=== PATIENT | male | born 1960 | race Caucasian/White ===

== ENCOUNTER 2020-07-18 15:38 | Emergency (ER) | payer OTHER, SELFPAY ==
--- NOTE | ~2020-07-18 | CT_ITS ---
EXAMINATION: CT ANGIOGRAM OF THE CHEST WITH AND WITHOUT CONTRAST (CT PULMONARY ANGIOGRAM FOR PE) CLINICAL INFORMATION: Reason for Exam Elevated D-dimer. Right-sided rib pain COMPARISON: Dorsal and thoracic spine films 12/08/2019, CT abdomen pelvis 10/28/2010 TECHNIQUE: Prior to contrast administration, noncontrast localization images were obtained. Subsequently, multidetector volumetric imaging was performed from the thoracic inlet to below the diaphragms following the administration of 71 mL Omnipaque 350 intravenous contrast. No contrast reaction reported Sagittal, coronal, and MIP oblique sagittal reformatted images were obtained on the CT workstation, uploaded to PACS, and reviewed. This CT examination was performed using dose optimization techniques as appropriate, variously including the following: *Automated exposure control *Adjustment of mA and/or kV according to patient size (this includes techniques or standardized protocols for targeted exams where dose is matched to indication/reason for exam; i.e. extremities or head) *Use of iterative reconstruction technique Total exam dose-length product 274 mGy-cm FINDINGS: QUALITY OF STUDY/CONTRAST BOLUS: Satisfactory. PULMONARY ARTERIES: No central or segmental pulmonary emboli. THORACIC AORTA: No aneurysm or dissection. LUNG: No focal consolidation, worrisome nodules or worrisome masses. A small triangular. Fissural nodular density seen in the right middle lobe most likely a perifissural lymph node (series 6 image 225). A small area of thickened pleura on the minor fissure mimics a mass (series 603 image 513). PLEURA: No pleural effusion or pneumothorax. MEDIASTINUM: Normal heart size. No pericardial effusion. No hilar or mediastinal lymphadenopathy. No evidence of septal bowing or right heart strain. CHEST WALL/AXILLA: No axillary or internal mammary lymphadenopathy. OSSEOUS STRUCTURES: There has been progression of an L1 vertebral body compression fracture with vacuum phenomena present in the disc above as well as a disc below. No rib fractures are seen. UPPER ABDOMEN: Small hiatal hernia is present. No reflux of contrast into the hepatic veins to suggest elevated right heart pressures. CT/CT angio chest PE protocol IMPRESSION: No evidence of pulmonary emboli. Progression of L1 vertebral compression fracture Small nodular densities in the lungs most likely perifissural lymph nodes. Follow-up could be via Fleischner Society criteria. In the highest risk patients, follow-up of such abnormalities with only be at most optional. According to the UPDATED 2017 Fleischner Society recommendations, the advised follow-up imaging for solid nodules < 6 mm is: LOW RISK PATIENT: No routine follow-up. HIGH RISK PATIENT: Optional CT at 12 months. VTE: negative
--- NOTE | ~2020-07-18 | XR_ITS ---
EXAMINATIONS: CHEST 1 VIEW AND RIGHT RIBS CLINICAL INFORMATION: Right-sided pain. COMPARISON: August 24, 2013. TECHNIQUE: A PA radiograph of the chest was obtained in addition to several views of the right ribs. FINDINGS: The cardiac silhouette is not enlarged. The mediastinal and hilar contours are unremarkable. There are neither pleural effusions nor pneumothoraces. There is stable mild blunting of the left lateral costophrenic angle. There are no consolidations. The osseous structures are unremarkable. Specifically, no rib fractures are identified. XR/XR ribs RT min 3V w CXR1V IMPRESSION: No evidence for acute disease. Specifically, no rib fractures identified.
[2020-07-18 15:46] VITALS: BP 130/96; PULSE 97; RESP 18; TEMP 36.2; O2SAT 96; BMI 26.4
[2020-07-18 16:42] LABS: MANUAL DIFF FLAG NO
[2020-07-18 16:44] LABS: Basophils Percent Auto 0.3 % (0-2); Eosinophils Percent Auto 0.6 % (0-4); Hematocrit 49.7 % (42-52); Hemoglobin 17.4 g/dl (14.0-18.0); Imm Gran Abs Auto 0.01 X10*3/uL (0.00-0.03); Imm Gran Pct Auto 0.2 % (0.0-0.4); Lymphocytes Absolute Auto 2.2 X10*3/uL (1.2-4.9); Lymphocytes Percent Auto 35.4 % (20-40); Mean Corpuscular Hemoglobin 33.5 pg (27.0-33.0); Mean Corpuscular Volume 95.6 fL (80-98); Mean Platelet Volume 9.7 fL (9.4-12.4); Monocytes Absolute Auto 0.6 X10*3/uL (0.1-1.2); Monocytes Percent Auto 9.6 % (2-11); Neutrophils Absolute Auto 3.4 X10*3/uL (2.0-8.3); Neutrophils Percent Auto 53.9 % (45-73); Platelet Count 251 X10*3/uL (160-400); White Blood Count 6.3 X10*3/uL (4.8-10.8)
[2020-07-18 16:46] LABS: Glucose Urine UA NEG (NEG); Leukocyte Esterase Urine NEG (NEG); Nitrite Urine NEG (NEG); PH 6.5 (5.0-8.0); Urine Blood NEG (NEG); Urine Ketones 5 MG/DL (NEG); Urine Protein TRACE MG/DL (NEG-TRACE)
[2020-07-18 16:52] LABS: Appearance Urine CLEAR; Color Urine YELLOW
[2020-07-18 17:11] LABS: Anion Gap 20 (12-20); Blood Urea Nitrogen 8 mg/dL (9-16); Calcium 8.9 mg/dL (8.4-10.2); Carbon Dioxide 26 mmol/L (22-29); Chloride 98 mmol/L (96-108); Creatinine Clr Calc Pharmacy 92.4; Estimated Glomerular Filt Rate > 60; Glucose Random 115 mg/dL (60-115); Potassium 4.8 mmol/L (3.3-5.1); Sodium 139 mmol/L (135-145)
--- NOTE | 2020-07-18 19:10 | ED.GENADULT ---
HPI - General Adult General Chief complaint: General Medical Stated complaint: right side pain Time Seen by Provider: 07/18/20 19:01 Source: patient Mode of arrival: ambulatory History of Present Illness HPI narrative: 60-year-old male with a past medical history of COPD, smoker, presenting to the ED complaining of right-sided rib pain times 4-5 days. Admits hurts to move, breathe, or cough. States feels like a broken rib. He denies known trauma/fall or injury or, shortness of breath, fever, chills, recent travel, LE edema, history of blood clots Does report drinking about a 6 pack of beer daily Onset (ago): day(s) Related Data Allergies Allergy/AdvReac Type Severity Reaction Status Date / Time No Known Allergies Allergy Unverified 02/12/20 15:05 Review of Systems Review of Systems: Constitutional: No Fever, No Chills Cardiovascular: +R sided chest wall pain, No SOB, No Dyspnea on Exertion, No Orthopnea, No Edema Respiratory: Cough, No Sputum, No Wheezing, +smoker Gastrointestinal: No Nausea, No Vomiting, No Diarrhea, No Constipation, No Abdominal pain Musculoskeletal: No joint pain, No Myalgias, No Joint Swelling Skin: No Skin Lesions, No rash Yes all other systems are reviewed and are negative [facility] Past Medical History Attestation statement: The following information was validated with the patient. Social History Social History Advance Directives: No Advance Directives Information Provided: No Physical Exam Vital Signs: Vital Signs: Last Vital Signs Temp 97.1 F 07/18/20 15:46 Pulse 97 07/18/20 20:18 Resp 18 07/18/20 20:18 BP 109/78 07/18/20 20:18 Pulse Ox 97 07/18/20 20:18 Body Mass Index 26.4 Const: Other: Appears in pain General: cooperative Orientation/consciousness: patient oriented x3 Limitations: no limitations HENMT: Head: Yes normal to inspection Ears: hearing grossly normal bilaterally General nose exam: Normal external nose present Face and sinus: Yes normal facial exam Eyes: General: appearance normal, both eyes and all related structures EOM: EOMs intact bilaterally Neck: Neck: Yes normal visual inspection Chest: Chest palpation & inspection: normal inspection of the chest, no crepitus and tenderness rib right mid-axillary line involving the 6th rib and involving the 7th rib Resp: Effort & Inspection: normal respiratory effort Auscultation: clear to auscultation bilaterally and wheezes expiratory wheezes (slight) and throughout Cardio: Rate: regular rate Heart sounds: S1 normal heart sound present and S2 normal heart sound present GI: Inspection: Yes normal to inspection Palpation (GI): Soft to palpation, nontender, no guarding and not rigid Skin: Rashes: no rashes Wounds: no wounds Neuro: General: patient oriented x3 Gait exam (Neuro): Normal gait present Extrem: General: Yes normal to inspection Course Course Course Narrative: -labs unremarkable XR ribs RT min 3V w CXR1V IMPRESSION: No evidence for acute disease. Specifically, no rib fractures identified. >> D-dimer and troponin added -2024--D-dimer elevated at 656, will obtain CTA to rule out PE 2099--ED care transferred to [facility] mike pending CTA and dispo per results Medical Decision Making MDM Narrative Medical decision making narrative: 60-year-old male with a past medical history of COPD, smoker, presenting to the ED complaining of right-sided rib pain x 4-5 days. On exam VSS, NAD/well-appearing, physical exam as above, rib tenderness reproducible. Concern for rib fracture vs PE. Lower concern for pneumonia or ACS Plan: Labs, rib series Lab Data Result diagrams: 07/18/20 16:26 07/18/20 16:26 Labs: Lab Results 07/18/20 07/18/20 07/18/20 Range/Units 16:21 16:25 16:26 WBC 6.3 (4.8-10.8) X10*3/uL RBC 5.20 (4.60-5.80) X10*6/uL Hgb 17.4 (14.0-18.0) g/dl Hct 49.7 (42-52) % MCV 95.6 (80-98) fL MCH 33.5 H (27.0-33.0) pg MCHC 35.0 (31.0-36.0) g/dl RDW 14.0 (11.0-16.0) % Plt Count 251 (160-400) X10*3/uL MPV 9.7 (9.4-12.4) fL Immature Gran % (Auto) 0.2 (0.0-0.4) % Neut % (Auto) 53.9 (45-73) % Lymph % (Auto) 35.4 (20-40) % [place] % (Auto) 9.6 (2-11) % Eos % (Auto) 0.6 (0-4) % Baso % (Auto) 0.3 (0-2) % Lymph # (Auto) 2.2 (1.2-4.9) X10*3/uL [place] # (Auto) 0.6 (0.1-1.2) X10*3/uL Eos # (Auto) 0.0 (0.0-0.4) X10*3/uL Baso # (Auto) 0.0 (0.0-0.2) X10*3/uL Abs Immat Gran (auto) 0.01 (0.00-0.03) X10*3/uL Absolute Neuts (auto) 3.4 (2.0-8.3) X10*3/uL Absolute Nucleated RBC 0.000 (0.0-0.012) X10*3/uL Nucleated RBC % (auto) 0.0 (0.0-0.2) /100WBC D-Dimer 656 NG/ML Hold Blue Top SEE NOTE Sodium (135-145) mmol/L Potassium (3.3-5.1) mmol/L Chloride (96-108) mmol/L Carbon Dioxide (22-29) mmol/L Anion Gap (12-20) BUN (9-16) mg/dL Creatinine (0.5-1.4) mg/dL Estim Creat Clear Calc Estimated GFR Random Glucose (60-115) mg/dL Calcium (8.4-10.2) mg/dL Urine Color YELLOW Urine Appearance CLEAR Urine pH 6.5 (5.0-8.0) Ur Specific [place] 1.020 (1.005-1.025) Urine Protein TRACE (NEG-TRACE) MG/DL Urine Glucose (UA) NEG (NEG) MG/DL Urine Ketones 5 (NEG) MG/DL Urine Blood NEG (NEG) Urine Nitrite NEG (NEG) Ur Leukocyte Esterase NEG (NEG) Urine RBC 0 (0) /HPF Urine WBC 0 (0-4) /HPF Ur Squamous Epith Cells TRACE /LPF Urine Bacteria NONE /LPF Urine Mucus 1+ /LPF 07/18/20 Range/Units 16:26 WBC (4.8-10.8) X10*3/uL RBC (4.60-5.80) X10*6/uL Hgb (14.0-18.0) g/dl Hct (42-52) % MCV (80-98) fL MCH (27.0-33.0) pg MCHC (31.0-36.0) g/dl RDW (11.0-16.0) % Plt Count (160-400) X10*3/uL MPV (9.4-12.4) fL Immature Gran % (Auto) (0.0-0.4) % Neut % (Auto) (45-73) % Lymph % (Auto) (20-40) % [place] % (Auto) (2-11) % Eos % (Auto) (0-4) % Baso % (Auto) (0-2) % Lymph # (Auto) (1.2-4.9) X10*3/uL [place] # (Auto) (0.1-1.2) X10*3/uL Eos # (Auto) (0.0-0.4) X10*3/uL Baso # (Auto) (0.0-0.2) X10*3/uL Abs Immat Gran (auto) (0.00-0.03) X10*3/uL Absolute Neuts (auto) (2.0-8.3) X10*3/uL Absolute Nucleated RBC (0.0-0.012) X10*3/uL Nucleated RBC % (auto) (0.0-0.2) /100WBC D-Dimer NG/ML Hold Blue Top Sodium 139 (135-145) mmol/L Potassium 4.8 (3.3-5.1) mmol/L Chloride 98 (96-108) mmol/L Carbon Dioxide 26 (22-29) mmol/L Anion Gap 20 (12-20) BUN 8 L (9-16) mg/dL Creatinine 0.85 (0.5-1.4) mg/dL Estim Creat Clear Calc 92.4 Estimated GFR > 60 Random Glucose 115 (60-115) mg/dL Calcium 8.9 (8.4-10.2) mg/dL Urine Color Urine Appearance Urine pH (5.0-8.0) Ur Specific [place] (1.005-1.025) Urine Protein (NEG-TRACE) MG/DL Urine Glucose (UA) (NEG) MG/DL Urine Ketones (NEG) MG/DL Urine Blood (NEG) Urine Nitrite (NEG) Ur Leukocyte Esterase (NEG) Urine RBC (0) /HPF Urine WBC (0-4) /HPF Ur Squamous Epith Cells /LPF Urine Bacteria /LPF Urine Mucus /LPF Discharge Plan Discharge Clinical Impression: Acute chest wall pain
[2020-07-18 19:29] LABS: Mucus Urine 1+ /LPF; RBC Urine 0 /HPF (0); Squamous Epithelial Cell Urine TRACE /LPF; WBC Urine 0 /HPF (0-4)
[2020-07-18 20:13] LABS: D Dimer 656 NG/ML
[2020-07-18 20:16] VITALS: PULSE 98; O2SAT 97
[2020-07-18] MEDS: Albuterol Sulfate 90 MCG 8 GM INHALER 4 PUFF INHALE (20:16)
[2020-07-18 20:18] VITALS: BP 109/78; PULSE 97; RESP 18; O2SAT 97
[2020-07-18] MEDS: Lidocaine 4 % Patch ADH..PATCH 1 PATCH TRANSDERMA (20:19)
[2020-07-18] MEDS: Acetaminophen 325 MG TABLET 650 MG PO (20:20)
--- NOTE | 2020-07-18 20:20 | PC.NURSE ---
Pt aaox4, resting on stretcher in NAD, breathing with ease on RA. Pt with hx of COPD, RA at baseline. Pt maintaining O2 sats on RA. Pt reports increase R lateral pain with coughing, increased coughing past couple of days. Pt awaiting lab results, medicated per JUL. Stretcher low locked, rails raised, call dove within reach.
[2020-07-18 20:37] LABS: INTERNATIONAL NORM RATIO 0.9 (0.9-1.1); Prothrombin Time 10.3 SEC (10.8-13.0)
[2020-07-18 20:40] LABS: Partial Thromboplastin Time 31.6 SEC (24.1-38.0)
[2020-07-18 20:42] LABS: Troponin-I High Sensitivity < 3.5 ng/L (<3.5-35.0)
[2020-07-18] MEDS: iohexoL 350 MG/ML 100 ML INFUS..BTL IV (21:48)
[2020-07-18 22:06] LABS: B Type Natriuretic Peptide 20 pg/mL (<100)
[2020-07-18 22:09] VITALS: BP 101/69; PULSE 88; RESP 18; TEMP 36.9; O2SAT 96
--- NOTE | 2020-07-18 22:35 | PC.NURSE ---
PATIENT WALKED OUT OF BUILDING. THIS NURSE UNAWARE THAT PATIENT WAS NOT DISCHARGED.
--- NOTE | 2020-07-18 23:00 | PC.NURSE ---
SUMIT Gibbons attempted to contact pt as he was seen leaving the building, had an IV placed while in ED. Pt did not answer phone call at number in chart [phone]. This RN contacted Rashawn PATEL to request wellbeing check to remove IV from pt. SUMIT Gibbons made contact with pt's brother Pedro Luis and informed him to contact pt with instructions [place] [facility] [place] Awaiting call from pt.
--- NOTE | 2020-07-18 23:53 | PC.NURSE ---
pt returned to hospital, brother brought him in. pt understands to follow up with provider at [address], listed on discharge paperwork. IV removed, pt aware of RX for oxycodone at pharmacy.
--- NOTE | 2020-07-19 00:01 | ED.GENADULT ---
HPI - General Adult General Chief complaint: General Medical Stated complaint: right side pain Time Seen by Provider: 07/18/20 19:01 Source: patient Mode of arrival: ambulatory Related Data Previous Rx's Medication Instructions Recorded oxycodone 5 mg PO Q8H PRN #14 tab 07/18/20 Allergies Allergy/AdvReac Type Severity Reaction Status Date / Time No Known Allergies Allergy Unverified 02/12/20 15:05 [facility] Social History Social History Advance Directives: No Advance Directives Information Provided: No Physical Exam Vital Signs: Vital Signs: Last Vital Signs Temp 98.4 F 07/18/20 22:09 Pulse 88 07/18/20 22:09 Resp 18 07/18/20 22:09 BP 101/69 07/18/20 22:09 Pulse Ox 96 07/18/20 22:09 Body Mass Index 26.4 Course Course Course Narrative: It was noted the patient left the facility on his own regard, he was called back about his CT scan results. Patient did return, IV to left AC was removed by RN. I did speak to this patient in person regarding his L1 compression fracture, he did have a prior history of an L1-L2 compression fracture from a fall several years ago. Patient referred to Dr. Hogan Patient verbalized understanding of and agrees to plan of care discharge home. Medical Decision Making Lab Data Result diagrams: 07/18/20 16:26 07/18/20 16:26 Labs: Lab Results 07/18/20 07/18/20 07/18/20 Range/Units 16:21 16:25 16:26 WBC 6.3 (4.8-10.8) X10*3/uL RBC 5.20 (4.60-5.80) X10*6/uL Hgb 17.4 (14.0-18.0) g/dl Hct 49.7 (42-52) % MCV 95.6 (80-98) fL MCH 33.5 H (27.0-33.0) pg MCHC 35.0 (31.0-36.0) g/dl RDW 14.0 (11.0-16.0) % Plt Count 251 (160-400) X10*3/uL MPV 9.7 (9.4-12.4) fL Immature Gran % (Auto) 0.2 (0.0-0.4) % Neut % (Auto) 53.9 (45-73) % Lymph % (Auto) 35.4 (20-40) % [place] % (Auto) 9.6 (2-11) % Eos % (Auto) 0.6 (0-4) % Baso % (Auto) 0.3 (0-2) % Lymph # (Auto) 2.2 (1.2-4.9) X10*3/uL [place] # (Auto) 0.6 (0.1-1.2) X10*3/uL Eos # (Auto) 0.0 (0.0-0.4) X10*3/uL Baso # (Auto) 0.0 (0.0-0.2) X10*3/uL Abs Immat Gran (auto) 0.01 (0.00-0.03) X10*3/uL Absolute Neuts (auto) 3.4 (2.0-8.3) X10*3/uL Absolute Nucleated RBC 0.000 (0.0-0.012) X10*3/uL Nucleated RBC % (auto) 0.0 (0.0-0.2) /100WBC PT 10.3 L (10.8-13.0) SEC INR 0.9 (0.9-1.1) APTT 31.6 (24.1-38.0) SEC D-Dimer 656 NG/ML Hold Blue Top SEE NOTE Sodium (135-145) mmol/L Potassium (3.3-5.1) mmol/L Chloride (96-108) mmol/L Carbon Dioxide (22-29) mmol/L Anion Gap (12-20) BUN (9-16) mg/dL Creatinine (0.5-1.4) mg/dL Estim Creat Clear Calc Estimated GFR Random Glucose (60-115) mg/dL Calcium (8.4-10.2) mg/dL Troponin I High Sens (<3.5-35.0) ng/L B-Natriuretic Peptide Urine Color YELLOW Urine Appearance CLEAR Urine pH 6.5 (5.0-8.0) Ur Specific [place] 1.020 (1.005-1.025) Urine Protein TRACE (NEG-TRACE) MG/DL Urine Glucose (UA) NEG (NEG) MG/DL Urine Ketones 5 (NEG) MG/DL Urine Blood NEG (NEG) Urine Nitrite NEG (NEG) Ur Leukocyte Esterase NEG (NEG) Urine RBC 0 (0) /HPF Urine WBC 0 (0-4) /HPF Ur Squamous Epith Cells TRACE /LPF Urine Bacteria NONE /LPF Urine Mucus 1+ /LPF 07/18/20 07/18/20 07/18/20 Range/Units 16:26 16:26 21:16 WBC (4.8-10.8) X10*3/uL RBC (4.60-5.80) X10*6/uL Hgb (14.0-18.0) g/dl Hct (42-52) % MCV (80-98) fL MCH (27.0-33.0) pg MCHC (31.0-36.0) g/dl RDW (11.0-16.0) % Plt Count (160-400) X10*3/uL MPV (9.4-12.4) fL Immature Gran % (Auto) (0.0-0.4) % Neut % (Auto) (45-73) % Lymph % (Auto) (20-40) % [place] % (Auto) (2-11) % Eos % (Auto) (0-4) % Baso % (Auto) (0-2) % Lymph # (Auto) (1.2-4.9) X10*3/uL [place] # (Auto) (0.1-1.2) X10*3/uL Eos # (Auto) (0.0-0.4) X10*3/uL Baso # (Auto) (0.0-0.2) X10*3/uL Abs Immat Gran (auto) (0.00-0.03) X10*3/uL Absolute Neuts (auto) (2.0-8.3) X10*3/uL Absolute Nucleated RBC (0.0-0.012) X10*3/uL Nucleated RBC % (auto) (0.0-0.2) /100WBC PT (10.8-13.0) SEC INR (0.9-1.1) APTT (24.1-38.0) SEC D-Dimer NG/ML Hold Blue Top Sodium 139 (135-145) mmol/L Potassium 4.8 (3.3-5.1) mmol/L Chloride 98 (96-108) mmol/L Carbon Dioxide 26 (22-29) mmol/L Anion Gap 20 (12-20) BUN 8 L (9-16) mg/dL Creatinine 0.85 (0.5-1.4) mg/dL Estim Creat Clear Calc 92.4 Estimated GFR > 60 Random Glucose 115 (60-115) mg/dL Calcium 8.9 (8.4-10.2) mg/dL Troponin I High Sens < 3.5 (<3.5-35.0) ng/L B-Natriuretic Peptide TNP 20 Urine Color Urine Appearance Urine pH (5.0-8.0) Ur Specific [place] (1.005-1.025) Urine Protein (NEG-TRACE) MG/DL Urine Glucose (UA) (NEG) MG/DL Urine Ketones (NEG) MG/DL Urine Blood (NEG) Urine Nitrite (NEG) Ur Leukocyte Esterase (NEG) Urine RBC (0) /HPF Urine WBC (0-4) /HPF Ur Squamous Epith Cells /LPF Urine Bacteria /LPF Urine Mucus /LPF Imaging Data CT PE study: Attestation: I personally reviewed and interpreted this imaging study as follows: Radiologist's impression: EXAMINATION: CT ANGIOGRAM OF THE CHEST WITH AND WITHOUT CONTRAST (CT PULMONARY ANGIOGRAM FOR PE) CLINICAL INFORMATION: Reason for Exam Elevated D-dimer. Right-sided rib pain COMPARISON: Dorsal and thoracic spine films 12/08/2019, CT abdomen pelvis 10/28/2010 TECHNIQUE: Prior to contrast administration, noncontrast localization images were obtained. Subsequently, multidetector volumetric imaging was performed from the thoracic inlet to below the diaphragms following the administration of 71 mL Omnipaque 350 intravenous contrast. No contrast reaction reported Sagittal, coronal, and MIP oblique sagittal reformatted images were obtained on the CT workstation, uploaded to PACS, and reviewed. This CT examination was performed using dose optimization techniques as appropriate, variously including the following: *Automated exposure control *Adjustment of mA and/or kV according to patient size (this includes techniques or standardized protocols for targeted exams where dose is matched to indication/reason for exam; i.e. extremities or head) *Use of iterative reconstruction technique Total exam dose-length product 274 mGy-cm FINDINGS: QUALITY OF STUDY/CONTRAST BOLUS: Satisfactory. PULMONARY ARTERIES: No central or segmental pulmonary emboli. THORACIC AORTA: No aneurysm or dissection. LUNG: No focal consolidation, worrisome nodules or worrisome masses. A small triangular. Fissural nodular density seen in the right middle lobe most likely a perifissural lymph node (series 6 image 225). A small area of thickened pleura on the minor fissure mimics a mass (series 603 image 513). PLEURA: No pleural effusion or pneumothorax. MEDIASTINUM: Normal heart size. No pericardial effusion. No hilar or mediastinal lymphadenopathy. No evidence of septal bowing or right heart strain. CHEST WALL/AXILLA: No axillary or internal mammary lymphadenopathy. OSSEOUS STRUCTURES: There has been progression of an L1 vertebral body compression fracture with vacuum phenomena present in the disc above as well as a disc below. No rib fractures are seen. UPPER ABDOMEN: Small hiatal hernia is present. No reflux of contrast into the hepatic veins to suggest elevated right heart pressures. CT/CT angio chest PE protocol IMPRESSION: No evidence of pulmonary emboli. Progression of L1 vertebral compression fracture Small nodular densities in the lungs most likely perifissural lymph nodes. Follow-up could be via Fleischner Society criteria. In the highest risk patients, follow-up of such abnormalities with only be at most optional. According to the UPDATED 2017 Fleischner Society recommendations, the advised follow-up imaging for solid nodules < 6 mm is: LOW RISK PATIENT: No routine follow-up. HIGH RISK PATIENT: Optional CT at 12 months. VTE: negative Discharge Plan Discharge Clinical Impression: Acute chest wall pain, Closed compression fracture of body of L1 vertebra, D-dimer, elevated Patient Disposition: Home, Self-Care Instructions: Vertebral Compression Fracture (ED) Additional Instructions: You were evaluated for rib pain. CT scan of the chest to rule out pulmonary embolism was negative for blood clot, however incidental finding is a compression fracture to L1 vertebrae. Please follow-up with your primary care physician for your elevated D-dimer. Please follow-up with pain management for L1 compression fracture. We prescribed oxycodone for pain management. This medication is a narcotic and has high risk for addiction and abuse. This medication can cause an increased risk for falls, delayed reaction time, and constipation. Please drink plenty of fluids. Consider MiraLax or Colace to help prevent constipation. Thank you for choosing this emergency department for evaluation. Please follow-up with primary care physician as needed. Return to the emergency department for any new, concerning, or worsening symptoms. Prescriptions: New oxycodone 5 mg tablet 5 mg PO Q8H PRN (Reason: pain) Qty: 14 RF: 0 Referrals: Hank Hogan MD [Physician] - 2 days (L1 compression fracture) Discharge Date/Time: 07/18/20 23:57
== END 2020-07-18 23:57 | disposition home or self-care (01) ==
PROVIDERS: Physician Assistant; Emergency Provider Internal Medicine; PCP Internal Medicine
DX: R07.81 Pleurodynia (principal); R07.89 Other chest pain
CPT/HCPCS: 36415; 71101; 71275; 80048; 81001; 83880; 84484; 85025; 85379; 85610; 85730; 94640; 99284; Q9967

== ENCOUNTER 2020-07-22 08:04 | Outpatient (REF) | payer OTHER, SELFPAY | END 2020-07-22 08:05 | disposition home or self-care (01) | LOC: HO.XRAY 08:04 | PROVIDERS: PCP Internal Medicine; Visit Provider Anesthesiology | DX: Z13.89 Encounter for screening for other disorder (principal) ==

== ENCOUNTER 2020-07-27 14:27 | Outpatient (REF) | payer OTHER, SELFPAY | END 2020-07-27 14:28 | disposition home or self-care (01) | LOC: HO.MRI 14:27 | PROVIDERS: Visit Provider Anesthesiology | DX: Z13.89 Encounter for screening for other disorder (principal) ==

== ENCOUNTER 2020-10-15 16:37 | Emergency (ER) | payer MEDICAID, SELFPAY ==
[2020-10-15 16:50] VITALS: BP 114/72; PULSE 105; RESP 14; TEMP 36.6; O2SAT 95; BMI 29.0
[2020-10-15 17:05] VITALS: BP 114/72; PULSE 105; RESP 14; TEMP 36.6; O2SAT 95
[2020-10-15] MEDS: chlordiazePOXIDE HCl 25 MG CAPSULE 50 MG PO ×2 (17:34→22:43)
[2020-10-15 19:10] LABS: COVID-19 Test Negative (Negative)
[2020-10-15 19:20] LABS: Amphetamine Screen Urine Not Detected (Not Detect); Barbiturates, Urine Not Detected (Not Detect); Benzodiazepines Screen Urine Not Detected (Not Detect); Cannabinoid Screen Urine POSITIVE (Not Detect); Cocaine Screen Urine POSITIVE (Not Detect); Opiate Screen Urine Not Detected (Not Detect); Phencyclidine Screen Urine Not Detected (Not Detect)
[2020-10-15 19:24] LABS: MANUAL DIFF FLAG NO
[2020-10-15 19:29] LABS: Basophils Absolute Auto 0.1 X10*3/uL (0.0-0.2); Basophils Percent Auto 1.1 % (0-2); Eosinophils Percent Auto 0.7 % (0-4); Hemoglobin 12.9 g/dl (14.0-18.0); Imm Gran Abs Auto 0.02 X10*3/uL (0.00-0.03); Imm Gran Pct Auto 0.4 % (0.0-0.4); Lymphocytes Absolute Auto 1.4 X10*3/uL (1.2-4.9); Lymphocytes Percent Auto 24.9 % (20-40); Mean Corpuscular HGB Conc 34.9 g/dl (31.0-36.0); Mean Corpuscular Volume 97.6 fL (80-98); Mean Platelet Volume 9.6 fL (9.4-12.4); Monocytes Absolute Auto 0.4 X10*3/uL (0.1-1.2); Monocytes Percent Auto 6.1 % (2-11); Neutrophils Absolute Auto 3.8 X10*3/uL (2.0-8.3); Neutrophils Percent Auto 66.8 % (45-73); Platelet Count 296 X10*3/uL (160-400); Red Blood Count 3.79 X10*6/uL (4.60-5.80); Red Cell Distribution Width 14.5 % (11.0-16.0); White Blood Count 5.7 X10*3/uL (4.8-10.8)
[2020-10-15 19:37] LABS: INTERNATIONAL NORM RATIO 0.8 (0.9-1.1); Prothrombin Time 9.9 SEC (10.8-13.0)
--- NOTE | 2020-10-15 19:39 | ED_ITS ---
HPI - Psych General Chief Complaint: Psychiatric Symptoms Stated Complaint: crisis Time Seen by Provider: 10/15/20 17:24 Source: patient Mode of arrival: ambulatory Limitations: no limitations History of Present Illness HPI Narrative: Patient comes emergency room complaining of worsening depression. Patient states he has not taking his meds for 2 days. However, patient's nurse did a medication reconciliation, seems that he has not picked up his medications for nearly 6 months. Patient admits to daily alcohol drinking to cope with depression. Patient has suicidal thoughts, no specific plan. Denies homicidal ideation MD complaint: feels depressed Related Data Home Medications Medication Instructions Recorded Confirmed paroxetine HCl 20 mg tablet 20 mg PO DAILY 07/22/20 Previous Rx's Medication Instructions Recorded oxycodone 5 mg PO Q8H PRN #14 tab 07/18/20 Allergies Allergy/AdvReac Type Severity Reaction Status Date / Time diclofenac [From Flector] Allergy Unknown Verified 07/22/20 08:15 Review of Systems Review of Systems: Constitutional : No Weight loss, No Fever, No Chills, No Night Sweats, No Fatigue, No Malaise ENT/Mouth : No Hearing loss, No Ear Pain, No Nasal Congestion, No Sinus Pain, No Hoarseness, No sore throat, No Rhinorrhea, No Swallowing Difficulty Eyes: No Eye Pain, No Swelling, No Redness, No Foreign Body, No Discharge, No V ision Changes Cardiovascular : No Chest Pain, No SOB, No Dyspnea on Exertion, No Orthopnea, No Edema, No Palpitations Respiratory : No Cough, No Sputum, No Wheezing, No Smoke Exposure, No Dyspnea Gastrointestinal : No Nausea, No Vomiting, No Diarrhea, No Constipation, No abdominal Pain, No Hematochezia, No Melena Genitourinary : no irregular bleeding, No Dysuria, No Urinary Frequency, No Hematuria, No Urinary Incontinence, No Urgency, No Flank Pain, No Urinary Flow Changes, No Hesitancy Musculoskeletal : No joint pain, No Myalgias, No Joint Swelling Skin : No Skin Lesions, No rash Neuro : No Weakness, No Numbness, No Paresthesias, No Loss of Consciousness, No Dizziness, No Headache Psych : No Anxiety/Panic, complaining of worsening depression, vague suicidal ideation, no homicidal ideation, feeling guilty of alcohol abuse Heme/Lymph: No Bruising, No Bleeding,No Lymphadenopathy Endocrine : No Polyuria, No Polydipsia, No Temperature Intolerance [facility] Past Medical History Medical History (Updated 10/15/20 @ 19:41 by She Sanchez MD) Compression fracture of L1 lumbar vertebra Depression Social History Social History Alcohol intake: current Alcohol intake frequency: 3 or more drinks per day Alcohol type: hard liquor Advance Directives: No Advance Directives Information Provided: Yes Physical Exam Vital Signs: Vital Signs: Last Vital Signs Temp 97.9 F 10/15/20 17:05 Pulse 105 H 10/15/20 17:05 Resp 14 10/15/20 17:05 BP 114/72 10/15/20 17:05 Pulse Ox 95 10/15/20 17:05 Body Mass Index 29.0 Appearance: Alert. Oriented X3. No acute distress. Eyes: Pupils equal, round and reactive to light. ENT: Pharynx normal. Neck: Normal inspection. Neck supple. No lymph nodes noted. No crepitus CVS: Normal heart rate and rhythm. Pulses normal. Normal S1 and S2 Respiratory: No respiratory distress. Breath sounds normal. No Wheezing. No rales Abdomen: Soft and nontender. No rigidity. No distention. good BS x4 Skin: Skin warm and dry. Normal skin color. Normal skin turgor. Extremities: No lower extremity edema. No lower extremity edema. No Lacerations. No Rash Neuro: Oriented X 3. No motor deficit. No sensory deficit. Moving all extermities. No slurred speech. Course Course Course Narrative: Alcohol level pending. [facility] consult pending MDM - Psych Lab Data Result diagrams: 10/15/20 19:16 10/15/20 19:16 Labs: Lab Results 10/15/20 10/15/20 10/15/20 Range/Units 17:45 17:45 19:16 WBC 5.7 (4.8-10.8) X10*3/uL RBC 3.79 L D (4.60-5.80) X10*6/uL Hgb 12.9 L D (14.0-18.0) g/dl Hct 37.0 L D (42-52) % MCV 97.6 (80-98) fL MCH 34.0 H (27.0-33.0) pg MCHC 34.9 (31.0-36.0) g/dl RDW 14.5 (11.0-16.0) % Plt Count 296 (160-400) X10*3/uL MPV 9.6 (9.4-12.4) fL Immature Gran % (Auto) 0.4 (0.0-0.4) % Neut % (Auto) 66.8 (45-73) % Lymph % (Auto) 24.9 (20-40) % [place] % (Auto) 6.1 (2-11) % Eos % (Auto) 0.7 (0-4) % Baso % (Auto) 1.1 (0-2) % Lymph # (Auto) 1.4 (1.2-4.9) X10*3/uL [place] # (Auto) 0.4 (0.1-1.2) X10*3/uL Eos # (Auto) 0.0 (0.0-0.4) X10*3/uL Baso # (Auto) 0.1 (0.0-0.2) X10*3/uL Abs Immat Gran (auto) 0.02 (0.00-0.03) X10*3/uL Absolute Neuts (auto) 3.8 (2.0-8.3) X10*3/uL Absolute Nucleated RBC 0.000 (0.0-0.012) X10*3/uL Nucleated RBC % (auto) 0.0 (0.0-0.2) /100WBC Urine Opiates Screen Not Detected (Not Detect) Ur Barbiturates Screen Not Detected (Not Detect) Ur Phencyclidine Scrn Not Detected (Not Detect) Ur Amphetamines Screen Not Detected (Not Detect) U Benzodiazepines Scrn Not Detected (Not Detect) Urine Cocaine Screen POSITIVE H (Not Detect) U Marijuana (THC) Screen POSITIVE H (Not Detect) COVID-19 (HAN) Negative (Negative) COVID-19 Clin Com See Note Discharge Plan Discharge Clinical Impression: Depression, Alcohol abuse Prescriptions: No Action oxycodone 5 mg tablet 5 mg PO Q8H PRN (Reason: pain) Qty: 14 RF: 0
[2020-10-15 19:40] LABS: Partial Thromboplastin Time 32.1 SEC (24.1-38.0)
[2020-10-15 19:52] LABS: Ethanol 181 mg/dL
[2020-10-15 20:00] LABS: Alanine Aminotransferase 197 U/L (0-40); Alkaline Phosphatase 159 U/L (39-117); Anion Gap 20 (12-20); Aspartate Amino Transferase 432 U/L (5-37); Bilirubin Direct 0.8 mg/dL (0.0-0.5); Bilirubin Total 1.7 mg/dL (0.0-1.0); Blood Urea Nitrogen 7 mg/dL (9-16); Calcium 8.9 mg/dL (8.4-10.2); Carbon Dioxide 27 mmol/L (22-29); Chloride 97 mmol/L (96-108); Creatinine Clr Calc Pharmacy 113.6; Estimated Glomerular Filt Rate > 60; Glucose Random 140 mg/dL (60-115); Magnesium 1.8 mg/dL (1.6-2.6); Potassium 3.4 mmol/L (3.3-5.1); Sodium 141 mmol/L (135-145); Total Protein 6.6 g/dL (6.5-8.0)
--- NOTE | 2020-10-15 20:47 | MHC.CARE ---
T/W attempted to check in with pt to assess presentation and determine if an crisis evaluation can be conducted due to pt's BAL. Upon approach, pt is observed to be laying on his stomach with his head down. Staff report that he has been intermittently vomiting. T/W asks pt if he is ok and if it is a good time to speak, however he states now is not a good time, he is not feeling to well and requests for someone to return back later. Pt will be evaluated by the CARE team tomorrow morning and at that time, pt will be clinically sober.
--- NOTE | 2020-10-15 21:32 | PC.NURSE ---
Care team at bedside, patient engaged
--- NOTE | 2020-10-15 21:44 | MHC.CARE ---
T/W attempted to speak with pt, at this time more engaged. Pt expresses that he called an ambulance on himself due to an increase in depression. He expresses several challenges and stressors in his life right now that are contributing to his depression. Pt reports that he has had mild depression his entire life but has never seen a therapist. He states he is currently on Paxil, and states his primary care dr prescribes this, however has not been medication compliant for a few days. Pt shares that he has been residing in a motel for the past three months, and in the process of selling his house. He reports he is currently going through a divorce and has no current family support due to burning my bridges . Pt states he is currently not working due to his divorce . Pt denies having any providers at this time and denies any hx of IP admissions. He endorses SI with no plan or intent. Pt expresses I think I need a psych [facility] . Pt reports he has been increasingly drinking in his hotel room with no daily structure. Pt reports that he has gone to [facility] in the past and has a hx of detox admissions. Pt explains that he really doesn't know what he needs. Once exploring this further and to explore if he would benefit from an EATS placement he declines to further talk reporting I don't know I can't think right now and proceeds to share that he is not physically feeling well. It is clear that pt is struggling with recent psychosocial factors, increasing alcohol consumption and recent homelessness. Pt is hopeless and helpless. Pt will benefit from being re-seen tomorrow by the CARE team to determine what level of care may be most helpful and beneficial for pt. Pt is unable to be further evaluated at this time, and will likely be more forthcoming and less vague/guarded tomorrow after pt is able to rest and feeling better.
[2020-10-15 21:52] VITALS: BP 113/51; PULSE 85; RESP 16; TEMP 36.6; O2SAT 96
--- NOTE | 2020-10-15 22:47 | PC.NURSE ---
Patient symptomatic of withdrawal, scored 12 on CIWA, provider notified/ordered Librium 50 mg/administered as ordered/pending effect, will continue to monitor.
[2020-10-16 05:14] VITALS: BP 151/97; PULSE 102; RESP 18; TEMP 36.4; O2SAT 95
[2020-10-16] MEDS: chlordiazePOXIDE HCl 25 MG CAPSULE PO ×3 (05:28→13:53)
--- NOTE | 2020-10-16 05:38 | PC.NURSE ---
Patient just woke for bathroom use, reported anxiety 6/10 and tingling on fingers, CIWA assessed scored 9, provider notified/verbally ordered Librium 25 mg/order entered/read back/confirmed by provider/administered as ordered/pending effect, will continue to monitor.
[2020-10-16 08:14] VITALS: BP 121/72; PULSE 70; TEMP 36.2; O2SAT 92
--- NOTE | 2020-10-16 08:59 | MHC.CARE ---
CARE Team met with Pt who reported daily alcohol use since June 2020; typically vodka. Pt does report lifelong alcohol use which has been intermittently problematic. Pt reports multiple recent life stressors which have increased his alcohol use. Pt reports history of multiple detox admissions. Pt denies SI/HI/AH/VH or history. Pt reports no history of IPLOC admission. Pt is requesting a detox admission to help with obtaining sobriety. CARE Team discussed with attending provider who is in agreement.
[2020-10-16 09:37] LABS: Alanine Aminotransferase 235 U/L (0-40); Albumin Level 3.6 g/dL (3.5-5.0); Alkaline Phosphatase 196 U/L (39-117); Aspartate Amino Transferase 597 U/L (5-37); Bilirubin Direct 1.3 mg/dL (0.0-0.5); Bilirubin Total 2.4 mg/dL (0.0-1.0); Total Protein 5.8 g/dL (6.5-8.0)
--- NOTE | 2020-10-16 10:28 | MHC.CARE ---
CARE Team received a call from [facility] who reported Pt does not have health insurance and they are no longer to accept him. CARE Team to refer Pt to treatment for uninsured individuals.
[2020-10-16 11:41] VITALS: BP 136/79; PULSE 64; TEMP 36.5; O2SAT 92
[2020-10-16 13:43] VITALS: BP 115/73; PULSE 72; RESP 18; TEMP 36.4; O2SAT 95
--- NOTE | 2020-10-16 14:55 | MHC.CARE ---
Pt is uninsured and limited detoxs accept uninsured individuals. CARE Team working on placement.
--- NOTE | 2020-10-17 01:36 | MHC.CARE ---
late entry-- [facility] did not have any male beds Sunday evening, encouraged to call back in the morning.
[2020-10-17 02:52] VITALS: BP 147/93; PULSE 85; RESP 18; TEMP 36; O2SAT 96
--- NOTE | 2020-10-17 08:55 | MHC.RECOVSUP ---
Recovery Support note: This flex o writer operator met with patient to confirm that he is still interested in going to detox. Patient reports he is still agreeable to the plan. This flex o writer operator conducted a detox bedsearch. [facility] - no beds [facility] - call back at noon [phone] [facility] message [facility] - no beds [facility] - no discharge information available, call back later. Patient information faxed. [facility] - bed held for patient, staff determining whether they can accept uninsured patient's. Patient information faxed. [facility] - call back in one hour. Patient information faxed.
[2020-10-17] MEDS: PARoxetine HCL 20 MG TABLET 40 MG PO (09:36)
[2020-10-17 10:29] VITALS: BP 134/86; PULSE 71; RESP 16; TEMP 36.7; O2SAT 97
== END 2020-10-17 14:53 | disposition home or self-care (01) ==
PROVIDERS: Nurse Practitioner Family; Physician Assistant; Emergency Provider Emergency Medicine; PCP Internal Medicine
DX: F33.1 Major depressive disorder, recurrent, moderate (principal); F10.10 Alcohol abuse, uncomplicated; R79.89 Other specified abnormal findings of blood chemistry; Z91.14 Patient's other noncompliance with medication regimen; Y90.9 Presence of alcohol in blood, level not specified; Z20.822 Contact with and (suspected) exposure to COVID-19; Z79.899 Other long term (current) drug therapy; Z71.41 Alcohol abuse counseling and surveillance of alcoholic
CPT/HCPCS: 36415; 80053; 80076; 80307; 80320; 82248; 83735; 85025; 85610; 85730; 87635; 99285

== ENCOUNTER 2021-08-11 21:48 | Emergency (ER) | payer MEDICAID, SELFPAY ==
--- NOTE | ~2021-08-11 | CT_ITS ---
EXAMINATION: CT ABDOMEN AND PELVIS WITH CONTRAST CLINICAL INFORMATION: Left lower quadrant pain COMPARISON: 10/28/2010 TECHNIQUE: Multidetector volumetric images were obtained from the superior aspect of the liver through the pubic symphysis following administration 85 mL of Omnipaque 350 intravenous contrast. Sagittal and coronal reformatted images were obtained on the technologist's workstation. Oral contrast: Yes This CT examination was performed using dose optimization techniques as appropriate, variously including the following: *Automated exposure control *Adjustment of mA and/or kV according to patient size (this includes techniques or standardized protocols for targeted exams where dose is matched to indication/reason for exam; i.e. extremities or head) *Use of iterative reconstruction technique DLP: 477 mGy-cm FINDINGS: LUNG BASES: The visualized lung bases are unremarkable. LIVER, GALLBLADDER, AND BILIARY TREE: The liver is normal in size, shape, and attenuation. No solid hepatic lesion or biliary ductal dilatation is present. Tiny cyst in the right lobe of the liver noted. The gallbladder is unremarkable with no evidence of radiopaque gallstones, gallbladder wall thickening, or obvious pericholecystic inflammatory changes. PANCREAS: Unremarkable. SPLEEN: Unremarkable. ADRENAL GLANDS: Subtle nodularity of the left adrenal gland is noted, similar to the 2011 study. Unremarkable right adrenal gland. KIDNEYS AND URETERS: The kidneys are normal in size, shape, and attenuation. No hydronephrosis, hydroureter, or calculi seen. No perinephric stranding. BLADDER: Unremarkable. GASTROINTESTINAL TRACT: The stomach is unremarkable. Normal caliber small bowel. No obstruction. Prior sigmoid resection with anastomosis. No colonic wall thickening or acute inflammation. Normal appendix. ABDOMINAL WALL: No significant hernia is appreciated. LYMPH NODES: Normal. VASCULAR: Normal caliber aorta with moderate atherosclerotic calcification. Retroaortic left renal vein. PELVIC VISCERA: The prostate and seminal vesicles are unremarkable. OSSEOUS STRUCTURES: No acute or suspicious osseous abnormality. Degenerative changes of the spine. Chronic L1 vertebral body compression deformity. CT/CT abdomen pelvis w con IMPRESSION: No acute findings in the abdomen or pelvis. No acute inflammatory changes. Status post sigmoid resection. No inflammatory changes of the bowel. Fleischner guidelines were followed.
[2021-08-11 22:39] VITALS: BP 114/86; PULSE 93; RESP 18; TEMP 36.8; O2SAT 95; BMI 25.8
[2021-08-11 22:46] LABS: MANUAL DIFF FLAG NO
[2021-08-11 22:47] LABS: Basophils Percent Auto 0.5 % (0-2); Eosinophils Absolute Auto 0.1 X10*3/uL (0.0-0.4); Eosinophils Percent Auto 1.1 % (0-4); Hemoglobin 19.9 g/dl (14.0-18.0); Imm Gran Abs Auto 0.02 X10*3/uL (0.00-0.03); Imm Gran Pct Auto 0.2 % (0.0-0.4); Lymphocytes Percent Auto 37.1 % (20-40); Mean Corpuscular HGB Conc 34.2 g/dl (31.0-36.0); Mean Corpuscular Hemoglobin 32.1 pg (27.0-33.0); Mean Platelet Volume 8.6 fL (9.4-12.4); Monocytes Absolute Auto 0.6 X10*3/uL (0.1-1.2); Monocytes Percent Auto 7.9 % (2-11); Neutrophils Absolute Auto 4.3 x10*3/uL (2.0-8.3); Neutrophils Percent Auto 53.2 % (45-73); Platelet Count 332 X10*3/uL (160-400); Red Blood Count 6.19 X10*6/uL (4.60-5.80); Red Cell Distribution Width 16.2 % (11.0-16.0); White Blood Count 8.1 X10*3/uL (4.8-10.8)
[2021-08-11 23:02] LABS: Alanine Aminotransferase 15 U/L (0-40); Albumin Level 4.5 g/dL (3.5-5.0); Alkaline Phosphatase 120 U/L (39-117); Anion Gap 18 (12-20); Aspartate Amino Transferase 18 U/L (5-37); Bilirubin Total 0.3 mg/dL (0.0-1.0); Blood Urea Nitrogen 7 mg/dL (9-16); Calcium 10.3 mg/dL (8.4-10.2); Carbon Dioxide 34 mmol/L (22-29); Chloride 96 mmol/L (96-108); Creatinine Clr Calc Pharmacy 87.1; Estimated Glomerular Filt Rate > 60; Glucose Random 126 mg/dL (60-115); Lipase 33 U/L (8-78); Potassium 4.8 mmol/L (3.3-5.1); Sodium 143 mmol/L (135-145)
[2021-08-11 23:09] LABS: Hematocrit 58.2 % (42.0-52.0)
[2021-08-12 02:46] LABS: Appearance Urine HAZY; Color Urine DK YELLOW; Glucose Urine UA NEG (NEG); Leukocyte Esterase Urine NEG (NEG); Nitrite Urine NEG (NEG); Specific Gravity - Urine >= 1.030 (1.005-1.025); UACC Culture Trigger NO; Urine Blood NEG (NEG); Urine Ketones 5 MG/DL (NEG); Urine Protein 1+ MG/DL (NEG-TRACE)
[2021-08-12 02:56] LABS: Bacteria Urine TRACE /LPF; Granular Casts Urine 0-2 /LPF; Hyaline Casts Urine 0-2 /LPF; Mucus Urine 4+ /LPF; RBC Urine 0 /HPF (0); Squamous Epithelial Cell Urine 1+ /LPF; WBC Urine 0 /HPF (0-4)
[2021-08-12 03:00] VITALS: BP 151/67; PULSE 86; RESP 18; TEMP 36.2; O2SAT 95
--- NOTE | 2021-08-12 03:18 | ED.ABDPAIN ---
HPI - Abdominal Pain General Chief Complaint: Abdominal Pain Stated Complaint: severe abd pain, nausea Time Seen by Provider: 08/12/21 03:11 Source: patient Mode of arrival: ambulatory History of Present Illness HPI narrative: 61-year-old male with history of alcohol use, depression, diverticulitis who presents today with increasing left lower quadrant pain for the past few weeks but denies any associated fever, nausea, vomiting and denies any unexplained weight loss. Patient has been constipated but states he has been able to continue passing gas. Related Data Home Medications Medication Instructions Recorded Confirmed paroxetine HCl 40 mg tablet 1 tab PO QAM 10/15/20 10/15/20 albuterol sulfate 90 mcg/actuation 2 puff PO Q4H PRN 10/16/20 10/16/20 aerosol inhaler Allergies Allergy/AdvReac Type Severity Reaction Status Date / Time diclofenac [From Flector] Allergy Unknown Verified 07/22/20 08:15 Review of Systems Review of Systems Pertinent positives and negatives as stated HPI and 10 point review of systems is otherwise negative. PMFSH Past Medical History Source: nursing notes reviewed Medical History Compression fracture of L1 lumbar vertebra Depression Social History Social History Alcohol intake: current Alcohol intake frequency: 3 or more drinks per day Alcohol type: hard liquor Advance Directives: No Physical Exam ED Vital Signs: Vital Signs - 24 hr 08/11/21 22:39 08/12/21 03:00 Temperature 98.3 F 97.1 F Pulse Rate 93 86 Respiratory Rate 18 18 Blood Pressure 114/86 151/67 H Pulse Oximetry 95 95 BMI result Body Mass Index 25.8 VITAL SIGNS: Reviewed. GENERAL: Well developed, well nourished, in no acute distress. HEAD: Normocephalic/atraumatic, EYES: PERRLA, EOMI EARS: Ext canals without abnormality OROPHARYNX: no oral lesions noted, posterior pharynx clear LUNGS: Normal breath sounds. No adventitious sounds or accessory muscle use. SpO2<95> CARDIOVASCULAR: Regular rate and rhythm without noted murmurs, no JVD or lower extremity edema. ABDOMEN: Soft, left lower quadrant without rebound, no palpable mass, non-distended with bowel sounds. MUSCULOSKELETAL: No tenderness, deformities, or effusions noted on gross inspection. EXTREMITIES: No cyanosis, clubbing or edema. SKIN: Inspection of the skin reveals no rashes NEUROLOGIC: Alert and oriented x 4. Strength and sensation to light touch were grossly intact x 4. Course Course Course Narrative: 61-year-old male with history and clinical presentation suggestive of possible diverticulitis, constipation but less likely felt to be SBO. Review of all investigations without acute findings and most consistent constipation given patient's reports of this condition. He will be started on a course of MiraLax and instructed to follow-up with his primary care provider. MDM - Abdominal Pain Lab Data Result diagrams: 08/11/21 22:41 08/11/21 22:41 Labs: Lab Results 08/11/21 08/11/21 08/12/21 Range/Units 22:41 22:41 02:36 WBC 8.1 (4.8-10.8) X10*3/uL RBC 6.19 H (4.60-5.80) X10*6/uL Hgb 19.9 H (14.0-18.0) g/dl Hct 58.2 H (42.0-52.0) % MCV 94.0 (80.0-98.0) fL MCH 32.1 (27.0-33.0) pg MCHC 34.2 (31.0-36.0) g/dl RDW 16.2 H (11.0-16.0) % Plt Count 332 (160-400) X10*3/uL MPV 8.6 L (9.4-12.4) fL Immature Gran % (Auto) 0.2 (0.0-0.4) % Neut % (Auto) 53.2 (45-73) % Lymph % (Auto) 37.1 (20-40) % [place] % (Auto) 7.9 (2-11) % Eos % (Auto) 1.1 (0-4) % Baso % (Auto) 0.5 (0-2) % Lymph # (Auto) 3.0 (1.2-4.9) X10*3/uL [place] # (Auto) 0.6 (0.1-1.2) X10*3/uL Eos # (Auto) 0.1 (0.0-0.4) X10*3/uL Baso # (Auto) 0.0 (0.0-0.2) X10*3/uL Abs Immat Gran (auto) 0.02 (0.00-0.03) X10*3/uL Absolute Neuts (auto) 4.3 (2.0-8.3) x10*3/uL Absolute Nucleated RBC 0.000 (0.0-0.012) X10*3/uL Nucleated RBC % (auto) 0.0 (0.0-0.2) /100WBC Sodium 143 (135-145) mmol/L Potassium 4.8 D (3.3-5.1) mmol/L Chloride 96 (96-108) mmol/L Carbon Dioxide 34 H (22-29) mmol/L Anion Gap 18 (12-20) BUN 7 L (9-16) mg/dL Creatinine 0.89 (0.5-1.4) mg/dL Estim Creat Clear Calc 87.1 Estimated GFR > 60 Random Glucose 126 H (60-115) mg/dL Calcium 10.3 H D (8.4-10.2) mg/dL Total Bilirubin 0.3 (0.0-1.0) mg/dL AST 18 D (5-37) U/L ALT 15 (0-40) U/L Alkaline Phosphatase 120 H D (39-117) U/L Total Protein 8.0 D (6.5-8.0) g/dL Albumin 4.5 D (3.5-5.0) g/dL Lipase 33 (8-78) U/L Urine Color DK YELLOW Urine Appearance HAZY Urine pH 6.0 (5.0-8.0) Ur Specific [place] >= 1.030 H (1.005-1.025) Urine Protein 1+ H (NEG-TRACE) MG/DL Urine Glucose (UA) NEG (NEG) MG/DL Urine Ketones 5 (NEG) MG/DL Urine Blood NEG (NEG) Urine Nitrite NEG (NEG) Ur Leukocyte Esterase NEG (NEG) Urine RBC 0 (0) /HPF Urine WBC 0 (0-4) /HPF Ur Squamous Epith Cells 1+ /LPF Urine Bacteria TRACE /LPF Hyaline Casts 0-2 /LPF Granular Casts 0-2 /LPF Urine Mucus 4+ /LPF Discharge Plan Discharge Clinical Impression: Constipation Patient Disposition: Home, Self-Care Instructions: Constipation (ED), Fleet Enema (ED), High Fiber Diet (ED) Additional Instructions: 1. Resume all home medications as prescribed. 2. Increase fluid hydration, especially with water. 3. You likely have constipation and recommend that you began using [id number] MiraLax daily. 4. Follow-up with your primary care provider in the next 2-3 days for re-evaluation. Please return to the ER for any recurring symptoms. Prescriptions: No Action paroxetine HCl 40 mg tablet 1 tab PO QAM 0RF albuterol sulfate 90 mcg/actuation HFA aerosol inhaler 2 puff PO Q4H PRN (Reason: Wheezing) 0RF Referrals: [facility] [Primary Care Provider] - 2 days
[2021-08-12] MEDS: iohexoL 350 MG/ML 100 ML INFUS..BTL 85 ML IV (03:29)
[2021-08-12] MEDS: 0.9 % Sodium Chloride 1,000 ML 999 ML IV (03:40)
== END 2021-08-12 04:47 | disposition home or self-care (01) ==
PROVIDERS: Emergency Provider Student in an Organized Health Care Education/Training Program
DX: K59.00 Constipation, unspecified (principal); R10.9 Unspecified abdominal pain
CPT/HCPCS: 36415; 74177; 80053; 81001; 83690; 85025; 96360; 99284; Q9967

== ENCOUNTER 2022-02-06 14:30 | Emergency (ER) | payer OTHER, MEDICAID, SELFPAY ==
--- NOTE | ~2022-02-06 | XR_ITS ---
EXAMINATION: XR CHEST CLINICAL INFORMATION: Cough COMPARISON: Chest and RIBS 07/18/[address] angiogram 07/18/2020 TECHNIQUE: Frontal view of the chest was obtained. FINDINGS: The heart and pulmonary vessels appear normal. Again noted is elevation of the left hemidiaphragm with some tenting laterally. No infiltrates or lung masses are seen. Entirely excluded. XR/XR chest 1V IMPRESSION: No acute intrathoracic disease
--- NOTE | ~2022-02-06 | CT_ITS ---
EXAMINATION: CTA CHEST PE STUDY CLINICAL INFORMATION: sob with elevated d dimer COMPARISON: No pertinent prior studies are available for comparison. TECHNIQUE: Prior to contrast administration, noncontrast localization images were obtained. After the administration of 65 mL of Omnipaque nonionic IV contrast, contiguous thin slice helical images were obtained through the thorax. Reformatted MIP images in the coronal and sagittal planes were obtained at the acquisition workstation. This CT examination was performed using dose optimization techniques as appropriate, variously including the following: *Automated exposure control *Adjustment of mA and/or kV according to patient size (this includes techniques or standardized protocols for targeted exams where dose is matched to indication/reason for exam; i.e. extremities or head) *Use of iterative reconstruction technique DLP: 258 mGy-cm. FINDINGS: The bolus timing on this study was acceptable for visualization of the pulmonary arterial tree. There are no intraluminal pulmonary arterial filling defects present to suggest pulmonary embolism. The lungs are clear. No abnormal pulmonary nodules or masses are appreciated. No significant hilar or mediastinal adenopathy. There is no evidence of pleural effusion or pneumothorax. The heart is normal in size. No evidence of ventricular septal bowing or right heart strain. Great vessels are normal in size with mild vascular atherosclerotic change to the aorta. Small hiatal hernia. There is no pericardial effusion or pericardial thickening. Limited evaluation of the upper abdominal viscera is unremarkable. CT/CT angio chest PE protocol IMPRESSION: No evidence for pulmonary emboli. No focal airspace disease. VTE: Negative
[2022-02-06 14:56] VITALS: BP 114/78; PULSE 84; RESP 14; TEMP 36.9; O2SAT 95
[2022-02-06 15:02] VITALS: BP 122/76; PULSE 88; O2SAT 98
[2022-02-06 15:04] VITALS: BMI 31.4
[2022-02-06 15:25] VITALS: BP 126/80; PULSE 80; RESP 18; TEMP 37; O2SAT 93
--- NOTE | 2022-02-06 16:15 | ECG_ITS ---
Test Reason : SOB Blood Pressure : / mmHG Vent. Rate : 080 BPM Atrial Rate : 080 BPM P-R Int : 150 ms QRS Dur : 088 ms QT Int : 428 ms P-R-T Axes : 068 056 059 degrees QTc Int : 493 ms Normal sinus rhythm Nonspecific T wave abnormality Prolonged QT Abnormal ECG When compared with ECG of 25-AUG-2013 07:01, T wave inversion now evident in Anterior leads QT has lengthened Referred By: Generic ED Physician Electronically Signed By:SHAHLA DOZIER
[2022-02-06 16:43] LABS: MANUAL DIFF FLAG NO
[2022-02-06 16:44] LABS: Basophils Absolute Auto 0.1 X10*3/uL (0.0-0.2); Basophils Percent Auto 0.7 % (0-2); Eosinophils Absolute Auto 0.1 X10*3/uL (0.0-0.4); Eosinophils Percent Auto 1.6 % (0-4); Hematocrit 48.1 % (42.0-52.0); Hemoglobin 16.9 g/dl (14.0-18.0); Imm Gran Abs Auto 0.02 X10*3/uL (0.00-0.03); Imm Gran Pct Auto 0.3 % (0.0-0.4); Lymphocytes Absolute Auto 2.4 X10*3/uL (1.2-4.9); Lymphocytes Percent Auto 33.4 % (20-40); Mean Corpuscular HGB Conc 35.1 g/dl (31.0-36.0); Mean Corpuscular Hemoglobin 34.6 pg (27.0-33.0); Mean Corpuscular Volume 98.4 fL (80.0-98.0); Mean Platelet Volume 8.6 fL (9.4-12.4); Monocytes Absolute Auto 0.7 X10*3/uL (0.1-1.2); Monocytes Percent Auto 10.4 % (2-11); Neutrophils Absolute Auto 3.8 x10*3/uL (2.0-8.3); Neutrophils Percent Auto 53.6 % (45-73); Platelet Count 254 X10*3/uL (160-400); Red Blood Count 4.89 X10*6/uL (4.60-5.80); Red Cell Distribution Width 13.8 % (11.0-16.0); White Blood Count 7.1 X10*3/uL (4.8-10.8)
[2022-02-06 16:52] LABS: D Dimer High Sensitivity 244 NG/ML
--- NOTE | 2022-02-06 16:53 | ED.SOB ---
HPI - SOB/Dyspnea General Chief Complaint: Dyspnea Stated Complaint: DIFF BREATHING,98% RA PER EMS Time Seen by Provider: 02/06/22 16:10 Source: patient and old records reviewed History of Present Illness HPI Narrative: Patient with a history of chronic tobacco use disorder, smoking, complaining of shortness of breath over the past 10 days. Positive cough with minimal phlegm, white. He describes fevers and chills and sweating at night. No prior history of pneumonia although he does have a history of COPD for which he has been using albuterol inhaler without improvement. No chest pain other than while coughing. No nausea vomiting The exacerbating factors that he knows of Secondary complaint of being out of his chronic anxiety medications. He states he used to be on Paxil 40 mg daily but has been out for over a month since his provider retired and he is waiting for a new provider next week. Related Data Home Medications Medication Instructions Recorded Confirmed paroxetine HCl 40 mg tablet 1 tab PO QAM 10/15/20 10/15/20 albuterol sulfate 90 mcg/actuation 2 puff PO Q4H PRN Wheezing 10/16/20 10/16/20 aerosol inhaler Previous Rx's Medication Instructions Recorded azithromycin 250 mg tablet See Rx Instructions PO .COMPLEX #6 02/06/22 tabs paroxetine HCl 40 mg tablet (Paxil) 40 mg PO DAILY #14 tabs 02/06/22 prednisone 20 mg tablet 40 mg PO DAILY #10 tabs 02/06/22 Allergies Allergy/AdvReac Type Severity Reaction Status Date / Time diclofenac [From Flector] Allergy Unknown Verified 07/22/20 08:15 Review of Systems Constitutional: Comments: Had fevers chills night sweats Cardiovascular: Comments: Chest pain with cough only Respiratory: Comments: Is shortness of breath with wheezing Gastrointestinal: Comments: No nausea vomiting or abdominal pain Integumentary/Breasts: Comments: No rash Neurologic: Comments: No focal weakness Psychiatric: Comments: Depression and anxiety [facility] Past Medical History Medical History Compression fracture of L1 lumbar vertebra Depression Social History Social History Alcohol intake: current Alcohol intake frequency: 3 or more drinks per day Alcohol type: hard liquor Patient Tobacco Use Status: Current everyday Tobacco user Smoked in Last 30 Days: Yes Use of substances other than those prescribed or required for medical reasons: No Advance Directives: No Advance Directives Information Provided: No Physical Exam Vital Signs: Vital Signs: Last Vital Signs Temp 98.6 F 02/06/22 15:25 Pulse 103 H 02/06/22 20:26 Resp 17 02/06/22 20:26 BP 125/75 02/06/22 20:26 Pulse Ox 100 02/06/22 20:26 O2 Del Method 02/06/22 20:26 BMI result Body Mass Index 31.4 Const: Other: Awake and alert in no acute distress. Oxygen saturation 93 and 95% on room air Resp: Other: All fair intake bilaterally. Bilateral inspiratory and expiratory wheezes without rales or rhonchi Cardio: Other: Regular rate and rhythm without murmurs rubs or gallops GI: Other: Soft nontender nondistended Skin: Other: Warm pink and dry without rash Neuro: Other: Awake alert no acute distress. No obvious focal neuro deficits Course Course Course Narrative: COPD exacerbation Pneumonia Bronchitis COVID-19 infection Treated with high-dose albuterol Solu-Medrol IV 19:15. Patient is moving air a little better on exam. He states he still feels dyspneic however. His D-dimer is 244. This chest x-ray is unremarkable. Will order CT angio to rule out thromboembolic disease given mildly elevated D-dimer in the setting of a clear chest x-ray with significant dyspnea. 20:41. CT scan shows no evidence of pulmonary embolism or airspace disease. Is stable for discharge home with a final diagnosis of exacerbation of asthma. Given timeline, will add antibiotics for possible bacterial bronchitis MDM - SOB/Dyspnea Lab Data Result diagrams: 02/06/22 16:39 02/06/22 16:38 Labs: Lab Results 02/06/22 02/06/22 02/06/22 Range/Units 16:38 16:38 16:39 WBC 7.1 (4.8-10.8) X10*3/uL RBC 4.89 D (4.60-5.80) X10*6/uL Hgb 16.9 (14.0-18.0) g/dl Hct 48.1 (42.0-52.0) % MCV 98.4 H (80.0-98.0) fL MCH 34.6 H (27.0-33.0) pg MCHC 35.1 (31.0-36.0) g/dl RDW 13.8 (11.0-16.0) % Plt Count 254 (160-400) X10*3/uL MPV 8.6 L (9.4-12.4) fL Immature Gran % (Auto) 0.3 (0.0-0.4) % Neut % (Auto) 53.6 (45-73) % Lymph % (Auto) 33.4 (20-40) % [place] % (Auto) 10.4 (2-11) % Eos % (Auto) 1.6 (0-4) % Baso % (Auto) 0.7 (0-2) % Lymph # (Auto) 2.4 (1.2-4.9) X10*3/uL [place] # (Auto) 0.7 (0.1-1.2) X10*3/uL Eos # (Auto) 0.1 (0.0-0.4) X10*3/uL Baso # (Auto) 0.1 (0.0-0.2) X10*3/uL Abs Immat Gran (auto) 0.02 (0.00-0.03) X10*3/uL Absolute Neuts (auto) 3.8 (2.0-8.3) x10*3/uL Absolute Nucleated RBC 0.000 (0.0-0.012) X10*3/uL Nucleated RBC % (auto) 0.0 (0.0-0.2) /100WBC D-Dimer High Sensitivty NG/ML Sodium 148 H (135-145) mmol/L Potassium 4.3 (3.3-5.1) mmol/L Chloride 99 (96-108) mmol/L Carbon Dioxide 33 H (22-29) mmol/L Anion Gap 20 (12-20) BUN 3 L D (9-16) mg/dL Creatinine 0.76 (0.5-1.4) mg/dL Estim Creat Clear Calc 109.8 Estimated GFR > 60 Random Glucose 114 (60-115) mg/dL Calcium 8.5 D (8.4-10.2) mg/dL Total Bilirubin 0.3 (0.0-1.0) mg/dL AST 45 H D (5-37) U/L ALT 27 (0-40) U/L Alkaline Phosphatase 169 H D (39-117) U/L Troponin I High Sens (<3.5-35.0) ng/L Total Protein 6.7 (6.5-8.0) g/dL Albumin 3.5 D (3.5-5.0) g/dL Influenza Type A (PCR) NEGATIVE (Negative) Influenza Type B (PCR) NEGATIVE (Negative) RSV RNA Qual (PCR) NEGATIVE (Negative) SARS-CoV-2 RNA (RT-PCR) NEGATIVE (Negative) 02/06/22 02/06/22 Range/Units 16:39 16:39 WBC (4.8-10.8) X10*3/uL RBC (4.60-5.80) X10*6/uL Hgb (14.0-18.0) g/dl Hct (42.0-52.0) % MCV (80.0-98.0) fL MCH (27.0-33.0) pg MCHC (31.0-36.0) g/dl RDW (11.0-16.0) % Plt Count (160-400) X10*3/uL MPV (9.4-12.4) fL Immature Gran % (Auto) (0.0-0.4) % Neut % (Auto) (45-73) % Lymph % (Auto) (20-40) % [place] % (Auto) (2-11) % Eos % (Auto) (0-4) % Baso % (Auto) (0-2) % Lymph # (Auto) (1.2-4.9) X10*3/uL [place] # (Auto) (0.1-1.2) X10*3/uL Eos # (Auto) (0.0-0.4) X10*3/uL Baso # (Auto) (0.0-0.2) X10*3/uL Abs Immat Gran (auto) (0.00-0.03) X10*3/uL Absolute Neuts (auto) (2.0-8.3) x10*3/uL Absolute Nucleated RBC (0.0-0.012) X10*3/uL Nucleated RBC % (auto) (0.0-0.2) /100WBC D-Dimer High Sensitivty 244 NG/ML Sodium (135-145) mmol/L Potassium (3.3-5.1) mmol/L Chloride (96-108) mmol/L Carbon Dioxide (22-29) mmol/L Anion Gap (12-20) BUN (9-16) mg/dL Creatinine (0.5-1.4) mg/dL Estim Creat Clear Calc Estimated GFR Random Glucose (60-115) mg/dL Calcium (8.4-10.2) mg/dL Total Bilirubin (0.0-1.0) mg/dL AST (5-37) U/L ALT (0-40) U/L Alkaline Phosphatase (39-117) U/L Troponin I High Sens < 3.5 (<3.5-35.0) ng/L Total Protein (6.5-8.0) g/dL Albumin (3.5-5.0) g/dL Influenza Type A (PCR) (Negative) Influenza Type B (PCR) (Negative) RSV RNA Qual (PCR) (Negative) SARS-CoV-2 RNA (RT-PCR) (Negative) Discharge Plan Discharge Clinical Impression: Asthma with exacerbation, Bronchitis, Anxiety Patient Disposition: Home, Self-Care Instructions: Asthma (ED), Acute Bronchitis (ED), Anxiety (ED) Prescriptions: New paroxetine HCl [Paxil] 40 mg tablet 40 mg PO DAILY Qty: 14 0RF prednisone 20 mg tablet 40 mg PO DAILY Qty: 10 0RF azithromycin 250 mg tablet See Rx Instructions .ROUTE .COMPLEX Qty: 6 0RF Rx Instructions: For 250 mg dose pack: take 500 mg today (day 1), then 250 mg for 4 days (days 2-5) No Action paroxetine HCl 40 mg tablet 1 tab PO QAM albuterol sulfate 90 mcg/actuation HFA aerosol inhaler 2 puff PO Q4H PRN (Reason: Wheezing)
[2022-02-06 17:13] LABS: Alanine Aminotransferase 27 U/L (0-40); Albumin Level 3.5 g/dL (3.5-5.0); Alkaline Phosphatase 169 U/L (39-117); Anion Gap 20 (12-20); Aspartate Amino Transferase 45 U/L (5-37); Bilirubin Total 0.3 mg/dL (0.0-1.0); Blood Urea Nitrogen 3 mg/dL (9-16); Calcium 8.5 mg/dL (8.4-10.2); Carbon Dioxide 33 mmol/L (22-29); Chloride 99 mmol/L (96-108); Creatinine Clr Calc Pharmacy 109.8; Estimated Glomerular Filt Rate > 60; Glucose Random 114 mg/dL (60-115); Potassium 4.3 mmol/L (3.3-5.1); Sodium 148 mmol/L (135-145); Total Protein 6.7 g/dL (6.5-8.0)
[2022-02-06] MEDS: methylPREDNISolone Sod Succ 125 MG/2 ML VIAL IVPUSH (17:17)
[2022-02-06 17:18] LABS: Troponin-I High Sensitivity < 3.5 ng/L (<3.5-35.0)
[2022-02-06 17:31] LABS: Influenza A PCR NEGATIVE (Negative); Influenza B PCR NEGATIVE (Negative); Resp Syncy Virus RNA Qual PCR NEGATIVE (Negative); SARS COV2 PCR INHOUSE NEGATIVE (Negative)
[2022-02-06] MEDS: Albuterol Sulfate 7.5 MG, Albuterol Sulfate (0.083%) 2.5 MG 10 MG INHALE (18:46)
[2022-02-06 18:48] VITALS: PULSE 91; RESP 18; O2SAT 98
[2022-02-06] MEDS: iohexoL 350 MG/ML 100 ML INFUS..BTL 65 ML IV (20:00)
[2022-02-06 20:26] VITALS: BP 125/75; PULSE 103; RESP 17; O2SAT 100
== END 2022-02-06 21:06 | disposition home or self-care (01) ==
PROVIDERS: Emergency Provider Emergency Medicine
DX: J45.901 Unspecified asthma with (acute) exacerbation (principal); F41.9 Anxiety disorder, unspecified; Z20.822 Contact with and (suspected) exposure to COVID-19; R06.02 Shortness of breath; Z79.899 Other long term (current) drug therapy; F17.200 Nicotine dependence, unspecified, uncomplicated
CPT/HCPCS: 0241U; 36415; 71045; 71275; 80053; 84484; 85025; 85379; 93005; 94640; 96374; 99284; 99285; J2930; Q9967

== ENCOUNTER 2023-09-05 13:21 | Emergency (ER) | payer OTHER, SELFPAY ==
[2023-09-05 13:26] VITALS: BP 117/71; PULSE 108; O2SAT 99
[2023-09-05 14:14] VITALS: BP 102/76; PULSE 108; RESP 18; TEMP 36.6; O2SAT 98; BMI 25.1
--- NOTE | 2023-09-05 14:15 | ED.GENADULT ---
HPI - General Adult General Chief complaint: Dizziness Stated complaint: DIZZY,WEAK UPON STANDING,ABD PAIN X1 WK PER EMS Related Data Home Medications ?Medication ?Instructions ?Recorded ?Confirmed paroxetine HCl 40 mg tablet 1 tab PO QAM 10/15/20 10/15/20 albuterol sulfate 90 mcg/actuation 2 puff PO Q4H PRN Wheezing 10/16/20 10/16/20 aerosol inhaler Previous Rx's ?Medication ?Instructions ?Recorded azithromycin 250 mg tablet See Rx Instructions PO .COMPLEX #6 02/06/22 tabs paroxetine HCl 40 mg tablet (Paxil) 40 mg PO DAILY #14 tabs 02/06/22 prednisone 20 mg tablet 40 mg (2 x 20 mg) PO DAILY #10 tabs 02/06/22 Allergies Allergy/AdvReac Type Severity Reaction Status Date / Time diclofenac [From Flector] Allergy Unknown Verified 09/05/23 14:15 [facility] Past Medical History Medical History Compression fracture of L1 lumbar vertebra Depression Social History Social History Alcohol intake: current Alcohol intake frequency: 3 or more drinks per day Alcohol type: hard liquor Patient Tobacco Use Status: Current everyday Tobacco user Advance Directives: No Advance Directives Information Provided: No Physical Exam ED Vital Signs: Vital Signs - 24 hr 09/05/23 14:14 Temperature 97.9 F Pulse Rate 108 H Respiratory Rate 18 Blood Pressure 102/76 Pulse Oximetry 98 Oxygen Delivery Method Room Air BMI result Body Mass Index 25.1 Course Course Course Narrative: RME:?63 yo male hx depression, etoh abuse here for dizziness and syncope on standing x1 week with associated bilateral flank pain. denies dyuria, hematuria. admits to hx of etoh abuse. last drink one week ago. states i take a shot every once in a while . cannot quantify the amount he would drink. Denies history of withdrawal or withdrawal seizure. Seeking detox. labs, UA, ekg ordered. Full HPI, ROS and PE to be performed by the primary ED provider. Reevaluation(s) Reevaluation #1: Patient left the emergency department without completing treatment. On review of labs, patient has various electrolyte abnormalities, leukocytosis to 14 without left shift, elevated liver enzymes, and an abnormal EKG. I attempted to call patient with the number on file to advise him to return to the ED for further workup/treatment however the patient did not answer the phone and the mailbox was full. I was unable to reach him regarding these results. Medical Decision Making Lab Data 09/05/23 14:49 09/05/23 14:49 Labs: Lab Results 09/05/23 Range/Units 14:49 WBC 14.1 H (4.8-10.8) X10*3/uL RBC 3.57 L D (4.60-5.80) X10*6/uL Hgb 10.9 L D (14.0-18.0) g/dl Hct 30.4 L D (42.0-52.0) % MCV 85.2 (80.0-98.0) fL MCH 30.5 (27.0-33.0) pg MCHC 35.9 (31.0-36.0) g/dl RDW 17.0 H (11.0-16.0) % Plt Count 679 H D (160-400) X10*3/uL MPV 8.9 L (9.4-12.4) fL Immature Gran % (Auto) 2.6 H (0.0-0.4) % Neut % (Auto) 65.2 (45-73) % Lymph % (Auto) 22.5 (20-40) % [place] % (Auto) 7.2 (2-11) % Eos % (Auto) 1.9 (0-4) % Baso % (Auto) 0.6 (0-2) % Lymph # (Auto) 3.2 (1.2-4.9) X10*3/uL [place] # (Auto) 1.0 (0.1-1.2) X10*3/uL Eos # (Auto) 0.3 (0.0-0.4) X10*3/uL Baso # (Auto) 0.1 (0.0-0.2) X10*3/uL Abs Immat Gran (auto) 0.37 H (0.00-0.03) X10*3/uL Absolute Neuts (auto) 9.2 H (2.0-8.3) x10*3/uL Absolute Nucleated RBC 0.000 (0.0-0.012) X10*3/uL Nucleated RBC % (auto) 0.0 (0.0-0.2) /100WBC Sodium 130 L (135-145) mmol/L Potassium 3.0 L (3.3-5.1) mmol/L Chloride 89 L (96-108) mmol/L Carbon Dioxide 26 (22-29) mmol/L Anion Gap 18 (12-20) BUN 9 (9-16) mg/dL Creatinine 0.91 (0.5-1.4) mg/dL Estim Creat Clear Calc 83.0 Estimated GFR > 60 Random Glucose 160 H (60-115) mg/dL Calcium 8.8 (8.4-10.2) mg/dL Magnesium 1.7 (1.6-2.6) mg/dL Total Bilirubin 0.4 (0.0-1.0) mg/dL AST 106 H (5-37) U/L ALT 55 H (0-40) U/L Alkaline Phosphatase 309 H (39-117) U/L Troponin I High Sens 3.2 (<3.5-35.0) ng/L Total Protein 6.9 (6.5-8.0) g/dL Albumin 3.6 (3.5-5.0) g/dL Lipase 29 (8-78) U/L Ethyl Alcohol < 10 mg/dL Discharge Plan Discharge Clinical Impression: Syncopal episodes Patient Disposition: Left W/O Completing Treatment Prescriptions: No Action paroxetine HCl 40 mg tablet 1 tab PO QAM albuterol sulfate 90 mcg/actuation HFA aerosol inhaler 2 puff PO Q4H PRN (Reason: Wheezing) paroxetine HCl [Paxil] 40 mg tablet 40 mg PO DAILY Qty: 14 0RF prednisone 20 mg tablet 40 mg PO DAILY Qty: 10 0RF azithromycin 250 mg tablet See Rx Instructions .ROUTE .COMPLEX Qty: 6 0RF Rx Instructions: For 250 mg dose pack: take 500 mg today (day 1), then 250 mg for 4 days (days 2-5) Discharge Date/Time: 09/05/23 17:58
--- NOTE | 2023-09-05 14:16 | ECG_ITS ---
Test Reason : syncope Blood Pressure : / mmHG Vent. Rate : 113 BPM Atrial Rate : 113 BPM P-R Int : 136 ms QRS Dur : 090 ms QT Int : 374 ms P-R-T Axes : 046 073 017 degrees QTc Int : 513 ms Sinus tachycardia Possible Inferior infarct , age undetermined Abnormal ECG When compared with ECG of 06-FEB-2022 17:17, T wave inversion now evident in Inferior leads Nonspecific T wave abnormality now evident in Lateral leads Referred By: Magaly Reynolds Electronically Signed By:Craig Garcia
[2023-09-05 14:55] LABS: MANUAL DIFF FLAG NO
[2023-09-05 15:02] LABS: Basophils Absolute Auto 0.1 X10*3/uL (0.0-0.2); Basophils Percent Auto 0.6 % (0-2); Eosinophils Absolute Auto 0.3 X10*3/uL (0.0-0.4); Eosinophils Percent Auto 1.9 % (0-4); Hematocrit 30.4 % (42.0-52.0); Hemoglobin 10.9 g/dl (14.0-18.0); Imm Gran Abs Auto 0.37 X10*3/uL (0.00-0.03); Imm Gran Pct Auto 2.6 % (0.0-0.4); Lymphocytes Absolute Auto 3.2 X10*3/uL (1.2-4.9); Lymphocytes Percent Auto 22.5 % (20-40); Mean Corpuscular HGB Conc 35.9 g/dl (31.0-36.0); Mean Corpuscular Hemoglobin 30.5 pg (27.0-33.0); Mean Corpuscular Volume 85.2 fL (80.0-98.0); Mean Platelet Volume 8.9 fL (9.4-12.4); Monocytes Percent Auto 7.2 % (2-11); Neutrophils Absolute Auto 9.2 x10*3/uL (2.0-8.3); Neutrophils Percent Auto 65.2 % (45-73); Platelet Count 679 X10*3/uL (160-400); Red Blood Count 3.57 X10*6/uL (4.60-5.80); White Blood Count 14.1 X10*3/uL (4.8-10.8)
[2023-09-05 15:49] LABS: Alanine Aminotransferase 55 U/L (0-40); Albumin Level 3.6 g/dL (3.5-5.0); Alkaline Phosphatase 309 U/L (39-117); Anion Gap 18 (12-20); Aspartate Amino Transferase 106 U/L (5-37); Bilirubin Total 0.4 mg/dL (0.0-1.0); Blood Urea Nitrogen 9 mg/dL (9-16); Calcium 8.8 mg/dL (8.4-10.2); Carbon Dioxide 26 mmol/L (22-29); Chloride 89 mmol/L (96-108); Estimated Glomerular Filt Rate > 60; Glucose Random 160 mg/dL (60-115); Lipase 29 U/L (8-78); Magnesium 1.7 mg/dL (1.6-2.6); Sodium 130 mmol/L (135-145); Total Protein 6.9 g/dL (6.5-8.0)
[2023-09-05 15:54] LABS: Troponin-I High Sensitivity 3.2 ng/L (<3.5-35.0)
[2023-09-05 16:45] LABS: Ethanol < 10 mg/dL
== END 2023-09-05 17:58 | disposition left against medical advice (07) ==
PROVIDERS: Physician Assistant Medical; Emergency Provider Emergency Medicine; PCP Internal Medicine
DX: R55 Syncope and collapse (principal); R42 Dizziness and giddiness; R53.1 Weakness; R00.0 Tachycardia, unspecified; R10.30 Lower abdominal pain, unspecified; F17.200 Nicotine dependence, unspecified, uncomplicated; Z79.899 Other long term (current) drug therapy
CPT/HCPCS: 36415; 80053; 80307; 83690; 83735; 84484; 85025; 93005; 99283

== ENCOUNTER → 2023-09-05 14:16 | Outpatient (BNV) | payer OTHER, SELFPAY | PROVIDERS: Emergency Provider Emergency Medicine; PCP Internal Medicine; Visit Provider Internal Medicine Cardiovascular Disease | DX: R94.31 Abnormal electrocardiogram [ECG] [EKG] (principal); R00.0 Tachycardia, unspecified | CPT/HCPCS: 93010 ==

== ENCOUNTER 2024-07-15 18:12 | Inpatient (IN) | payer MEDICAID, SELFPAY ==
--- NOTE | ~2024-07-15 | CT_ITS ---
CLINICAL HISTORY: abd pain, elevated lactic CT abdomen and pelvis with contrast Comparison: CT/REG/SR - CT ABDOMEN PELVIS W CON - 08/12/21 03:23 EDT Findings: No consolidation or effusion. The gallbladder and solid organs are within normal limits. No renal stones. No bowel obstruction, pneumoperitoneum, or pneumatosis. Postsurgical changes related to sigmoid colon anastomosis. Extensive atherosclerotic disease of the abdominal aorta and its major branches. No hemodynamically significant stenosis of the celiac or superior mesenteric artery. Possible severe stenosis at the origin of the inferior mesenteric artery. Moderate stenosis of the proximal right renal artery. Moderate narrowing of the distal abdominal aorta measuring 8 mm in diameter. 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 Pelvic contents unremarkable. Normal appendix. No acute fracture. IMPRESSION: No acute disease within the abdomen or pelvis. Extensive atherosclerotic disease of the abdominal aorta and its major branches. No hemodynamically significant stenosis of the celiac or superior mesenteric artery. Possible severe stenosis at the origin of the inferior mesenteric artery. Moderate stenosis of the proximal right renal artery. Moderate narrowing of the distal abdominal aorta measuring 8 mm in diameter. 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 No CT evidence of ischemic colitis. This document has been electronically signed by: Fahad Da Silva MD on 07/15/2024 23:12:40
--- NOTE | ~2024-07-15 | CT_ITS ---
CLINICAL HISTORY: multiple falls CT head without contrast Comparison: None Findings: No intra-axial mass, midline shift, hydrocephalus, or acute hemorrhage. There is atrophy. Nonspecific bilateral supratentorial white matter hypodensities most suggestive of chronic small-vessel ischemic changes. Atherosclerotic vascular disease. There is no sinus or mastoid fluid. The orbits are within normal limits. No acute skull fracture. IMPRESSION: 1. No acute intracranial findings. This document has been electronically signed by: Sylvie Arryoo MD on 07/15/2024 22:49:01
--- NOTE | ~2024-07-15 | XR_ITS ---
CLINICAL HISTORY: sob 1 view chest x-ray Comparison: CR/SR - XR CHEST 1V - 02/06/22 16:34 EDT Findings: Linear focus of scarring within the left lower lung without change. No consolidative process. Normal size heart. No acute fracture. IMPRESSION: 1. No acute findings. This document has been electronically signed by: Hayley Perez MD on 07/15/2024 20:25:10
--- NOTE | ~2024-07-15 | CT_ITS ---
CLINICAL HISTORY: CP, syncope, sob, hypotensive, + dimer CT angiography chest with contrast. 3D Postprocessing. Comparison: CT - CT ANGIO CHEST PE PROTOCOL - 07/15/24 21:03 EST Findings: The heart is normal size. RV/LV ratio is normal. Unremarkable thoracic aorta and great vessels. No aneurysm. No acute pulmonary embolus. The visualized thyroid and mediastinum are unremarkable. No consolidation or effusion. The upper abdomen is unremarkable. The bones are intact. IMPRESSION: 1. No pulmonary emboli. No acute aortic syndrome. This document has been electronically signed by: Fahad Da Silva MD on 07/15/2024 23:01:39
--- NOTE | ~2024-07-15 | CT_ITS ---
CLINICAL HISTORY: multiple falls, neck pain CT cervical spine without contrast Comparison: None Findings: Normal vertebral body alignment. Vertebral body height is maintained. No acute fracture in the cervical spine. Craniocervical junction is intact. Degenerative disc disease and spondylotic changes at C5-6 and C6-7. Mild bilateral foraminal stenosis at C5-6. No acute fractures or dislocations. Prevertebral soft tissues within normal limits. Atherosclerotic vascular disease bilaterally. No consolidation or effusion at the lung apices. IMPRESSION: No acute findings. This document has been electronically signed by: Sylvie Arroyo MD on 07/15/2024 22:52:50
[2024-07-15 18:21] VITALS: BP 126/79; PULSE 96; O2SAT 93
--- NOTE | 2024-07-15 18:21 | ECG_ITS ---
Test Reason : SYNCOPE Blood Pressure : */* mmHG Vent. Rate : 104 BPM Atrial Rate : 104 BPM P-R Int : 136 ms QRS Dur : 82 ms QT Int : 394 ms P-R-T Axes : 47 77 51 degrees QTcB Int : 518 ms Sinus tachycardia Nonspecific T wave abnormality Abnormal ECG When compared with ECG of 05-Sep-2023 14:40, T wave inversion no longer evident in Inferior leads Nonspecific T wave abnormality no longer evident in Lateral leads Referred By: She Sanchez Electronically Signed By: JENNI MERCHANT
--- NOTE | 2024-07-15 18:39 | ED_ITS ---
HPI - General Adult General Chief complaint: Dyspnea Stated complaint: difficulty breathing, sob, 3days chest pain, weak Time Seen by Provider: 07/15/24 18:15 Source: patient and EMS Mode of arrival: EMS Limitations: no limitations History of Present Illness ED Provider: Dr. She Sanchez HPI narrative: Patient comes to the emergency room via EMS from home. Patient admits that he has been drinking a lot of alcohol, smoking cigarettes. Patient states that for several weeks he has been at home, has been having multiple falls. Patient states that he fell 6 times in 1 week. Patient reports that he has constantly intermittent chest pain, shortness of breath. Patient reports multiple episodes of dizziness and falls, unsure if he has syncopized but believes he has passed out. Patient states that his can no longer take care of him and came to the hospital requesting placement. Patient admits that he is noncompliant with his medications and has stopped taking them for about a year now. According to EMS, when they arrived, patient was wheezing quite a bit, they gave him a nebulization treatment. Related Data Home Medications ?Medication ?Instructions ?Recorded ?Confirmed paroxetine HCl 40 mg tablet 1 tab PO QAM 10/15/20 10/15/20 albuterol sulfate 90 mcg/actuation 2 puff PO Q4H PRN Wheezing 10/16/20 10/16/20 aerosol inhaler Previous Rx's ?Medication ?Instructions ?Recorded azithromycin 250 mg tablet See Rx Instructions PO .COMPLEX #6 02/06/22 tabs paroxetine HCl 40 mg tablet (Paxil) 40 mg PO DAILY #14 tabs 02/06/22 prednisone 20 mg tablet 40 mg (2 x 20 mg) PO DAILY #10 tabs 02/06/22 Allergies Allergy/AdvReac Type Severity Reaction Status Date / Time diclofenac [From Flector] Allergy Unknown Verified 07/15/24 18:50 Review of Systems 2 Review of Systems: Constitutional : No Weight loss, complaining of fatigue and generalized malaise ENT/Mouth : No Hearing loss, No Ear Pain, No Nasal Congestion, No Sinus Pain, No Hoarseness, No sore throat, No Rhinorrhea, No Swallowing Difficulty Eyes: No Eye Pain, No Swelling, No Redness, No Foreign Body, No Discharge, No Vision Changes Cardiovascular : Complaining of chronic chest pain, chronic shortness of breath, no palpitations Respiratory : Complaining of chronic cough, No Wheezing, No Smoke Exposure, complaining of Dyspnea Gastrointestinal : No Nausea, No Vomiting, No Diarrhea, No Constipation, No abdominal Pain, No Hematochezia, No Melena Genitourinary : no irregular bleeding, No Dysuria, No Urinary Frequency, No Hematuria, No Urinary Incontinence, No Urgency, No Flank Pain, No Urinary Flow Changes, No Hesitancy Musculoskeletal : No joint pain, No Myalgias, No Joint Swelling Skin : No Skin Lesions, No rash Neuro : No Weakness, No Numbness, No Paresthesias, No Loss of Consciousness, No Dizziness, No Headache Psych : No Anxiety/Panic, No Depression, No SI/HI/AH/VH, admits to smoking heavily and drinking alcohol Heme/Lymph: No Bruising, No Bleeding,No Lymphadenopathy Endocrine : No Polyuria, No Polydipsia, No Temperature Intolerance PMFSH Past Medical History Medical History Depression Compression fracture of L1 lumbar vertebra Social History Social History Alcohol intake: current Alcohol intake frequency: 3 or more drinks per day Alcohol type: beer and wine Patient Tobacco Use Status: Current everyday Tobacco user Smoked in Last 30 Days: Yes Use of substances other than those prescribed or required for medical reasons: No Advance Directives: No Advance Directives Information Provided: No Physical Exam ED Vital Signs: Vital Signs - 24 hr 07/15/24 18:48 07/15/24 19:03 07/15/24 20:45 Temperature 97 F Pulse Rate 100 100 90 Respiratory Rate 16 14 14 Blood Pressure 109/45 L 109/45 L 79/44 L Pulse Oximetry 96 97 97 Oxygen Delivery Method Nasal Cannula Nasal Cannula Oxygen Flow Rate 2 07/15/24 23:20 Temperature 98.1 F Pulse Rate 96 Respiratory Rate 18 Blood Pressure 127/69 Pulse Oximetry 98 Oxygen Delivery Method Nasal Cannula Oxygen Flow Rate 2 BMI result Body Mass Index 23.0 Const Other: Appearance: Alert. Oriented X3. No acute distress. Disheveled Eyes: Pupils equal, round and reactive to light. ENT: Pharynx normal. Neck: Normal inspection. Neck supple. No lymph nodes noted. No crepitus CVS: Normal heart rate and rhythm. Pulses normal. Normal S1 and S2 Respiratory: No respiratory distress. Breath sounds normal. No Wheezing. No rales Abdomen: Soft and nontender. No rigidity. No distention. Skin: Skin warm and dry. Normal skin color. Normal skin turgor. Extremities: No lower extremity edema. No Lacerations. No Rash Neuro: Oriented X 3. No motor deficit. No sensory deficit. Moving all extremities. No slurred speech. CN 2 through 12 grossly intact Psych: calm, cooperative, normal affect Course Course Course Narrative: Arrival, patient complaining of increased shortness of breath for 3 days, cough. Patient receiving IV fluids, antibiotics ceftriaxone and azithromycin. Also, patient was wheezing, given albuterol, magnesium. Patient complaining of nausea, given Zofran. Patient denies abdominal pain or chest pain at this time Patient's blood pressure 109/45, heart rate 100, respirations 16, 2 L nasal cannula, patient receiving a nebulization treatment. Medications Administered Discontinued Medications Generic Name Dose Route Start Last Admin Trade Name Freq PRN Reason Stop Dose Admin Al Hydroxide/Mg Hydroxide 30 ml 07/16/24 01:35 07/16/24 02:08 Magnesium Hydrox/Alum Hydrox 30 Ml Oral.Susp PO 07/16/24 01:36 30 ml ONCE ONE Administration Albuterol Sulfate 2.5 mg/ 5 mg 07/15/24 18:39 07/15/24 18:45 Albuterol Sulfate 2.5 mg INHALE 07/15/24 18:40 5 mg ONCE ONE Administration Ceftriaxone Sodium 1 gm 07/15/24 18:23 07/15/24 18:50 Ceftriaxone Sodium 1 Gm Vial IVPUSH 07/15/24 18:24 1 gm ONCE ONE Administration Sodium Chloride 2,500 mls @ 999 mls/hr 07/15/24 18:23 07/15/24 22:12 Ns IVCONT 07/15/24 20:53 Infused .Q2H31M ONE Infusion Azithromycin 500 mg/ Sodium 250 mls @ 125 mls/hr 07/15/24 18:23 07/15/24 22:12 Chloride IV 07/15/24 20:22 Infused ONCE ONE Infusion Magnesium Sulfate 2 gm in 50 mls @ 25 mls/hr 07/15/24 18:27 07/15/24 22:12 Magnesium Sulfate/H2o IV 07/15/24 20:26 Infused ONCE ONE Infusion Sodium Chloride 1,000 mls @ 999 mls/hr 07/15/24 21:38 07/15/24 22:05 Ns IVCONT 07/15/24 22:38 999 mls/hr .Q1H1M ONE Administration Sodium Chloride 1,000 mls @ 999 mls/hr 07/15/24 23:25 07/15/24 23:58 Ns IVCONT 07/16/24 00:25 999 mls/hr .Q1H1M ONE Administration Thiamine HCl 500 mg/ Sodium 105 mls @ 210 mls/hr 07/16/24 02:21 07/16/24 02:37 Chloride IV 07/16/24 02:50 210 mls/hr ONCE ONE Administration Iohexol 85 ml 07/15/24 21:59 07/15/24 21:59 Iohexol 350 Mg/Ml 100 Ml Infus..Btl IV 07/15/24 22:00 85 ml ONCE ONE Administration Lidocaine HCl 15 ml 07/16/24 01:35 07/16/24 02:08 Lidocaine Hcl Viscous 2 % 15 Ml Solution MUCOUS MEM 07/16/24 01:36 15 ml ONCE ONE Administration Ondansetron HCl 4 mg 07/15/24 18:45 07/15/24 18:50 Ondansetron Hcl 4 Mg/2 Ml Vial IVPUSH 07/15/24 18:46 4 mg ONCE ONE Administration Ondansetron HCl 4 mg 07/16/24 02:03 07/16/24 02:08 Ondansetron Hcl 4 Mg/2 Ml Vial IVPUSH 07/16/24 02:04 4 mg ONCE ONE Administration Potassium Chloride 40 meq 07/15/24 20:55 07/15/24 22:09 Potassium Chloride Packet 20 Meq Packet PO 07/15/24 20:56 40 meq ONCE ONE Administration Prochlorperazine Edisylate 10 mg 07/15/24 22:15 07/15/24 22:24 Prochlorperazine Edisylate 10 Mg/2 Ml Vial IVPUSH 07/15/24 22:16 10 mg ONCE ONE Administration Medical Decision Making Medical Decision Making MDM Narrative: My interpretation of EKG: Normal sinus rhythm, heart rate 104, no ST segment depression or elevation, no T-wave inversion, QTC 518 My interpretation of labs: Patient's white blood cell count 7.8, hemoglobin hematocrit slightly decreased , hemoglobin 12.7, hematocrit 37.5, platelets 573. D-dimer elevated 362. Patient's pH 7.45, pCO2 36, bicarb 25. Patient's potassium 3.2, repleted p.o.. Patient's glucose 198, lactic acid 9.1, recent unclear. Possible ETOH? Lactic acid then increased to 9.4. Unclear why patient's lactic acid is elevating. More fluids were given to the patient. Patient states that he feels otherwise well. Sepsis not suspected. Patient has no fever Urinalysis negative for UTI Head CT does not show any acute abnormality. Cervical spine shows no acute findings, chest x-ray within normal limits. CTA of the chest negative for PE, CT scan of the abdomen does not show any acute abnormalities either. Sudden already negative for influenza COVID and RSV Patient states that other than feeling a bit nauseous, he has no pain at all. Patient's vitals are stable. Blood pressure 127/69, heart rate 96, respirations 18, temperature 98.1 degrees, oxygen saturation 98% I discussed the patient with Dr. WADDELL and RAFAEL Lyle from the ICU. So far, it is unclear why patient's lactic acid is elevated. However, patient is very stable to go up to the floor. RAFAEL Lyle pitting to assess the patient. It is possible that patient may be experiencing starvation/alcoholic ketoacidosis. We will provide the patient with IV thiamine and then IV dextrose. At this time, patient does not need ICU and does not need to be transferred either. I discussed the above-mentioned with Dr. Cortez volatile labs, ASA and acetaminophen labs pending Patient already started on thiamine and IV dextrose.. Dr. Cortez agrees to admit the patient to the medicine service once the lactic acid starts decreasing sign out given to Dr. Gage Differential Diagnosis Differential Diagnoses: The differential diagnosis associated with the presentation includes Admission/Observation Consideration of admission/observation: Escalation of care including admission/observation considered Consult Healthcare Provider Management of the patient was discussed with: Hospitalist Lab Data [facility] Lab Attestation statement: I reviewed the patient's lab results. 07/15/24 18:39 07/15/24 19:15 Labs: Lab Results 07/15/24 07/15/24 07/15/24 Range/Units 18:34 18:38 18:39 WBC 7.8 (4.8-10.8) X10*3/uL RBC 4.14 L (4.60-5.80) X10*6/uL Hgb 12.7 L (14.0-18.0) g/dl Hct 37.5 L D (42.0-52.0) % MCV 90.6 (80.0-98.0) fL MCH 30.7 (27.0-33.0) pg MCHC 33.9 (31.0-36.0) g/dl RDW 19.2 H (11.0-16.0) % Plt Count 573 H (160-400) X10*3/uL MPV 8.9 L (9.4-12.4) fL Immature Gran % (Auto) 0.1 (0.0-0.4) % Neut % (Auto) 29.7 L (45-73) % Lymph % (Auto) 56.4 H (20-40) % Bureau % (Auto) 11.6 H (2-11) % Eos % (Auto) 0.8 (0-4) % Baso % (Auto) 1.4 (0-2) % Lymph # (Auto) 4.4 (1.2-4.9) X10*3/uL Bureau # (Auto) 0.9 (0.1-1.2) X10*3/uL Eos # (Auto) 0.1 (0.0-0.4) X10*3/uL Baso # (Auto) 0.1 (0.0-0.2) X10*3/uL Abs Immat Gran (auto) 0.01 (0.00-0.03) X10*3/uL Absolute Neuts (auto) 2.3 (2.0-8.3) x10*3/uL Absolute Nucleated RBC 0.000 (0.0-0.012) X10*3/uL Nucleated RBC % (auto) 0.0 (0.0-0.2) /100WBC PT Cancelled INR Cancelled D-Dimer High Sensitivty NG/ML VBG pH (7.32-7.43) VBG pCO2 mmHg VBG pO2 mmHg VBG HCO3 (22-26) mmol/L VBG O2 Saturation % VBG Base Excess mmol/L Sodium (135-145) mmol/L Potassium (3.3-5.1) mmol/L Chloride (96-108) mmol/L Carbon Dioxide (22-29) mmol/L Anion Gap (12-20) BUN (9-16) mg/dL Creatinine (0.5-1.4) mg/dL Estim Creat Clear Calc Estimated GFR Random Glucose (60-115) mg/dL Lactic Acid (0.5-2.0) mmol/L Lactic Acid F/U @ 2Hr (0.5-2.0) mmol/L Lactic Acid F/U @ 4Hr (0.5-2.0) mmol/L Calcium (8.4-10.2) mg/dL Magnesium (1.6-2.6) mg/dL Total Bilirubin (0.0-1.0) mg/dL Direct Bilirubin (0.0-0.5) mg/dL AST (5-37) U/L ALT (0-40) U/L Alkaline Phosphatase (39-117) U/L Total Creatine Kinase (38-174) U/L Troponin I High Sens (<3.5-35.0) ng/L B-Natriuretic Peptide (<100) pg/mL Total Protein (6.5-8.0) g/dL Albumin (3.5-5.0) g/dL Lipase (8-78) U/L TSH Cancelled Urine Color Urine Appearance Urine pH (5.0-9.0) Ur Specific [place] (1.005-1.025) Urine Protein (Neg-Trace) mg/dL Urine Glucose (UA) (Negative) mg/dL Urine Ketones (Negative) mg/dL Urine Blood (Negative) Urine Nitrite (Negative) Ur Leukocyte Esterase (Negative) Urine Opiates Screen (Not Detect) Ur Buprenorphine Scrn (Not Detect) ng/mL Ur Oxycodone Screen (Not Detect) ng/mL Urine Methadone Screen (Not Detect) ng/mL Urine Fentanyl Screen (Not Detect) Ur Barbiturates Screen (Not Detect) Ur Phencyclidine Scrn (Not Detect) Ur Amphetamines Screen (Not Detect) U Benzodiazepines Scrn (Not Detect) Urine Cocaine Screen (Not Detect) U Marijuana (THC) Screen (Not Detect) Ethyl Alcohol mg/dL Influenza Type A (PCR) NEGATIVE (Negative) Influenza Type B (PCR) NEGATIVE (Negative) RSV RNA Qual (PCR) NEGATIVE (Negative) SARS-CoV-2 RNA (RT-PCR) NEGATIVE (Negative) 07/15/24 07/15/24 07/15/24 Range/Units 18:40 18:43 19:15 WBC (4.8-10.8) X10*3/uL RBC (4.60-5.80) X10*6/uL Hgb (14.0-18.0) g/dl Hct (42.0-52.0) % MCV (80.0-98.0) fL MCH (27.0-33.0) pg MCHC (31.0-36.0) g/dl RDW (11.0-16.0) % Plt Count (160-400) X10*3/uL MPV (9.4-12.4) fL Immature Gran % (Auto) (0.0-0.4) % Neut % (Auto) (45-73) % Lymph % (Auto) (20-40) % Bureau % (Auto) (2-11) % Eos % (Auto) (0-4) % Baso % (Auto) (0-2) % Lymph # (Auto) (1.2-4.9) X10*3/uL Bureau # (Auto) (0.1-1.2) X10*3/uL Eos # (Auto) (0.0-0.4) X10*3/uL Baso # (Auto) (0.0-0.2) X10*3/uL Abs Immat Gran (auto) (0.00-0.03) X10*3/uL Absolute Neuts (auto) (2.0-8.3) x10*3/uL Absolute Nucleated RBC (0.0-0.012) X10*3/uL Nucleated RBC % (auto) (0.0-0.2) /100WBC PT 10.6 L INR 0.9 D-Dimer High Sensitivty 362 NG/ML VBG pH 7.45 H (7.32-7.43) VBG pCO2 36 mmHg VBG pO2 50 mmHg VBG HCO3 25 (22-26) mmol/L VBG O2 Saturation 80.0 % VBG Base Excess 1.9 mmol/L Sodium 144 (135-145) mmol/L Potassium 3.2 L (3.3-5.1) mmol/L Chloride 103 (96-108) mmol/L Carbon Dioxide 23 (22-29) mmol/L Anion Gap 21 H (12-20) BUN 3 L (9-16) mg/dL Creatinine 0.69 (0.5-1.4) mg/dL Estim Creat Clear Calc 108.0 Estimated GFR > 60 Random Glucose 198 H (60-115) mg/dL Lactic Acid 9.1 H* (0.5-2.0) mmol/L Lactic Acid F/U @ 2Hr (0.5-2.0) mmol/L Lactic Acid F/U @ 4Hr (0.5-2.0) mmol/L Calcium 8.7 (8.4-10.2) mg/dL Magnesium 1.9 (1.6-2.6) mg/dL Total Bilirubin 0.2 (0.0-1.0) mg/dL Direct Bilirubin < 0.2 (0.0-0.5) mg/dL AST 28 (5-37) U/L ALT 12 (0-40) U/L Alkaline Phosphatase 128 H (39-117) U/L Total Creatine Kinase 34 L (38-174) U/L Troponin I High Sens < 2.7 (<3.5-35.0) ng/L B-Natriuretic Peptide 44 (<100) pg/mL Total Protein 5.8 L (6.5-8.0) g/dL Albumin 2.6 L (3.5-5.0) g/dL Lipase 18 (8-78) U/L TSH 0.97 Urine Color Urine Appearance Urine pH (5.0-9.0) Ur Specific [place] (1.005-1.025) Urine Protein (Neg-Trace) mg/dL Urine Glucose (UA) (Negative) mg/dL Urine Ketones (Negative) mg/dL Urine Blood (Negative) Urine Nitrite (Negative) Ur Leukocyte Esterase (Negative) Urine Opiates Screen (Not Detect) Ur Buprenorphine Scrn (Not Detect) ng/mL Ur Oxycodone Screen (Not Detect) ng/mL Urine Methadone Screen (Not Detect) ng/mL Urine Fentanyl Screen (Not Detect) Ur Barbiturates Screen (Not Detect) Ur Phencyclidine Scrn (Not Detect) Ur Amphetamines Screen (Not Detect) U Benzodiazepines Scrn (Not Detect) Urine Cocaine Screen (Not Detect) U Marijuana (THC) Screen (Not Detect) Ethyl Alcohol 137 mg/dL Influenza Type A (PCR) (Negative) Influenza Type B (PCR) (Negative) RSV RNA Qual (PCR) (Negative) SARS-CoV-2 RNA (RT-PCR) (Negative) 07/15/24 07/15/24 07/15/24 Range/Units 22:14 23:25 Unknown WBC (4.8-10.8) X10*3/uL RBC (4.60-5.80) X10*6/uL Hgb (14.0-18.0) g/dl Hct (42.0-52.0) % MCV (80.0-98.0) fL MCH (27.0-33.0) pg MCHC (31.0-36.0) g/dl RDW (11.0-16.0) % Plt Count (160-400) X10*3/uL MPV (9.4-12.4) fL Immature Gran % (Auto) (0.0-0.4) % Neut % (Auto) (45-73) % Lymph % (Auto) (20-40) % Bureau % (Auto) (2-11) % Eos % (Auto) (0-4) % Baso % (Auto) (0-2) % Lymph # (Auto) (1.2-4.9) X10*3/uL Bureau # (Auto) (0.1-1.2) X10*3/uL Eos # (Auto) (0.0-0.4) X10*3/uL Baso # (Auto) (0.0-0.2) X10*3/uL Abs Immat Gran (auto) (0.00-0.03) X10*3/uL Absolute Neuts (auto) (2.0-8.3) x10*3/uL Absolute Nucleated RBC (0.0-0.012) X10*3/uL Nucleated RBC % (auto) (0.0-0.2) /100WBC PT INR D-Dimer High Sensitivty NG/ML VBG pH (7.32-7.43) VBG pCO2 mmHg VBG pO2 mmHg VBG HCO3 (22-26) mmol/L VBG O2 Saturation % VBG Base Excess mmol/L Sodium (135-145) mmol/L Potassium (3.3-5.1) mmol/L Chloride (96-108) mmol/L Carbon Dioxide (22-29) mmol/L Anion Gap (12-20) BUN (9-16) mg/dL Creatinine (0.5-1.4) mg/dL Estim Creat Clear Calc Estimated GFR Random Glucose (60-115) mg/dL Lactic Acid (0.5-2.0) mmol/L Lactic Acid F/U @ 2Hr 9.4 H* (0.5-2.0) mmol/L Lactic Acid F/U @ 4Hr (0.5-2.0) mmol/L Calcium (8.4-10.2) mg/dL Magnesium (1.6-2.6) mg/dL Total Bilirubin (0.0-1.0) mg/dL Direct Bilirubin (0.0-0.5) mg/dL AST (5-37) U/L ALT (0-40) U/L Alkaline Phosphatase (39-117) U/L Total Creatine Kinase (38-174) U/L Troponin I High Sens (<3.5-35.0) ng/L B-Natriuretic Peptide (<100) pg/mL Total Protein (6.5-8.0) g/dL Albumin (3.5-5.0) g/dL Lipase (8-78) U/L TSH Urine Color Yellow Urine Appearance Clear Urine pH 5.0 (5.0-9.0) Ur Specific [place] >= 1.030 H (1.005-1.025) Urine Protein Negative (Neg-Trace) mg/dL Urine Glucose (UA) Negative (Negative) mg/dL Urine Ketones Trace (Negative) mg/dL Urine Blood Negative (Negative) Urine Nitrite Negative (Negative) Ur Leukocyte Esterase Negative (Negative) Urine Opiates Screen Not Detected (Not Detect) Ur Buprenorphine Scrn Not Detected (Not Detect) ng/mL Ur Oxycodone Screen Not Detected (Not Detect) ng/mL Urine Methadone Screen Not Detected (Not Detect) ng/mL Urine Fentanyl Screen Not Detected (Not Detect) Ur Barbiturates Screen Not Detected (Not Detect) Ur Phencyclidine Scrn Not Detected (Not Detect) Ur Amphetamines Screen Not Detected (Not Detect) U Benzodiazepines Scrn Not Detected (Not Detect) Urine Cocaine Screen Not Detected (Not Detect) U Marijuana (THC) Screen POSITIVE H (Not Detect) Ethyl Alcohol Cancelled mg/dL Influenza Type A (PCR) (Negative) Influenza Type B (PCR) (Negative) RSV RNA Qual (PCR) (Negative) SARS-CoV-2 RNA (RT-PCR) (Negative) 07/16/24 Range/Units 01:14 WBC (4.8-10.8) X10*3/uL RBC (4.60-5.80) X10*6/uL Hgb (14.0-18.0) g/dl Hct (42.0-52.0) % MCV (80.0-98.0) fL MCH (27.0-33.0) pg MCHC (31.0-36.0) g/dl RDW (11.0-16.0) % Plt Count (160-400) X10*3/uL MPV (9.4-12.4) fL Immature Gran % (Auto) (0.0-0.4) % Neut % (Auto) (45-73) % Lymph % (Auto) (20-40) % Bureau % (Auto) (2-11) % Eos % (Auto) (0-4) % Baso % (Auto) (0-2) % Lymph # (Auto) (1.2-4.9) X10*3/uL Bureau # (Auto) (0.1-1.2) X10*3/uL Eos # (Auto) (0.0-0.4) X10*3/uL Baso # (Auto) (0.0-0.2) X10*3/uL Abs Immat Gran (auto) (0.00-0.03) X10*3/uL Absolute Neuts (auto) (2.0-8.3) x10*3/uL Absolute Nucleated RBC (0.0-0.012) X10*3/uL Nucleated RBC % (auto) (0.0-0.2) /100WBC PT INR D-Dimer High Sensitivty NG/ML VBG pH (7.32-7.43) VBG pCO2 mmHg VBG pO2 mmHg VBG HCO3 (22-26) mmol/L VBG O2 Saturation % VBG Base Excess mmol/L Sodium (135-145) mmol/L Potassium (3.3-5.1) mmol/L Chloride (96-108) mmol/L Carbon Dioxide (22-29) mmol/L Anion Gap (12-20) BUN (9-16) mg/dL Creatinine (0.5-1.4) mg/dL Estim Creat Clear Calc Estimated GFR Random Glucose (60-115) mg/dL Lactic Acid (0.5-2.0) mmol/L Lactic Acid F/U @ 2Hr (0.5-2.0) mmol/L Lactic Acid F/U @ 4Hr 12.2 H* (0.5-2.0) mmol/L Calcium (8.4-10.2) mg/dL Magnesium (1.6-2.6) mg/dL Total Bilirubin (0.0-1.0) mg/dL Direct Bilirubin (0.0-0.5) mg/dL AST (5-37) U/L ALT (0-40) U/L Alkaline Phosphatase (39-117) U/L Total Creatine Kinase (38-174) U/L Troponin I High Sens (<3.5-35.0) ng/L B-Natriuretic Peptide (<100) pg/mL Total Protein (6.5-8.0) g/dL Albumin (3.5-5.0) g/dL Lipase (8-78) U/L TSH Urine Color Urine Appearance Urine pH (5.0-9.0) Ur Specific [place] (1.005-1.025) Urine Protein (Neg-Trace) mg/dL Urine Glucose (UA) (Negative) mg/dL Urine Ketones (Negative) mg/dL Urine Blood (Negative) Urine Nitrite (Negative) Ur Leukocyte Esterase (Negative) Urine Opiates Screen (Not Detect) Ur Buprenorphine Scrn (Not Detect) ng/mL Ur Oxycodone Screen (Not Detect) ng/mL Urine Methadone Screen (Not Detect) ng/mL Urine Fentanyl Screen (Not Detect) Ur Barbiturates Screen (Not Detect) Ur Phencyclidine Scrn (Not Detect) Ur Amphetamines Screen (Not Detect) U Benzodiazepines Scrn (Not Detect) Urine Cocaine Screen (Not Detect) U Marijuana (THC) Screen (Not Detect) Ethyl Alcohol mg/dL Influenza Type A (PCR) (Negative) Influenza Type B (PCR) (Negative) RSV RNA Qual (PCR) (Negative) SARS-CoV-2 RNA (RT-PCR) (Negative) Independent Interpretation I performed an independent interpretation of an: Plain X-Ray and CT Scan Radiology Impression Discussion of test interpretation with radiology: I have reviewed the radiologist's reading. Radiologist Impression: No acute disease within the abdomen or pelvis. Extensive atherosclerotic disease of the abdominal aorta and its major branches. No hemodynamically significant stenosis of the celiac or superior mesenteric artery. Possible severe stenosis at the origin of the inferior mesenteric artery. Moderate stenosis of the proximal right renal artery. Moderate narrowing of the distal abdominal aorta measuring 8 mm in diameter. 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 No CT evidence of ischemic colitis. The heart is normal size. RV/LV ratio is normal. Unremarkable thoracic aorta and great vessels. No aneurysm. No acute pulmonary embolus. The visualized thyroid and mediastinum are unremarkable. No consolidation or effusion. The upper abdomen is unremarkable. The bones are intact. Normal vertebral body alignment. Vertebral body height is maintained. No acute fracture in the cervical spine. Craniocervical junction is intact. Degenerative disc disease and spondylotic changes at C5-6 and C6-7. Mild bilateral foraminal stenosis at C5-6. No acute fractures or dislocations. Prevertebral soft tissues within normal limits. Atherosclerotic vascular disease bilaterally. No consolidation or effusion at the lung apices. No intra-axial mass, midline shift, hydrocephalus, or acute hemorrhage. There is atrophy. Nonspecific bilateral supratentorial white matter hypodensities most suggestive of chronic small-vessel ischemic changes. Atherosclerotic vascular disease. There is no sinus or mastoid fluid. The orbits are within normal limits. No acute skull fracture Linear focus of scarring within the left lower lung without change. No consolidative process. Normal size heart. No acute fracture. Critical Care Time Critical Care Time Critical Care Time: Yes Total Critical Care Time: 90 Attestation: I have personally provided critical care time. Time includes review of lab data, radiology results, discussion with consultants, and monitoring for potential decompensation. Intervention performed as documented. Discharge Plan Discharge Clinical Impression: Acidosis, lactic, Chronic lung disease, Acute hypokalemia, Nausea & vomiting Patient Disposition: Admitted As Inpatient Prescriptions: No Action paroxetine HCl 40 mg tablet 1 tab PO QAM albuterol sulfate 90 mcg/actuation HFA aerosol inhaler 2 puff PO Q4H PRN (Reason: Wheezing) paroxetine HCl [Paxil] 40 mg tablet 40 mg PO DAILY Qty: 14 0RF prednisone 20 mg tablet 40 mg PO DAILY Qty: 10 0RF azithromycin 250 mg tablet See Rx Instructions .ROUTE .COMPLEX Qty: 6 0RF Rx Instructions: For 250 mg dose pack: take 500 mg today (day 1), then 250 mg for 4 days (days 2-5) Print Language: Burmese
[2024-07-15 18:45] LABS: MANUAL DIFF FLAG NO
[2024-07-15] MEDS: 0.9 % Sodium Chloride 2,500 ML 999 ML IVCONT (18:45)
[2024-07-15] MEDS: Albuterol Sulfate 2.5 MG, Albuterol Sulfate (0.083%) 2.5 MG 5 MG INHALE (18:45)
[2024-07-15 18:47] LABS: Venous Blood Gas Refer to POC result
[2024-07-15 18:48] VITALS: BP 109/45; PULSE 100; RESP 16; TEMP 36.1; O2SAT 96; BMI 23.0
[2024-07-15 18:48] LABS: VBG Base Excess 1.9 mmol/L; VBG HCO3 25 mmol/L (22-26); VBG pCO2 36 mmHg; VBG pH 7.45 (7.32-7.43); VBG pO2 50 mmHg
[2024-07-15] MEDS: cefTRIAXone sodium 1 GM VIAL IVPUSH (18:50)
[2024-07-15] MEDS: Magnesium Sulfate/H2O 2 GM/50 ML PIGGYBACK IV (18:50)
[2024-07-15] MEDS: ondansetron HCL 4 MG/2 ML VIAL IVPUSH (18:50)
[2024-07-15] MEDS: Azithromycin 500 MG in 0.9 % Sodium Chloride 250 ML 125 MG IV (18:51)
[2024-07-15 18:55] LABS: Basophils Absolute Auto 0.1 X10*3/uL (0.0-0.2); Basophils Percent Auto 1.4 % (0-2); Eosinophils Absolute Auto 0.1 X10*3/uL (0.0-0.4); Eosinophils Percent Auto 0.8 % (0-4); Hematocrit 37.5 % (42.0-52.0); Hemoglobin 12.7 g/dl (14.0-18.0); Imm Gran Abs Auto 0.01 X10*3/uL (0.00-0.03); Imm Gran Pct Auto 0.1 % (0.0-0.4); Lymphocytes Absolute Auto 4.4 X10*3/uL (1.2-4.9); Lymphocytes Percent Auto 56.4 % (20-40); Mean Corpuscular HGB Conc 33.9 g/dl (31.0-36.0); Mean Corpuscular Hemoglobin 30.7 pg (27.0-33.0); Mean Corpuscular Volume 90.6 fL (80.0-98.0); Mean Platelet Volume 8.9 fL (9.4-12.4); Monocytes Absolute Auto 0.9 X10*3/uL (0.1-1.2); Monocytes Percent Auto 11.6 % (2-11); Neutrophils Absolute Auto 2.3 x10*3/uL (2.0-8.3); Neutrophils Percent Auto 29.7 % (45-73); Platelet Count 573 X10*3/uL (160-400); Red Blood Count 4.14 X10*6/uL (4.60-5.80); Red Cell Distribution Width 19.2 % (11.0-16.0); White Blood Count 7.8 X10*3/uL (4.8-10.8)
[2024-07-15 19:01] LABS: INTERNATIONAL NORM RATIO 0.9 (0.9-1.1); Prothrombin Time 10.6 SEC (10.9-12.4)
[2024-07-15 19:03] VITALS: BP 109/45; PULSE 100; RESP 14; O2SAT 97
[2024-07-15 19:03] LABS: D Dimer High Sensitivity 362 NG/ML
[2024-07-15 19:25] LABS: Influenza A PCR NEGATIVE (Negative); Influenza B PCR NEGATIVE (Negative); Resp Syncy Virus RNA Qual PCR NEGATIVE (Negative); SARS COV2 PCR INHOUSE NEGATIVE (Negative)
--- OUTSIDE RECORDS SUMMARY | 2024-07-15 19:38 | XMS_ITS | Clinical Summary ---
Author Organization [facility] Address [address] [place] [address] Care Team Providers Care Zigzag Stitcher Name Role Phone Bryan Baker MD Primary Care Provider [phone] Allergies No known active allergies Medications Medication Sig Dispensed Refills Start Date End Date Status PARoxetine (PAXIL) 10 MG tablet Take 10 mg by mouth every morning. 0 Active oxyCODONE-acetaminoph en (PERCOCET) 5-325 MG per tablet Take 1 tablet by mouth every 4 (four) hours as needed for pain. 12 tablet 0 05/03/2017 Active ondansetron (ZOFRAN) 8 MG tablet Take 1 tablet (8 mg total) by mouth every 8 (eight) hours as needed. 20 tablet 0 05/03/2017 Active polyethylene glycol (MIRALAX) powder Take 17 g by mouth daily. 17 g 0 05/03/2017 Active Social History Tobacco Use Types Packs/Day Years Used Date Smoking Tobacco: Every Day Cigarettes 2 Smokeless Tobacco: Never Tobacco Cessation:Ready to Q uit: No Alcohol Use Standard Drinks/Week Comments Yes 0 (1 standard drink = 0.6 oz pur e alcohol) pt drinks daily Sex and Gender Information Value Date Recorded Sex Assigned at Not on file Gender Identity Not on file Sexual Orientation Not on file Last Filed Vital Signs Vital Sign Reading Time Taken Comments Blood Pressure 113/64 05/03/2017 2:33 AM EST Pulse 70 05/03/2017 2:33 AM EST Temperature 36.3 ??C (97.4 ??F) 05/03/2017 2:33 AM ES T Respiratory Rate 16 05/03/2017 2:33 AM EST Oxygen Saturation 97% 05/03/2017 2:33 AM EST Inhaled Oxygen Concentration - - Weight 79.4 kg (175 lb) 05/02/2017 9:32 PM EST Height 175.3 cm (5' 9 ) 05/02/2017 9:32 PM EST Body Mass Index 25.84 05/02/2017 9:32 PM EST Plan of Treatment Health Maintenance Due Date Last Done Comments Hepatitis C Screening 1960 COVID-19 Vaccine (#1) 1960 Pneumococcal Vaccine (1 of 2 - PCV) 1966 Pneumococcal Vaccine (1 of 2 - PCV) 1966 Depression Screening 1972 Preventative Health Evaluation 1978 DTap / Tdap / Td (1 - Tdap) 1979 Colon Cancer Screening (Colonoscopy) 2005 Shingrix-Zoster Vaccine (1 of 2) 2010 Influenza Vaccine (#1) 2024 RSV Adult > 60+ Yrs or Pregn ant (1 - 1-dose 75+ series) 2035 Hepatitis B Vaccines Aged Out No long er eligible based on patient's age to complete this topic RSV Ped < 20 months Aged Out No longe r eligible based on patient's age to complete this topic Care Teams Zigzag Stitcher Relationship Specialty Start Date End Date Bryan Baker MD PCP - General Internal Medicine 05/02/17
[2024-07-15 19:42] LABS: Lactic Acid 9.1 mmol/L (0.5-2.0)
[2024-07-15 19:45] LABS: Alanine Aminotransferase 12 U/L (0-40); Albumin Level 2.6 g/dL (3.5-5.0); Alkaline Phosphatase 128 U/L (39-117); Anion Gap 21 (12-20); Aspartate Amino Transferase 28 U/L (5-37); Bilirubin Direct < 0.2 mg/dL (0.0-0.5); Bilirubin Total 0.2 mg/dL (0.0-1.0); Blood Urea Nitrogen 3 mg/dL (9-16); Calcium 8.7 mg/dL (8.4-10.2); Carbon Dioxide 23 mmol/L (22-29); Chloride 103 mmol/L (96-108); Estimated Glomerular Filt Rate > 60; Ethanol 137 mg/dL; Glucose Random 198 mg/dL (60-115); Lipase 18 U/L (8-78); Magnesium 1.9 mg/dL (1.6-2.6); Potassium 3.2 mmol/L (3.3-5.1); Sodium 144 mmol/L (135-145); Total Protein 5.8 g/dL (6.5-8.0)
[2024-07-15 19:48] LABS: Troponin-I High Sensitivity < 2.7 ng/L (<3.5-35.0)
[2024-07-15 20:01] LABS: Thyroid Stimulating Hormone 0.97 uIU/mL (0.32-4.0)
[2024-07-15 20:45] VITALS: BP 79/44; PULSE 90; RESP 14; O2SAT 97
--- NOTE | 2024-07-15 20:46 | PC.NURSE ---
This RN was rounding on patient as float RN, noted that IVF not scanned into MAR. Only 1 L NS running, full ordered 2.5L scanned and hung. Noted that patient's Lactic is significantly elevated, no BC drawn but IV abx running. Checked patient's vitals BP noted to be low. Provider Dr. Sanchez made aware, Dr. Sanchez wanted BC, informed her abx already hung. Primary RN Michelle made aware & anesthetic assistant Diane.
--- NOTE | 2024-07-15 21:17 | PC.NURSE ---
Assumed care of pt at 1900, IV fluids running but never scanned. T/w in room with another pt when notified pts bp dropped sbp 70's. Pt given 2nd bag of fluids and put in [place]. Pt reporting feeling better than when he first got here. BP improving soft SBP 100's now. aware, requesting Blood culters be done, pt lactic is 9. notified that the abx had already been given by previous RN and asked if she still wanted t/w to get blood cultures. Per she still wants them drawn. Tech drawing blood cultures now.
[2024-07-15 21:18] LABS: Reflex Lactate? Lactic Acid Added
[2024-07-15] MEDS: iohexoL 350 MG/ML 100 ML INFUS..BTL 85 ML IV (21:59)
[2024-07-15] MEDS: 0.9 % Sodium Chloride 1,000 ML 999 ML IVCONT ×2 (22:05→23:58)
[2024-07-15] MEDS: Potassium Chloride Packet 20 MEQ PACKET 40 MEQ PO (22:09)
[2024-07-15] MEDS: Prochlorperazine Edisylate 10 MG/2 ML VIAL IVPUSH (22:24)
[2024-07-15 22:26] LABS: B Type Natriuretic Peptide 44 pg/mL (<100)
[2024-07-15 22:52] LABS: ~Lactic Acid-LAB USE ONLY 9.4 mmol/L (0.5-2.0)
[2024-07-15 23:20] VITALS: BP 127/69; PULSE 96; RESP 18; TEMP 36.7; O2SAT 98
[2024-07-15 23:33] LABS: Appearance Urine Clear; Color Urine Yellow; Glucose Urine UA Negative (Negative); Leukocyte Esterase Urine Negative (Negative); Nitrite Urine Negative (Negative); Specific Gravity - Urine >= 1.030 (1.005-1.025); Urine Blood Negative (Negative); Urine Ketones Trace mg/dL (Negative); Urine Protein Negative (Neg-Trace)
[2024-07-15 23:48] LABS: Amphetamine Screen Urine Not Detected (Not Detect); Barbiturates, Urine Not Detected (Not Detect); Benzodiazepines Screen Urine Not Detected (Not Detect); Buprenorphine Scr Not Detected (Not Detect); Cannabinoid Screen Urine POSITIVE (Not Detect); Cocaine Screen Urine Not Detected (Not Detect); Fentanyl, urine Not Detected (Not Detect); Methadone Screen, Urine Not Detected (Not Detect); Opiate Screen Urine Not Detected (Not Detect); Oxycodone Screen Urine Not Detected (Not Detect); Phencyclidine Screen Urine Not Detected (Not Detect)
[2024-07-16] VITALS (9 sets, daily range): BP systolic 103–143; BP diastolic 55–81; PULSE 80–97; RESP 15–20; TEMP 36.2–37; O2SAT 97–100
[2024-07-16 00:17] LABS: Reflex Lactate? 2 Y
[2024-07-16 01:37] LABS: ~Lactic Acid-LAB USE ONLY 12.2 mmol/L (0.5-2.0)
[2024-07-16] MEDS: ondansetron HCL 4 MG/2 ML VIAL IVPUSH (02:08)
[2024-07-16] MEDS: Magnesium Hydrox/Alum Hydrox 30 ML ORAL.SUSP PO ×2 (02:08→11:24)
[2024-07-16] MEDS: Lidocaine HCl Viscous 2 % 15 ML SOLUTION MUCOUS MEM ×2 (02:08→06:05)
[2024-07-16] MEDS: Thiamine HCL 500 MG in 0.9 % Sodium Chloride 100 ML 210 MG IV ×2 (02:37→12:33)
[2024-07-16 03:25] LABS: Acetaminophen LAB < 3 mcg/mL (<30); Anion Gap 22 (12-20); Blood Urea Nitrogen 4 mg/dL (9-16); Calcium 7.5 mg/dL (8.4-10.2); Carbon Dioxide 13 mmol/L (22-29); Chloride 112 mmol/L (96-108); Estimated Glomerular Filt Rate > 60; Glucose Random 243 mg/dL (60-115); Potassium 4.1 mmol/L (3.3-5.1); Salicylate < 5.0 mg/dL (15-30); Sodium 143 mmol/L (135-145)
--- NOTE | 2024-07-16 03:56 | PM.EVENT ---
Documented by User: Nichole Lyle NP 07/16/24 03:58 Event Note Date of Service: 07/16/24 Event Note: Pt evaluated for level of care secondary to lactic acidosis. The pt admits to excessive alcohol use and smoking cigarettes. He has had multiple falls, episodes of dizziness, intermittent chest pain, and shortness of breath.? He has been noncompliant with his medications for about a year. Laboratory studies / imaging reveal no specific cause for lactic acidosis. Sepsis not suspected. No fever, UA negative for UTI. Patient is awake, alert, oriented, appears comfortable, asymptomatic. Systolic blood pressure in 120s with HR 90's. No respiratory distress: O2 sat 98% on room air. Asymptomatic lactic acidosis possibly due to starvation / alcoholic ketoacidosis.? Recommend IV thiamine, IV dextrose. At this time, pt does not require intensive care level of monitoring.? Please notify for re-evaluation if patient's condition changes. Case discussed with Dr. Montoya. She is aware of all the above as well as the plan of care for this patient. Time Spent With Patient Time: Total time managing care of this patient today ____ minutes. Documented by User: Chinyere Montoya MD 07/16/24 09:08 Event Note Date of Service: 07/16/24
[2024-07-16] MEDS: Dextrose 5 % and 0.45 % NaCl 1,000 ML 125 ML IVCONT ×3 (04:22→18:35)
[2024-07-16 05:02] LABS: Reflex Lactate? Lactic Acid Added
--- NOTE | 2024-07-16 05:12 | PC.NURSE ---
T/w received message from regarding pt bicarb being low, requested t/w inform . Per hold on lactic and repeat chemistry at 0700, hang D5 1/2NS as ordered. Labs ordered for 0700 as instructed.
[2024-07-16] MEDS: Magnesium Hydrox/Alum Hydrox 30 ML ORAL.SUSP 15 ML PO (06:05)
[2024-07-16 08:07] LABS: MANUAL DIFF FLAG NO
[2024-07-16] MEDS: Prochlorperazine Edisylate 10 MG/2 ML VIAL IVPUSH (08:08)
[2024-07-16] MEDS: diphenhydrAMINE HCL 50 MG/ML VIAL IVPUSH (08:08)
[2024-07-16 08:12] LABS: VBG Base Excess -8.2 mmol/L; VBG HCO3 17 mmol/L (22-26); VBG pCO2 36 mmHg; VBG pH 7.28 (7.32-7.43); VBG pO2 56 mmHg
[2024-07-16 08:12] LABS: Basophils Percent Auto 0.1 % (0-2); Hematocrit 36.2 % (42.0-52.0); Hemoglobin 11.6 g/dl (14.0-18.0); Imm Gran Abs Auto 0.04 X10*3/uL (0.00-0.03); Imm Gran Pct Auto 0.4 % (0.0-0.4); Lymphocytes Absolute Auto 0.6 X10*3/uL (1.2-4.9); Lymphocytes Percent Auto 6.3 % (20-40); Mean Corpuscular Hemoglobin 30.1 pg (27.0-33.0); Mean Platelet Volume 9.5 fL (9.4-12.4); Monocytes Absolute Auto 0.4 X10*3/uL (0.1-1.2); Monocytes Percent Auto 4.1 % (2-11); Neutrophils Absolute Auto 8.7 x10*3/uL (2.0-8.3); Neutrophils Percent Auto 89.1 % (45-73); Platelet Count 515 X10*3/uL (160-400); Red Blood Count 3.85 X10*6/uL (4.60-5.80); Red Cell Distribution Width 19.2 % (11.0-16.0); White Blood Count 9.7 X10*3/uL (4.8-10.8)
[2024-07-16 08:14] LABS: Venous Blood Gas Refer to POC result
--- NOTE | 2024-07-16 08:15 | PC.NURSE ---
Pt alert and oriented, breathing even and unlabored. Pt reports not feeling well overall, skin crawling, shaky, anxious and nauseous. CIWA 7, provider alerted. VSS.
[2024-07-16 08:26] LABS: Alanine Aminotransferase 12 U/L (0-40); Albumin Level 2.8 g/dL (3.5-5.0); Alkaline Phosphatase 131 U/L (39-117); Anion Gap 22 (12-20); Aspartate Amino Transferase 29 U/L (5-37); Bilirubin Total 0.2 mg/dL (0.0-1.0); Blood Urea Nitrogen 6 mg/dL (9-16); Calcium 7.6 mg/dL (8.4-10.2); Carbon Dioxide 17 mmol/L (22-29); Chloride 109 mmol/L (96-108); Estimated Glomerular Filt Rate > 60; Glucose Random 243 mg/dL (60-115); Lactic Acid 11.8 mmol/L (0.5-2.0); Potassium 4.2 mmol/L (3.3-5.1); Sodium 144 mmol/L (135-145); Total Protein 6.1 g/dL (6.5-8.0)
[2024-07-16] MEDS: PHENobarbitaL sodium 130 MG/ML IM ONCE 338 MG IM (08:46)
[2024-07-16] MEDS: Lactated Ringers 1,000 ML 999 ML IV (08:47)
--- NOTE | 2024-07-16 08:59 | PHA.MEDREC ---
Addendum entered by Zachary Lockhart [facility] 07/16/24 09:06: MED REC CHECKED BY [facility] Original Note: Pharmacy Consult ? Medication Reconciliation Pharmacy has completed the medication reconciliation. Spoke with patient to confirm. No rx or OTC use.
[2024-07-16 09:18] LABS: Ethylene Glycol NONE DETECTED (NONE DETECTED)
[2024-07-16 09:48] LABS: Acetone NONE DETECTED (NONE DETECTED); Analysis Performed on: WHOLE BLOOD; Analysis performed on: WHOLE BLOOD; Ethyl Alcohol g/dL (%) NONE DETECTED g/dL(%) (NONE DETECTED); Ethyl Alcohol mg/dL NONE DETECTED (NONE DETECTED); Isopropanol NONE DETECTED (NONE DETECTED); Methyl Alcohol Level NONE DETECTED (NONE DETECTED)
[2024-07-16 10:07] LABS: Reflex Lactate? Lactic Acid Added
[2024-07-16 10:38] LABS: Methyl Alcohol NONE DETECTED
[2024-07-16] MEDS: PHENobarbitaL sodium 130 MG/ML VIAL IM Q3Hx2 254 MG IM ×2 (11:12→14:57)
[2024-07-16 11:41] LABS: ~Lactic Acid-LAB USE ONLY 9.2 mmol/L (0.5-2.0)
--- NOTE | 2024-07-16 12:09 | PM.IMHP ---
History of Present Illness Date of Service: 07/16/24 Chief Complaint: Alcohol withdrawal, fall A 64 yearts old male with PMH of alcohol abuse, withdrawal, not on any medications as of now presenting to ED after falling at home with reported shortness of breath. The patient was unable to provide much of history as he received PHenobarb for withdrawal. He mentioned getting back to binge drinking recently and has been thinking about quitting again thats why he came to ED. In ED negative head CT, negative cervical spine CT, a negative CT pulmonary angiogram, and a negative CT of the abdomen and pelvis. He had sustained elevated Lactic acid levels inspite of IV fluids and thiamine supplement in ED. no evidence of PE or ischemic bowels on images. Admitted for further evaluation and management. Review of Systems Review of Systems: Yes Unobtainable due to mental status [facility] Medical History Depression Compression fracture of L1 lumbar vertebra Social History Alcohol intake: current Alcohol intake frequency: 3 or more drinks per day Alcohol type: beer and wine Patient Tobacco Use Status: Current everyday Tobacco user Smoked in Last 30 Days: Yes Use of substances other than those prescribed or required for medical reasons: No Advance Directives: No Advance Directives Information Provided: No Meds Allergies Allergy/AdvReac Type Severity Reaction Status Date / Time diclofenac [From Flector] Allergy Unknown Verified 07/15/24 18:50 Active Medications: Current Medications Dextrose/Sodium Chloride (D51/2ns) 1,000 mls @ 125 mls/hr IVCONT .Q8H [facility] Last Admin: 07/16/24 11:11 Dose: 125 mls/hr Pharmacy Consult (Consult Rx Etoh Phenob Im/Po) 1 each MISCELLANE ONCE PRN; Protocol PRN Reason: Consult order Phenobarbital (Phenobarbital 15 Mg Tablet) 45 mg PO BID [facility]; Protocol Stop: 07/18/24 09:01 Phenobarbital (Phenobarbital 15 Mg Tablet) 15 mg PO BID [facility]; Protocol Stop: 07/21/24 09:01 Phenobarbital (Phenobarbital 15 Mg Tablet) 15 mg PO DAILY [facility]; Protocol Stop: 07/23/24 09:01 Phenobarbital Sodium (Phenobarbital Sodium 130 Mg/Ml Vial Im Q3hx2) 254 mg IM Q3H [facility]; Protocol Stop: 07/16/24 14:31 Last Admin: 07/16/24 11:12 Dose: 254 mg Home Medications ?Medication ?Instructions ?Recorded ?Confirmed ?Last Taken ?Type No Known Home Meds 07/16/24 07/16/24 Unknown History Physical Exam Vital Signs and Narrative: Vital Signs: Last Vital Signs Temp 97.1 F 07/16/24 08:09 Pulse 90 07/16/24 10:19 Resp 16 07/16/24 10:19 BP 125/68 07/16/24 10:19 Pulse Ox 98 07/16/24 10:19 O2 Del Method Room Air 07/16/24 10:19 O2 Flow Rate 2 07/15/24 23:20 Oxygen Flow Rate 4 07/15/24 18:48 BMI result Body Mass Index 23.0 Const: Other: Constitutional : Awake with stimulation, interactive, not in distress Neck : Normal inspection, Supple Cardiovascular : RRR, no JVP, no lower extremity edema Respiratory : good bilateral air entry, no crackles, wheezes or rhonchi Gastrointestinal: soft, lax, Normal bowel sounds, Non tender Skin : Warm, Dry Neurological : Alert & oriented to time and place with stimulation, No focal deficit Results Labs 07/16/24 08:01 07/16/24 08:01 Labs: Laboratory Results - last 24 hr 07/15/24 07/15/24 07/15/24 18:34 18:38 18:39 MCV 90.6 MCH 30.7 MCHC 33.9 RDW 19.2 H Plt Count 573 H MPV 8.9 L Immature Gran % (Auto) 0.1 Neut % (Auto) 29.7 L Lymph % (Auto) 56.4 H [place] % (Auto) 11.6 H Eos % (Auto) 0.8 Baso % (Auto) 1.4 Lymph # (Auto) 4.4 [place] # (Auto) 0.9 Eos # (Auto) 0.1 Baso # (Auto) 0.1 Abs Immat Gran (auto) 0.01 Absolute Neuts (auto) 2.3 Absolute Nucleated RBC 0.000 Nucleated RBC % (auto) 0.0 PT Cancelled INR Cancelled D-Dimer High Sensitivty VBG pH VBG pCO2 VBG pO2 VBG HCO3 VBG O2 Saturation VBG Base Excess Anion Gap Estim Creat Clear Calc Estimated GFR Random Glucose Lactic Acid Lactic Acid F/U @ 2Hr Lactic Acid F/U @ 4Hr Calcium Magnesium Total Bilirubin Direct Bilirubin AST ALT Alkaline Phosphatase Total Creatine Kinase B-Natriuretic Peptide Total Protein Albumin Lipase TSH Cancelled Urine Color Urine Appearance Urine pH Ur Specific [place] Urine Protein Urine Glucose (UA) Urine Ketones Urine Blood Urine Nitrite Ur Leukocyte Esterase Salicylates Urine Opiates Screen Ur Buprenorphine Scrn Ur Oxycodone Screen Urine Methadone Screen Urine Fentanyl Screen Acetaminophen Ur Barbiturates Screen Ur Phencyclidine Scrn Ur Amphetamines Screen U Benzodiazepines Scrn Urine Cocaine Screen U Marijuana (THC) Screen Ethylene Glycol Volat Analys Perform On Ethyl Alcohol Ethyl Alcohol mg/dL Ethyl Alcohol g/dL Methyl Alcohol Level Isopropyl Alc, Quant Acetone Level Influenza Type A (PCR) NEGATIVE Influenza Type B (PCR) NEGATIVE RSV RNA Qual (PCR) NEGATIVE SARS-CoV-2 RNA (RT-PCR) NEGATIVE 07/15/24 07/15/24 07/15/24 18:40 18:43 19:15 MCV MCH MCHC RDW Plt Count MPV Immature Gran % (Auto) Neut % (Auto) Lymph % (Auto) [place] % (Auto) Eos % (Auto) Baso % (Auto) Lymph # (Auto) [place] # (Auto) Eos # (Auto) Baso # (Auto) Abs Immat Gran (auto) Absolute Neuts (auto) Absolute Nucleated RBC Nucleated RBC % (auto) PT 10.6 L INR 0.9 D-Dimer High Sensitivty 362 VBG pH 7.45 H VBG pCO2 36 VBG pO2 50 VBG HCO3 25 VBG O2 Saturation 80.0 VBG Base Excess 1.9 Anion Gap 21 H Estim Creat Clear Calc 108.0 Estimated GFR > 60 Random Glucose 198 H Lactic Acid 9.1 H* Lactic Acid F/U @ 2Hr Lactic Acid F/U @ 4Hr Calcium 8.7 Magnesium 1.9 Total Bilirubin 0.2 Direct Bilirubin < 0.2 AST 28 ALT 12 Alkaline Phosphatase 128 H Total Creatine Kinase 34 L B-Natriuretic Peptide 44 Total Protein 5.8 L Albumin 2.6 L Lipase 18 TSH 0.97 Urine Color Urine Appearance Urine pH Ur Specific [place] Urine Protein Urine Glucose (UA) Urine Ketones Urine Blood Urine Nitrite Ur Leukocyte Esterase Salicylates Urine Opiates Screen Ur Buprenorphine Scrn Ur Oxycodone Screen Urine Methadone Screen Urine Fentanyl Screen Acetaminophen Ur Barbiturates Screen Ur Phencyclidine Scrn Ur Amphetamines Screen U Benzodiazepines Scrn Urine Cocaine Screen U Marijuana (THC) Screen Ethylene Glycol Volat Analys Perform On Ethyl Alcohol 137 Ethyl Alcohol mg/dL Ethyl Alcohol g/dL Methyl Alcohol Level Isopropyl Alc, Quant Acetone Level Influenza Type A (PCR) Influenza Type B (PCR) RSV RNA Qual (PCR) SARS-CoV-2 RNA (RT-PCR) 07/15/24 07/15/24 07/15/24 22:14 23:25 Unknown MCV MCH MCHC RDW Plt Count MPV Immature Gran % (Auto) Neut % (Auto) Lymph % (Auto) [place] % (Auto) Eos % (Auto) Baso % (Auto) Lymph # (Auto) [place] # (Auto) Eos # (Auto) Baso # (Auto) Abs Immat Gran (auto) Absolute Neuts (auto) Absolute Nucleated RBC Nucleated RBC % (auto) PT INR D-Dimer High Sensitivty VBG pH VBG pCO2 VBG pO2 VBG HCO3 VBG O2 Saturation VBG Base Excess Anion Gap Estim Creat Clear Calc Estimated GFR Random Glucose Lactic Acid Lactic Acid F/U @ 2Hr 9.4 H* Lactic Acid F/U @ 4Hr Calcium Magnesium Total Bilirubin Direct Bilirubin AST ALT Alkaline Phosphatase Total Creatine Kinase B-Natriuretic Peptide Total Protein Albumin Lipase TSH Urine Color Yellow Urine Appearance Clear Urine pH 5.0 Ur Specific [place] >= 1.030 H Urine Protein Negative Urine Glucose (UA) Negative Urine Ketones Trace Urine Blood Negative Urine Nitrite Negative Ur Leukocyte Esterase Negative Salicylates Urine Opiates Screen Not Detected Ur Buprenorphine Scrn Not Detected Ur Oxycodone Screen Not Detected Urine Methadone Screen Not Detected Urine Fentanyl Screen Not Detected Acetaminophen Ur Barbiturates Screen Not Detected Ur Phencyclidine Scrn Not Detected Ur Amphetamines Screen Not Detected U Benzodiazepines Scrn Not Detected Urine Cocaine Screen Not Detected U Marijuana (THC) Screen POSITIVE H Ethylene Glycol Volat Analys Perform On Ethyl Alcohol Cancelled Ethyl Alcohol mg/dL Ethyl Alcohol g/dL Methyl Alcohol Level Isopropyl Alc, Quant Acetone Level Influenza Type A (PCR) Influenza Type B (PCR) RSV RNA Qual (PCR) SARS-CoV-2 RNA (RT-PCR) 07/16/24 07/16/24 07/16/24 01:14 02:58 02:58 MCV MCH MCHC RDW Plt Count MPV Immature Gran % (Auto) Neut % (Auto) Lymph % (Auto) [place] % (Auto) Eos % (Auto) Baso % (Auto) Lymph # (Auto) [place] # (Auto) Eos # (Auto) Baso # (Auto) Abs Immat Gran (auto) Absolute Neuts (auto) Absolute Nucleated RBC Nucleated RBC % (auto) PT INR D-Dimer High Sensitivty VBG pH VBG pCO2 VBG pO2 VBG HCO3 VBG O2 Saturation VBG Base Excess Anion Gap 22 H Estim Creat Clear Calc 102.0 Estimated GFR > 60 Random Glucose 243 H Lactic Acid 12.0 H* Lactic Acid F/U @ 2Hr Lactic Acid F/U @ 4Hr 12.2 H* Calcium 7.5 L D Magnesium Total Bilirubin Direct Bilirubin AST ALT Alkaline Phosphatase Total Creatine Kinase B-Natriuretic Peptide Total Protein Albumin Lipase TSH Urine Color Urine Appearance Urine pH Ur Specific [place] Urine Protein Urine Glucose (UA) Urine Ketones Urine Blood Urine Nitrite Ur Leukocyte Esterase Salicylates < 5.0 L Urine Opiates Screen Ur Buprenorphine Scrn Ur Oxycodone Screen Urine Methadone Screen Urine Fentanyl Screen Acetaminophen < 3 Ur Barbiturates Screen Ur Phencyclidine Scrn Ur Amphetamines Screen U Benzodiazepines Scrn Urine Cocaine Screen U Marijuana (THC) Screen Ethylene Glycol NONE DETECTED Volat Analys Perform On WHOLE BLOOD WHOLE BLOOD Ethyl Alcohol Ethyl Alcohol mg/dL NONE DETECTED Ethyl Alcohol g/dL NONE DETECTED Methyl Alcohol Level NONE DETECTED Isopropyl Alc, Quant Acetone Level Influenza Type A (PCR) Influenza Type B (PCR) RSV RNA Qual (PCR) SARS-CoV-2 RNA (RT-PCR) 07/16/24 07/16/24 07/16/24 02:58 08:01 08:08 MCV 94.0 MCH 30.1 MCHC 32.0 RDW 19.2 H Plt Count 515 H MPV 9.5 Immature Gran % (Auto) 0.4 Neut % (Auto) 89.1 H Lymph % (Auto) 6.3 L [place] % (Auto) 4.1 Eos % (Auto) 0.0 Baso % (Auto) 0.1 Lymph # (Auto) 0.6 L [place] # (Auto) 0.4 Eos # (Auto) 0.0 Baso # (Auto) 0.0 Abs Immat Gran (auto) 0.04 H Absolute Neuts (auto) 8.7 H Absolute Nucleated RBC 0.000 Nucleated RBC % (auto) 0.0 PT INR D-Dimer High Sensitivty VBG pH 7.28 L VBG pCO2 36 VBG pO2 56 VBG HCO3 17 L VBG O2 Saturation 81.0 VBG Base Excess -8.2 Anion Gap 22 H Estim Creat Clear Calc 102.0 Estimated GFR > 60 Random Glucose 243 H Lactic Acid 11.8 H* Lactic Acid F/U @ 2Hr Lactic Acid F/U @ 4Hr Calcium 7.6 L Magnesium Total Bilirubin 0.2 Direct Bilirubin AST 29 ALT 12 Alkaline Phosphatase 131 H Total Creatine Kinase B-Natriuretic Peptide Total Protein 6.1 L Albumin 2.8 L Lipase TSH Urine Color Urine Appearance Urine pH Ur Specific [place] Urine Protein Urine Glucose (UA) Urine Ketones Urine Blood Urine Nitrite Ur Leukocyte Esterase Salicylates Urine Opiates Screen Ur Buprenorphine Scrn Ur Oxycodone Screen Urine Methadone Screen Urine Fentanyl Screen Acetaminophen Ur Barbiturates Screen Ur Phencyclidine Scrn Ur Amphetamines Screen U Benzodiazepines Scrn Urine Cocaine Screen U Marijuana (THC) Screen Ethylene Glycol Volat Analys Perform On Ethyl Alcohol Ethyl Alcohol mg/dL Ethyl Alcohol g/dL Methyl Alcohol Level NONE DETECTED Isopropyl Alc, Quant NONE DETECTED Acetone Level NONE DETECTED Influenza Type A (PCR) Influenza Type B (PCR) RSV RNA Qual (PCR) SARS-CoV-2 RNA (RT-PCR) 07/16/24 11:15 MCV MCH MCHC RDW Plt Count MPV Immature Gran % (Auto) Neut % (Auto) Lymph % (Auto) [place] % (Auto) Eos % (Auto) Baso % (Auto) Lymph # (Auto) [place] # (Auto) Eos # (Auto) Baso # (Auto) Abs Immat Gran (auto) Absolute Neuts (auto) Absolute Nucleated RBC Nucleated RBC % (auto) PT INR D-Dimer High Sensitivty VBG pH VBG pCO2 VBG pO2 VBG HCO3 VBG O2 Saturation VBG Base Excess Anion Gap Estim Creat Clear Calc Estimated GFR Random Glucose Lactic Acid Lactic Acid F/U @ 2Hr 9.2 H* Lactic Acid F/U @ 4Hr Calcium Magnesium Total Bilirubin Direct Bilirubin AST ALT Alkaline Phosphatase Total Creatine Kinase B-Natriuretic Peptide Total Protein Albumin Lipase TSH Urine Color Urine Appearance Urine pH Ur Specific [place] Urine Protein Urine Glucose (UA) Urine Ketones Urine Blood Urine Nitrite Ur Leukocyte Esterase Salicylates Urine Opiates Screen Ur Buprenorphine Scrn Ur Oxycodone Screen Urine Methadone Screen Urine Fentanyl Screen Acetaminophen Ur Barbiturates Screen Ur Phencyclidine Scrn Ur Amphetamines Screen U Benzodiazepines Scrn Urine Cocaine Screen U Marijuana (THC) Screen Ethylene Glycol Volat Analys Perform On Ethyl Alcohol Ethyl Alcohol mg/dL Ethyl Alcohol g/dL Methyl Alcohol Level Isopropyl Alc, Quant Acetone Level Influenza Type A (PCR) Influenza Type B (PCR) RSV RNA Qual (PCR) SARS-CoV-2 RNA (RT-PCR) Assessment and Plan (1) Nausea & vomiting: Status: Acute (2) Acute hypokalemia: Status: Acute (3) Acidosis, lactic: Status: Acute (4) Alcohol withdrawal: Status: Acute Plan A 64 yearts old male with PMH of alcohol abuse, withdrawal, not on any medications as of now presenting to ED after falling at home with reported shortness of breath. Acute lactic acidosis multifactorial; Alcoholism, thiamin def. , liver disease No evidence of PE\bowel ischemia give IVF bolus and maintenance empirical Ceftriaxone trend Lactic acid Acute alcohol withdrawal 2/2 alcohol abuse CIWA Phenobarb protocol Thamine, Folic acid Addiction team eval Falls PT eval Severe Aortic athersclerosis disease Vascular surgery eval DVT PPx Lovenox The patient will need 2 overnight hospital stay pending Lactic acidosis and alcohol withdrawal resolution Quality Stroke Does the patient have a stroke diagnosis?: No VTE Prior VTE?: No VTE Risk Level:: Medical - moderate - high VTE Device Contraindication: Treatment Not Indicated VTE Drug Contraindication: N/A - Med Ordered
[2024-07-16] MEDS: 0.9 % Sodium Chloride 1,000 ML 999 ML IV (12:34)
[2024-07-16] MEDS: Enoxaparin Sodium 40 MG/0.4 ML SYRINGE SUBCUT (12:36)
[2024-07-16 13:19] LABS: Reflex Lactate? 2 Y
--- NOTE | 2024-07-16 13:27 | P.CONGS_ITS ---
<Statement entered by Emigdio Ontiveros MD - 07/17/24 15:54> I have seen and evaluated the patient and agree with history, findings, assessment and plan documented by Hayley Olivares PA-c. Had an extensive discussion with him regarding his peripheral vascular disease. He had originally been seen by [facility] but due to insurance issues he has not followed up. At the current time he continues to have insurance issues. Once this has all resolved he can see us as an outpatient or may returned to [facility] as he wishes. In terms vascular he has aortoiliac occlusive disease. At the current time it appears to be stable. I do think his shortness of breath is more pressing at the current time. We will follow up as an outpatient if required. Thank you for allowing us to assist in his care. History of Present Illness Consult details Consult date: 07/16/24 Narrative: We are consulted on Harvey, a pleasant 64-year-old male patient, for concerns findings of arthrosclerotic disease of the abdominal aorta on CT yesterday. The patient initially presented to the ER yesterday evening with concerns of multiple falls at home and increased cigarette smoking and alcohol use. Patient states he wanted to seek recovery from his alcohol use. He has a pertinent medical history for depression and alcohol use disorder. He is currently smoking 1ppd for the last 50y. He has not been taking his medications in over a year in his states it has been difficult to take care of him. He was found to have an increased lactic acid, with no obvious cause. We are consulted for concerns on CT. The patient endorses some abdominal pain just below his umbilical area that has been going on for over a week now. He has had some intermittent nausea and vomiting since coming in last night without any nausea or vomiting prior to those episodes. He states he was seen at [facility] and approximately 6-7 months ago for similar concerns and was found to when he said it is occlusions in his left lower extremity. He denies any pain in his left lower extremity but states his foot does get cold intermittently. He states he does not know why he was falling at home, but denies any concerns with his legs/his legs giving out on him. He states it was foot is not been cold recently. He did not follow up with the vascular or his PCP after the previous admission at [facility]. Review of Systems 2 Constitutional: Constitutional: Reports as per HPI and Denies weakness ENT: Reports Normal hearing present and Denies dizziness Cardiovascular: Cardiovascular: Reports as per HPI, Denies chest pain, Denies chest pain at rest, Denies chest pain with activity, Denies dyspnea and Denies dyspnea on exertion Respiratory: Respiratory: Reports as per HPI, Denies cough, Denies dyspnea and Denies dyspnea on exertion Gastrointestinal: Gastrointestinal: Reports as per HPI, Denies abdominal pain, Denies nausea and Denies vomiting Musculoskeletal: Musculoskeletal: Denies numbness Integumentary/Breasts: Skin/Breast: Reports as per HPI, Denies erythema and Denies wounds Neurologic: Reports Normal hearing present, Denies dizziness, Denies numbness, Denies Sensory deficit (Neuro) and Denies weakness Psychiatric: Psychiatric: Reports no additional psychiatric complaints Endocrine: Endocrine: Reports no additional endocrine complaints [facility] Past Medical History Medical History Depression Compression fracture of L1 lumbar vertebra Social History Social History Alcohol intake: current Alcohol intake frequency: 3 or more drinks per day Alcohol type: beer and wine Patient Tobacco Use Status: Current everyday Tobacco user Smoked in Last 30 Days: Yes Use of substances other than those prescribed or required for medical reasons: No Advance Directives: No Advance Directives Information Provided: No Meds Allergies Allergy/AdvReac Type Severity Reaction Status Date / Time diclofenac [From Flector] Allergy Unknown Verified 07/15/24 18:50 Active Medications: Current Medications Acetaminophen (Acetaminophen 325 Mg Tablet) 650 mg PO Q6H PRN PRN Reason: Pain, Mild 1-3,fever,headache Calcium Carbonate (Calcium Carbonate 750 Mg Tab.Chew) 750 mg PO Q4H PRN PRN Reason: Heartburn Ceftriaxone Sodium (Ceftriaxone Sodium 1 Gm Vial) 1 gm IVPUSH Q24H [facility] Enoxaparin Sodium (Enoxaparin Sodium 40 Mg/0.4 Ml Syringe) 40 mg SUBCUT Q24H [facility] Last Admin: 07/16/24 12:36 Dose: 40 mg Folic Acid (Folic Acid 1 Mg Tablet) 1 mg PO DAILY [facility] Dextrose/Sodium Chloride (D51/2ns) 1,000 mls @ 125 mls/hr IVCONT .Q8H [facility] Last Admin: 07/16/24 11:11 Dose: 125 mls/hr Magnesium Hydroxide (Milk Of Magnesia 30 Ml Oral.Susp) 30 ml PO DAILY PRN PRN Reason: Constipation Melatonin (Melatonin 3 Mg Tablet) 6 mg PO BEDTIME PRN PRN Reason: Insomnia Ondansetron HCl (Ondansetron Hcl 4 Mg/2 Ml Vial) 4 mg IVPUSH Q8H PRN PRN Reason: Nausea and Vomiting Pharmacy Consult (Consult Rx Etoh Phenob Im/Po) 1 each MISCELLANE ONCE PRN; Protocol PRN Reason: Consult order Phenobarbital (Phenobarbital 15 Mg Tablet) 45 mg PO BID [facility]; Protocol Stop: 07/18/24 09:01 Phenobarbital (Phenobarbital 15 Mg Tablet) 15 mg PO BID [facility]; Protocol Stop: 07/21/24 09:01 Phenobarbital (Phenobarbital 15 Mg Tablet) 15 mg PO DAILY [facility]; Protocol Stop: 07/23/24 09:01 Phenobarbital Sodium (Phenobarbital Sodium 130 Mg/Ml Vial Im Q3hx2) 254 mg IM Q3H [facility]; Protocol Stop: 07/16/24 14:31 Last Admin: 07/16/24 11:12 Dose: 254 mg Sodium Chloride (0.9 % Sodium Chloride Flush 3 Ml Syringe) 3 ml IVFLUSH QSHIFT [facility] Thiamine HCl (Thiamine Hcl 100 Mg Tablet) 100 mg PO DAILY [facility] Home Medications ?Medication ?Instructions ?Recorded ?Confirmed ?Last Taken ?Type No Known Home Meds 07/16/24 07/16/24 Unknown History Physical Exam 2 Vital Signs: Vital Signs: Last Vital Signs Temp 97.1 F 07/16/24 08:09 Pulse 90 07/16/24 13:01 Resp 16 07/16/24 10:19 BP 125/68 07/16/24 13:01 Pulse Ox 98 07/16/24 13:01 O2 Del Method Room Air 07/16/24 10:19 O2 Flow Rate 2 07/15/24 23:20 Oxygen Flow Rate 4 07/15/24 18:48 BMI result Body Mass Index 23.0 Const: General: comfortable and no acute distress O rientation/consciousness: patient oriented x3 HEENT: Ears: hearing grossly normal bilaterally Resp: Effort & Inspection: normal respiratory effort and able to speak in complete sentences Auscultation: clear to auscultation bilaterally Cardio: Rate: regular rate Rhythm: regular rhythm Heart sounds: S1 normal heart sound present and S2 normal heart sound present Bruits: no abdominal aortic bruits, no carotid bruits, no femoral bruits and no renal bruits GI: Other: Slight tender to palpation just distal to the umbilical area. No guarding or tenderness noted. Palpation (GI): No Abdominal aortic bruit present Neuro: General: patient oriented x3 Cranial nerves: Yes Normal hearing present Sensory Exam: No Sensory deficit (Neuro) Extrem: Other: Bilateral lower extremities: Palpable DP pulses. Extremities are warm to the touch. No erythema noted. No wounds noted. Results Labs 07/16/24 08:01 07/16/24 08:01 Labs: Abnormal lab results 07/15/24 07/15/24 07/15/24 Range/Units 18:39 18:40 18:43 RBC 4.14 L (4.60-5.80) X10*6/uL Hgb 12.7 L (14.0-18.0) g/dl Hct 37.5 L D (42.0-52.0) % RDW 19.2 H (11.0-16.0) % Plt Count 573 H (160-400) X10*3/uL MPV 8.9 L (9.4-12.4) fL Neut % (Auto) 29.7 L (45-73) % Lymph % (Auto) 56.4 H (20-40) % [place] % (Auto) 11.6 H (2-11) % Lymph # (Auto) (1.2-4.9) X10*3/uL Abs Immat Gran (auto) (0.00-0.03) X10*3/uL Absolute Neuts (auto) (2.0-8.3) x10*3/uL PT 10.6 L (10.9-12.4) SEC VBG pH 7.45 H (7.32-7.43) VBG HCO3 (22-26) mmol/L Potassium (3.3-5.1) mmol/L Chloride (96-108) mmol/L Carbon Dioxide (22-29) mmol/L Anion Gap (12-20) BUN (9-16) mg/dL Random Glucose (60-115) mg/dL Lactic Acid (0.5-2.0) mmol/L Lactic Acid F/U @ 2Hr (0.5-2.0) mmol/L Lactic Acid F/U @ 4Hr (0.5-2.0) mmol/L Calcium (8.4-10.2) mg/dL Alkaline Phosphatase (39-117) U/L Total Creatine Kinase (38-174) U/L Total Protein (6.5-8.0) g/dL Albumin (3.5-5.0) g/dL Ur Specific [place] (1.005-1.025) Salicylates (15-30) mg/dL U Marijuana (THC) Screen (Not Detect) 07/15/24 07/15/24 07/15/24 Range/Units 19:15 22:14 23:25 RBC (4.60-5.80) X10*6/uL Hgb (14.0-18.0) g/dl Hct (42.0-52.0) % RDW (11.0-16.0) % Plt Count (160-400) X10*3/uL MPV (9.4-12.4) fL Neut % (Auto) (45-73) % Lymph % (Auto) (20-40) % [place] % (Auto) (2-11) % Lymph # (Auto) (1.2-4.9) X10*3/uL Abs Immat Gran (auto) (0.00-0.03) X10*3/uL Absolute Neuts (auto) (2.0-8.3) x10*3/uL PT (10.9-12.4) SEC VBG pH (7.32-7.43) VBG HCO3 (22-26) mmol/L Potassium 3.2 L (3.3-5.1) mmol/L Chloride (96-108) mmol/L Carbon Dioxide (22-29) mmol/L Anion Gap 21 H (12-20) BUN 3 L (9-16) mg/dL Random Glucose 198 H (60-115) mg/dL Lactic Acid 9.1 H* (0.5-2.0) mmol/L Lactic Acid F/U @ 2Hr 9.4 H* (0.5-2.0) mmol/L Lactic Acid F/U @ 4Hr (0.5-2.0) mmol/L Calcium (8.4-10.2) mg/dL Alkaline Phosphatase 128 H (39-117) U/L Total Creatine Kinase 34 L (38-174) U/L Total Protein 5.8 L (6.5-8.0) g/dL Albumin 2.6 L (3.5-5.0) g/dL Ur Specific [place] >= 1.030 H (1.005-1.025) Salicylates (15-30) mg/dL U Marijuana (THC) Screen POSITIVE H (Not Detect) 07/16/24 07/16/24 07/16/24 Range/Units 01:14 02:58 08:01 RBC 3.85 L (4.60-5.80) X10*6/uL Hgb 11.6 L (14.0-18.0) g/dl Hct 36.2 L (42.0-52.0) % RDW 19.2 H (11.0-16.0) % Plt Count 515 H (160-400) X10*3/uL MPV (9.4-12.4) fL Neut % (Auto) 89.1 H (45-73) % Lymph % (Auto) 6.3 L (20-40) % [place] % (Auto) (2-11) % Lymph # (Auto) 0.6 L (1.2-4.9) X10*3/uL Abs Immat Gran (auto) 0.04 H (0.00-0.03) X10*3/uL Absolute Neuts (auto) 8.7 H (2.0-8.3) x10*3/uL PT (10.9-12.4) SEC VBG pH (7.32-7.43) VBG HCO3 (22-26) mmol/L Potassium (3.3-5.1) mmol/L Chloride 112 H 109 H (96-108) mmol/L Carbon Dioxide 13 L 17 L (22-29) mmol/L Anion Gap 22 H 22 H (12-20) BUN 4 L 6 L (9-16) mg/dL Random Glucose 243 H 243 H (60-115) mg/dL Lactic Acid 12.0 H* 11.8 H* (0.5-2.0) mmol/L Lactic Acid F/U @ 2Hr (0.5-2.0) mmol/L Lactic Acid F/U @ 4Hr 12.2 H* (0.5-2.0) mmol/L Calcium 7.5 L D 7.6 L (8.4-10.2) mg/dL Alkaline Phosphatase 131 H (39-117) U/L Total Creatine Kinase (38-174) U/L Total Protein 6.1 L (6.5-8.0) g/dL Albumin 2.8 L (3.5-5.0) g/dL Ur Specific [place] (1.005-1.025) Salicylates < 5.0 L (15-30) mg/dL U Marijuana (THC) Screen (Not Detect) 07/16/24 07/16/24 Range/Units 08:08 11:15 RBC (4.60-5.80) X10*6/uL Hgb (14.0-18.0) g/dl Hct (42.0-52.0) % RDW (11.0-16.0) % Plt Count (160-400) X10*3/uL MPV (9.4-12.4) fL Neut % (Auto) (45-73) % Lymph % (Auto) (20-40) % [place] % (Auto) (2-11) % Lymph # (Auto) (1.2-4.9) X10*3/uL Abs Immat Gran (auto) (0.00-0.03) X10*3/uL Absolute Neuts (auto) (2.0-8.3) x10*3/uL PT (10.9-12.4) SEC VBG pH 7.28 L (7.32-7.43) VBG HCO3 17 L (22-26) mmol/L Potassium (3.3-5.1) mmol/L Chloride (96-108) mmol/L Carbon Dioxide (22-29) mmol/L Anion Gap (12-20) BUN (9-16) mg/dL Random Glucose (60-115) mg/dL Lactic Acid (0.5-2.0) mmol/L Lactic Acid F/U @ 2Hr 9.2 H* (0.5-2.0) mmol/L Lactic Acid F/U @ 4Hr (0.5-2.0) mmol/L Calcium (8.4-10.2) mg/dL Alkaline Phosphatase (39-117) U/L Total Creatine Kinase (38-174) U/L Total Protein (6.5-8.0) g/dL Albumin (3.5-5.0) g/dL Ur Specific [place] (1.005-1.025) Salicylates (15-30) mg/dL U Marijuana (THC) Screen (Not Detect) Short CBC 07/15/24 07/16/24 Range/Units 18:39 08:01 WBC 7.8 9.7 (4.8-10.8) X10*3/uL Hgb 12.7 L 11.6 L (14.0-18.0) g/dl Hct 37.5 L D 36.2 L (42.0-52.0) % Plt Count 573 H 515 H (160-400) X10*3/uL BMP 07/15/24 07/16/24 07/16/24 19:15 02:58 08:01 Sodium 144 143 144 Potassium 3.2 L 4.1 D 4.2 Chloride 103 112 H 109 H Carbon Dioxide 23 13 L 17 L BUN 3 L 4 L 6 L Creatinine 0.69 0.73 0.73 Calcium 8.7 7.5 L D 7.6 L Cardiac Enzymes 07/15/24 Range/Units 19:15 Total Creatine Kinase 34 L (38-174) U/L Liver Function 07/15/24 07/16/24 Range/Units 19:15 08:01 Total Bilirubin 0.2 0.2 (0.0-1.0) mg/dL Direct Bilirubin < 0.2 (0.0-0.5) mg/dL AST 28 29 (5-37) U/L ALT 12 12 (0-40) U/L Alkaline Phosphatase 128 H 131 H (39-117) U/L Albumin 2.6 L 2.8 L (3.5-5.0) g/dL Urine 07/15/24 Range/Units 23:25 Urine Color Yellow Urine Appearance Clear Urine pH 5.0 (5.0-9.0) Ur Specific [place] >= 1.030 H (1.005-1.025) Urine Protein Negative (Neg-Trace) mg/dL Urine Glucose (UA) Negative (Negative) mg/dL All other labs normal. Assessment and Plan (1) Atherosclerosis of abdominal aorta: Status: Acute Plan We are consulted on Harvey, a pleasant 64-year-old male patient for findings on abdominal CT of extensive arthrosclerotic disease of the abdominal aorta and its major branches. He initially presented for falls, excessive alcohol and cigarette use, and was found to have lactic acidosis in the ER. He has been admitted and we are consulted. We are able to obtain notes from [facility], from 03/15/24 when he was admitted for COPD exacerbation. 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 He was advised to start on statin and a baby aspirin and to follow outpatient. The patient states he has never followed up with vascular surgery or his primary care since the last visit at [facility]; he also has been non compliant with medications and not taking the ASA or statin. There is no acute vascular surgery intervention at this time. We we will continue to monitor. If there are any questions or concerns, please do not hesitate to reach out to us. Procedures Date of Service Date of Service: 07/16/24
[2024-07-16 15:26] LABS: ~Lactic Acid-LAB USE ONLY 5.3 mmol/L (0.5-2.0)
--- NOTE | 2024-07-16 15:26 | PC.NURSE ---
Pt reporting feeling overall better with pheno. Able to have bowel movement and reporting stomach feels better. Critical lactic reported to provider
--- NOTE | 2024-07-16 17:22 | PC.NURSE ---
Pt placed in hospital bed for comfort
[2024-07-16] MEDS: cefTRIAXone sodium 1 GM VIAL IVPUSH (17:55)
--- NOTE | 2024-07-16 18:24 | PC.NURSE ---
Pt reporting 3 episodes of watery diarrhea today, provider alerted and orders placed for GI panel and Cdiff. Stool sample to be collected next time pt uses bathroom, pt aware
[2024-07-16] MEDS: PHENobarbitaL sodium 130 MG/ML VIAL IM (20:16)
[2024-07-16] MEDS: PHENobarbitaL 15 MG TABLET 45 MG PO (22:27)
--- NOTE | 2024-07-16 22:31 | PC.NURSE ---
medicated per Mar, changed pt bedding, urinal emptied.
[2024-07-17] MEDS: Dextrose 5 % and 0.45 % NaCl 1,000 ML 125 ML IVCONT ×2 (02:12→12:04)
--- NOTE | 2024-07-17 02:56 | PC.NURSE ---
Iv fluid replaced, bedside commode emptied, stool sample collected and sent.
[2024-07-17 03:28] LABS: CDiff Gene PCR POSITIVE (Negative)
[2024-07-17 04:02] LABS: CDiff Toxin Negative (Negative)
[2024-07-17 04:03] LABS: CDIFF Internal ctrl Dots and bkg OK (V)
[2024-07-17 05:11] LABS: Basophils Absolute Auto 0.1 X10*3/uL (0.0-0.2); Basophils Percent Auto 0.4 % (0-2); Eosinophils Percent Auto 0.2 % (0-4); Hematocrit 30.3 % (42.0-52.0); Hemoglobin 10.4 g/dl (14.0-18.0); Imm Gran Abs Auto 0.08 X10*3/uL (0.00-0.03); Imm Gran Pct Auto 0.6 % (0.0-0.4); Lymphocytes Absolute Auto 2.3 X10*3/uL (1.2-4.9); Lymphocytes Percent Auto 18.6 % (20-40); Mean Corpuscular HGB Conc 34.3 g/dl (31.0-36.0); Mean Corpuscular Hemoglobin 30.8 pg (27.0-33.0); Mean Corpuscular Volume 89.6 fL (80.0-98.0); Mean Platelet Volume 9.9 fL (9.4-12.4); Monocytes Absolute Auto 0.7 X10*3/uL (0.1-1.2); Monocytes Percent Auto 5.9 % (2-11); Neutrophils Absolute Auto 9.2 x10*3/uL (2.0-8.3); Neutrophils Percent Auto 74.3 % (45-73); PLT CLUMP 1; Red Blood Count 3.38 X10*6/uL (4.60-5.80); Red Cell Distribution Width 18.6 % (11.0-16.0); SCAN SMEAR FLAG 1
[2024-07-17 05:12] LABS: MANUAL DIFF FLAG NO; White Blood Count 12.4 X10*3/uL (4.8-10.8)
[2024-07-17 05:29] LABS: Alanine Aminotransferase 8 U/L (0-40); Albumin Level 2.1 g/dL (3.5-5.0); Alkaline Phosphatase 104 U/L (39-117); Anion Gap 15 (12-20); Aspartate Amino Transferase 34 U/L (5-37); Bilirubin Total 0.3 mg/dL (0.0-1.0); Blood Urea Nitrogen 5 mg/dL (9-16); Calcium 6.5 mg/dL (8.4-10.2); Carbon Dioxide 19 mmol/L (22-29); Chloride 111 mmol/L (96-108); Creatinine Clr Calc Pharmacy 122.1; Estimated Glomerular Filt Rate > 60; Glucose Random 130 mg/dL (60-115); Potassium 4.1 mmol/L (3.3-5.1); Sodium 141 mmol/L (135-145); Total Protein 4.7 g/dL (6.5-8.0)
--- NOTE | 2024-07-17 06:20 | PM.EVENT ---
Event Note Date of Service: 07/17/24 Event Note: Patient with C diff gene positive but toxin negative. ?infection vs colonization. Appreciate ID Time Spent With Patient Time: Total time managing care of this patient today ____ minutes.
[2024-07-17] MEDS: vancomycin HCL 125 MG CAPSULE PO ×4 (06:36→23:38)
[2024-07-17 06:57] VITALS: BP 123/68; PULSE 81; RESP 19; TEMP 36.7; O2SAT 98
[2024-07-17] MEDS: Folic Acid 1 MG TABLET PO (08:51)
[2024-07-17] MEDS: PHENobarbitaL 15 MG TABLET 45 MG PO ×2 (08:51→20:58)
[2024-07-17] MEDS: Thiamine HCL 100 MG TABLET PO (08:51)
--- NOTE | 2024-07-17 08:51 | MHC.CM.PN ---
Patient lives in a house with his , who will transport at time of dc. PT is recommending home with family support (lives with ) and Patient's goal is also home/self care. CM has initiated and will follow for dc planning. PCP is Dr. Alonso Alvarado and Patient currently has no insurance (a referral has been made to [facility] this morning). Patient has a walker but rarely uses it. Patient may benefit from a Recovery Team Consult r/t ETOH.
--- NOTE | 2024-07-17 10:04 | P.PNVS_ITS ---
Subjective Subjective Date of Service: 07/17/24 Interval history: Harvey is doing well this morning. He is sleeping but easily arousable. He states he is eating and drinking well. He denies any abdominal pain, nausea, or vomiting today. He denies any shortness of breath or difficulty breathing. Physical Exam Vital Signs: Vital Signs: Last Vital Signs Temp 98.1 F 07/17/24 06:57 Pulse 81 07/17/24 06:57 Resp 19 07/17/24 06:57 BP 123/68 07/17/24 06:57 Pulse Ox 98 07/17/24 06:57 O2 Del Method Room Air 07/17/24 06:57 O2 Flow Rate 2 07/15/24 23:20 Oxygen Flow Rate 4 07/15/24 18:48 BMI result Body Mass Index 23.0 Const: General: comfortable and no acute distress Orientation/consciousness: patient oriented x3 HEENT: Ears: hearing grossly normal bilaterally Resp: Effort & Inspection: normal respiratory effort and able to speak in complete sentences Auscultation: clear to auscultation bilaterally Cardio: Rate: regular rate Rhythm: regular rhythm Heart sounds: S1 normal heart sound present and S2 normal heart sound present Bruits: no abdominal aortic bruits, no carotid bruits, no femoral bruits and no renal bruits GI: Palpation (GI): No Abdominal aortic bruit present Neuro: General: patient oriented x3 Cranial nerves: Yes CN's II-XII intact bilaterally Progress Note: A&P Assessment and plan (1) Atherosclerosis of abdominal aorta: Status: Acute Assessment and Plan: Harvey remains stable this morning. He has no complaints this morning, and is sleeping well. He remains stable from a vascular standpoint. We have reviewed the recent paperwork from [facility], from February. He should follow up outpatient with [facility] vascular; if he does not want to follow up with them, then he is welcome to follow up with us outpatient. We will continue to monitor. If there are any questions or concerns, please do not hesitate to reach out to us. Time Spent With Patient Time: Total time managing care of this patient today ____ minutes. Procedures Date of Service Date of Service: 07/17/24 Quality Stroke Does the patient have a stroke diagnosis?: No VTE Prior VTE?: No VTE Risk Level:: Medical - moderate - high VTE Device Contraindication: Treatment Not Indicated VTE Drug Contraindication: N/A - Med Ordered
--- NOTE | 2024-07-17 12:35 | P.PNIM_ITS ---
Subjective Subjective Date of Service: 07/17/24 Interval History: Seen and evaluated this morning feels better LA trended down scoring on CIWA trending down positive C.Diff Review of Systems Review of Systems: Yes all other systems are reviewed and are negative Physical Exam 2 Vital Signs: Vital Signs: Last Vital Signs Temp 98.1 F 07/17/24 06:57 Pulse 81 07/17/24 06:57 Resp 19 07/17/24 06:57 BP 123/68 07/17/24 06:57 Pulse Ox 98 07/17/24 06:57 O2 Del Method Room Air 07/17/24 06:57 O2 Flow Rate 2 07/15/24 23:20 Oxygen Flow Rate 4 07/15/24 18:48 BMI result Body Mass Index 23.0 Const: Other: Constitutional : Awake with stimulation, interactive, not in distress Neck : Normal inspection, Supple Cardiovascular : RRR, no JVP, no lower extremity edema Respiratory : good bilateral air entry, no crackles, wheezes or rhonchi Gastrointestinal: soft, lax, Normal bowel sounds, Non tender Skin : Warm, Dry Neurological : Alert & oriented to time and place with stimulation, No focal deficit Objective Data Active Medications Acetaminophen (Acetaminophen 325 Mg Tablet) 650 mg PO Q6H PRN PRN Reason: Pain, Mild 1-3,fever,headache Calcium Carbonate (Calcium Carbonate 750 Mg Tab.Chew) 750 mg PO Q4H PRN PRN Reason: Heartburn Enoxaparin Sodium (Enoxaparin Sodium 40 Mg/0.4 Ml Syringe) 40 mg SUBCUT Q24H [facility] Last Admin: 07/16/24 12:36 Dose: 40 mg Documented By: GURU Folic Acid (Folic Acid 1 Mg Tablet) 1 mg PO DAILY [facility] Last Admin: 07/17/24 08:51 Dose: 1 mg Documented By: SERGEI Dextrose/Sodium Chloride (D51/2ns) 1,000 mls @ 125 mls/hr IVCONT .Q8H [facility] Last Admin: 07/17/24 12:04 Dose: 125 mls/hr Documented By: SERGEI Magnesium Hydroxide (Milk Of Magnesia 30 Ml Oral.Susp) 30 ml PO DAILY PRN PRN Reason: Constipation Melatonin (Melatonin 3 Mg Tablet) 6 mg PO BEDTIME PRN PRN Reason: Insomnia Ondansetron HCl (Ondansetron Hcl 4 Mg/2 Ml Vial) 4 mg IVPUSH Q8H PRN PRN Reason: Nausea and Vomiting Pharmacy Consult (Consult Rx Etoh Phenob Im/Po) 1 each MISCELLANE ONCE PRN; Protocol PRN Reason: Consult order Phenobarbital (Phenobarbital 15 Mg Tablet) 45 mg PO BID [facility]; Protocol Stop: 07/18/24 09:01 Last Admin: 07/17/24 08:51 Dose: 45 mg Documented By: SERGEI Phenobarbital (Phenobarbital 15 Mg Tablet) 15 mg PO BID [facility]; Protocol Stop: 07/21/24 09:01 Phenobarbital (Phenobarbital 15 Mg Tablet) 15 mg PO DAILY [facility]; Protocol Stop: 07/23/24 09:01 Sodium Chloride (0.9 % Sodium Chloride Flush 3 Ml Syringe) 3 ml IVFLUSH QSHIFT [facility] Last Admin: 07/17/24 08:30 Dose: Not Given Documented By: SERGEI Non-Admin Reason: IV Running Thiamine HCl (Thiamine Hcl 100 Mg Tablet) 100 mg PO DAILY [facility] Last Admin: 07/17/24 08:51 Dose: 100 mg Documented By: SERGEI Vancomycin HCl (Vancomycin Hcl 125 Mg Capsule) 125 mg PO Q6H [facility] Last Admin: 07/17/24 06:36 Dose: 125 mg Documented By: RACHANAITR Labs 07/17/24 04:22 07/17/24 04:22 Labs: Laboratory Results - last 24 hr 07/16/24 07/17/24 07/17/24 14:53 02:27 04:22 MCV 89.6 MCH 30.8 MCHC 34.3 RDW 18.6 H Plt Count TNP MPV 9.9 Immature Gran % (Auto) 0.6 H Neut % (Auto) 74.3 H Lymph % (Auto) 18.6 L [place] % (Auto) 5.9 Eos % (Auto) 0.2 Baso % (Auto) 0.4 Lymph # (Auto) 2.3 [place] # (Auto) 0.7 Eos # (Auto) 0.0 Baso # (Auto) 0.1 Abs Immat Gran (auto) 0.08 H Absolute Neuts (auto) 9.2 H Absolute Nucleated RBC 0.000 Nucleated RBC % (auto) 0.0 Anion Gap 15 Estim Creat Clear Calc 122.1 Estimated GFR > 60 Random Glucose 130 H Lactic Acid F/U @ 4Hr 5.3 H* Calcium 6.5 L D Total Bilirubin 0.3 AST 34 ALT 8 Alkaline Phosphatase 104 Total Protein 4.7 L Albumin 2.1 L C. difficile Tox B Gene POSITIVE A* C. difficile Toxin A&B Negative C. difficile Interpret SEE NOTE Microbiology Microbiology Results: Microbiology 07/15/24 22:14 Blood Culture - Preliminary Blood - Venous No growth after 24 hours. 07/15/24 21:13 Blood Culture - Preliminary Blood - Venous No growth after 24 hours. Assessment and Plan (1) Atherosclerosis of abdominal aorta: Status: Acute (2) Alcohol withdrawal: Status: Acute (3) Nausea & vomiting: Status: Acute (4) C. difficile diarrhea: Status: Acute Plan A 64 yearts old male with PMH of alcohol abuse, withdrawal, not on any medications as of now presenting to ED after falling at home with reported shortness of breath. Acute lactic acidosis multifactorial; Alcoholism, thiamin def. , liver disease No evidence of PE\bowel ischemia trended down give IVF bolus and maintenance DC Ceftriaxone trend Lactic acid C.Diff Tox B Positive antigen with diarrhea Treated as infection with PO Vancomycin Acute alcohol withdrawal 2/2 alcohol abuse CIWA score trending down Phenobarb protocol Thamine, Folic acid Addiction team eval Falls PT eval Severe Aortic athersclerosis disease Vascular surgery eval appreciated, no acute need for intervention , He should follow up outpatient with [facility] vascular; if he does not want to follow up with them, then he is welcome to follow up with [facility] outpatient. DVT PPx Lovenox The patient will need overnight hospital stay pending Lactic acidosis and alcohol withdrawal resolution Quality Stroke Does the patient have a stroke diagnosis?: No VTE Prior VTE?: No VTE Risk Level:: Medical - moderate - high VTE Device Contraindication: Treatment Not Indicated VTE Drug Contraindication: N/A - Med Ordered
[2024-07-17 13:09] LABS: Adenovirus F 40/41 Not Detected (Not Detect.); Astrovirus Not Detected (Not Detect.); Campylobacter Not Detected (Not Detect.); Cryptosporidium Not Detected (Not Detect.); Cyclospora cayetanensis Not Detected (Not Detect.); E. coli EAEC Not Detected (Not Detect.); E. coli EPEC Not Detected (Not Detect.); E. coli ETEC Not Detected (Not Detect.); E. coli STEC Not Detected (Not Detect.); Entamoeba histolytica Not Detected (Not Detect.); Giardia lamblia Not Detected (Not Detect.); Plesiomonas shigelloides Not Detected (Not Detect.); Rotavirus A Not Detected (Not Detect.); Salmonella Not Detected (Not Detect.); Sapovirus Not Detected (Not Detect.); Shigella sp./EIEC Not Detected (Not Detect.); Vibrio Not Detected (Not Detect.); Vibrio Cholerae Not Detected (Not Detect.); Yersinia enterocolitica Not Detected (Not Detect.)
[2024-07-17 13:17] LABS: Norovirus GI/GII Detected (Not Detect.)
--- NOTE | 2024-07-17 14:15 | W.PM.IDCN ---
History of Present Illness Data of Consult Service Date: 07/17/24 Requesting physician: Hermila Mares Primary Care Provider: Alonso Lopez MD HPI Reason for consult: diarrhea,Cdiff pcr positive He presents 07/15 with falls and shortness of breath. He dame via EMS. He has watery stools and stool PCR Cdiff positive and toxin negative. 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 Review of Systems Review of Systems: Yes all other systems are reviewed and are negative [facility] Past Medical History Medical History Depression Compression fracture of L1 lumbar vertebra Family History Family history: reviewed and not pertinent Social History Social History Alcohol intake: current Alcohol intake frequency: 3 or more drinks per day Alcohol type: beer and wine Patient Tobacco Use Status: Never used Tobacco Smoked in Last 30 Days: Yes Use of substances other than those prescribed or required for medical reasons: No Advance Directives: No Advance Directives Information Provided: No Nutrition Risks: No Nutritional Risk service: No Meds Allergies Allergy/AdvReac Type Severity Reaction Status Date / Time diclofenac [From Flector] Allergy Unknown Verified 07/15/24 18:50 Active Medications: Current Medications Acetaminophen (Acetaminophen 325 Mg Tablet) 650 mg PO Q6H PRN PRN Reason: Pain, Mild 1-3,fever,headache Calcium Carbonate (Calcium Carbonate 750 Mg Tab.Chew) 750 mg PO Q4H PRN PRN Reason: Heartburn Enoxaparin Sodium (Enoxaparin Sodium 40 Mg/0.4 Ml Syringe) 40 mg SUBCUT Q24H [facility] Last Admin: 07/16/24 12:36 Dose: 40 mg Folic Acid (Folic Acid 1 Mg Tablet) 1 mg PO DAILY [facility] Last Admin: 07/17/24 08:51 Dose: 1 mg Dextrose/Sodium Chloride (D51/2ns) 1,000 mls @ 125 mls/hr IVCONT .Q8H [facility] Last Admin: 07/17/24 12:04 Dose: 125 mls/hr Magnesium Hydroxide (Milk Of Magnesia 30 Ml Oral.Susp) 30 ml PO DAILY PRN PRN Reason: Constipation Melatonin (Melatonin 3 Mg Tablet) 6 mg PO BEDTIME PRN PRN Reason: Insomnia Ondansetron HCl (Ondansetron Hcl 4 Mg/2 Ml Vial) 4 mg IVPUSH Q8H PRN PRN Reason: Nausea and Vomiting Pharmacy Consult (Consult Rx Etoh Phenob Im/Po) 1 each MISCELLANE ONCE PRN; Protocol PRN Reason: Consult order Phenobarbital (Phenobarbital 15 Mg Tablet) 45 mg PO BID [facility]; Protocol Stop: 07/18/24 09:01 Last Admin: 07/17/24 08:51 Dose: 45 mg Phenobarbital (Phenobarbital 15 Mg Tablet) 15 mg PO BID [facility]; Protocol Stop: 07/21/24 09:01 Phenobarbital (Phenobarbital 15 Mg Tablet) 15 mg PO DAILY [facility]; Protocol Stop: 07/23/24 09:01 Sodium Chloride (0.9 % Sodium Chloride Flush 3 Ml Syringe) 3 ml IVFLUSH QSHIFT [facility] Last Admin: 07/17/24 08:30 Dose: Not Given Thiamine HCl (Thiamine Hcl 100 Mg Tablet) 100 mg PO DAILY [facility] Last Admin: 07/17/24 08:51 Dose: 100 mg Vancomycin HCl (Vancomycin Hcl 125 Mg Capsule) 125 mg PO Q6H [facility] Last Admin: 07/17/24 06:36 Dose: 125 mg Home Medications ?Medication ?Instructions ?Recorded ?Confirmed ?Last Taken ?Type No Known Home Meds 07/16/24 07/16/24 Unknown History Physical Exam Vital Signs: Vital Signs: Last Vital Signs Temp 98.1 F 07/17/24 06:57 Pulse 81 07/17/24 06:57 Resp 19 07/17/24 06:57 BP 123/68 07/17/24 06:57 Pulse Ox 98 07/17/24 06:57 O2 Del Method Room Air 07/17/24 06:57 O2 Flow Rate 2 07/15/24 23:20 Oxygen Flow Rate 4 07/15/24 18:48 BMI result Body Mass Index 23.0 Const: General: cooperative HEENT: Head: Yes normal to inspection Face and sinus: Yes normal facial exam Mouth: Normal oral and palatal mucosa present Teeth and gingiva: dentition normal Eyes: General: appearance normal, both eyes and all related structures Pupils: Equal, round and reactive pupils present Resp: Effort & Inspection: normal respiratory effort Cardio: Rate: regular rate Rhythm: regular rhythm GI: Palpation (GI): Soft to palpation and nontender : General: Yes no CVA tenderness Back/Spine/Pelvis: Back: no CVA tenderness Skin: General skin exam: no rashes or lesions noted Neuro: General: moves all extremities Cranial nerves: Yes Equal, round and reactive pupils present Extrem: General: Yes normal to inspection Psych: Appearance: grossly normal Results Labs 07/17/24 04:22 07/17/24 04:22 Labs: Short CBC 07/17/24 Range/Units 04:22 WBC 12.4 H (4.8-10.8) X10*3/uL Hgb 10.4 L (14.0-18.0) g/dl Hct 30.3 L (42.0-52.0) % Plt Count TNP BMP 07/17/24 04:22 Sodium 141 Potassium 4.1 Chloride 111 H Carbon Dioxide 19 L BUN 5 L Creatinine 0.61 Calcium 6.5 L D Liver Function 07/17/24 Range/Units 04:22 Total Bilirubin 0.3 (0.0-1.0) mg/dL AST 34 (5-37) U/L ALT 8 (0-40) U/L Alkaline Phosphatase 104 (39-117) U/L Albumin 2.1 L (3.5-5.0) g/dL Microbiology Microbiology Results: Microbiology 07/15/24 22:14 Blood - Venous Blood Culture - Preliminary No growth after 24 hours. 07/15/24 21:13 Blood - Venous Blood Culture - Preliminary No growth after 24 hours. Assessment and Plan (1) C. difficile diarrhea: Status: Acute Plan He has Cdiff PCR positive. He feels better on po Vancomycin. He may have toxin level below limit of detection. Would continue po Vancomycin 125 mg qid for 10 days. Bleach to bathroom at home. Watch for recurrence.
[2024-07-17] MEDS: Enoxaparin Sodium 40 MG/0.4 ML SYRINGE SUBCUT (14:21)
[2024-07-17 14:46] VITALS: BP 139/84; PULSE 80; RESP 18; TEMP 36.6; O2SAT 99
[2024-07-17 17:01] VITALS: BP 149/80; PULSE 76; RESP 16; TEMP 36.6; O2SAT 98; BMI 23.8
[2024-07-17] MEDS: 0.9 % Sodium Chloride Flush 3 ML SYRINGE IVFLUSH (18:27)
[2024-07-17 19:26] VITALS: BP 156/74; PULSE 88; RESP 18; TEMP 36.7; O2SAT 98
[2024-07-17 23:35] VITALS: BP 117/63; PULSE 85; RESP 18; TEMP 36.7; O2SAT 98
[2024-07-18] MEDS: 0.9 % Sodium Chloride Flush 3 ML SYRINGE IVFLUSH ×2 (02:10→08:19)
[2024-07-18] MEDS: Dextrose 5 % and 0.45 % NaCl 1,000 ML 125 ML IVCONT (02:14)
[2024-07-18 03:12] VITALS: BP 117/60; PULSE 87; RESP 18; TEMP 36.6; O2SAT 95
[2024-07-18] MEDS: vancomycin HCL 125 MG CAPSULE PO ×2 (05:40→11:57)
[2024-07-18 07:08] LABS: MANUAL DIFF FLAG NO
[2024-07-18 07:24] LABS: Basophils Absolute Auto 0.1 X10*3/uL (0.0-0.2); Basophils Percent Auto 0.8 % (0-2); Eosinophils Absolute Auto 0.1 X10*3/uL (0.0-0.4); Eosinophils Percent Auto 0.8 % (0-4); Hematocrit 35.2 % (42.0-52.0); Hemoglobin 11.6 g/dl (14.0-18.0); Imm Gran Abs Auto 0.03 X10*3/uL (0.00-0.03); Imm Gran Pct Auto 0.3 % (0.0-0.4); Lymphocytes Absolute Auto 2.2 X10*3/uL (1.2-4.9); Lymphocytes Percent Auto 21.9 % (20-40); Mean Corpuscular Hemoglobin 30.6 pg (27.0-33.0); Mean Corpuscular Volume 92.9 fL (80.0-98.0); Monocytes Absolute Auto 0.5 X10*3/uL (0.1-1.2); Monocytes Percent Auto 5.1 % (2-11); Neutrophils Absolute Auto 7.3 x10*3/uL (2.0-8.3); Neutrophils Percent Auto 71.1 % (45-73); Platelet Count 520 X10*3/uL (160-400); Red Blood Count 3.79 X10*6/uL (4.60-5.80); Red Cell Distribution Width 18.4 % (11.0-16.0); White Blood Count 10.2 X10*3/uL (4.8-10.8)
[2024-07-18 07:42] LABS: Anion Gap 12 (12-20); Blood Urea Nitrogen 3 mg/dL (9-16); Calcium 6.9 mg/dL (8.4-10.2); Carbon Dioxide 25 mmol/L (22-29); Chloride 108 mmol/L (96-108); Creatinine Clr Calc Pharmacy 140.8; Estimated Glomerular Filt Rate > 60; Glucose Random 85 mg/dL (60-115); Potassium 3.7 mmol/L (3.3-5.1); Sodium 141 mmol/L (135-145)
[2024-07-18 08:00] VITALS: BP 116/66; PULSE 84; RESP 19; TEMP 36.4; O2SAT 91
[2024-07-18] MEDS: Folic Acid 1 MG TABLET PO (08:15)
[2024-07-18] MEDS: PHENobarbitaL 15 MG TABLET 45 MG PO (08:15)
[2024-07-18] MEDS: Thiamine HCL 100 MG TABLET PO (08:15)
[2024-07-18 08:19] VITALS: BP 117/60; PULSE 87; O2SAT 95
[2024-07-18 11:41] VITALS: BP 116/72; PULSE 100; RESP 20; TEMP 36.9; O2SAT 97
[2024-07-18] MEDS: Ibuprofen 400 MG TABLET PO (11:57)
[2024-07-18] MEDS: Enoxaparin Sodium 40 MG/0.4 ML SYRINGE SUBCUT (11:58)
--- NOTE | 2024-07-18 12:33 | PM.DS ---
DS: Providers Provider Date of Service: 07/18/24 Date of admission: 07/16/24 12:16 Date of discharge: 07/18/24 Primary care physician: Alonso Lopez MD Consults: 07/16/24 12:06 Consult to Vascular Surgery Routine Consulting Provider: [facility] V[facility] Services Reason for consultation: extensive aortic athersclerosis, lactic acidosis 07/17/24 06:21 Consult to Infectious Diseases Routine Consulting Provider: [facility] Reason for consultation: ?cdiff 07/17/24 17:22 Addiction Medicine Routine Consulting Provider: Addiction Covering Reason for consultation: drinks 1 pint per day DS: Diagnosis Discharge Diagnosis (1) C. difficile diarrhea: Status: Acute (2) Atherosclerosis of abdominal aorta: Status: Acute (3) Alcohol withdrawal: Status: Acute (4) Nausea & vomiting: Status: Acute (5) Acute hypokalemia: Status: Acute (6) Acidosis, lactic: Status: Acute DS: Summary Hospital Course Hospital Course: Admission note HPI A 64 yearts old male with PMH of alcohol abuse, withdrawal, not on any medications as of now presenting to ED after falling at home with reported shortness of breath. The patient was unable to provide much of history as he received PHenobarb for withdrawal. He mentioned getting back to binge drinking recently and has been thinking about quitting again thats why he came to ED. In ED negative head CT, negative cervical spine CT, a negative CT pulmonary angiogram, and a negative CT of the abdomen and pelvis. He had sustained elevated Lactic acid levels inspite of IV fluids and thiamine supplement in ED. no evidence of PE or ischemic bowels on images. Admitted for further evaluation and management. Hospital course The patient was evaluated for: # Abdominal pain and diarrhea with Acute lactic acidosis multifactorial; Alcoholism, thiamin def. , liver disease , acute Cdiff and Norovirus infections. No evidence of PE\bowel ischemia in CTA chest or CT Abdomen. trended down during hospital stay with IVF boluses and maintenance along with high dose thaimine supplement and oral Vancomycin for Cdiff infection. discussed with ID who recommended 10 days of Vancomycin PO therapy. supportive measures for Norovirus infection as he was increased fluid intake and stay well hydrated. PRN Imodium for diarrhea. # Acute alcohol withdrawal 2/2 alcohol abuse As he was monitored on CIWA score which was trending down to 0 over the hospital stay as he was treated with Phenobarb protocol along with Thamine, Folic acid as he saw Addiction team and will have an outpatient follow up plan. advised total abstinence from alcohol. # Falls, he was evaluated by PT who did not feel he needs any therapy as he was steady on his feet. # Severe Aortic athersclerosis disease noticed on CTA and CT abdomen. Vascular surgery evaluated the patient and recommended no acute need for intervention , He should follow up outpatient with [facility] vascular; if he does not want to follow up with them, then he is welcome to follow up with [facility] outpatient. Discharge plan Stay well hydrated Use Tylenol\Advil for pain Imodium as needed for diarrhea Continue Vancomycin orally as prescribed Thamine and folic acid replacement We advise you total abstinence from alcohol Follow with vascular surgery as outpatient Time Attestation Discharge Coordination Time (in mins): 46 Quality: Safe Use of Opioids Does Pt have an Active Cancer Diagnosis on the Problem List?: No Quality: Stroke Does the patient have a stroke diagnosis?: No Physical Exam Vital Signs: Vital Signs: Last Vital Signs Temp 98.4 F 07/18/24 11:41 Pulse 100 07/18/24 11:41 Resp 20 07/18/24 11:41 BP 116/72 07/18/24 11:41 Pulse Ox 97 07/18/24 11:41 O2 Del Method Room Air 07/18/24 11:41 O2 Flow Rate 2 07/15/24 23:20 Oxygen Flow Rate 4 07/15/24 18:48 BMI result Body Mass Index 23.8 Const: Other: Constitutional : Awake, interactive, not in distress Neck : Normal inspection, Supple Cardiovascular : RRR, no JVP, no lower extremity edema Respiratory : good bilateral air entry, no crackles, wheezes or rhonchi Gastrointestinal: soft, lax, Normal bowel sounds, Non tender Skin : Warm, Dry Neurological : Alert & oriented, No focal deficit DS: Data Data Completed and Pending Labs on day of discharge: Laboratory Results - last 24 hr 07/17/24 07/18/24 02:27 06:29 WBC 10.2 RBC 3.79 L Hgb 11.6 L Hct 35.2 L MCV 92.9 MCH 30.6 MCHC 33.0 RDW 18.4 H Plt Count 520 H MPV 10.0 Immature Gran % (Auto) 0.3 Neut % (Auto) 71.1 Lymph % (Auto) 21.9 [place] % (Auto) 5.1 Eos % (Auto) 0.8 Baso % (Auto) 0.8 Lymph # (Auto) 2.2 [place] # (Auto) 0.5 Eos # (Auto) 0.1 Baso # (Auto) 0.1 Abs Immat Gran (auto) 0.03 Absolute Neuts (auto) 7.3 Absolute Nucleated RBC 0.000 Nucleated RBC % (auto) 0.0 Sodium 141 Potassium 3.7 Chloride 108 Carbon Dioxide 25 Anion Gap 12 BUN 3 L Creatinine 0.53 Estim Creat Clear Calc 140.8 Estimated GFR > 60 Random Glucose 85 Calcium 6.9 L D Stl C. cayetanensis PCR Not Detected Stool Rotavirus A PCR Not Detected Stl Adenov F 40/41 PCR Not Detected Stool Astrovirus (PCR) Not Detected Stool Campylobacter PCR Not Detected Stool Cryptosporidium PCR Not Detected Stl Sh Tox Pr E STEC PCR Not Detected Stool E coli O157 PCR Not applicable Stl Enterotoxigenic E PCR Not Detected Stool EPEC (PCR) Not Detected Stool EAEC (PCR) Not Detected Stl E. histolytica PCR Not Detected Stool Giardia Lamblia PCR Not Detected Stl P. shigelloides PCR Not Detected Stool Salmonella PCR Not Detected Stool Sapovirus (PCR) Not Detected Stl Shigella/EIEC PCR Not Detected St Y.enterocolitica PCR Not Detected Stool Vibrio (PCR) Not Detected Stl Vibrio cholerae PCR Not Detected Stl Norovirus GI/GII PCR Detected A Preliminary micro results at discharge 07/15/24 22:14 Blood Culture - Preliminary Blood - Venous No growth after 48 hours. 07/15/24 21:13 Blood Culture - Preliminary Blood - Venous No growth after [address] scan - abdomen: Radiologist's impression: CTA Chest IMPRESSION: 1. No pulmonary emboli. No acute aortic syndrome. This document has been electronically signed by: Fahad Da Silva MD on 07/15/2024 23:01:39 CT Abd IMPRESSION: No acute disease within the abdomen or pelvis. Extensive atherosclerotic disease of the abdominal aorta and its major branches. No hemodynamically significant stenosis of the celiac or superior mesenteric artery. Possible severe stenosis at the origin of the inferior mesenteric artery. Moderate stenosis of the proximal right renal artery. Moderate narrowing of the distal abdominal aorta measuring 8 mm in diameter. 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 No CT evidence of ischemic colitis. This document has been electronically signed by: Fahad Da Silva MD on 07/15/2024 23:12:40 Discharge Plan Discharge Anticipated Discharge Date/Time: 07/18/24 12:29 Patient Disposition: Home, Self-Care Discharge Diagnosis: C.Diff diarrhea Norovirus infection Alcohol withdrawal Referrals: Alonso Lopez MD [Primary Care Provider] - 1 Week Discharge Medications: New vancomycin 125 mg Capsule 125 mg PO Q6H 10 Days Qty: 40 0RF folic acid 1 mg Tablet 1 mg PO DAILY Qty: 90 0RF thiamine mononitrate (vit B1) 100 mg Tablet 100 mg PO DAILY Qty: 90 0RF loperamide 2 mg tablet 2 mg PO Q4H PRN (Reason: loose stool) Qty: 20 0RF Rx Instructions: administer after each loose stool until symptoms controlled; do not exceed 8 mg per 24 hrs Discharge Orders: Discharge Order (Routine); Ordered 07/18/24 Ordered By: Hermila Mares Diet: Advance to usual diet Activity on Discharge: As tolerated Stand Alone Forms: Patient Portal Discharge page Print Language: [place] Verde[place] Care Plan Goals: Stay well hydrated Use Tylenol\Advil for pain Imodium as needed for diarrhea Continue Vancomycin orally as prescribed Thamine and folic acid replacement We advise you total abstinence from alcohol Health Concerns: C.Diff infection, Norovirus , alcohol withdrawal Plan of Treatment: Vancomycin orally Hydration Assessment: as above
--- NOTE | 2024-07-18 12:59 | MHC.CM.PN ---
Pt has been medically cleared for DC, he will go home via family transport, plan is: self care.
== END 2024-07-18 14:40 | disposition home or self-care (01) | DRG 248 ==
LOC: HO.ED 07-16 07:39 → HO.EDOVER 07-16 12:16 → HO.IMC 07-17 13:40
PROVIDERS: Emergency Medicine; Admitting Provider Student in an Organized Health Care Education/Training Program; Emergency Provider Emergency Medicine; PCP Internal Medicine; Visit Provider Student in an Organized Health Care Education/Training Program
DX: A04.72 Enterocolitis due to Clostridium difficile, not specified as recurrent (principal); E87.21 Acute metabolic acidosis; F17.210 Nicotine dependence, cigarettes, uncomplicated; A08.11 Acute gastroenteropathy due to Norwalk agent; F10.239 Alcohol dependence with withdrawal, unspecified; Y90.6 Blood alcohol level of 120-199 mg/100 ml; I70.0 Atherosclerosis of aorta; Z20.822 Contact with and (suspected) exposure to COVID-19; Z71.6 Tobacco abuse counseling; Z79.899 Other long term (current) drug therapy; Z91.148 Patient's other noncompliance with medication regimen for other reason
CPT/HCPCS: 0241U; 36415; 70450; 71045; 71275; 72125; 74177; 80048; 80053; 80076; 80143; 80179; 80307; 80320; 81003; 82550; 82693; 82803; 83605; 83690; 83735; 83880; 84443; 84484; 85025; 85379; 85610; 87040; 87324; 87493; 87507; 93005; 97116; 97162; 99285; J0456; J0696; J0737; J1200; J1650; J2405; J2560; J3411; J3475; J7120; Q9967; S9485

== ENCOUNTER → 2024-07-15 18:21 | Outpatient (BNV) | payer SELFPAY | PROVIDERS: Admitting Provider Student in an Organized Health Care Education/Training Program; Emergency Provider Emergency Medicine; PCP Internal Medicine; Visit Provider Internal Medicine | DX: R55 Syncope and collapse (principal); R00.0 Tachycardia, unspecified; R94.31 Abnormal electrocardiogram [ECG] [EKG] | CPT/HCPCS: 93010 ==

== ENCOUNTER → 2024-07-15 18:22 | Outpatient (BNV) | payer SELFPAY | PROVIDERS: Emergency Provider Emergency Medicine; PCP Internal Medicine; Visit Provider Radiology Diagnostic Radiology | DX: R10.9 Unspecified abdominal pain (principal); R74.02 Elevation of levels of lactic acid dehydrogenase [LDH]; R07.9 Chest pain, unspecified; R06.02 Shortness of breath; M54.2 Cervicalgia; R42 Dizziness and giddiness; Z91.81 History of falling | CPT/HCPCS: 70450; 71045; 71275; 72125; 74177 ==

== ENCOUNTER → 2024-07-16 12:16 | Outpatient (BNV) | payer SELFPAY | PROVIDERS: Admitting Provider Student in an Organized Health Care Education/Training Program; Emergency Provider Emergency Medicine; PCP Internal Medicine; Visit Provider Student in an Organized Health Care Education/Training Program | DX: I70.0 Atherosclerosis of aorta (principal); F10.939 Alcohol use, unspecified with withdrawal, unspecified; R11.2 Nausea with vomiting, unspecified; A04.72 Enterocolitis due to Clostridium difficile, not specified as recurrent | CPT/HCPCS: 99222; 99232; 99239; 99499 ==

== ENCOUNTER → 2024-07-16 12:16 | Outpatient (BNV) | payer SELFPAY | PROVIDERS: Admitting Provider Student in an Organized Health Care Education/Training Program; Emergency Provider Emergency Medicine; PCP Internal Medicine; Visit Provider Internal Medicine | DX: A04.72 Enterocolitis due to Clostridium difficile, not specified as recurrent (principal) | CPT/HCPCS: 99222 ==

== ENCOUNTER → 2024-07-16 12:16 | Outpatient (BNV) | payer SELFPAY | PROVIDERS: Admitting Provider Student in an Organized Health Care Education/Training Program; Emergency Provider Emergency Medicine; PCP Internal Medicine; Visit Provider Physician Assistant Surgical | DX: I70.0 Atherosclerosis of aorta (principal) | CPT/HCPCS: 99222; 99232 ==

== ENCOUNTER 2024-07-24 20:01 | Inpatient (IN) | payer OTHER, SELFPAY ==
--- NOTE | ~2024-07-24 | XR_ITS ---
CLINICAL HISTORY: cp 1 view chest x-ray Comparison: CR - XR CHEST 1V - 2 19:11 EST Findings: Mild bibasilar atelectasis. Small bilateral effusions. No pneumothorax. Similar prominent/enlarged cardiac silhouette. No acute fracture. IMPRESSION: 1. Mild bibasilar atelectasis. 2. Small bilateral effusions. This document has been electronically signed by: Dave Bell MD on 07/24/2024 20:48:20
[2024-07-24 20:05] VITALS: BP 110/70; BP 75/48; PULSE 85; PULSE 96; RESP 16; TEMP 36.9; O2SAT 89; O2SAT 96; BMI 23.9
--- NOTE | 2024-07-24 20:15 | ECG_ITS ---
Test Reason : chest pain Blood Pressure : */* mmHG Vent. Rate : 107 BPM Atrial Rate : 107 BPM P-R Int : 122 ms QRS Dur : 80 ms QT Int : 374 ms P-R-T Axes : 58 56 48 degrees QTcB Int : 499 ms Sinus tachycardia Otherwise normal ECG When compared with ECG of 24-Jul-2024 20:15, Left posterior fascicular block is no longer Present T wave inversion no longer evident in Lateral leads Referred By: Jose Cortez Electronically Signed By: Craig Garcia
[2024-07-24] MEDS: 0.9 % Sodium Chloride 1,000 ML 999 ML IV (21:05)
[2024-07-24 21:16] LABS: MANUAL DIFF FLAG NO
[2024-07-24 21:17] LABS: Basophils Absolute Auto 0.1 X10*3/uL (0.0-0.2); Basophils Percent Auto 0.8 % (0-2); Eosinophils Percent Auto 0.2 % (0-4); Hematocrit 37.2 % (42.0-52.0); Imm Gran Abs Auto 0.03 X10*3/uL (0.00-0.03); Imm Gran Pct Auto 0.3 % (0.0-0.4); Lymphocytes Absolute Auto 1.9 X10*3/uL (1.2-4.9); Lymphocytes Percent Auto 19.3 % (20-40); Mean Corpuscular HGB Conc 32.3 g/dl (31.0-36.0); Mean Corpuscular Hemoglobin 30.1 pg (27.0-33.0); Mean Corpuscular Volume 93.2 fL (80.0-98.0); Mean Platelet Volume 9.1 fL (9.4-12.4); Monocytes Percent Auto 9.6 % (2-11); Neutrophils Percent Auto 69.8 % (45-73); Platelet Count 538 X10*3/uL (160-400); Red Blood Count 3.99 X10*6/uL (4.60-5.80); Red Cell Distribution Width 19.2 % (11.0-16.0)
[2024-07-24] MEDS: chlordiazePOXIDE HCl 25 MG CAPSULE 50 MG PO (21:19)
[2024-07-24 21:20] LABS: VBG Base Excess 0.8 mmol/L; VBG HCO3 27 mmol/L (22-26); VBG pCO2 50 mmHg; VBG pH 7.34 (7.32-7.43); VBG pO2 31 mmHg
[2024-07-24 21:21] LABS: Venous Blood Gas Refer to POC result
[2024-07-24 21:32] LABS: Acetaminophen LAB < 3 mcg/mL (<30); Salicylate < 5.0 mg/dL (15-30)
[2024-07-24 21:35] LABS: Alanine Aminotransferase 11 U/L (0-40); Albumin Level 2.9 g/dL (3.5-5.0); Alkaline Phosphatase 146 U/L (39-117); Anion Gap 20 (12-20); Aspartate Amino Transferase 25 U/L (5-37); Bilirubin Direct < 0.2 mg/dL (0.0-0.5); Bilirubin Total 0.1 mg/dL (0.0-1.0); Blood Urea Nitrogen 3 mg/dL (9-16); Calcium 8.3 mg/dL (8.4-10.2); Carbon Dioxide 24 mmol/L (22-29); Chloride 103 mmol/L (96-108); Creatinine Clr Calc Pharmacy 109.7; Estimated Glomerular Filt Rate > 60; Ethanol 226 mg/dL; Glucose Random 160 mg/dL (60-115); Lactic Acid 8.1 mmol/L (0.5-2.0); Lipase 17 U/L (8-78); Potassium 2.5 mmol/L (3.3-5.1); Sodium 144 mmol/L (135-145); Total Protein 6.3 g/dL (6.5-8.0)
[2024-07-24 21:40] VITALS: BP 94/54; PULSE 95; RESP 18; TEMP 36.6; O2SAT 94
[2024-07-24 21:41] LABS: Troponin-I High Sensitivity < 2.7 ng/L (<3.5-35.0)
--- NOTE | 2024-07-24 21:44 | PC.NURSE ---
Addendum entered by Honey Verma RN 07/24/24 21:47: pt now denying SI statements made. Original Note: pt found sitting at the edge of bed, pulled out IV yelling he wants to go home. MD at bedside and security called. Pt medicated per jul and changed into hospital attire. Belonging collected and secured by rodolfo,
[2024-07-24] MEDS: Haloperidol Lactate 5 MG/ML VIAL 2 MG IM (23:10)
[2024-07-24] MEDS: Midazolam HCl 5 MG/ML VIAL IM (23:10)
--- NOTE | 2024-07-24 23:13 | PC.NURSE ---
pt waiting for ultra sound guided IV access at this time.
[2024-07-24 23:14] LABS: Reflex Lactate? Lactic Acid Added
[2024-07-24 23:26] LABS: Magnesium 1.4 mg/dL (1.6-2.6); Phosphorus 3.1 mg/dL (2.7-4.5)
--- NOTE | 2024-07-24 23:59 | ED.CHESTPAIN ---
HPI - Chest Pain General Chief Complaint: Chest Pain Stated Complaint: behavioral,SI,chest pain, withdrawl Time Seen by Provider: 07/24/24 20:17 Source: patient Mode of arrival: ambulatory Limitations: no limitations History of Present Illness ED Provider: Aj HPI narrative: 64-year-old male with past medical history of depression, alcohol abuse, alcohol withdrawal presenting for intoxication and suicide ideation. Patient states that he is feeling anxious and this is making feel like wanted to kill himself. Patient states that if you were to kill himself he would ?shoot himself in the head?. Patient also states that he has been attempting to quit alcohol however his last alcoholic beverage was approximately 30 minute prior to presenting to the emergency department. Patient denies recent drug use and has not made any actual attempts to hurt himself. He also endorses left-sided chest pain that started earlier in the morning however that pain is gone now. This pain was associated with shortness of breath however he denies diaphoresis. Related Data Previous Rx's ?Medication ?Instructions ?Recorded folic acid 1 mg tablet 1 mg PO DAILY #90 tabs 07/18/24 loperamide 2 mg tablet 2 mg PO Q4H PRN loose stool #20 07/18/24 tabs thiamine mononitrate (vit B1) 100 100 mg PO DAILY #90 tabs 07/18/24 mg tablet vancomycin 125 mg capsule 125 mg PO Q6H 10 days #40 caps 07/18/24 Allergies Allergy/AdvReac Type Severity Reaction Status Date / Time diclofenac [From Flector] Allergy Unknown Verified 07/24/24 20:14 Review of Systems Review of Systems: Yes all other systems are reviewed and are negative PMFSH Past Medical History Medical History Depression Compression fracture of L1 lumbar vertebra Social History Social History Household Members: Spouse Housing: House Do you presently have visiting nurse or other home services: No Alcohol intake: current Alcohol intake frequency: 3 or more drinks per day Alcohol type: beer and hard liquor Patient Tobacco Use Status: Current everyday Tobacco user Tobacco use type: Cigarette Cigarette Packs Per Day: 1 Cigarettes Per Day: 20.0 Smoked in Last 30 Days: Yes Advance Directives: No Advance Directives Information Provided: Yes Do you have a plan to hurt others: No Plan service: No Physical Exam Vital Signs: Vital Signs: Last Vital Signs Temp 97.4 F 07/25/24 01:35 Pulse 98 07/25/24 01:35 Resp 16 07/25/24 01:35 BP 112/70 07/25/24 01:35 Pulse Ox 100 07/25/24 01:35 O2 Del Method Nasal Cannula 07/25/24 01:35 O2 Flow Rate 1 07/25/24 01:35 BMI result Body Mass Index 23.9 Intoxicated appearing male A&O x4; normal speech and cognition Mild bilateral wheezing auscultated Normal S1-S2 regular rate and rhythm Abdomen is soft, nontender nondistended Medications Administered Discontinued Medications Generic Name Dose Route Start Last Admin Trade Name Freq PRN Reason Stop Dose Admin Chlordiazepoxide HCl 50 mg 07/24/24 21:12 07/24/24 21:19 Chlordiazepoxide Hcl 25 Mg Capsule PO 07/24/24 21:13 50 mg ONCE ONE Administration Albuterol Sulfate 2.5 mg/ 0 mg 07/24/24 21:26 07/24/24 21:42 Albuterol/Ipratropium 3 ml INHALE 07/24/24 21:27 Not Given ONCE ONE Haloperidol Lactate 2 mg 07/24/24 23:00 07/24/24 23:10 Haloperidol Lactate 5 Mg/Ml Vial IM 07/24/24 23:01 2 mg ONCE ONE Administration Sodium Chloride 1,000 mls @ 999 mls/hr 07/24/24 20:30 07/24/24 21:45 Ns IV 07/24/24 21:30 0 mls/hr .Q1H1M NATALIA Infusion Sodium Chloride 1,000 mls @ 999 mls/hr 07/24/24 23:15 07/25/24 00:24 Ns IV 07/25/24 00:15 999 mls/hr .Q1H1M NATALIA Administration Potassium Chloride 10 meq in 100 mls @ 100 mls/hr 07/24/24 23:15 07/25/24 01:10 Potassium Chloride/H20 IV 07/25/24 01:14 100 mls/hr Q1H NATALIA Administration Thiamine HCl 100 mg/ Sodium 101 mls @ 202 mls/hr 07/24/24 23:03 07/25/24 00:58 Chloride IV 07/24/24 23:32 Infused ONCE ONE Infusion Magnesium Sulfate 2 gm in 50 mls @ 25 mls/hr 07/24/24 23:25 07/25/24 00:24 Magnesium Sulfate/H2o IV 07/25/24 01:24 25 mls/hr ONCE ONE Administration Midazolam HCl 5 mg 07/24/24 23:00 07/24/24 23:10 Midazolam Hcl 5 Mg/Ml Vial IM 07/24/24 23:01 5 mg ONCE ONE Administration Procedures Procedure Narrative Procedure Narrative: Ultrasound-guided IV placement 18 gauge 1-3/4 inch IV placed in bilateral upper extremities, both have adequate blood return, both flushes well, both secured with Tegaderm, performed by Rosemary Harris PA-C Medical Decision Making Medical Decision Making MDM Narrative: 64-year-old male presenting for SI intoxication - patient appears clinically intoxicated and is dealing with underlying psychiatric history. In addition to this I am also considering electrolyte/metabolic disturbance, underlying infectious, ACS, costochondritis - labs and imaging studies ordered I was notified by the nurse the patient's CIWA is 13; Librium ordered Patient became increasingly agitated in the emergency department attempting to leave. I explained to him that because he appears intoxicated and is endorsing SI he will have to stay for sobriety and psych evaluation. Patient was not agreeable and still attempting to leave. Security was called. Patient was chemically restrained with Haldol and Versed Lab and imaging interpretation: -hypokalemia, hypomagnesemia, stable H&H, no white count -lactate of 8 -negative troponin x2 -normal ph -I do not appreciate large consolidation patient's chest x-ray and the Radiology impression reads small bilateral effusions, mild bibasilar atelectasis Potassium and magnesium ordered On reassessment patient is sleeping with good respiratory rate and entered Mild improvement repeat lactic acid Consulted hospitalist who accepted patient for admission Phenobarb ordered Lab Data 07/24/24 21:07 07/24/24 21:07 Labs: Lab Results 07/24/24 07/24/24 07/25/24 Range/Units 21:07 21:16 00:10 WBC 10.0 (4.8-10.8) X10*3/uL RBC 3.99 L (4.60-5.80) X10*6/uL Hgb 12.0 L (14.0-18.0) g/dl Hct 37.2 L (42.0-52.0) % MCV 93.2 (80.0-98.0) fL MCH 30.1 (27.0-33.0) pg MCHC 32.3 (31.0-36.0) g/dl RDW 19.2 H (11.0-16.0) % Plt Count 538 H (160-400) X10*3/uL MPV 9.1 L (9.4-12.4) fL Immature Gran % (Auto) 0.3 (0.0-0.4) % Neut % (Auto) 69.8 (45-73) % Lymph % (Auto) 19.3 L (20-40) % [place] % (Auto) 9.6 (2-11) % Eos % (Auto) 0.2 (0-4) % Baso % (Auto) 0.8 (0-2) % Lymph # (Auto) 1.9 (1.2-4.9) X10*3/uL [place] # (Auto) 1.0 (0.1-1.2) X10*3/uL Eos # (Auto) 0.0 (0.0-0.4) X10*3/uL Baso # (Auto) 0.1 (0.0-0.2) X10*3/uL Abs Immat Gran (auto) 0.03 (0.00-0.03) X10*3/uL Absolute Neuts (auto) 7.0 (2.0-8.3) x10*3/uL Absolute Nucleated RBC 0.000 (0.0-0.012) X10*3/uL Nucleated RBC % (auto) 0.0 (0.0-0.2) /100WBC VBG pH 7.34 (7.32-7.43) VBG pCO2 50 mmHg VBG pO2 31 mmHg VBG HCO3 27 H (22-26) mmol/L VBG O2 Saturation 41.0 % VBG Base Excess 0.8 mmol/L Sodium 144 (135-145) mmol/L Potassium 2.5 L* D (3.3-5.1) mmol/L Chloride 103 (96-108) mmol/L Carbon Dioxide 24 (22-29) mmol/L Anion Gap 20 (12-20) BUN 3 L (9-16) mg/dL Creatinine 0.68 (0.5-1.4) mg/dL Estim Creat Clear Calc 109.7 Estimated GFR > 60 Random Glucose 160 H (60-115) mg/dL Lactic Acid 8.1 H* (0.5-2.0) mmol/L Lactic Acid F/U @ 2Hr 7.3 H* (0.5-2.0) mmol/L Calcium 8.3 L D (8.4-10.2) mg/dL Phosphorus 3.1 (2.7-4.5) mg/dL Magnesium 1.4 L* (1.6-2.6) mg/dL Total Bilirubin 0.1 (0.0-1.0) mg/dL Direct Bilirubin < 0.2 (0.0-0.5) mg/dL AST 25 (5-37) U/L ALT 11 (0-40) U/L Alkaline Phosphatase 146 H (39-117) U/L Troponin I High Sens < 2.7 < 2.7 (<3.5-35.0) ng/L Total Protein 6.3 L (6.5-8.0) g/dL Albumin 2.9 L (3.5-5.0) g/dL Lipase 17 (8-78) U/L Salicylates < 5.0 L (15-30) mg/dL Acetaminophen < 3 (<30) mcg/mL Ethyl Alcohol 226 mg/dL Influenza Type A (PCR) NEGATIVE (Negative) Influenza Type B (PCR) NEGATIVE (Negative) RSV RNA Qual (PCR) NEGATIVE (Negative) SARS-CoV-2 RNA (RT-PCR) NEGATIVE (Negative) Discharge Plan Discharge Clinical Impression: Alcohol intoxication, Suicide ideation, Alcohol withdrawal Patient Disposition: Admitted As Inpatient Print Language: Sinhala
[2024-07-25] VITALS (7 sets, daily range): BP systolic 104–156; BP diastolic 63–85; PULSE 79–98; RESP 13–18; TEMP 36–36.5; O2SAT 95–100
[2024-07-25] MEDS: Magnesium Sulfate/H2O 2 GM/50 ML PIGGYBACK IV (00:24)
[2024-07-25] MEDS: 0.9 % Sodium Chloride 1,000 ML 999 ML IV (00:24)
[2024-07-25] MEDS: Potassium Chloride/H20 10 MEQ/100 ML PIGGYBACK 100 MEQ IV ×6 (00:24→05:56)
[2024-07-25] MEDS: Thiamine HCL 100 MG in 0.9 % Sodium Chloride 100 ML 202 MG IV (00:25)
[2024-07-25 00:58] LABS: Troponin-I High Sensitivity < 2.7 ng/L (<3.5-35.0)
[2024-07-25 01:02] LABS: ~Lactic Acid-LAB USE ONLY 7.3 mmol/L (0.5-2.0)
[2024-07-25 01:15] LABS: Influenza A PCR NEGATIVE (Negative); Influenza B PCR NEGATIVE (Negative); Resp Syncy Virus RNA Qual PCR NEGATIVE (Negative); SARS COV2 PCR INHOUSE NEGATIVE (Negative)
--- NOTE | 2024-07-25 02:02 | PM.IMHP ---
History of Present Illness Date of Service: 07/25/24 Chief Complaint: Alcohol intoxication This is a 64-year-old male with pertinent history of alcohol use disorder who presents to the emergency department for evaluation of alcohol intoxication and SI. Patient states he has been having uncontrolled anxiety that has been wanting him to kill himself by shooting himself in the head with a gun. His last drink was prior to presentation. He has been binge drinking for the last few days. Does have a history of alcohol withdrawal. No history of alcohol withdrawal seizures. Patient also reported of chest pain which is worse with palpation. Unclear if patient had trauma. No fever, chills, palpitations, shortness of breath, abdominal pain, changes in urinary or bowel habits. Has been having tremors In the emergency department, patient with agitation. Found to have low magnesium and low potassium. He was initiated on phenobarb protocol Review of Systems Constitutional: Constitutional: Reports fatigue and Reports malaise Cardiovascular: Cardiovascular: Reports no additional cardiovascular complaints Respiratory: Respiratory: Reports no additional respiratory complaints Gastrointestinal: Gastrointestinal: Reports no additional gastrointestinal complaints Genitourinary: Genitourinary: Reports no additional male genitourinary complaints Psychiatric: Psychiatric: Reports anxiety Endocrine: Endocrine: Reports fatigue PMFSH Medical History Alcohol use disorder Depression Compression fracture of L1 lumbar vertebra Pertinent family history: No family history of early CAD Social History Household Members: Spouse Housing: House Do you presently have visiting nurse or other home services: No Alcohol intake: current Alcohol intake frequency: 3 or more drinks per day Alcohol type: beer and hard liquor Patient Tobacco Use Status: Current everyday Tobacco user Tobacco use type: Cigarette Cigarette Packs Per Day: 1 Cigarettes Per Day: 20.0 Smoked in Last 30 Days: Yes Advance Directives: No Advance Directives Information Provided: Yes Do you have a plan to hurt others: No Plan service: No Meds Allergies Allergy/AdvReac Type Severity Reaction Status Date / Time diclofenac [From Flector] Allergy Unknown Verified 07/24/24 20:14 Active Medications: Current Medications Sodium Chloride (Ns) 500 mls @ 500 mls/hr IV .Q1H NATALIA Stop: 07/25/24 02:14 Folic Acid 1 mg/ Sodium (Chloride) 50.2 mls @ 100.4 mls/hr IM ONCE ONE Stop: 07/25/24 02:29 Pharmacy Consult (Consult Rx Etoh Phenob Im/Po) 1 each MISCELLANE ONCE PRN; Protocol PRN Reason: Consult order Physical Exam Vital Signs and Narrative: Vital Signs: Last Vital Signs Temp 97.4 F 07/25/24 01:35 Pulse 98 07/25/24 01:35 Resp 16 07/25/24 01:35 BP 112/70 07/25/24 01:35 Pulse Ox 100 07/25/24 01:35 O2 Del Method Nasal Cannula 07/25/24 01:35 O2 Flow Rate 1 07/25/24 01:35 BMI result Body Mass Index 23.9 Middle-aged male lying in bed Neck supple, no JVD Regular rate and rhythm, S1-S2 heard Regular breath sounds bilaterally, no wheezing or crackles appreciated Abdomen soft nontender, no guarding, no rigidity Patient is awake, alert and oriented to self, place, time and person ; no focal motor deficit Psych: Anxious No pedal edema Results Labs 07/24/24 21:07 07/24/24 21:07 Labs: Laboratory Results - last 24 hr 07/24/24 07/24/24 07/25/24 21:07 21:16 00:10 MCV 93.2 MCH 30.1 MCHC 32.3 RDW 19.2 H Plt Count 538 H MPV 9.1 L Immature Gran % (Auto) 0.3 Neut % (Auto) 69.8 Lymph % (Auto) 19.3 L Sebastian % (Auto) 9.6 Eos % (Auto) 0.2 Baso % (Auto) 0.8 Lymph # (Auto) 1.9 Sebastian # (Auto) 1.0 Eos # (Auto) 0.0 Baso # (Auto) 0.1 Abs Immat Gran (auto) 0.03 Absolute Neuts (auto) 7.0 Absolute Nucleated RBC 0.000 Nucleated RBC % (auto) 0.0 VBG pH 7.34 VBG pCO2 50 VBG pO2 31 VBG HCO3 27 H VBG O2 Saturation 41.0 VBG Base Excess 0.8 Anion Gap 20 Estim Creat Clear Calc 109.7 Estimated GFR > 60 Random Glucose 160 H Lactic Acid 8.1 H* Lactic Acid F/U @ 2Hr 7.3 H* Calcium 8.3 L D Phosphorus 3.1 Magnesium 1.4 L* Total Bilirubin 0.1 Direct Bilirubin < 0.2 AST 25 ALT 11 Alkaline Phosphatase 146 H Total Protein 6.3 L Albumin 2.9 L Lipase 17 Salicylates < 5.0 L Acetaminophen < 3 Ethyl Alcohol 226 Influenza Type A (PCR) NEGATIVE Influenza Type B (PCR) NEGATIVE RSV RNA Qual (PCR) NEGATIVE SARS-CoV-2 RNA (RT-PCR) NEGATIVE Assessment and Plan (1) Alcohol withdrawal: Status: Acute (2) Alcohol intoxication: Status: Acute (3) Suicide ideation: Status: Acute Plan This is a 64-year-old male with pertinent history of alcohol use disorder who presents to the emergency department for evaluation of alcohol intoxication and SI. #. Alcohol use disorder with concerns for withdrawal: Will admit patient with phenobarb protocol. Monitor CIWA. Initiated thiamine and folic acid. Consulted Addiction Team, appreciate assistance #. Acute lactic acidosis due to alcoholism. No sepsis #. Hypomagnesemia leading to hypokalemia due to alcohol use disorder: Replaced electrolytes #. SI in the setting of uncontrolled anxiety: Consulted sitter and psych. Med rec pending DVT prophylaxis: Lovenox Full code Admit as inpatient and will require two night minimum hospital stay for management of alcohol withdrawal, SI (as above), which is not possible in a lesser acute setting. Quality Stroke Does the patient have a stroke diagnosis?: No VTE Prior VTE?: No VTE Risk Level:: Medical - moderate - high VTE Device Contraindication: Treatment Not Indicated VTE Drug Contraindication: N/A - Med Ordered
[2024-07-25] MEDS: 0.9 % Sodium Chloride 500 ML IV (02:21)
[2024-07-25] MEDS: Lactated Ringers 1,000 ML 150 ML IVCONT ×4 (02:21→23:31)
[2024-07-25] MEDS: Enoxaparin Sodium 40 MG/0.4 ML SYRINGE SUBCUT (02:30)
[2024-07-25] MEDS: ondansetron HCL 4 MG/2 ML VIAL IVPUSH (02:30)
[2024-07-25 02:31] LABS: Reflex Lactate? 2 Y
[2024-07-25 02:46] LABS: Amphetamine Screen Urine Not Detected (Not Detect); Barbiturates, Urine POSITIVE (Not Detect); Benzodiazepines Screen Urine POSITIVE (Not Detect); Buprenorphine Scr Not Detected (Not Detect); Cannabinoid Screen Urine POSITIVE (Not Detect); Cocaine Screen Urine Not Detected (Not Detect); Fentanyl, urine Not Detected (Not Detect); Methadone Screen, Urine Not Detected (Not Detect); Opiate Screen Urine Not Detected (Not Detect); Oxycodone Screen Urine Positive (Not Detect); Phencyclidine Screen Urine Not Detected (Not Detect)
[2024-07-25 02:49] LABS: Appearance Urine Clear; Color Urine Yellow; Glucose Urine UA Negative (Negative); Leukocyte Esterase Urine Negative (Negative); Nitrite Urine Negative (Negative); PH 5.5 (5.0-9.0); Specific Gravity - Urine 1.015 (1.005-1.025); Urine Blood Negative (Negative); Urine Ketones Negative (Negative); Urine Protein Negative (Neg-Trace)
[2024-07-25] MEDS: PHENobarbitaL sodium 130 MG/ML VIAL 284 MG IM (02:51)
[2024-07-25 03:08] LABS: B Type Natriuretic Peptide 68 pg/mL (<100)
[2024-07-25 03:21] LABS: MANUAL DIFF FLAG NO
[2024-07-25 03:22] LABS: Basophils Absolute Auto 0.1 X10*3/uL (0.0-0.2); Basophils Percent Auto 0.5 % (0-2); Eosinophils Percent Auto 0.2 % (0-4); Hematocrit 34.8 % (42.0-52.0); Hemoglobin 11.5 g/dl (14.0-18.0); Imm Gran Abs Auto 0.03 X10*3/uL (0.00-0.03); Imm Gran Pct Auto 0.3 % (0.0-0.4); Lymphocytes Percent Auto 21.1 % (20-40); Mean Corpuscular Hemoglobin 30.8 pg (27.0-33.0); Mean Corpuscular Volume 93.3 fL (80.0-98.0); Monocytes Percent Auto 9.9 % (2-11); Neutrophils Absolute Auto 6.6 x10*3/uL (2.0-8.3); Platelet Count 474 X10*3/uL (160-400); Red Blood Count 3.73 X10*6/uL (4.60-5.80); Red Cell Distribution Width 19.1 % (11.0-16.0); White Blood Count 9.6 X10*3/uL (4.8-10.8)
[2024-07-25 04:01] LABS: Anion Gap 21 (12-20); Blood Urea Nitrogen 3 mg/dL (9-16); Calcium 7.7 mg/dL (8.4-10.2); Carbon Dioxide 19 mmol/L (22-29); Chloride 108 mmol/L (96-108); Creatinine Clr Calc Pharmacy 133.2; Estimated Glomerular Filt Rate > 60; Glucose Random 121 mg/dL (60-115); Magnesium 1.6 mg/dL (1.6-2.6); Potassium 3.6 mmol/L (3.3-5.1); Sodium 144 mmol/L (135-145)
[2024-07-25 04:04] LABS: ~Lactic Acid-LAB USE ONLY 7.2 mmol/L (0.5-2.0)
[2024-07-25] MEDS: PHENobarbitaL sodium 130 MG/ML VIAL 213 MG IM ×2 (05:29→09:58)
--- NOTE | 2024-07-25 07:10 | PC.NURSE ---
This RN at bedside for discharge, Patient resting in bed comfortably, awaiting EMS ride back to halfway
--- NOTE | 2024-07-25 07:11 | PM.EVENT ---
Event Note Date of Service: 07/25/24 Event Note: 64-year-old male with pertinent history of alcohol use disorder who presents to the emergency department for evaluation of alcohol intoxication and SI. Patient recently discharged from [facility] on July 18 after receiving treatment for abdominal pain, diarrhea and acute lactic acidosis with C diff positive PCR, was discharged on vancomycin for 10 days and also was treated for alcohol withdrawal. At present awake alert no acute complaints mild anxiety CIWA 3 #. Alcohol use disorder with concerns for withdrawal: Alcohol level 226 on admission, phenobarb protocol. Monitor CIWA, thiamine and folic acid. Addiction Team consulted #. Acute lactic acidosis due to alcoholism/with anion gap metabolic acidosis/hypotension. No sepsis, normal urinalysis, chest x-ray with bibasilar atelectasis and small effusion, Anion gap closed ,continue IV fluids, follow LA /labs #. Hypomagnesemia/acute hypokalemia due to alcohol use disorder: Replaced electrolytes, repeat magnesium 1.7, potassium 3.[address] on oral magnesium supplements. #. SI in the setting of uncontrolled anxiety: Consulted sitter and psych. # recent C diff infection resume vancomycin end date 07/27 # U tox positive for barbiturates, benzodiazepine, marijuana addiction team consult DVT prophylaxis: Lovenox Full code Requires continued inpatient hospitalization for management of alcohol withdrawal, SI (as above), which is not possible in a lesser acute setting. Time Spent With Patient Time: Total time managing care of this patient today ____ minutes.
--- NOTE | 2024-07-25 09:17 | PHA.MEDREC ---
Addendum entered by Orly Bernal RPh 07/25/24 09:24: Reviewed by [facility] Original Note: Pharmacy Consult ? Medication Reconciliation Pharmacy has completed the medication reconciliation. Spoke with patient and he confirmed what he is taking for medications. He confirmed he started the Vancomycin 125mg tab this past week and he confirmed he is taking it every 6 hours. He also stated he was taking Cymbalta 30mg tabs once a day still but said he has not taken it in a while . He did not remember the last time taking the Vancomycin 125mg this week and got a little agitated when I tried asking more on it.
[2024-07-25] MEDS: Folic Acid 1 MG TABLET PO (09:58)
[2024-07-25] MEDS: 0.9 % Sodium Chloride Flush 3 ML SYRINGE IVFLUSH (09:58)
[2024-07-25] MEDS: Magnesium Oxide 400 MG TABLET PO ×2 (09:58→17:35)
[2024-07-25] MEDS: Thiamine HCL 100 MG TABLET PO (09:58)
--- NOTE | 2024-07-25 10:10 | PC.NURSE ---
Patient refusing to take meds this am, this RN provided verbal education and patient agreed to take meds
[2024-07-25 12:37] LABS: Anion Gap 13 (12-20); Blood Urea Nitrogen < 3 mg/dL (9-16); Calcium 7.7 mg/dL (8.4-10.2); Carbon Dioxide 24 mmol/L (22-29); Chloride 108 mmol/L (96-108); Creatinine Clr Calc Pharmacy 135.6; Estimated Glomerular Filt Rate > 60; Glucose Random 114 mg/dL (60-115); Potassium 4.4 mmol/L (3.3-5.1); Sodium 141 mmol/L (135-145)
--- NOTE | 2024-07-25 12:39 | PC.NURSE ---
Patient falling asleep at times, pulling o2 off and o2 going into the high 70s
[2024-07-25] MEDS: Flu Vacc TS2024-25(6mos up)/PF 0.5 ML SYRINGE IM (13:09)
--- NOTE | 2024-07-25 13:16 | MHC.CM.PN ---
pt lives with he is notminvolved with servies form an oujtise agency he has a ride home when dcd pt has a sitter he will be seen by psych cassidy simental per care team/psych
--- NOTE | 2024-07-25 13:42 | MHC.CLN ---
NUTRITION CONSULT FOR DECREASED APPETITE AND WEIGHT LOSS. REVIEW OF WEIGHT HX SHOWS WEIGHT LOSS X 10 MONTHS -4.9%, 8#. WEIGHT LOSS NOT SIGNIFICANT. PATIENT ADMITTED WITH ETOH INTOXICATION AND SI. RECENT C-DIFF INFECTION EARLIER THIS MONTH. ETOH ABUSE IS LIKELY CONTRIBUTOR TO DECREASED APPETITE. RD WILL MONITOR INTAKE.
[2024-07-25 14:53] LABS: Lactic Acid 4.6 mmol/L (0.5-2.0)
[2024-07-25] MEDS: vancomycin HCL 125 MG CAPSULE PO ×2 (14:53→20:03)
[2024-07-25 16:06] LABS: Reflex Lactate? Lactic Acid Added
[2024-07-25 17:18] LABS: ~Lactic Acid-LAB USE ONLY 3.1 mmol/L (0.5-2.0)
[2024-07-25 18:43] LABS: Reflex Lactate? 2 Y
[2024-07-25] MEDS: PHENobarbitaL 30 MG, PHENobarbitaL 15 MG 45 MG PO (20:03)
[2024-07-25 20:07] LABS: ~Lactic Acid-LAB USE ONLY 3.8 mmol/L (0.5-2.0)
[2024-07-26] MEDS: vancomycin HCL 125 MG CAPSULE PO ×4 (02:39→19:59)
[2024-07-26] MEDS: Enoxaparin Sodium 40 MG/0.4 ML SYRINGE SUBCUT (02:39)
[2024-07-26] MEDS: Lactated Ringers 1,000 ML 150 ML IVCONT ×3 (06:10→22:21)
--- NOTE | 2024-07-26 07:34 | P.PNIM_ITS ---
Subjective Subjective Date of Service: 07/26/24 Interval History: Seen in follow-up for: alcohol withdrawal/SI Interval history: No sx of withdrawal at this time- no n/v, tremors, confusion, hallucinations. Reports anxiety has resolved at this time. No active SI. States sometimes he wishes he was but not currently and not plan Review of Systems Review of Systems: Yes all other systems are reviewed and are negative Physical Exam 2 Vital Signs: Vital Signs: Last Vital Signs Temp 97.7 F 07/25/24 23:23 Pulse 79 07/25/24 23:23 Resp 18 07/25/24 23:23 BP 154/79 H 07/25/24 23:23 Pulse Ox 95 07/25/24 23:23 O2 Del Method Room Air 07/25/24 23:23 O2 Flow Rate 1 07/25/24 01:35 BMI result Body Mass Index 23.9 Constitutional - Awake and Alert, No apparent distress Eyes - PERRLA, EOMI Cardiovascular - S1S2, RRR, No edema Respiratory - Normal lung expansion, Normal respiratory effort, No respiratory distress, CTA bilaterally Gastrointestinal - NT / ND; +BS; No rebound or guarding Extremities - no calf tenderness bilaterally, no swelling Skin - Warm/Dry Neurological - Alert & oriented x3, no tremors Psychological - Appropriate affect, not anxious appearing Objective Data Active Medications Acetaminophen (Acetaminophen 325 Mg Tablet) 650 mg PO Q6H PRN PRN Reason: Pain, Mild 1-3,fever,headache Calcium Carbonate (Calcium Carbonate 750 Mg Tab.Chew) 750 mg PO Q4H PRN PRN Reason: Heartburn Duloxetine HCl (Duloxetine Hcl 30 Mg Capsule.) 30 mg PO DAILY [facility] Enoxaparin Sodium (Enoxaparin Sodium 40 Mg/0.4 Ml Syringe) 40 mg SUBCUT Q24H [facility] Last Admin: 07/26/24 02:39 Dose: 40 mg Documented By: LAUREN Folic Acid (Folic Acid 1 Mg Tablet) 1 mg PO DAILY [facility] Last Admin: 07/25/24 09:58 Dose: 1 mg Documented By: TOVA Lactated Ringer's (Lr) 1,000 mls @ 150 mls/hr IVCONT .Q6H40M [facility] Last Admin: 07/26/24 06:10 Dose: 150 mls/hr Documented By: LAUREN Magnesium Hydroxide (Milk Of Magnesia 30 Ml Oral.Susp) 30 ml PO DAILY PRN PRN Reason: Constipation Magnesium Oxide (Magnesium Oxide 400 Mg Tablet) 400 mg PO BIDPC [facility] Last Admin: 07/25/24 17:35 Dose: 400 mg Documented By: ABBIE Melatonin (Melatonin 3 Mg Tablet) 6 mg PO BEDTIME PRN PRN Reason: Insomnia Ondansetron HCl (Ondansetron Hcl 4 Mg/2 Ml Vial) 4 mg IVPUSH Q8H PRN PRN Reason: Nausea and Vomiting Last Admin: 07/25/24 02:30 Dose: 4 mg Documented By: BAKARI Pharmacy Consult (Consult Rx Etoh Phenob Im/Po) 1 each MISCELLANE ONCE PRN; Protocol PRN Reason: Consult order Phenobarbital 30 mg/ (Phenobarbital 15 mg) 45 mg PO BID [facility] Stop: 07/27/24 09:01 Last Admin: 07/25/24 20:03 Dose: 45 mg Documented By: LAUREN Phenobarbital (Phenobarbital 15 Mg Tablet) 15 mg PO BID [facility] Stop: 07/29/24 09:01 Phenobarbital (Phenobarbital 15 Mg Tablet) 15 mg PO DAILY [facility] Stop: 07/30/24 09:01 Sodium Chloride (0.9 % Sodium Chloride Flush 3 Ml Syringe) 3 ml IVFLUSH QSHIFT [facility] Last Admin: 07/26/24 00:08 Dose: Not Given Documented By: LAUREN Non-Admin Reason: IV Running Thiamine HCl (Thiamine Hcl 100 Mg Tablet) 100 mg PO DAILY [facility] Last Admin: 07/25/24 09:58 Dose: 100 mg Documented By: TOVA Vancomycin HCl (Vancomycin Hcl 125 Mg Capsule) 125 mg PO Q6H [facility] Stop: 07/28/24 13:59 Last Admin: 07/26/24 02:39 Dose: 125 mg Documented By: LAUREN Labs 07/25/24 03:16 07/25/24 11:30 Labs: Laboratory Results - last 24 hr 07/25/24 07/25/24 07/25/24 11:30 14:02 16:39 Hold Purple Top Hold Blue Top Anion Gap 13 Estim Creat Clear Calc 135.6 Estimated GFR > 60 Random Glucose 114 Lactic Acid 4.6 H* Lactic Acid F/U @ 2Hr 3.1 H* Lactic Acid F/U @ 4Hr Calcium 7.7 L Hold Yellow Top 02/28/25 19:31 Hold Purple Top SEE NOTE Hold Blue Top SEE NOTE Anion Gap Estim Creat Clear Calc Estimated GFR Random Glucose Lactic Acid Lactic Acid F/U @ 2Hr Lactic Acid F/U @ 4Hr 3.8 H* Calcium Hold Yellow Top See Note Microbiology Microbiology Results: Microbiology 07/25/24 00:09 Blood Culture - Preliminary Blood - Venous No growth after 24 hours. 07/25/24 00:09 Blood Culture - Preliminary Blood - Venous No growth after 24 hours. Assessment and Plan (1) Alcohol use disorder: Status: Acute (2) Alcohol withdrawal: Status: Acute (3) Suicide ideation: Status: Acute (4) Depression: Status: Acute Plan This is a 64-year-old male with pertinent history of alcohol use disorder who presents to the emergency department for evaluation of alcohol intoxication and SI. #. Alcohol use disorder with withdrawal -continue phenobarb per protocol -monitor ciwa -thiamine and folic acid -addiction consult pending #Acute lactic acidosis - due to alcoholism/liver disease. No sepsis #Hypomagnesemia leading to hypokalemia due to alcohol use disorder -Replaced electrolytes, resolved #SI in the setting of uncontrolled anxiety -anxiety resolved at this time. Denies SI currently -Psych consult -sitter -ativan prn DVT prophylaxis: Lovenox Full code Pt requires ongoing inpt stay due to alcohol withdrawal on phenobarbital protocol requiring detox/rehab Quality Stroke Does the patient have a stroke diagnosis?: No VTE Prior VTE?: No VTE Risk Level:: Medical - moderate - high VTE Device Contraindication: Treatment Not Indicated VTE Drug Contraindication: N/A - Med Ordered
[2024-07-26 07:43] VITALS: BP 163/102; PULSE 73; RESP 16; TEMP 36.1; O2SAT 95
--- NOTE | 2024-07-26 08:09 | MHC.RECOVRN ---
Please see Reovery/Behavioral Health Assessment for full eval and AUDIT C.
[2024-07-26] MEDS: 0.9 % Sodium Chloride Flush 3 ML SYRINGE IVFLUSH (08:38)
[2024-07-26] MEDS: Magnesium Oxide 400 MG TABLET PO ×2 (08:42→19:32)
[2024-07-26] MEDS: Folic Acid 1 MG TABLET PO (08:42)
[2024-07-26] MEDS: Thiamine HCL 100 MG TABLET PO (08:42)
[2024-07-26] MEDS: PHENobarbitaL 30 MG, PHENobarbitaL 15 MG 45 MG PO ×2 (08:43→20:00)
[2024-07-26] MEDS: DULoxetine HCl 30 MG CAPSULE.DR PO (08:44)
[2024-07-26 15:17] VITALS: BP 154/82; PULSE 83; RESP 16; TEMP 36.4; O2SAT 97
[2024-07-26 16:20] LABS: Anion Gap 12 (12-20); Blood Urea Nitrogen < 3 mg/dL (9-16); Carbon Dioxide 23 mmol/L (22-29); Chloride 107 mmol/L (96-108); Creatinine Clr Calc Pharmacy 135.6; Estimated Glomerular Filt Rate > 60; Glucose Random 93 mg/dL (60-115); Magnesium 1.7 mg/dL (1.6-2.6); Potassium 4.6 mmol/L (3.3-5.1); Sodium 137 mmol/L (135-145)
[2024-07-26 19:09] VITALS: BP 141/78; PULSE 82; RESP 18; TEMP 36.7; O2SAT 98
[2024-07-27] VITALS: BP 160/78; PULSE 74; RESP 16; TEMP 36.4; O2SAT 97
[2024-07-27] MEDS: Enoxaparin Sodium 40 MG/0.4 ML SYRINGE SUBCUT (01:52)
[2024-07-27] MEDS: vancomycin HCL 125 MG CAPSULE PO ×3 (01:52→13:50)
--- NOTE | 2024-07-27 07:13 | HO.PM.IMPN ---
Subjective Subjective Date of Service: 07/27/24 Interval History: Seen in follow-up for: alcohol withdrawal/SI Interval history: No sx of withdrawal at this time- no n/v, tremors, confusion, hallucinations. Reports anxiety has resolved at this time. No active SI. States sometimes he wishes he was but not currently and not plan Review of Systems Review of Systems: Yes all other systems are reviewed and are negative Physical Exam Vital Signs: Vital Signs: Last Vital Signs Temp 97.5 F 07/27/24 00:00 Pulse 74 07/27/24 00:00 Resp 16 07/27/24 00:00 BP 160/78 H 07/27/24 00:00 Pulse Ox 97 07/27/24 00:00 O2 Del Method Room Air 07/27/24 00:00 O2 Flow Rate 1 07/25/24 01:35 BMI result Body Mass Index 23.9 Objective Data Active Medications Acetaminophen (Acetaminophen 325 Mg Tablet) 650 mg PO Q6H PRN PRN Reason: Pain, Mild 1-3,fever,headache Calcium Carbonate (Calcium Carbonate 750 Mg Tab.Chew) 750 mg PO Q4H PRN PRN Reason: Heartburn Duloxetine HCl (Duloxetine Hcl 30 Mg Capsule.Dr) 30 mg PO DAILY [facility] Last Admin: 07/26/24 08:44 Dose: 30 mg Documented By: ALINA Enoxaparin Sodium (Enoxaparin Sodium 40 Mg/0.4 Ml Syringe) 40 mg SUBCUT Q24H [facility] Last Admin: 07/27/24 01:52 Dose: 40 mg Documented By: LAUREN Folic Acid (Folic Acid 1 Mg Tablet) 1 mg PO DAILY [facility] Last Admin: 07/26/24 08:42 Dose: 1 mg Documented By: ALINA Lorazepam (Lorazepam 0.5 Mg Tablet) 0.5 mg PO Q8H PRN PRN Reason: anxiety/restlessness Magnesium Hydroxide (Milk Of Magnesia 30 Ml Oral.Susp) 30 ml PO DAILY PRN PRN Reason: Constipation Magnesium Oxide (Magnesium Oxide 400 Mg Tablet) 400 mg PO BIDPC [facility] Last Admin: 07/26/24 19:32 Dose: 400 mg Documented By: ALINA Melatonin (Melatonin 3 Mg Tablet) 6 mg PO BEDTIME PRN PRN Reason: Insomnia Ondansetron HCl (Ondansetron Hcl 4 Mg/2 Ml Vial) 4 mg IVPUSH Q8H PRN PRN Reason: Nausea and Vomiting Last Admin: 07/25/24 02:30 Dose: 4 mg Documented By: BAKARI Pharmacy Consult (Consult Rx Etoh Phenob Im/Po) 1 each MISCELLANE ONCE PRN; Protocol PRN Reason: Consult order Phenobarbital 30 mg/ (Phenobarbital 15 mg) 45 mg PO BID [facility] Stop: 07/27/24 09:01 Last Admin: 07/26/24 20:00 Dose: 45 mg Documented By: LAUREN Phenobarbital (Phenobarbital 15 Mg Tablet) 15 mg PO BID [facility] Stop: 07/29/24 09:01 Phenobarbital (Phenobarbital 15 Mg Tablet) 15 mg PO DAILY [facility] Stop: 07/30/24 09:01 Sodium Chloride (0.9 % Sodium Chloride Flush 3 Ml Syringe) 3 ml IVFLUSH QSHIFT [facility] Last Admin: 07/27/24 00:05 Dose: Not Given Documented By: LAUREN Non-Admin Reason: IV Running Thiamine HCl (Thiamine Hcl 100 Mg Tablet) 100 mg PO DAILY [facility] Last Admin: 07/26/24 08:42 Dose: 100 mg Documented By: ALINA Vancomycin HCl (Vancomycin Hcl 125 Mg Capsule) 125 mg PO Q6H [facility] Stop: 07/28/24 13:59 Last Admin: 07/27/24 01:52 Dose: 125 mg Documented By: LAUREN Labs 07/25/24 03:16 07/26/24 15:30 Labs: Laboratory Results - last 24 hr 07/26/24 15:30 Anion Gap 12 Estim Creat Clear Calc 135.6 Estimated GFR > 60 Random Glucose 93 Calcium 8.0 L Magnesium 1.7 Microbiology Microbiology Results: Microbiology 07/25/24 00:09 Blood Culture - Preliminary Blood - Venous No growth after 48 hours. 07/25/24 00:09 Blood Culture - Preliminary Blood - Venous No growth after 48 hours. Assessment and Plan (1) Alcohol use disorder: Status: Acute (2) Alcohol withdrawal: Status: Acute (3) Suicide ideation: Status: Acute (4) Depression: Status: Acute Plan This is a 64-year-old male with pertinent history of alcohol use disorder who presents to the emergency department for evaluation of alcohol intoxication and SI. #. Alcohol use disorder with withdrawal -continue phenobarb per protocol -monitor ciwa -thiamine and folic acid -addiction consult pending #Acute lactic acidosis - due to alcoholism/liver disease. No sepsis #Hypomagnesemia leading to hypokalemia due to alcohol use disorder -Replaced electrolytes, resolved #SI in the setting of uncontrolled anxiety -anxiety resolved at this time. Denies SI currently -Psych consult -sitter -ativan prn elevated bp previously well controlled. possibly r/t alcohol withdrawal add losartan 25mg daily DVT prophylaxis: Lovenox Full code Pt requires ongoing inpt stay due to alcohol withdrawal on phenobarbital protocol requiring detox/rehab Quality Stroke Does the patient have a stroke diagnosis?: No VTE Prior VTE?: No VTE Risk Level:: Medical - moderate - high VTE Device Contraindication: Treatment Not Indicated VTE Drug Contraindication: N/A - Med Ordered
[2024-07-27 07:17] VITALS: BP 157/85; PULSE 78; RESP 18; TEMP 36.4; O2SAT 98
[2024-07-27] MEDS: PHENobarbitaL 30 MG, PHENobarbitaL 15 MG 45 MG PO (08:23)
[2024-07-27] MEDS: Thiamine HCL 100 MG TABLET PO (08:23)
[2024-07-27] MEDS: Magnesium Oxide 400 MG TABLET PO (08:24)
[2024-07-27] MEDS: DULoxetine HCl 30 MG CAPSULE.DR PO (08:24)
[2024-07-27] MEDS: Folic Acid 1 MG TABLET PO (08:24)
[2024-07-27] MEDS: 0.9 % Sodium Chloride Flush 3 ML SYRINGE IVFLUSH (08:25)
[2024-07-27 11:29] VITALS: BP 157/82
[2024-07-27] MEDS: Losartan Potassium 25 MG TABLET PO (11:29)
--- NOTE | 2024-07-27 14:20 | PC.NURSE ---
D/C Sitter per provider.
[2024-07-27 14:50] VITALS: BP 122/79; PULSE 90; RESP 18; TEMP 36.3; O2SAT 98
--- NOTE | 2024-07-27 15:01 | P.DS_ITS ---
DS: Providers Provider Date of Service: 07/27/24 Date of admission: 07/25/24 02:01 Date of discharge: 07/27/24 Primary care physician: Harman Bacon MD Admitting clinician: Jose Cortez Attending physician on admission: Jsoe Cortez Consults: 07/24/24 21:46 ED CARE Team Crisis Consult Stat Comment: Reason for consultation: Suicidal 07/24/24 21:47 Addiction Medicine Routine Consulting Provider: Addiction Covering Reason for consultation: Alcohol abuse 07/25/24 02:06 Consult to Psychiatry Routine Consulting Provider: [facility] Reason for consultation: Uncontrolled anxiety leading to SI 07/26/24 07:38 Addiction Medicine Routine Consulting Provider: Addiction Covering Reason for consultation: etoh abuse in withdrawal 07/27/24 12:14 Inpt CARE Team Crisis Consult Stat Comment: Reason for consultation: Medically Cleared, SI Statements. Attending physician on discharge: Phil Palacios Discharging clinician: Yu Linares DS: Diagnosis Discharge Diagnosis (1) Alcohol use disorder: Status: Acute (2) Alcohol withdrawal: Status: Acute (3) Suicide ideation: Status: Acute (4) Depression: Status: Acute DS: Summary Hospital Course Hospital Course: Hospital course on admission by Dr. Hyatt: Chief Complaint: Alcohol intoxication This is a 64-year-old male with pertinent history of alcohol use disorder who presents to the emergency department for evaluation of alcohol intoxication and SI. Patient states he has been having uncontrolled anxiety that has been wanting him to kill himself by shooting himself in the head with a gun. His last drink was prior to presentation. He has been binge drinking for the last few days. Does have a history of alcohol withdrawal. No history of alcohol withdrawal seizures. Patient also reported of chest pain which is worse with palpation. Unclear if patient had trauma. No fever, chills, palpitations, shortness of breath, abdominal pain, changes in urinary or bowel habits. Has been having tremors In the emergency department, patient with agitation. Found to have low magnesium and low potassium. He was initiated on phenobarb protocol Hospital course: [facility] use disorder and alcohol withdrawal. Ethyl alcohol level on presentation was 226 and urine tox screen was positive for oxycodone, barbiturates, benzodiazepines, and marijuana. He was started on phenobarbital per protocol and monitored on CIWA scale. Experienced only minor withdrawal symptoms including tremor nausea. He had also come in reporting depression, anxiety, and suicidal ideation stating that he did not want to live anymore but did not have a plan. He did have a sitter throughout his admission but denied any plan. He did report while in the hospital his anxiety and depression did improve. We did discuss that these symptoms can be related to alcohol. He does desire detox and was seen by our recovery team. He states he is interested in a resource recovery specialist as well as rehab and would like to set up an intake with [facility] in [place]. He states that he will be attending support groups such as and has supportive family. He was also started on folic acid and thiamine while in the hospital and will be continued on this at discharge. He is also given a short course of lorazepam as needed for anxiety and is recommended to set up an appointment with a counselor to address his mood disorder. Blood pressures were elevated while in the hospital likely related to alcohol withdrawal and he was given a 1 time dose of losartan 25 mg. Blood pressures previously within normal limits and is advised to follow-up with his PCP for blood pressure check and is not discharged on any antihypertensives. He is advised to call 911 or [phone] should his depressive symptoms worsen or he develop SI. Follow-up with PCP and encouraged sobriety and abstinence. Smoking cessation advised. He was also continued on p.o. vancomycin for previously diagnosed C diff infection. Time spent discussing smoking cessation with patient: 3 to 10 minutes Status at Discharge Functional status at discharge: independent ambulation Overall status at discharge: patient is progressing back to baseline Time Attestation Discharge Coordination Time (in mins): 35 Quality: Safe Use of Opioids Does Pt have an Active Cancer Diagnosis on the Problem List?: No Quality: Stroke Does the patient have a stroke diagnosis?: No Physical Exam Vital Signs: Vital Signs: Last Vital Signs Temp 97.4 F 07/27/24 14:50 Pulse 90 07/27/24 14:50 Resp 18 07/27/24 14:50 BP 122/79 07/27/24 14:50 Pulse Ox 98 07/27/24 14:50 O2 Del Method Room Air 07/27/24 14:50 O2 Flow Rate 1 07/25/24 01:35 BMI result Body Mass Index 23.9 DS: Data Data Completed and Pending Labs on day of discharge: Laboratory Results - last 24 hr 07/26/24 15:30 Sodium 137 Potassium 4.6 Chloride 107 Carbon Dioxide 23 Anion Gap 12 BUN < 3 L Creatinine 0.55 Estim Creat Clear Calc 135.6 Estimated GFR > 60 Random Glucose 93 Calcium 8.0 L Magnesium 1.7 Preliminary micro results at discharge 07/25/24 00:09 Blood Culture - Preliminary Blood - Venous No growth after 48 hours. 07/25/24 00:09 Blood Culture - Preliminary Blood - Venous No growth after 48 hours. Discharge Plan Discharge Anticipated Discharge Date/Time: 07/27/24 14:29 Patient Disposition: Home, Self-Care Discharge Diagnosis: Alcohol use disorder, Alcohol withdrawal, depression/anxiety with passive SI Referrals: Harman Bacon MD [Primary Care Provider] - 1 Week Discharge Medications: New lorazepam 0.5 mg Tablet 0.5 mg PO BID PRN (Reason: Anxiety/Restlessness) Qty: 14 0RF folic acid 1 mg Tablet 1 mg PO DAILY Qty: 90 0RF thiamine mononitrate (vit B1) 100 mg Tablet 100 mg PO DAILY Qty: 90 0RF Continued vancomycin 125 mg Capsule 125 mg PO Q6H 10 Days Qty: 40 0RF duloxetine 30 mg capsule,delayed release(DR/EC) 30 mg PO DAILY Discharge Orders: Discharge Order (Routine); Ordered 07/27/24 Ordered By: Yu Linares Diet: Advance to usual diet Activity on Discharge: As tolerated Stand Alone Forms: Patient Portal Discharge page Print Language: Norwegian Care Plan Goals: Follow up with resource recovery specialist/[facility] Stop drinking alcohol. You have been detoxed- withdrawal managed with phenobarbital. Find support groups and avoid triggers to remain sober Recommend following up with a therapist to address anxiety and depression. Short prescription for lorazepam provided only as needed for anxiety. Alcohol will make these symptoms worse. Should your symptoms worsen and/or develop thoughts to hurt yourself, please call 911 or [phone] (crisis and suicide hotline) Take folic acid and thiamine (vitamins) daily Blood pressure was elevated while admitted. This is likely related to the withdrawal and blood pressures were previously normal. Follow up with PCP for recheck. Goal BP less than 140/90. Continue vancomycin as prescribed for CDiff treatment Health Concerns: Alcohol use disorder Alcohol withdrawal Depression/anxiety with passive suicidal ideation Plan of Treatment: See above. Avoid alcohol. Follow up recovery/rehab. Therapy for mood Assessment: See above. See discharge summary Patient Instructions: Alcohol Intoxication (DC), At-Risk Alcohol Use (DC)
== END 2024-07-27 15:47 | disposition home or self-care (01) | DRG 775 ==
LOC: HO.ED 07-25 01:57 → HO.EDOVER 07-25 02:06 → HO.S3 07-25 11:37
PROVIDERS: Hospitalist; Admitting Provider Student in an Organized Health Care Education/Training Program; Emergency Provider Student in an Organized Health Care Education/Training Program; PCP Internal Medicine; Visit Provider Physician Assistant
DX: F10.139 Alcohol abuse with withdrawal, unspecified (principal); F10.129 Alcohol abuse with intoxication, unspecified; E87.21 Acute metabolic acidosis; R45.851 Suicidal ideations; A04.72 Enterocolitis due to Clostridium difficile, not specified as recurrent; I95.9 Hypotension, unspecified; E87.6 Hypokalemia; F41.9 Anxiety disorder, unspecified; E83.42 Hypomagnesemia; Y90.7 Blood alcohol level of 200-239 mg/100 ml; F17.210 Nicotine dependence, cigarettes, uncomplicated; Z71.6 Tobacco abuse counseling; Z20.822 Contact with and (suspected) exposure to COVID-19; Z79.899 Other long term (current) drug therapy
CPT/HCPCS: 0241U; 36415; 71045; 80048; 80053; 80143; 80179; 80307; 81003; 82248; 82803; 83605; 83690; 83735; 83880; 84100; 84484; 85025; 87040; 90656; 93005; 99285; J1630; J1650; J2250; J2405; J2560; J3411; J3475; J3480; J7120; S9485

== ENCOUNTER → 2024-07-24 20:15 | Outpatient (BNV) | payer MEDICAID, SELFPAY | PROVIDERS: Emergency Provider Student in an Organized Health Care Education/Training Program; Visit Provider Radiology Diagnostic Radiology | DX: J90 Pleural effusion, not elsewhere classified (principal) | CPT/HCPCS: 71045 ==

== ENCOUNTER 2024-07-25 02:01 | Outpatient (BNV) | payer OTHER, SELFPAY | END 2024-07-25 02:04 | PROVIDERS: Admitting Provider Student in an Organized Health Care Education/Training Program; Emergency Provider Student in an Organized Health Care Education/Training Program; PCP Internal Medicine; Visit Provider Internal Medicine Cardiovascular Disease | DX: R07.9 Chest pain, unspecified (principal); R00.0 Tachycardia, unspecified | CPT/HCPCS: 93010 ==

== ENCOUNTER → 2024-07-25 02:01 | Outpatient (BNV) | payer OTHER, SELFPAY | PROVIDERS: Admitting Provider Student in an Organized Health Care Education/Training Program; Emergency Provider Student in an Organized Health Care Education/Training Program; PCP Internal Medicine; Visit Provider Student in an Organized Health Care Education/Training Program | DX: F10.90 Alcohol use, unspecified, uncomplicated (principal); F10.939 Alcohol use, unspecified with withdrawal, unspecified; R45.851 Suicidal ideations; F32.9 Major depressive disorder, single episode, unspecified | CPT/HCPCS: 99223; 99232; 99499 ==

== ENCOUNTER 2024-09-23 14:56 | Inpatient (IN) | payer OTHER, SELFPAY ==
--- NOTE | ~2024-09-23 | CT_ITS ---
CLINICAL HISTORY: Abdominal pain CT abdomen and pelvis with contrast Comparison: CT/SR - CT ABDOMEN PELVIS W IV CON - 07/15/24 21:43 EST Findings: The lung bases are clear. The liver measures 17 cm in length and is hypodense. The spleen is normal-size. There is pancreatic volume loss. The adrenal glands and kidneys are unremarkable. The gallbladder is distended. There are no calcified gallstones. The bile ducts are not dilated. There is a focus of anastomosis within the distal sigmoid colon. No colitis or bowel obstruction. Mild aneurysmal dilatation of the infrarenal abdominal aorta without significant change. There are severe atherosclerotic changes. 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 There is stenosis of the right external iliac artery, grossly unchanged. There is stenosis at the origin of the right renal artery, grossly unchanged. Borderline prostate size. Unremarkable urinary bladder. Mildly enlarged appendix with fatty infiltration of portions of its wall, similar to the prior study. Appendix diameter measures up to 1 cm. There is a small amount of fluid at the tip of the appendix. No adjacent edema. Moderate L1 compression fracture with mild retropulsion of bone without change. No acute fracture. IMPRESSION: 1. There are findings suggesting possible chronic appendicitis. Superimposed acute appendicitis cannot be excluded. 2. No acute abdominal disease. 3. Hepatomegaly with fatty infiltration of the liver. 4. Severe atherosclerotic changes with occlusion of the origin of the left common iliac artery and stenosis of the right external iliac artery and right renal artery, grossly unchanged. Mild aneurysmal dilatation of the infrarenal abdominal aorta without change. This document has been electronically signed by: Hayley Perez MD on 09/23/2024 17:35:58
[2024-09-23 15:08] VITALS: BP 140/82; PULSE 120; O2SAT 100
[2024-09-23 15:10] VITALS: BP 101/72; PULSE 101; RESP 20; TEMP 36.4; O2SAT 97; BMI 22.8
--- NOTE | 2024-09-23 15:16 | ECG_ITS ---
Test Reason : WEAK Blood Pressure : */* mmHG Vent. Rate : 102 BPM Atrial Rate : 102 BPM P-R Int : 146 ms QRS Dur : 84 ms QT Int : 392 ms P-R-T Axes : 60 62 23 degrees QTcB Int : [address] & T wave abnormality, consider anterior ischemia Abnormal ECG When compared with ECG of 25-Jul-2024 02:04, Nonspecific T wave abnormality now evident in Inferior leads T wave inversion now evident in Anterior leads Referred By: Blanquita Min Electronically Signed By: Craig Garcia
[2024-09-23 15:34] LABS: MANUAL DIFF FLAG NO
[2024-09-23 15:42] LABS: Basophils Absolute Auto 0.1 X10*3/uL (0.0-0.2); Basophils Percent Auto 0.9 % (0-2); Eosinophils Absolute Auto 0.2 X10*3/uL (0.0-0.4); Eosinophils Percent Auto 2.7 % (0-4); Hematocrit 37.4 % (42.0-52.0); Hemoglobin 13.2 g/dl (14.0-18.0); Imm Gran Abs Auto 0.04 X10*3/uL (0.00-0.03); Imm Gran Pct Auto 0.5 % (0.0-0.4); Lymphocytes Absolute Auto 2.1 X10*3/uL (1.2-4.9); Lymphocytes Percent Auto 28.1 % (20-40); Mean Corpuscular HGB Conc 35.3 g/dl (31.0-36.0); Mean Corpuscular Hemoglobin 30.4 pg (27.0-33.0); Mean Corpuscular Volume 86.2 fL (80.0-98.0); Mean Platelet Volume 9.6 fL (9.4-12.4); Monocytes Absolute Auto 0.9 X10*3/uL (0.1-1.2); Monocytes Percent Auto 12.2 % (2-11); Neutrophils Absolute Auto 4.1 x10*3/uL (2.0-8.3); Neutrophils Percent Auto 55.6 % (45-73); Red Blood Count 4.34 X10*6/uL (4.60-5.80); Red Cell Distribution Width 14.6 % (11.0-16.0); White Blood Count 7.4 X10*3/uL (4.8-10.8)
[2024-09-23 15:44] LABS: Platelet Count 296 X10*3/uL (160-400)
[2024-09-23 15:56] LABS: Alanine Aminotransferase 50 U/L (0-40); Albumin Level 3.1 g/dL (3.5-5.0); Alkaline Phosphatase 239 U/L (39-117); Anion Gap 14 (12-20); Aspartate Amino Transferase 125 U/L (5-37); Bilirubin Total 0.8 mg/dL (0.0-1.0); Blood Urea Nitrogen 13 mg/dL (9-16); Calcium 8.6 mg/dL (8.4-10.2); Carbon Dioxide 26 mmol/L (22-29); Chloride 95 mmol/L (96-108); Creatinine Clr Calc Pharmacy 110.2; Estimated Glomerular Filt Rate > 60; Ethanol < 10 mg/dL; Glucose Random 157 mg/dL (60-115); Lipase 12 U/L (8-78); Magnesium 1.4 mg/dL (1.6-2.6); Potassium 3.4 mmol/L (3.3-5.1); Sodium 132 mmol/L (135-145); Total Protein 6.4 g/dL (6.5-8.0)
[2024-09-23 15:58] LABS: Troponin-I High Sensitivity < 2.7 ng/L (<3.5-35.0)
[2024-09-23] MEDS: 0.9 % Sodium Chloride 1,000 ML 999 ML IV ×2 (16:17→16:34)
[2024-09-23] MEDS: ondansetron HCL 4 MG/2 ML VIAL IVPUSH (16:18)
--- NOTE | 2024-09-23 16:25 | ED.WEAKNESS ---
HPI - Weakness General Chief complaint: Weakness Stated complaint: NO ALCOHOL X3D,WEAK,?WITHDRAWAL PER EMS Time Seen by Provider: 09/23/24 15:11 History of Present Illness HPI Narrative: Patient is a 64-year-old male with a long history of alcohol use. Last drink was 4 days ago. Complaining of generalized malaise weakness. History of COPD. Not on oxygen baseline. Patient complaining of nausea. Generalized malaise. Related Data Home Medications ?Medication ?Instructions ?Recorded ?Confirmed duloxetine 30 mg capsule,delayed 30 mg PO DAILY 07/25/24 07/25/24 release albuterol sulfate 90 mcg/actuation 2 puff inhalation QID PRN 09/23/24 aerosol inhaler (Ventolin HFA) Shortness Of Breath Or Wheezing cyclobenzaprine 5 mg tablet 5 mg PO TID PRN Muscle Spasm 09/23/24 hydroxyzine HCl 50 mg tablet 50 mg PO TID PRN anxiety 09/23/24 melatonin 3 mg tablet 3 mg PO BEDTIME 09/23/24 multivitamin with folic acid 400 1 tab PO DAILY 09/23/24 mcg tablet (Daily-Nik (with folic acid)) omeprazole 20 mg capsule,delayed 20 mg PO DAILY@0630 09/23/24 release trazodone 50 mg tablet 50 mg PO BEDTIME 09/23/24 Previous Rx's ?Medication ?Instructions ?Recorded vancomycin 125 mg capsule 125 mg PO Q6H 10 days #40 caps 07/18/24 folic acid 1 mg tablet 1 mg PO DAILY #90 tabs 07/27/24 lorazepam 0.5 mg tablet 0.5 mg PO BID PRN 07/27/24 Anxiety/Restlessness #14 tabs thiamine mononitrate (vit B1) 100 100 mg PO DAILY #90 tabs 07/27/24 mg tablet Allergies Allergy/AdvReac Type Severity Reaction Status Date / Time diclofenac [From Flector] Allergy Unknown Verified 09/23/24 15:11 Review of Systems Review of Systems: Positive EtOH positive generalized malaise Yes all other systems are reviewed and are negative PMFSH Past Medical History Attestation statement: The following information was validated with the patient. Medical History (Updated 09/23/24 @ 19:44 by Blanquita Min MD) Abnormal abdominal CT scan Atherosclerosis of abdominal aorta Chronic lung disease Alcohol use disorder Depression Compression fracture of L1 lumbar vertebra Social History Social History Household Members: Spouse Housing: House Do you presently have visiting nurse or other home services: No Alcohol intake: current Alcohol intake frequency: 3 or more drinks per day Alcohol type: beer and hard liquor Comment: 1:1 sitter Patient Tobacco Use Status: Current everyday Tobacco user Tobacco use type: Cigarette Cigarette Packs Per Day: 1 Cigarettes Per Day: 20.0 Advance Directives: No Advance Directives Information Provided: Yes service: No Physical Exam Vital Signs: Vital Signs: Last Vital Signs Temp 98.8 F 09/23/24 19:16 Pulse 89 09/23/24 19:16 Resp 16 09/23/24 19:16 BP 121/72 09/23/24 19:16 Pulse Ox 95 09/23/24 19:16 O2 Del Method Room Air 09/23/24 19:16 BMI result Body Mass Index 22.8 Appearance: Alert. Oriented X3. No acute distress. Eyes: Pupils equal, round and reactive to light. ENT: Pharynx normal. Neck: Normal inspection. Neck supple. No lymph nodes noted. No crepitus CVS: Normal heart rate and rhythm. Pulses normal. Normal S1 and S2 Respiratory: No respiratory distress. Breath sounds normal. No Wheezing. No rales Abdomen: Soft and nontender. No rigidity. No distention. good BS x4 Skin: Skin warm and dry. Normal skin color. Normal skin turgor. Extremities: No lower extremity edema. Neurovascular intact to all extremities. No Lacerations. No Rash Neuro: Oriented X 3. No motor deficit. No sensory deficit. Moving all extermities. No slurred speech Medications Administered Discontinued Medications Generic Name Dose Route Start Last Admin Trade Name Freq PRN Reason Stop Dose Admin Sodium Chloride 1,000 mls @ 999 mls/hr 09/23/24 15:45 09/23/24 16:17 Ns IV 09/23/24 16:45 999 mls/hr .Q1H1M NATALIA Administration Magnesium Sulfate 2 gm in 50 mls @ 50 mls/hr 09/23/24 16:21 09/23/24 16:34 Magnesium Sulfate/H2o IV 09/23/24 17:20 50 mls/hr ONCE ONE Administration Sodium Chloride 1,000 mls @ 999 mls/hr 09/23/24 16:30 09/23/24 16:34 Ns IV 09/23/24 17:30 999 mls/hr .Q1H1M NATALIA Administration Iohexol 100 ml 09/23/24 17:03 09/23/24 17:05 Iohexol 350 Mg/Ml 100 Ml Infus..Btl IV 09/23/24 17:04 85 ml ONCE ONE Administration Ondansetron HCl 4 mg 09/23/24 15:40 09/23/24 16:18 Ondansetron Hcl 4 Mg/2 Ml Vial IVPUSH 09/23/24 15:41 4 mg ONCE ONE Administration Medical Decision Making Medical Decision Making [facility] Narrative: Patient's white count is normal. Has a history of ETOH and felt that he is dehydrated has not been drinking alcohol for 4 days his CIWA score is actually low. Patient has had complaining of some nonspecific abdominal pain. Patient's labs showed low magnesium which was repleted alcohol less than 10 consistent with not drinking for 4 days. Had nonspecific abdominal pain a CT scan of the abdomen pelvis was done. It showed question acute on chronic appendicitis. The finding was discussed with Dr. White who came down and evaluated the patient. Recommend for patient to be observed. Additional IV fluid was given. Patient's white count is normal. Patient's LFTs are consistent with ETOH use. With AST significantly more elevated than ALT. Patient's troponin is negative symptoms not consistent with ACS. Case consulted by the hospitalist team. Will admit for further evaluation and monitoring. Currently in stable condition. Differential Diagnosis Differential Diagnoses: The differential diagnosis associated with the presentation includes ACS, dehydration, pancreatitis, acute abdomen Admission/Observation Consideration of admission/observation: Escalation of care including admission/observation considered Consult Healthcare Provider Management of the patient was discussed with: Hospitalist and Micro Paleontologist (Surgery) Lab Data [facility] Lab Attestation statement: I reviewed the patient's lab results. 09/23/24 15:19 09/23/24 15:19 Labs: Lab Results 09/23/24 Range/Units 15:19 WBC 7.4 (4.8-10.8) X10*3/uL RBC 4.34 L (4.60-5.80) X10*6/uL Hgb 13.2 L (14.0-18.0) g/dl Hct 37.4 L (42.0-52.0) % MCV 86.2 (80.0-98.0) fL MCH 30.4 (27.0-33.0) pg MCHC 35.3 (31.0-36.0) g/dl RDW 14.6 (11.0-16.0) % Plt Count 296 D (160-400) X10*3/uL MPV 9.6 (9.4-12.4) fL Immature Gran % (Auto) 0.5 H (0.0-0.4) % Neut % (Auto) 55.6 (45-73) % Lymph % (Auto) 28.1 (20-40) % [place] % (Auto) 12.2 H (2-11) % Eos % (Auto) 2.7 (0-4) % Baso % (Auto) 0.9 (0-2) % Lymph # (Auto) 2.1 (1.2-4.9) X10*3/uL [place] # (Auto) 0.9 (0.1-1.2) X10*3/uL Eos # (Auto) 0.2 (0.0-0.4) X10*3/uL Baso # (Auto) 0.1 (0.0-0.2) X10*3/uL Abs Immat Gran (auto) 0.04 H (0.00-0.03) X10*3/uL Absolute Neuts (auto) 4.1 (2.0-8.3) x10*3/uL Absolute Nucleated RBC 0.000 (0.0-0.012) X10*3/uL Nucleated RBC % (auto) 0.0 (0.0-0.2) /100WBC Sodium 132 L (135-145) mmol/L Potassium 3.4 D (3.3-5.1) mmol/L Chloride 95 L (96-108) mmol/L Carbon Dioxide 26 (22-29) mmol/L Anion Gap 14 (12-20) BUN 13 (9-16) mg/dL Creatinine 0.67 (0.5-1.4) mg/dL Estim Creat Clear Calc 110.2 Estimated GFR > 60 Random Glucose 157 H (60-115) mg/dL Calcium 8.6 D (8.4-10.2) mg/dL Magnesium 1.4 L* (1.6-2.6) mg/dL Total Bilirubin 0.8 (0.0-1.0) mg/dL AST 125 H (5-37) U/L ALT 50 H (0-40) U/L Alkaline Phosphatase 239 H (39-117) U/L Troponin I High Sens < 2.7 (<3.5-35.0) ng/L Total Protein 6.4 L (6.5-8.0) g/dL Albumin 3.1 L (3.5-5.0) g/dL Lipase 12 (8-78) U/L Ethyl Alcohol < 10 mg/dL Independent Interpretation I performed an independent interpretation of an: EKG (My interpretation patient's EKG showed a sinus rhythm heart rate is 100 CO QRS QTC normal no changes to ST) and CT Scan Radiology Impression Discussion of test interpretation with radiology: I have reviewed the radiologist's reading. Radiologist Impression: I reviewed radiology's reading of the CT scan abdomen pelvis External Record Review External record reviewed: Inpatient record Chronic Conditions History of chronic alcohol abuse Social Determinants Patient?s care significantly limited by Social Determinants of Health including: Alcoholism and drug addiction in family and Problems related to primary support group Discharge Plan Discharge Clinical Impression: Acute dehydration, Chronic appendicitis Patient Disposition: Admitted As Inpatient
[2024-09-23] MEDS: Magnesium Sulfate/H2O 2 GM/50 ML PIGGYBACK IV (16:34)
[2024-09-23] MEDS: iohexoL 350 MG/ML 100 ML INFUS..BTL IV (17:05)
--- NOTE | 2024-09-23 18:21 | P.CONGS_ITS ---
History of Present Illness Consult details Consult date: 09/23/24 Narrative: 64-year-old male here in the ER because of weakness. He has known chronic alcohol use disorder. He was actually admitted to the hospital about 8 weeks ago for alcohol intoxication and was positive as well for barbiturates, benzodiazepine, and marijuana. He came to the ER today because of what he describes as progressive weakness for several months now. He says that he is not even able to stand up on his own anymore. He says that he has had poor oral intake for several weeks. He says he just not have any appetite at all and does not desire any type of food. He also says that it does not help that he is edentulous He had a CAT scan done showing question of chronic appendicitis I was asked to consult He says that he does not really have significant pain and right lower quadrant. He decides he does have chronic pain in the left lower quadrant. He has a history of sigmoid resection in 2010 for recurrent diverticulitis. He denies fever at home. He denies any nausea or vomiting . He denies any constipation or diarrhea. He does admit to losing weight steadily. Review of Systems 2 Constitutional: Constitutional: Denies chills, Denies fever(s), Reports poor appetite and Reports weakness Cardiovascular: Cardiovascular: Denies chest pain, Denies dyspnea and Reports dyspnea on exertion Respiratory: Respiratory: Denies cough, Denies dyspnea and Reports dyspnea on exertion Gastrointestinal: Gastrointestinal: Denies hematochezia and Denies change in bowel habits Genitourinary: Genitourinary: Denies hematuria and Denies difficulty urinating Musculoskeletal: Musculoskeletal: Reports back pain and Reports limited range of motion Neurologic: Denies focal weakness, Denies convulsions and Reports weakness Psychiatric: Psychiatric: Denies depression and Denies mood swings [facility] Past Medical History Medical History (Updated 09/24/24 @ 11:37 by Hayley Olivares PA-C) Abnormal abdominal CT scan Atherosclerosis of abdominal aorta Chronic lung disease Alcohol use disorder Depression Compression fracture of L1 lumbar vertebra Surgical History Surgical History History of colon resection Social History Social History Household Members: Family Housing: House Do you presently have visiting nurse or other home services: No Alcohol intake: current Alcohol intake frequency: 3 or more drinks per day Alcohol type: hard liquor Comment: 1:1 sitter Patient Tobacco Use Status: Current everyday Tobacco user Tobacco use type: Cigarette Cigarette Packs Per Day: 1 Cigarettes Per Day: 20.0 service: No Meds Allergies Allergy/AdvReac Type Severity Reaction Status Date / Time diclofenac [From Flector] Allergy Unknown Verified 09/23/24 15:11 Home Medications ?Medication ?Instructions ?Recorded ?Confirmed ?Last Taken ?Type albuterol sulfate 90 mcg/actuation 2 puff inhalation QID PRN 09/23/24 09/23/24 Unknown History aerosol inhaler (Ventolin HFA) Shortness Of Breath Or Wheezing cyclobenzaprine 5 mg tablet 5 mg PO TID PRN Muscle Spasm 09/23/24 09/23/24 Unknown History hydroxyzine HCl 50 mg tablet 50 mg PO TID PRN anxiety 09/23/24 09/23/24 Unknown History melatonin 3 mg tablet 3 mg PO BEDTIME 09/23/24 09/23/24 09/22/24 History multivitamin with folic acid 400 1 tab PO DAILY 09/23/24 09/23/24 09/22/24 History mcg tablet (Daily-Nik (with folic acid)) omeprazole 20 mg capsule,delayed 20 mg PO DAILY@0630 09/23/24 09/23/24 09/22/24 History release trazodone 50 mg tablet 50 mg PO BEDTIME 09/23/24 09/23/24 09/22/24 History Physical Exam 2 Vital Signs: Vital Signs: Last Vital Signs Temp 97.6 F 09/23/24 15:10 Pulse 101 H 09/23/24 15:10 Resp 20 09/23/24 15:10 BP 101/72 09/23/24 15:10 Pulse Ox 97 09/23/24 15:10 O2 Del Method Room Air 09/23/24 15:10 BMI result Body Mass Index 22.8 Results Labs 09/25/24 06:57 09/25/24 06:57 Labs: Abnormal lab results 09/23/24 Range/Units 15:19 RBC 4.34 L (4.60-5.80) X10*6/uL Hgb 13.2 L (14.0-18.0) g/dl Hct 37.4 L (42.0-52.0) % Immature Gran % (Auto) 0.5 H (0.0-0.4) % Robertson % (Auto) 12.2 H (2-11) % Abs Immat Gran (auto) 0.04 H (0.00-0.03) X10*3/uL Sodium 132 L (135-145) mmol/L Chloride 95 L (96-108) mmol/L Random Glucose 157 H (60-115) mg/dL Magnesium 1.4 L* (1.6-2.6) mg/dL AST 125 H (5-37) U/L ALT 50 H (0-40) U/L Alkaline Phosphatase 239 H (39-117) U/L Total Protein 6.4 L (6.5-8.0) g/dL Albumin 3.1 L (3.5-5.0) g/dL Short CBC 09/23/24 Range/Units 15:19 WBC 7.4 (4.8-10.8) X10*3/uL Hgb 13.2 L (14.0-18.0) g/dl Hct 37.4 L (42.0-52.0) % Plt Count 296 D (160-400) X10*3/uL BMP 09/23/24 15:19 Sodium 132 L Potassium 3.4 D Chloride 95 L Carbon Dioxide 26 BUN 13 Creatinine 0.67 Calcium 8.6 D Liver Function 09/23/24 Range/Units 15:19 Total Bilirubin 0.8 (0.0-1.0) mg/dL AST 125 H (5-37) U/L ALT 50 H (0-40) U/L Alkaline Phosphatase 239 H (39-117) U/L Albumin 3.1 L (3.5-5.0) g/dL All other labs normal. CLINICAL HISTORY: Abdominal pain CT abdomen and pelvis with contrast Comparison: CT/SR - CT ABDOMEN PELVIS W IV CON - 07/15/24 21:43 EST Findings: The lung bases are clear. The liver measures 17 cm in length and is hypodense. The spleen is normal-size. There is pancreatic volume loss. The adrenal glands and kidneys are unremarkable. The gallbladder is distended. There are no calcified gallstones. The bile ducts are not dilated. There is a focus of anastomosis within the distal sigmoid colon. No colitis or bowel obstruction. Mild aneurysmal dilatation of the infrarenal abdominal aorta without significant change. There are severe atherosclerotic changes. 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 There is stenosis of the right external iliac artery, grossly unchanged. There is stenosis at the origin of the right renal artery, grossly unchanged. Borderline prostate size. Unremarkable urinary bladder. Mildly enlarged appendix with fatty infiltration of portions of its wall, similar to the prior study. Appendix diameter measures up to 1 cm. There is a small amount of fluid at the tip of the appendix. No adjacent edema. Moderate L1 compression fracture with mild retropulsion of bone without change. No acute fracture. IMPRESSION: 1. There are findings suggesting possible chronic appendicitis. Superimposed acute appendicitis cannot be excluded. 2. No acute abdominal disease. 3. Hepatomegaly with fatty infiltration of the liver. 4. 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 He says that this has been progressively getting worse. He says he is unable to stand up anymore on his own. He has had very poor oral intake past 2 3 months and says he does not have any appetite at all He had a CAT scan of the abdomen showing findings atherosclerotic disease of the aorta as well as the iliacs. The left common iliac arteries occluded at the origin. There was also note of a mildly enlarged appendix with fatty infiltration changes similar to previous CAT scans Clinically he does not have any significant tenderness on right lower quadrant. He does admit to tenderness in the left lower quadrant although this is chronic. He does not have any significant leukocytosis. Overall clinical findings do not suggest acute appendicitis at this time. He has other multiple medical issues. He is exam is benign as well. He says that she has not had alcohol for about 4 days and does not appear to be in withdrawal He should be worked up for etiology of his poor oral intake, poor appetite and significant weight loss. Low protein and albumin levels suggest malnutrition. I will follow along while he is in the hospital. Procedures Date of Service Date of Service: 09/29/24
[2024-09-23 19:16] VITALS: BP 121/72; PULSE 89; RESP 16; TEMP 37.1; O2SAT 95
--- NOTE | 2024-09-23 19:19 | P.HPHOSP_ITS ---
History of Present Illness Date of Service: 09/23/24 <[facility] - Last Filed: 09/23/24 20:22> Attending physician on admission: Jose Cortez <[facility] - Last Filed: 09/23/24 20:22> Chief Complaint: weakness, unable to get up off the couch <[facility] - Last Filed: 09/23/24 20:22> Patient is a 64-year-old male with past medical history of EtOH abuse, tobacco dependence, depression/anxiety with history of suicidal ideation, chronic lumbar back pain with a compression fracture of the L1, sigmoid resection secondary to diverticulitis, pancreatitis, possible seizure from transitioning from Paxil to Effexor approximately 2 years ago, COPD not on home oxygen, atherosclerotic disease involving the abdominal aorta and its major branches including the left iliac and right renal arteries called 911 because patient was no longer able to get off the couch and ambulate due to severe weakness from lack of nutrition and alcohol cessation of 3 days. Pt denies any falls or trauma at home. Patient has stopped alcohol use because he was not able to leave the house and drive to the package store to purchase alcohol. Pt states he is past the usual state of withdrawal. Currently patient states that he is having left lower quadrant abdominal pain and was evaluated by General surgery for question of chronic versus acute appendicitis. Currently patient does not have a leukocytosis or right lower quadrant pain. Patient is being observed and General surgery will continue to follow. Patient is not requiring antibiotics at this time as he is afebrile. UA with reflex ordered. Concern regarding patient's nutritional status as well with a BMI currently of 22.8. Patient is unsure how much weight he has actually lost but it appears to be significant. Patient reports he just has no appetite but is also edentulous. Patient denies issues with constipation or diarrhea. Patient has no history of Crohn's or ulcerative colitis. Patient currently denies chest pain, shortness of breath at rest, headache, visual changes, difficulty swallowing or lower leg pain. Vascular consulted for noted stenosis and occlusion of abdominal arteries. Pulses palpable in femoral areas. DP and PT pulses also palpable, skin warm, no open wounds or ulcers found. Addictions and Psychiatry also consulted as patient is dealing with severe depression. Patient will say yes he is feeling site suicidal but has no plan and then clarified to say please do not take what I am saying seriously . Pt has hx of suicidal ideation listed in problem list from past admissions. Pt is currently dealing with many financial stressors including losing his home. He lives with his and she has not been able to work due to recent hip surgery. This personal lines underwriter does not believe patient requires section 12 but we will provide one-to-one sitter. This was reviewed with attending, Dr Cortez. <Sofía Gomes [facility] - Last Filed: 09/23/24 20:22> Review of Systems 2 Review of Systems: Patient denies chest pain, shortness of breath at rest or with exertion, nausea, vomiting but is reporting 6/10 left lower quadrant abdominal pain with tenderness on exam. Patient has denied any chills or fever. Patient has had no burning or pain with urination and denies any diarrhea or constipation issues. Patient reports appetite has been very poor over the last few weeks with loss of appetite. <Sofía Gomes [facility] - Last Filed: 09/23/24 20:22> Yes all other systems are reviewed and are negative <[place] Mireya [facility] - Last Filed: 09/23/24 20:22> [facility] Medical History: Medical History (Updated 09/23/24 @ 20:33 by Jose Cortez MD) Abnormal abdominal CT scan Atherosclerosis of abdominal aorta Chronic lung disease Alcohol use disorder Depression Compression fracture of L1 lumbar vertebra <Aumsvilledenita Gomes [facility] - Last Filed: 09/23/24 20:22> Cognitive capacity: Alert and orientated x3 <Sofía Gomes [facility] - Last Filed: 09/23/24 20:22> Functional capacity: independent ambulation <[place] Mireya [facility] - Last Filed: 09/23/24 20:22> Surgical History: Surgical History (Updated 09/23/24 @ 20:05 by SAEED Lopez CHRISTOPHER) History of colon resection <[facility] - Last Filed: 09/23/24 20:22> Social History: Social History Household Members: Spouse Housing: House Do you presently have visiting nurse or other home services: No Alcohol intake: current Alcohol intake frequency: 3 or more drinks per day Alcohol type: hard liquor Comment: 1:1 sitter Patient Tobacco Use Status: Current everyday Tobacco user Tobacco use type: Cigarette Cigarette Packs Per Day: 1 Cigarettes Per Day: 20.0 Smoked in Last 30 Days: No Use of substances other than those prescribed or required for medical reasons: No Advance Directives: No Advance Directives Information Provided: Yes service: No <[facility] - Last Filed: 09/23/24 20:22> Ebola Risk: Travel/Contact With Anyone From Affected Area/s: No <[facility] - Last Filed: 09/23/24 20:22> Has Patient Experienced Ebola Symptoms: No <[facility] - Last Filed: 09/23/24 20:22> Meds Allergies/Adverse reactions: Allergies Allergy/AdvReac Type Severity Reaction Status Date / Time [facility] Allergy Unknown Verified 09/23/24 15:11 <[facility] - Last Filed: 09/23/24 20:22> Home medications: Home Medications ?Medication ?Instructions ?Recorded ?Confirmed ?Last Taken ?Type albuterol sulfate 90 mcg/actuation 2 puff inhalation QID PRN 09/23/24 09/23/24 Unknown History aerosol inhaler (Ventolin HFA) Shortness Of Breath Or Wheezing cyclobenzaprine 5 mg tablet 5 mg PO TID PRN Muscle Spasm 09/23/24 09/23/24 Unknown History hydroxyzine HCl 50 mg tablet 50 mg PO TID PRN anxiety 09/23/24 09/23/24 Unknown History melatonin 3 mg tablet 3 mg PO BEDTIME 09/23/24 09/23/24 09/22/24 History multivitamin with folic acid 400 1 tab PO DAILY 09/23/24 09/23/24 09/22/24 History mcg tablet (Daily-Nik (with folic acid)) omeprazole 20 mg capsule,delayed 20 mg PO DAILY@0630 09/23/24 09/23/24 09/22/24 History release trazodone 50 mg tablet 50 mg PO BEDTIME 09/23/24 09/23/2409/22/25 History <[facility] - Last Filed: 09/23/24 20:22> Physical Exam 2 Vital Signs and Narrative: Vital Signs: Last Vital Signs Temp 98.8 F 09/23/24 19:16 Pulse 89 09/23/24 19:16 Resp 16 09/23/24 19:16 BP 121/72 09/23/24 19:16 Pulse Ox 95 09/23/24 19:16 O2 Del Method Room Air 09/23/24 19:16 BMI result Body Mass Index 22.8 <[facility] - Last Filed: 09/23/24 20:22> Alert and orientated X3, able to give good history. Neuro: CN II-X11 intact, no deficits, visual acuity intact EYES: PERRLA, EOM intact, glasses on ENT: hearing intact, no issues with swallowing, uvula midline, lips moist, nares patent no epistaxis Cardiac: S1 S2 RRR, no murmur, no JVD, no edema in Lower ext Pulmonary: lungs clear to ausculation B Abdominal: BS active in all 4 quadrants, distension noted, no guarding,noted tenderness LLQ, no rebounding MSK: strength 4/5 upper and lower extremities : no CVA tenderness no bladder distension Extremities: no edema in lower extremities, PT and DP pulses palpable +2, femoral pulses palpable B Psych: mood depressed, judgement and insight good Skin: no open wounds <[facility] - Last Filed: 09/23/24 20:22> Results Labs CBC and Chem 7: 09/23/24 15:19 09/23/24 15:19 <[facility] - Last Filed: 09/23/24 20:22> Labs: Laboratory Results - last 24 hr 09/23/24 15:19 MCV 86.2 MCH 30.4 MCHC 35.3 RDW 14.6 Plt Count 296 D MPV 9.6 Immature Gran % (Auto) 0.5 H Neut % (Auto) 55.6 Lymph % (Auto) 28.1 [place] % (Auto) 12.2 H Eos % (Auto) 2.7 Baso % (Auto) 0.9 Lymph # (Auto) 2.1 [place] # (Auto) 0.9 Eos # (Auto) 0.2 Baso # (Auto) 0.1 Abs Immat Gran (auto) 0.04 H Absolute Neuts (auto) 4.1 Absolute Nucleated RBC 0.000 Nucleated RBC % (auto) 0.0 Anion Gap 14 Estim Creat Clear Calc 110.2 Estimated GFR > 60 Random Glucose 157 H Calcium 8.6 D Magnesium 1.4 L* Total Bilirubin 0.8 AST 125 H ALT 50 H Alkaline Phosphatase 239 H Total Protein 6.4 L Albumin 3.1 L Lipase 12 Ethyl Alcohol < 10 <[facility] - Last Filed: 09/23/24 20:22> ECG Attestation: I personally reviewed and interpreted this ECG as follows: (ST (pt no longer tachycardic), ST and T wave abnormality, anterior leads ) <[facility] - Last Filed: 09/23/24 20:22> Prior ECG tracings: available for review <[facility] - Last Filed: 09/23/24 20:22> Imaging Radiologist's Impressions: ct abd IMPRESSION: 1. There are findings suggesting possible chronic appendicitis. Superimposed acute appendicitis cannot be excluded. 2. No acute abdominal disease. 3. Hepatomegaly with fatty infiltration of the liver. 4. Severe atherosclerotic changes with occlusion of the origin of the left common iliac artery and stenosis of the right external iliac artery and right renal artery, grossly unchanged. Mild aneurysmal dilatation of the infrarenal abdominal aorta without change. <[facility] - Last Filed: 09/23/24 20:22> Assessment and Plan (1) Abdominal pain: Status: Acute <[facility] - Last Filed: 09/23/24 20:22> (2) Alcohol withdrawal: Qualifiers: Complication of substance-induced condition: uncomplicated Qualified Code(s): F10.930 - Alcohol use, unspecified with withdrawal, uncomplicated <[facility] - Last Filed: 09/23/24 20:22> Status: Acute <[facility] - Last Filed: 09/23/24 20:22> Patient is a 64-year-old male with past medical history of EtOH abuse, tobacco dependence, depression/anxiety with history of suicidal ideation, chronic lumbar back pain with a compression fracture of the L1, sigmoid resection secondary to diverticulitis, pancreatitis, possible seizure from transitioning from Paxil to Effexor approximately 2 years ago, COPD not on home oxygen, atherosclerotic disease involving the abdominal aorta and its major branches including the left iliac and right renal arteries is being admitted for further observation noting an abnormal CT of the abdomen and pelvis indicating acute on chronic appendicitis with noted ongoing abdominal aortic obstructions and stenosis involving the branching arteries. Patient has known alcohol dependence and last drink was 4 days prior. No acute withdrawal issues occurring but patient will be placed on CIWA and a one-to-one for mentioned of feeling suicidal without a plan. Vascular and Psychiatry have also been consulted. Abnormal CT of the abdomen suggesting chronic appendicitis versus superimposed acute appendicitis/ atherosclerotic changes that are considered severe including occlusion of the left common iliac artery and stenosis of the right external iliac artery and right renal artery -currently no leukocytosis or fever. Lactic acid pending. Noted transaminitis. No indication for antibiotics at this time. UA with reflex also pending. -pain management, dilaudid 0.5 mg IV Q3H prn -bland diet -general surgery and vascular consults placed -A.m. labs including CBC, CMP -avoid hepatotoxic medications ETOH abuse/ hypomagnesiumemia/ Depression -Patient normally drinks 3-4 hard liquor drinks as well as beer -Patient has not had any alcohol in 4 days due to loss of appetite and severe weakness -lipase is within normal limits -Patient is feeling depressed, has history of depression and is stating he is suicidal but no specific plan. Patient currently experiencing financial stressors at home including for closure on his home. -psychiatry consulted -CIWA in place, one-to-one also in place, section 12 not currently indicated -telemetry -Ativan p.r.n. -thiamine and folic acid -addictions consult placed: Patient states he does want to stop drinking -SW consult placed due to patient's current financial concerns Possible malnourishment with recent weight loss due to loss of appetite -nutritional consult placed -patient willing to try bland diet -supplements ordered -daily weights -patient is currently edentulous, unable to afford dentures at this time COPD/ emphysema/ nicotine dependence -duo nebs p.r.n., Patient is stable on room air -patient deferred need for NRT, patient counseled on the benefits of smoking cessation DVT prophylaxis: Lovenox PPI prophylaxis: Protonix Med rec pending <Sofía Gomes, [employer]- - Last Filed: 09/23/24 20:22> Patient is a 64-year-old male with past medical history of EtOH abuse, tobacco dependence, depression/anxiety with history of suicidal ideation, chronic lumbar back pain with a compression fracture of the L1, sigmoid resection secondary to diverticulitis, pancreatitis, possible seizure from transitioning from Paxil to Effexor approximately 2 years ago, COPD not on home oxygen, atherosclerotic disease involving the abdominal aorta and its major branches including the left iliac and right renal arteries is being admitted for further observation noting an abnormal CT of the abdomen and pelvis indicating acute on chronic appendicitis with noted ongoing abdominal aortic obstructions and stenosis involving the branching arteries. Patient has known alcohol dependence and last drink was 4 days prior. No acute withdrawal issues occurring but patient will be placed on CIWA and a one-to-one for mentioned of feeling suicidal without a plan. Vascular and Psychiatry have also been consulted. Intractable abd pain Abnormal CT of the abdomen suggesting chronic appendicitis versus superimposed acute appendicitis/ atherosclerotic changes that are considered severe including occlusion of the left common iliac artery and stenosis of the right external iliac artery and right renal artery -currently no leukocytosis or fever. Lactic acid pending. Noted transaminitis. No indication for antibiotics at this time. UA with reflex also pending. -pain management, dilaudid 0.5 mg IV Q3H prn -bland diet -general surgery and vascular consults placed -A.m. labs including CBC, CMP -avoid hepatotoxic medications ETOH abuse/ hypomagnesiumemia/ Depression -Patient normally drinks 3-4 hard liquor drinks as well as beer -Patient has not had any alcohol in 4 days due to loss of appetite and severe weakness -lipase is within normal limits -Patient is feeling depressed, has history of depression and is stating he is suicidal but no specific plan. Patient currently experiencing financial stressors at home including for closure on his home. -psychiatry consulted -CIWA in place, one-to-one also in place, section 12 not currently indicated -telemetry -Ativan p.r.n. -thiamine and folic acid -addictions consult placed: Patient states he does want to stop drinking -SW consult placed due to patient's current financial concerns Possible malnourishment with recent weight loss due to loss of appetite -nutritional consult placed -patient willing to try bland diet -supplements ordered -daily weights -patient is currently edentulous, unable to afford dentures at this time COPD/ emphysema/ nicotine dependence -shaun johnson p.r.n., Patient is stable on room air -patient deferred need for NRT, patient counseled on the benefits of smoking cessation DVT prophylaxis: Lovenox PPI prophylaxis: Protonix Med rec pending Admit for two nights and as inpatient for management for abd pain and alcohol withdrawal. specialist consult pending <Jose Cortez MD - Last Filed: 09/23/24 20:35> Quality Stroke Does the patient have a stroke diagnosis?: No <[place] Mireya [facility] - Last Filed: 09/23/24 20:22> Reason for No Anti-thrombotic by Day Two: N/A - Med Ordered <Sofía Mireya [facility] - Last Filed: 09/23/24 20:22> VTE Prior VTE?: No <Sofía Mireya, [facility] - Last Filed: 09/23/24 20:22> VTE Risk Level:: Medical - moderate - high <Sofía Mireya, [facility] - Last Filed: 09/23/24 20:22> VTE Device Contraindication: N/A - Device Ordered <Sofía Mireya, [facility] - Last Filed: 09/23/24 20:22> VTE Drug Contraindication: N/A - Med Ordered <Sofía Mireya [facility] - Last Filed: 09/23/24 20:22>
--- NOTE | 2024-09-23 20:16 | PHA.MEDREC ---
Addendum entered by Harvey Pastor [facility] 09/23/24 20:38: Med rec reviewed Original Note: Pharmacy Consult ? Medication Reconciliation Pharmacy has completed the medication reconciliation. Patient confirmed his medications. Patient confirmed he was taking the Duloxetine and Lorazeam as needed for anxiety but ran out in the last few months on those and wants to be put back on them. He confirmed he finished the Vancomycin regimen back in June.
[2024-09-23 20:35] LABS: Free T4 (Free Thyroxine) 1.01 ng/dL (0.71-1.85); Thyroid Stimulating Hormone 1.79 uIU/mL (0.32-4.0)
[2024-09-23 21:32] LABS: Lactic Acid 0.8 mmol/L (0.5-2.0)
[2024-09-23 21:40] VITALS: BP 113/74; PULSE 96; RESP 20; O2SAT 100
[2024-09-23] MEDS: LORazepam 1 MG TABLET PO (21:41)
[2024-09-23] MEDS: Sennosides 8.6 MG TABLET 17.2 MG PO (21:41)
[2024-09-23 23:45] VITALS: BP 113/67; PULSE 92; RESP 16; TEMP 36.9; O2SAT 92
[2024-09-24] VITALS (7 sets, daily range): BP systolic 110–130; BP diastolic 68–70; PULSE 83–88; RESP 16–18; TEMP 36–37; O2SAT 92–98; BMI 22.6
--- NOTE | 2024-09-24 00:02 | PC.NURSE ---
assumed care of pt at 2300. Pt alert and oriented X4. Denies SI/HI. order for sitter for ST. Previous RN reports pt denied SI. MD messaged and informed. Per MD, orders were placed by previous provider and will leave until morning. school bus driver notified and 1:1 sitter placed with patient.
--- NOTE | 2024-09-24 00:31 | MHC.EDTECH ---
late entry: @0414 this tech assumed care as a sitter for the pt, pt pleasant and unresistant to having sitter at the bedside.
[2024-09-24] MEDS: 0.9 % Sodium Chloride Flush 3 ML SYRINGE IVFLUSH ×3 (02:28→18:28)
[2024-09-24] MEDS: Pantoprazole Sodium 40 MG/10 ML VIAL IVPUSH (05:25)
[2024-09-24 07:11] LABS: Estimated Average Glucose 137 mg/dL; Hemoglobin A1c % 6.4 % (<6.0); Total Hemoglobin (HGBA1C) 3474.5078 umol/L
[2024-09-24 07:41] LABS: MANUAL DIFF FLAG NO
[2024-09-24 07:50] LABS: Basophils Absolute Auto 0.1 X10*3/uL (0.0-0.2); Basophils Percent Auto 1.2 % (0-2); Eosinophils Absolute Auto 0.3 X10*3/uL (0.0-0.4); Eosinophils Percent Auto 3.8 % (0-4); Hematocrit 33.1 % (42.0-52.0); Hemoglobin 11.2 g/dl (14.0-18.0); Imm Gran Abs Auto 0.03 X10*3/uL (0.00-0.03); Imm Gran Pct Auto 0.4 % (0.0-0.4); Lymphocytes Absolute Auto 2.4 X10*3/uL (1.2-4.9); Lymphocytes Percent Auto 35.8 % (20-40); Mean Corpuscular HGB Conc 33.8 g/dl (31.0-36.0); Mean Corpuscular Hemoglobin 30.2 pg (27.0-33.0); Mean Corpuscular Volume 89.2 fL (80.0-98.0); Mean Platelet Volume 10.5 fL (9.4-12.4); Monocytes Absolute Auto 0.8 X10*3/uL (0.1-1.2); Monocytes Percent Auto 12.3 % (2-11); Neutrophils Absolute Auto 3.2 x10*3/uL (2.0-8.3); Neutrophils Percent Auto 46.5 % (45-73); Platelet Count 295 X10*3/uL (160-400); Red Blood Count 3.71 X10*6/uL (4.60-5.80); Red Cell Distribution Width 14.8 % (11.0-16.0); White Blood Count 6.8 X10*3/uL (4.8-10.8)
[2024-09-24 08:13] LABS: Alanine Aminotransferase 49 U/L (0-40); Albumin Level 2.6 g/dL (3.5-5.0); Alkaline Phosphatase 193 U/L (39-117); Anion Gap 16 (12-20); Aspartate Amino Transferase 118 U/L (5-37); Bilirubin Total 0.8 mg/dL (0.0-1.0); Blood Urea Nitrogen 10 mg/dL (9-16); Calcium 7.9 mg/dL (8.4-10.2); Carbon Dioxide 25 mmol/L (22-29); Chloride 101 mmol/L (96-108); Cholesterol 285 mg/dL (<200); Creatinine Clr Calc Pharmacy 114.2; Estimated Glomerular Filt Rate > 60; Glucose Random 90 mg/dL (60-115); HDL Cholesterol 31 mg/dL (>40); LDL Cholesterol Calculated 176 mg/dL (<100); Magnesium 1.8 mg/dL (1.6-2.6); Potassium 3.7 mmol/L (3.3-5.1); Sodium 138 mmol/L (135-145); Total Protein 5.4 g/dL (6.5-8.0); Triglycerides 392 mg/dL (<150)
--- NOTE | 2024-09-24 08:43 | PM.PNGS ---
Subjective Subjective Date of Service: 09/24/24 Interval history: He says he is ?okay? this morning He says he still has abdominal pain although this is chronic and he says this is unchanged No nausea or vomiting No fever Physical Exam Vital Signs: Vital Signs: Last Vital Signs Temp 97.1 F 09/24/24 07:07 Pulse 85 09/24/24 07:07 Resp 18 09/24/24 07:07 BP 118/70 09/24/24 07:07 Pulse Ox 94 09/24/24 07:07 O2 Del Method Room Air 09/24/24 07:07 BMI result Body Mass Index 22.6 Const: General: comfortable and no acute distress Resp: Effort & Inspection: normal respiratory effort Cardio: Rate: regular rate GI: Palpation (GI): Soft to palpation, not firm, Tenderness to palpation present (GI) (Very mild tenderness left side) and no guarding Objective Data Active Medications Acetaminophen (Acetaminophen 325 Mg Tablet) 650 mg PO Q6H PRN PRN Reason: Pain, Mild 1-3,fever,headache Calcium Carbonate (Calcium Carbonate 750 Mg Tab.Chew) 750 mg PO Q4H PRN PRN Reason: Heartburn Folic Acid (Folic Acid 1 Mg Tablet) 1 mg PO DAILY [facility] Hydromorphone HCl (Hydromorphone Hcl 0.5 Mg/0.5 Ml Syringe) 0.5 mg IVPUSH Q3H PRN; Protocol PRN Reason: Pain, Severe (Pain Scale 7-10) Lorazepam (Lorazepam 1 Mg Tablet) 1 mg PO Q4H PRN PRN Reason: Breakthrough alcohol withdrawa Stop: 09/27/24 19:45 Last Admin: 09/23/24 21:41 Dose: 1 mg Documented By: MELQUIADES Magnesium Hydroxide (Milk Of Magnesia 30 Ml Oral.Susp) 30 ml PO DAILY PRN PRN Reason: Constipation Magnesium Oxide (Magnesium Oxide 400 Mg Tablet) 400 mg PO DAILY [facility] Melatonin (Melatonin 3 Mg Tablet) 6 mg PO BEDTIME PRN PRN Reason: Insomnia Ondansetron HCl (Ondansetron Hcl 4 Mg/2 Ml Vial) 4 mg IVPUSH Q8H PRN PRN Reason: Nausea and Vomiting Pantoprazole Sodium (Pantoprazole Sodium 40 Mg/10 Ml Vial) 40 mg IVPUSH DAILY@0630 [facility] Last Admin: 09/24/24 05:25 Dose: 40 mg Documented By: DOMONIQUE Polyethylene Glycol (Polyethylene Glycol 3350 17 Gm Powd.Pack) 17 gm PO DAILY PRN PRN Reason: Constipation Senna (Sennosides 8.6 Mg Tablet) 17.2 mg PO BEDTIME [facility] Last Admin: 09/23/24 21:41 Dose: 17.2 mg Documented By: MELQUIADES Sodium Chloride (0.9 % Sodium Chloride Flush 3 Ml Syringe) 3 ml IVFLUSH QSHIFT [facility] Last Admin: 09/24/24 02:28 Dose: 3 ml Documented By: DOMONIQUE Thiamine HCl (Thiamine Hcl 100 Mg Tablet) 100 mg PO DAILY [facility] Labs 09/24/24 07:01 09/24/24 07:01 Labs: Laboratory Results - last 24 hr 09/23/24 09/23/24 09/24/24 15:19 21:08 07:01 MCV 86.2 89.2 MCH 30.4 30.2 MCHC 35.3 33.8 RDW 14.6 14.8 Plt Count 296 D 295 MPV 9.6 10.5 Immature Gran % (Auto) 0.5 H 0.4 Neut % (Auto) 55.6 46.5 Lymph % (Auto) 28.1 35.8 [place] % (Auto) 12.2 H 12.3 H Eos % (Auto) 2.7 3.8 Baso % (Auto) 0.9 1.2 Lymph # (Auto) 2.1 2.4 [place] # (Auto) 0.9 0.8 Eos # (Auto) 0.2 0.3 Baso # (Auto) 0.1 0.1 Abs Immat Gran (auto) 0.04 H 0.03 Absolute Neuts (auto) 4.1 3.2 Absolute Nucleated RBC 0.000 0.000 Nucleated RBC % (auto) 0.0 0.0 Anion Gap 14 16 Estim Creat Clear Calc 110.2 114.2 Estimated GFR > 60 > 60 Random Glucose 157 H 90 Estimat Average Glucose 137 Hemoglobin A1c % 6.4 H Lactic Acid 0.8 Calcium 8.6 D 7.9 L D Magnesium 1.4 L* 1.8 Total Bilirubin 0.8 0.8 AST 125 H 118 H ALT 50 H 49 H Alkaline Phosphatase 239 H 193 H Total Creatine Kinase 15 L Total Protein 6.4 L 5.4 L Albumin 3.1 L 2.6 L Triglycerides 392 H Cholesterol 285 H LDL Cholesterol, Calc 176 H HDL Cholesterol 31 L Lipase 12 TSH 1.79 Free T4 1.01 Ethyl Alcohol < 10 Procedures Date of Service Date of Service: 09/24/24 Progress Note: A&P Assessment and plan (1) Abdominal pain: Status: Acute Assessment and Plan: Symptoms appear chronic Exam remains very benign Clinical picture not consistent with acute appendicitis No leukocytosis Electrolytes okay this morning Okay to advance diet as tolerated Time Spent With Patient Time: Total time managing care of this patient today ____ minutes. Quality Stroke Does the patient have a stroke diagnosis?: No Reason for No Anti-thrombotic by Day Two: N/A - Med Ordered VTE Prior VTE?: No VTE Risk Level:: Medical - moderate - high VTE Device Contraindication: N/A - Device Ordered VTE Drug Contraindication: N/A - Med Ordered
[2024-09-24] MEDS: Thiamine HCL 100 MG TABLET PO (08:53)
[2024-09-24] MEDS: Folic Acid 1 MG TABLET PO (08:53)
[2024-09-24] MEDS: Magnesium Oxide 400 MG TABLET PO (08:53)
--- NOTE | 2024-09-24 11:18 | P.CONGS_ITS ---
<Statement entered by Emigdio Ontiveros MD - 09/25/24 09:12> I have seen and evaluated the patient and agree with history, findings, assessment and plan documented by Hayley Olivares PA-c. Abdomen is completely benign. Lower extremities warm with good capillary refill. Motor and sensation intact. This is all chronic aortoiliac disease. He has established care [facility] vascular prior. He can follow up with them as outpatient. Stable from a vascular perspective. Thank you for allowing us to assist in his care. If there are any questions or concerns please do not hesitate to contact us. 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 Harvey presented to the ER yesterday with a couple days of general malaise, weakness, and poor nutrition. His last drink was 3d prior; he stated he was took weak to go out and get more. He has a medical hx pertinent for AUD, COPD not on home O2, aortoiliac dx, depression/anxiety with a hx of SI, chronic low back pain with a compression fx of L1, pancreatitis, and atherosclerotic dx of the abdominal aorta. He states that he has been having difficulty walking. 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 The pt states he has been seen by [facility] in the past but has not followed up with them since his last hospitalization here, in June. He states he has chronic upper left abd pain, non radiating. He has chronic LBP with numbness and tingling down his left leg. He denies any left leg pain. He states he has unintentionally lost about 30#. He states he has constant shortness of breath but denies diff breathing and CP. He does smoke 1ppd, for the last 50y. He continues to endorse weakness. He states he has lost so much weight due to having no appetite. He states he has also been helping taking care of his at home, who is s/p hip sx. Review of Systems 2 Constitutional: Constitutional: Reports as per HPI and Denies weakness ENT: Reports Normal hearing present and Denies dizziness Cardiovascular: Cardiovascular: Reports as per HPI, Denies chest pain, Denies chest pain at rest, Denies chest pain with activity, Denies dyspnea and Denies dyspnea on exertion Respiratory: Respiratory: Reports as per HPI, Denies cough, Denies dyspnea and Denies dyspnea on exertion Gastrointestinal: Gastrointestinal: Reports as per HPI, Denies abdominal pain, Denies nausea and Denies vomiting Musculoskeletal: Musculoskeletal: Denies numbness Integumentary/Breasts: Skin/Breast: Reports as per HPI, Denies erythema and Denies wounds Neurologic: Reports Normal hearing present, Denies dizziness, Denies numbness, Denies Sensory deficit (Neuro) and Denies weakness Psychiatric: Psychiatric: Reports no additional psychiatric complaints Endocrine: Endocrine: Reports no additional endocrine complaints [facility] Past Medical History Medical History (Updated 09/24/24 @ 11:37 by Hayley Olivares PA-C) Abnormal abdominal CT scan Atherosclerosis of abdominal aorta Chronic lung disease Alcohol use disorder Depression Compression fracture of L1 lumbar vertebra Surgical History Surgical History History of colon resection Social History Social History Household Members: Family Housing: House Do you presently have visiting nurse or other home services: No Alcohol intake: current Alcohol intake frequency: 3 or more drinks per day Alcohol type: hard liquor Comment: 1:1 sitter Patient Tobacco Use Status: Current everyday Tobacco user Tobacco use type: Cigarette Cigarette Packs Per Day: 1 Cigarettes Per Day: 20.0 service: No Travel History Ebola Risk: Travel/Contact With Anyone From Affected Area/s: No Has Patient Experienced Ebola Symptoms: No Meds Allergies Allergy/AdvReac Type Severity Reaction Status Date / Time diclofenac [From Flector] Allergy Unknown Verified 09/23/24 15:11 Active Medications: Current Medications Acetaminophen (Acetaminophen 325 Mg Tablet) 650 mg PO Q6H PRN PRN Reason: Pain, Mild 1-3,fever,headache Calcium Carbonate (Calcium Carbonate 750 Mg Tab.Chew) 750 mg PO Q4H PRN PRN Reason: Heartburn Folic Acid (Folic Acid 1 Mg Tablet) 1 mg PO DAILY NATALIA Last Admin: 09/24/24 08:53 Dose: 1 mg Hydromorphone HCl (Hydromorphone Hcl 0.5 Mg/0.5 Ml Syringe) 0.5 mg IVPUSH Q3H PRN; Protocol PRN Reason: Pain, Severe (Pain Scale 7-10) Lorazepam (Lorazepam 1 Mg Tablet) 1 mg PO Q4H PRN PRN Reason: Breakthrough alcohol withdrawa Stop: 09/27/24 19:45 Last Admin: 09/23/24 21:41 Dose: 1 mg Magnesium Hydroxide (Milk Of Magnesia 30 Ml Oral.Susp) 30 ml PO DAILY PRN PRN Reason: Constipation Magnesium Oxide (Magnesium Oxide 400 Mg Tablet) 400 mg PO DAILY COUNT INCLUDES THE [facility] Last Admin: 09/24/24 08:53 Dose: 400 mg Melatonin (Melatonin 3 Mg Tablet) 6 mg PO BEDTIME PRN PRN Reason: Insomnia Ondansetron HCl (Ondansetron Hcl 4 Mg/2 Ml Vial) 4 mg IVPUSH Q8H PRN PRN Reason: Nausea and Vomiting Pantoprazole Sodium (Pantoprazole Sodium 40 Mg/10 Ml Vial) 40 mg IVPUSH DAILY@0630 COUNT INCLUDES THE [facility] Last Admin: 09/24/24 05:25 Dose: 40 mg Polyethylene Glycol (Polyethylene Glycol 3350 17 Gm Powd.Pack) 17 gm PO DAILY PRN PRN Reason: Constipation Senna (Sennosides 8.6 Mg Tablet) 17.2 mg PO BEDTIME COUNT INCLUDES THE [facility] Last Admin: 09/23/24 21:41 Dose: 17.2 mg Sodium Chloride (0.9 % Sodium Chloride Flush 3 Ml Syringe) 3 ml IVFLUSH QSHIFT COUNT INCLUDES THE [facility] Last Admin: 09/24/24 08:53 Dose: 3 ml Thiamine HCl (Thiamine Hcl 100 Mg Tablet) 100 mg PO DAILY COUNT INCLUDES THE [facility] Last Admin: 09/24/24 08:53 Dose: 100 mg Home Medications ?Medication ?Instructions ?Recorded ?Confirmed ?Last Taken ?Type albuterol sulfate 90 mcg/actuation 2 puff inhalation QID PRN 09/23/24 09/23/24 Unknown History aerosol inhaler (Ventolin HFA) Shortness Of Breath Or Wheezing cyclobenzaprine 5 mg tablet 5 mg PO TID PRN Muscle Spasm 09/23/24 09/23/24 Unknown History hydroxyzine HCl 50 mg tablet 50 mg PO TID PRN anxiety 09/23/24 09/23/24 Unknown History melatonin 3 mg tablet 3 mg PO BEDTIME 09/23/24 09/23/24 09/22/24 History multivitamin with folic acid 400 1 tab PO DAILY 09/23/24 09/23/24 09/22/24 History mcg tablet (Daily-Nik (with folic acid)) omeprazole 20 mg capsule,delayed 20 mg PO DAILY@0630 09/23/24 09/23/24 09/22/24 History release trazodone 50 mg tablet 50 mg PO BEDTIME 09/23/24 09/23/24 09/22/24 History Physical Exam 2 Vital Signs: Vital Signs: Last Vital Signs Temp 97.1 F 09/24/24 11:14 Pulse 84 09/24/24 11:14 Resp 18 09/24/24 11:14 BP 130/68 09/24/24 11:14 Pulse Ox 94 09/24/24 11:14 O2 Del Method Room Air 09/24/24 11:14 BMI result Body Mass Index 22.6 Const: General: comfortable and no acute distress O rientation/consciousness: patient oriented x3 HEENT: Ears: hearing grossly normal bilaterally Resp: Effort & Inspection: normal respiratory effort and able to speak in complete sentences Auscultation: clear to auscultation bilaterally Cardio: Rate: regular rate Rhythm: regular rhythm Heart sounds: S1 normal heart sound present and S2 normal heart sound present Bruits: no abdominal aortic bruits, no carotid bruits, no femoral bruits and no renal bruits GI: Palpation (GI): No Abdominal aortic bruit present Neuro: General: patient oriented x3 Cranial nerves: Yes Normal hearing present Sensory Exam: No Sensory deficit (Neuro) Results Labs 09/24/24 07:01 09/24/24 07:01 Labs: Abnormal lab results 09/23/24 09/24/24 Range/Units 15:19 07:01 RBC 4.34 L 3.71 L (4.60-5.80) X10*6/uL Hgb 13.2 L 11.2 L (14.0-18.0) g/dl Hct 37.4 L 33.1 L (42.0-52.0) % Immature Gran % (Auto) 0.5 H (0.0-0.4) % [place] % (Auto) 12.2 H 12.3 H (2-11) % Abs Immat Gran (auto) 0.04 H (0.00-0.03) X10*3/uL Sodium 132 L (135-145) mmol/L Chloride 95 L (96-108) mmol/L Random Glucose 157 H (60-115) mg/dL Hemoglobin A1c % 6.4 H (<6.0) % Calcium 7.9 L D (8.4-10.2) mg/dL Magnesium 1.4 L* (1.6-2.6) mg/dL AST 125 H 118 H (5-37) U/L ALT 50 H 49 H (0-40) U/L Alkaline Phosphatase 239 H 193 H (39-117) U/L Total Creatine Kinase 15 L (38-174) U/L Total Protein 6.4 L 5.4 L (6.5-8.0) g/dL Albumin 3.1 L 2.6 L (3.5-5.0) g/dL Triglycerides 392 H (<150) mg/dL Cholesterol 285 H (<200) mg/dL LDL Cholesterol, Calc 176 H (<100) mg/dL HDL Cholesterol 31 L (>40) mg/dL Short CBC 09/23/24 09/24/24 Range/Units 15:19 07:01 WBC 7.4 6.8 (4.8-10.8) X10*3/uL Hgb 13.2 L 11.2 L (14.0-18.0) g/dl Hct 37.4 L 33.1 L (42.0-52.0) % Plt Count 296 D 295 (160-400) X10*3/uL BMP 09/23/24 09/24/24 15:19 07:01 Sodium 132 L 138 Potassium 3.4 D 3.7 Chloride 95 L 101 Carbon Dioxide 26 25 BUN 13 10 Creatinine 0.67 0.64 Calcium 8.6 D 7.9 L D Cardiac Enzymes 09/23/24 Range/Units 15:19 Total Creatine Kinase 15 L (38-174) U/L Liver Function 09/23/24 09/24/24 Range/Units 15:19 07:01 Total Bilirubin 0.8 0.8 (0.0-1.0) mg/dL AST 125 H 118 H (5-37) U/L ALT 50 H 49 H (0-40) U/L Alkaline Phosphatase 239 H 193 H (39-117) U/L Albumin 3.1 L 2.6 L (3.5-5.0) g/dL All other labs normal. Assessment and Plan (1) Aorto-iliac disease: Status: Acute Plan We were consulted on Harvey, for concerns of findings on CT abd/pelvis of left common iliac artery occlusion with stenosis of the right external iliac and renal arteries. This is unchanged from Jun. The pt has not followed up with [facility], whom he has been established with in the past. We recommend that he follow up with [facility]. There is no acute vascular surgical intervention at this point. Thank you for the consult. If there are any questions or concerns, please do not hesitate to reach out to us. Procedures Date of Service Date of Service: 09/24/24
--- NOTE | 2024-09-24 11:56 | MHC.CLN ---
NUTRITION CONSULT FOR POTENTIAL PARENTERAL NUTRITION WHILE PATIENT IN ED. PATIENT ABLE TO TAKE PO. HAS DIET ORDER CARDIAC, BLAND. SUPPLEMENT ENSURE TID PROVIDE 1050 [address], [address] TO MONITOR WEEKLY.
--- NOTE | 2024-09-24 11:59 | MHC.CM.PN ---
This CM attempted to meet with pt, pt sleeping soundly, unable to awake to engage in conversation, will reattempt to see pt at a later time. Per chart review, pt lives at home with his , self-care, no services.
[2024-09-24] MEDS: LORazepam 1 MG TABLET PO (12:57)
--- NOTE | 2024-09-24 14:07 | MHC.CM.PN ---
Pt self-care, lives at home with his , uses a cane. Pt will arrange his own transport home at discharge. New HCP completed with pt, now on file. PCP: Dr. Harman Bacon
[2024-09-24 15:20] LABS: Appearance Urine Clear; Color Urine Dark Yellow; Glucose Urine UA Negative (Negative); Leukocyte Esterase Urine Trace (Negative); Nitrite Urine Negative (Negative); PH 5.5 (5.0-9.0); Specific Gravity - Urine >= 1.030 (1.005-1.025); UMIC TRIGGER UA YES; Urine Blood Negative (Negative); Urine Ketones 15 mg/dL (Negative); Urine Protein Negative (Neg-Trace)
[2024-09-24 15:26] LABS: Bacteria Urine None Seen (None Seen); Hyaline Casts Urine 0-2 /LPF (0-2); RBC Urine 0-2 /HPF (0-2); Squamous Epithelial Cell Urine 0-2 /HPF (0-2); WBC Urine 0-5 /HPF (0-5)
--- NOTE | 2024-09-24 15:56 | MHC.RECOVRN ---
Attempted to meet with pt after receiving Addiction Medicine consult for alcohol use and positive AUDIT C. Pt laying in bed, awake, alert. Declines meeting with t/w at this time, would like to meet tomorrow. MQ aware.
--- NOTE | 2024-09-24 16:43 | HO.PM.IMPN ---
Subjective Subjective Date of Service: 09/24/24 Interval History: Abdominal pain improved since admission. Doing well with phenobarb protocol. No seizures noted Review of Systems Denies chest pain Denies shortness of breath Denies nausea vomiting diarrhea Denies fever chills Physical Exam Vital Signs: Vital Signs: Last Vital Signs Temp 96.8 F 09/24/24 15:32 Pulse 88 09/24/24 15:32 Resp 16 09/24/24 15:32 BP 110/68 09/24/24 15:32 Pulse Ox 93 09/24/24 15:32 O2 Del Method Room Air 09/24/24 15:32 BMI result Body Mass Index 22.6 Const: Other: Awake alert no acute distress Resp: Other: Clear to auscultation bilaterally no rales rhonchi or wheezes Cardio: Other: No S4; positive S1-S2; no S3 murmurs rubs or gallops GI: Other: Soft nontender nondistended normoactive bowel sounds Extrem: Other: No edema bilaterally Objective Data Active Medications Acetaminophen (Acetaminophen 325 Mg Tablet) 650 mg PO Q6H PRN PRN Reason: Pain, Mild 1-3,fever,headache Calcium Carbonate (Calcium Carbonate 750 Mg Tab.Chew) 750 mg PO Q4H PRN PRN Reason: Heartburn Folic Acid (Folic Acid 1 Mg Tablet) 1 mg PO DAILY [facility] Last Admin: 09/24/24 08:53 Dose: 1 mg Documented By: BRAYAN Hydromorphone HCl (Hydromorphone Hcl 0.5 Mg/0.5 Ml Syringe) 0.5 mg IVPUSH Q3H PRN; Protocol PRN Reason: Pain, Severe (Pain Scale 7-10) Lorazepam (Lorazepam 1 Mg Tablet) 1 mg PO Q4H PRN PRN Reason: Breakthrough alcohol withdrawa Stop: 09/27/24 19:45 Last Admin: 09/24/24 12:57 Dose: 1 mg Documented By: BRAYAN Magnesium Hydroxide (Milk Of Magnesia 30 Ml Oral.Susp) 30 ml PO DAILY PRN PRN Reason: Constipation Magnesium Oxide (Magnesium Oxide 400 Mg Tablet) 400 mg PO DAILY [facility] Last Admin: 09/24/24 08:53 Dose: 400 mg Documented By: BRAYAN Melatonin (Melatonin 3 Mg Tablet) 6 mg PO BEDTIME PRN PRN Reason: Insomnia Ondansetron HCl (Ondansetron Hcl 4 Mg/2 Ml Vial) 4 mg IVPUSH Q8H PRN PRN Reason: Nausea and Vomiting Pantoprazole Sodium (Pantoprazole Sodium 40 Mg/10 Ml Vial) 40 mg IVPUSH DAILY@0630 [facility] Last Admin: 09/24/24 05:25 Dose: 40 mg Documented By: DOMONIQUE Polyethylene Glycol (Polyethylene Glycol 3350 17 Gm Powd.Pack) 17 gm PO DAILY PRN PRN Reason: Constipation Senna (Sennosides 8.6 Mg Tablet) 17.2 mg PO BEDTIME [facility] Last Admin: 09/23/24 21:41 Dose: 17.2 mg Documented By: MELQUIADES Sodium Chloride (0.9 % Sodium Chloride Flush 3 Ml Syringe) 3 ml IVFLUSH QSHIFT [facility] Last Admin: 09/24/24 08:53 Dose: 3 ml Documented By: BRAYAN Thiamine HCl (Thiamine Hcl 100 Mg Tablet) 100 mg PO DAILY [facility] Last Admin: 09/24/24 08:53 Dose: 100 mg Documented By: BRAYAN Labs 09/24/24 07:01 09/24/24 07:01 Labs: Laboratory Results - last 24 hr 09/23/24 09/23/24 09/24/24 15:19 21:08 07:01 MCV 89.2 MCH 30.2 MCHC 33.8 RDW 14.8 Plt Count 295 MPV 10.5 Immature Gran % (Auto) 0.4 Neut % (Auto) 46.5 Lymph % (Auto) 35.8 [place] % (Auto) 12.3 H Eos % (Auto) 3.8 Baso % (Auto) 1.2 Lymph # (Auto) 2.4 [place] # (Auto) 0.8 Eos # (Auto) 0.3 Baso # (Auto) 0.1 Abs Immat Gran (auto) 0.03 Absolute Neuts (auto) 3.2 Absolute Nucleated RBC 0.000 Nucleated RBC % (auto) 0.0 Anion Gap 16 Estim Creat Clear Calc 114.2 Estimated GFR > 60 Random Glucose 90 Estimat Average Glucose 137 Hemoglobin A1c % 6.4 H Lactic Acid 0.8 Calcium 7.9 L D Magnesium 1.8 Total Bilirubin 0.8 AST 118 H ALT 49 H Alkaline Phosphatase 193 H Total Creatine Kinase 15 L Total Protein 5.4 L Albumin 2.6 L Triglycerides 392 H Cholesterol 285 H LDL Cholesterol, Calc 176 H HDL Cholesterol 31 L TSH 1.79 Free T4 1.01 Urine Color Urine Appearance Urine pH Ur Specific [place] Urine Protein Urine Glucose (UA) Urine Ketones Urine Blood Urine Nitrite Ur Leukocyte Esterase Urine RBC Urine WBC Ur Squamous Epith Cells Urine Bacteria Hyaline Casts 09/24/24 13:03 MCV MCH MCHC RDW Plt Count MPV Immature Gran % (Auto) Neut % (Auto) Lymph % (Auto) [place] % (Auto) Eos % (Auto) Baso % (Auto) Lymph # (Auto) [place] # (Auto) Eos # (Auto) Baso # (Auto) Abs Immat Gran (auto) Absolute Neuts (auto) Absolute Nucleated RBC Nucleated RBC % (auto) Anion Gap Estim Creat Clear Calc Estimated GFR Random Glucose Estimat Average Glucose Hemoglobin A1c % Lactic Acid Calcium Magnesium Total Bilirubin AST ALT Alkaline Phosphatase Total Creatine Kinase Total Protein Albumin Triglycerides Cholesterol LDL Cholesterol, Calc HDL Cholesterol TSH Free T4 Urine Color Dark Yellow Urine Appearance Clear Urine pH 5.5 Ur Specific [place] >= 1.030 H Urine Protein Negative Urine Glucose (UA) Negative Urine Ketones 15 Urine Blood Negative Urine Nitrite Negative Ur Leukocyte Esterase Trace H Urine RBC 0-2 Urine WBC 0-5 Ur Squamous Epith Cells 0-2 Urine Bacteria None Seen Hyaline Casts 0-2 Assessment and Plan (1) Abdominal pain: Status: Acute (2) Alcohol use disorder: Status: Acute (3) Alcohol withdrawal: Status: Acute Plan Patient is a 64-year-old male with past medical history of EtOH abuse, tobacco dependence, depression/anxiety with history of suicidal ideation, chronic lumbar back pain with a compression fracture of the L1, sigmoid resection secondary to diverticulitis, pancreatitis, possible seizure from transitioning from Paxil to Effexor approximately 2 years ago, COPD not on home oxygen, atherosclerotic disease involving the abdominal aorta and its major branches including the left iliac and right renal arteries is being admitted for further observation noting an abnormal CT of the abdomen and pelvis indicating acute on chronic appendicitis with noted ongoing abdominal aortic obstructions and stenosis involving the branching arteries. Patient has known alcohol dependence and last drink was 4 days prior. No acute withdrawal issues occurring but patient will be placed on CIWA and a one-to-one for mentioned of feeling suicidal without a plan. Vascular and Psychiatry have also been consulted. 1.Intractable abd pain -improved since admission -appreciate surgical input; no indication of acute appendicitis -follow clinically and treat as appropriate 2.ETOH abuse -CIWA scale as ordered; managed well -adjust as clinically indicated - 3.COPD/ emphysema/ nicotine dependence -stable and well compensated -continue outpatient therapies Lovenox Protonix Requires ongoing hospitalization for alcohol withdrawal treatment on CIWA protocol Quality Stroke Does the patient have a stroke diagnosis?: No Reason for No Anti-thrombotic by Day Two: N/A - Med Ordered VTE Prior VTE?: No VTE Risk Level:: Medical - moderate - high VTE Device Contraindication: N/A - Device Ordered VTE Drug Contraindication: N/A - Med Ordered
[2024-09-25 02:57] VITALS: BP 135/66; PULSE 83; RESP 18; TEMP 36.3; O2SAT 92
[2024-09-25] MEDS: LORazepam 1 MG TABLET PO (04:10)
[2024-09-25] MEDS: Pantoprazole Sodium 40 MG/10 ML VIAL IVPUSH (04:10)
[2024-09-25] MEDS: 0.9 % Sodium Chloride Flush 3 ML SYRINGE IVFLUSH ×3 (04:12→15:10)
[2024-09-25 07:23] LABS: MANUAL DIFF FLAG NO
[2024-09-25 07:37] LABS: Basophils Percent Auto 0.7 % (0-2); Eosinophils Absolute Auto 0.2 X10*3/uL (0.0-0.4); Eosinophils Percent Auto 3.6 % (0-4); Hematocrit 32.4 % (42.0-52.0); Hemoglobin 11.2 g/dl (14.0-18.0); Imm Gran Abs Auto 0.03 X10*3/uL (0.00-0.03); Imm Gran Pct Auto 0.5 % (0.0-0.4); Lymphocytes Percent Auto 33.2 % (20-40); Mean Corpuscular HGB Conc 34.6 g/dl (31.0-36.0); Mean Corpuscular Hemoglobin 30.1 pg (27.0-33.0); Mean Corpuscular Volume 87.1 fL (80.0-98.0); Mean Platelet Volume 9.8 fL (9.4-12.4); Monocytes Absolute Auto 0.7 X10*3/uL (0.1-1.2); Monocytes Percent Auto 12.1 % (2-11); Neutrophils Absolute Auto 3.1 x10*3/uL (2.0-8.3); Neutrophils Percent Auto 49.9 % (45-73); Platelet Count 326 X10*3/uL (160-400); Red Blood Count 3.72 X10*6/uL (4.60-5.80); Red Cell Distribution Width 14.6 % (11.0-16.0); White Blood Count 6.1 X10*3/uL (4.8-10.8)
[2024-09-25 07:46] LABS: Alanine Aminotransferase 61 U/L (0-40); Albumin Level 2.8 g/dL (3.5-5.0); Alkaline Phosphatase 197 U/L (39-117); Anion Gap 14 (12-20); Aspartate Amino Transferase 126 U/L (5-37); Bilirubin Total 0.6 mg/dL (0.0-1.0); Blood Urea Nitrogen 8 mg/dL (9-16); Calcium 8.4 mg/dL (8.4-10.2); Carbon Dioxide 28 mmol/L (22-29); Chloride 100 mmol/L (96-108); Creatinine Clr Calc Pharmacy 117.9; Estimated Glomerular Filt Rate > 60; Glucose Fasting 93 mg/dL (60-99); Magnesium 1.8 mg/dL (1.6-2.6); Phosphorus 3.4 mg/dL (2.7-4.5); Potassium 3.8 mmol/L (3.3-5.1); Sodium 138 mmol/L (135-145); Total Protein 5.8 g/dL (6.5-8.0)
[2024-09-25 08:00] VITALS: BP 118/78; PULSE 89; RESP 18; TEMP 36.9; O2SAT 91
--- NOTE | 2024-09-25 09:04 | P.PNGS_ITS ---
Subjective Subjective Date of Service: 09/25/24 Interval history: Says he feels much better today Denies abdominal pain No nausea or vomiting No fever Physical Exam 2 Vital Signs: Vital Signs: Last Vital Signs Temp 98.4 F 09/25/24 08:00 Pulse 89 09/25/24 08:00 Resp 18 09/25/24 08:00 BP 118/78 09/25/24 08:00 Pulse Ox 91 L 09/25/24 08:00 O2 Del Method Room Air 09/25/24 08:00 BMI result Body Mass Index 22.6 Const: General: comfortable and no acute distress Resp: Effort & Inspection: normal respiratory effort Cardio: Rate: regular rate GI: Inspection: No distended Palpation (GI): Soft to palpation, not firm, Tenderness to palpation present (GI) (Very mild tenderness on the lower abdomen) and no guarding Objective Data Active Medications Acetaminophen (Acetaminophen 325 Mg Tablet) 650 mg PO Q6H PRN PRN Reason: Pain, Mild 1-3,fever,headache Albuterol/Ipratropium (Albuterol/Iprat 2.5/0.5mg 3 Ml Ampul.Neb) 3 ml INHALE Q4H PRN PRN Reason: Wheezing Calcium Carbonate (Calcium Carbonate 750 Mg Tab.Chew) 750 mg PO Q4H PRN PRN Reason: Heartburn Folic Acid (Folic Acid 1 Mg Tablet) 1 mg PO DAILY [facility] Last Admin: 09/24/24 08:53 Dose: 1 mg Documented By: BRAYAN Hydromorphone HCl (Hydromorphone Hcl 0.5 Mg/0.5 Ml Syringe) 0.5 mg IVPUSH Q3H PRN; Protocol PRN Reason: Pain, Severe (Pain Scale 7-10) Lorazepam (Lorazepam 1 Mg Tablet) 1 mg PO Q4H PRN PRN Reason: Breakthrough alcohol withdrawa Stop: 09/27/24 19:45 Last Admin: 09/25/24 04:10 Dose: 1 mg Documented By: GENOVEVA Magnesium Hydroxide (Milk Of Magnesia 30 Ml Oral.Susp) 30 ml PO DAILY PRN PRN Reason: Constipation Magnesium Oxide (Magnesium Oxide 400 Mg Tablet) 400 mg PO DAILY [facility] Last Admin: 09/24/24 08:53 Dose: 400 mg Documented By: BRAYAN Melatonin (Melatonin 3 Mg Tablet) 6 mg PO BEDTIME PRN PRN Reason: Insomnia Ondansetron HCl (Ondansetron Hcl 4 Mg/2 Ml Vial) 4 mg IVPUSH Q8H PRN PRN Reason: Nausea and Vomiting Pantoprazole Sodium (Pantoprazole Sodium 40 Mg/10 Ml Vial) 40 mg IVPUSH DAILY@0630 [facility] Last Admin: 09/25/24 04:10 Dose: 40 mg Documented By: GENOVEVA Polyethylene Glycol (Polyethylene Glycol 3350 17 Gm Powd.Pack) 17 gm PO DAILY PRN PRN Reason: Constipation Senna (Sennosides 8.6 Mg Tablet) 17.2 mg PO BEDTIME [facility] Last Admin: 09/24/24 19:33 Dose: Not Given Documented By: GENOVEVA Non-Admin Reason: Patient Refused Sodium Chloride (0.9 % Sodium Chloride Flush 3 Ml Syringe) 3 ml IVFLUSH QSHIFT [facility] Last Admin: 09/25/24 04:12 Dose: 3 ml Documented By: GENOVEVA Thiamine HCl (Thiamine Hcl 100 Mg Tablet) 100 mg PO DAILY [facility] Last Admin: 09/24/24 08:53 Dose: 100 mg Documented By: BRAYAN Labs 09/25/24 06:57 09/25/24 06:57 Labs: Laboratory Results - last 24 hr 09/24/24 09/25/24 13:03 06:57 MCV 87.1 MCH 30.1 MCHC 34.6 RDW 14.6 Plt Count 326 MPV 9.8 Immature Gran % (Auto) 0.5 H Neut % (Auto) 49.9 Lymph % (Auto) 33.2 [place] % (Auto) 12.1 H Eos % (Auto) 3.6 Baso % (Auto) 0.7 Lymph # (Auto) 2.0 [place] # (Auto) 0.7 Eos # (Auto) 0.2 Baso # (Auto) 0.0 Abs Immat Gran (auto) 0.03 Absolute Neuts (auto) 3.1 Absolute Nucleated RBC 0.000 Nucleated RBC % (auto) 0.0 Anion Gap 14 Estim Creat Clear Calc 117.9 Estimated GFR > 60 Fasting Glucose 93 Calcium 8.4 D Phosphorus 3.4 Magnesium 1.8 Total Bilirubin 0.6 AST 126 H ALT 61 H Alkaline Phosphatase 197 H Total Protein 5.8 L Albumin 2.8 L Urine Color Dark Yellow Urine Appearance Clear Urine pH 5.5 Ur Specific [place] >= 1.030 H Urine Protein Negative Urine Glucose (UA) Negative Urine Ketones 15 Urine Blood Negative Urine Nitrite Negative Ur Leukocyte Esterase Trace H Urine RBC 0-2 Urine WBC 0-5 Ur Squamous Epith Cells 0-2 Urine Bacteria None Seen Hyaline Casts 0-2 Procedures Date of Service Date of Service: 09/25/24 Progress Note: A&P Assessment and plan (1) Abnormal abdominal CT scan: Status: Acute Assessment and Plan: Clinical picture unlikely to be acute appendicitis He looks well overall No leukocytosis Abdomen is soft and benign, minimal tenderness on lower abdomen Okay to start diet and advance as tolerated Has other medical issues Time Spent With Patient Time: Total time managing care of this patient today ____ minutes. Quality Stroke Does the patient have a stroke diagnosis?: No Reason for No Anti-thrombotic by Day Two: N/A - Med Ordered VTE Prior VTE?: No VTE Risk Level:: Medical - moderate - high VTE Device Contraindication: N/A - Device Ordered VTE Drug Contraindication: N/A - Med Ordered
[2024-09-25] MEDS: Folic Acid 1 MG TABLET PO (09:20)
[2024-09-25] MEDS: Magnesium Oxide 400 MG TABLET PO (09:20)
[2024-09-25] MEDS: Thiamine HCL 100 MG TABLET PO (09:20)
--- NOTE | 2024-09-25 11:15 | HO.ADDICT_ITS ---
History of Present Illness Date of Service: 09/25/2024 Chief Complaint: ETOH withdrawal, abdominal pain Reason for Consult: AUD Sources of Information: patient interviewed and chart reviewed HPI Narrative: Patient is a 64 year old male medically admitted with abdominal pain and alcohol withdrawal Seen by renewable energy technician and expressed interest in restarting naltrexone Chart reviewed and patient seen in room 454. He is awake, alert, minimally engaged in interview He reports that he has taken naltrexone in the past and found it helpful He is requesting to restart it during this admission. Denies any questions about medication Denies any sx of withdrawal Appearing overall comfortable Discussed referral for ongoing treatment following discharge, and he reports that his PCP would continue to prescribe medication labs reviewed LFTs elevated --due to alcohol use benefit of naltrexone for alcohol reduction or cessation outweighs risk Review of Systems Constitutional: Reports as per HPI and Reports no additional constitutional complaints Diagnostics Vital Signs (24Hr): Vital Signs - 24 hr 09/24/24 15:32 09/24/24 19:43 09/24/24 22:54 Temperature 96.8 F 98.5 F 98.6 F Pulse Rate 88 83 87 Respiratory Rate 16 16 18 Blood Pressure 110/68 122/68 127/70 Pulse Oximetry 93 98 94 Oxygen Delivery Method Room Air Room Air Room Air 09/25/24 02:57 09/25/24 08:00 Temperature 97.4 F 98.4 F Pulse Rate 83 89 Respiratory Rate 18 18 Blood Pressure 135/66 118/78 Pulse Oximetry 92 91 L Oxygen Delivery Method Room Air Room Air BMI result Body Mass Index 22.6 Labs 09/25/24 06:57 09/25/24 06:57 Labs: Laboratory Results - last 48 hr 09/23/24 09/23/24 09/24/24 15:19 21:08 07:01 WBC 7.4 6.8 RBC 4.34 L 3.71 L Hgb 13.2 L 11.2 L Hct 37.4 L 33.1 L MCV 86.2 89.2 MCH 30.4 30.2 MCHC 35.3 33.8 RDW 14.6 14.8 Plt Count 296 D 295 MPV 9.6 10.5 Immature Gran % (Auto) 0.5 H 0.4 Neut % (Auto) 55.6 46.5 Lymph % (Auto) 28.1 35.8 [place] % (Auto) 12.2 H 12.3 H Eos % (Auto) 2.7 3.8 Baso % (Auto) 0.9 1.2 Lymph # (Auto) 2.1 2.4 [place] # (Auto) 0.9 0.8 Eos # (Auto) 0.2 0.3 Baso # (Auto) 0.1 0.1 Abs Immat Gran (auto) 0.04 H 0.03 Absolute Neuts (auto) 4.1 3.2 Absolute Nucleated RBC 0.000 0.000 Nucleated RBC % (auto) 0.0 0.0 Sodium 132 L 138 Potassium 3.4 D 3.7 Chloride 95 L 101 Carbon Dioxide 26 25 Anion Gap 14 16 BUN 13 10 Creatinine 0.67 0.64 Estim Creat Clear Calc 110.2 114.2 Estimated GFR > 60 > 60 Random Glucose 157 H 90 Fasting Glucose Estimat Average Glucose 137 Hemoglobin A1c % 6.4 H Lactic Acid 0.8 Calcium 8.6 D 7.9 L D Phosphorus Magnesium 1.4 L* 1.8 Total Bilirubin 0.8 0.8 AST 125 H 118 H ALT 50 H 49 H Alkaline Phosphatase 239 H 193 H Total Creatine Kinase 15 L Troponin I High Sens < 2.7 Total Protein 6.4 L 5.4 L Albumin 3.1 L 2.6 L Triglycerides 392 H Cholesterol 285 H LDL Cholesterol, Calc 176 H HDL Cholesterol 31 L Lipase 12 TSH 1.79 Free T4 1.01 Urine Color Urine Appearance Urine pH Ur Specific [place] Urine Protein Urine Glucose (UA) Urine Ketones Urine Blood Urine Nitrite Ur Leukocyte Esterase Urine RBC Urine WBC Ur Squamous Epith Cells Urine Bacteria Hyaline Casts Ethyl Alcohol < 10 09/24/24 09/25/24 13:03 06:57 WBC 6.1 RBC 3.72 L Hgb 11.2 L Hct 32.4 L MCV 87.1 MCH 30.1 MCHC 34.6 RDW 14.6 Plt Count 326 MPV 9.8 Immature Gran % (Auto) 0.5 H Neut % (Auto) 49.9 Lymph % (Auto) 33.2 [place] % (Auto) 12.1 H Eos % (Auto) 3.6 Baso % (Auto) 0.7 Lymph # (Auto) 2.0 [place] # (Auto) 0.7 Eos # (Auto) 0.2 Baso # (Auto) 0.0 Abs Immat Gran (auto) 0.03 Absolute Neuts (auto) 3.1 Absolute Nucleated RBC 0.000 Nucleated RBC % (auto) 0.0 Sodium 138 Potassium 3.8 Chloride 100 Carbon Dioxide 28 Anion Gap 14 BUN 8 L Creatinine 0.62 Estim Creat Clear Calc 117.9 Estimated GFR > 60 Random Glucose Fasting Glucose 93 Estimat Average Glucose Hemoglobin A1c % Lactic Acid Calcium 8.4 D Phosphorus 3.4 Magnesium 1.8 Total Bilirubin 0.6 AST 126 H ALT 61 H Alkaline Phosphatase 197 H Total Creatine Kinase Troponin I High Sens Total Protein 5.8 L Albumin 2.8 L Triglycerides Cholesterol LDL Cholesterol, Calc HDL Cholesterol Lipase TSH Free T4 Urine Color Dark Yellow Urine Appearance Clear Urine pH 5.5 Ur Specific [place] >= 1.030 H Urine Protein Negative Urine Glucose (UA) Negative Urine Ketones 15 Urine Blood Negative Urine Nitrite Negative Ur Leukocyte Esterase Trace H Urine RBC 0-2 Urine WBC 0-5 Ur Squamous Epith Cells 0-2 Urine Bacteria None Seen Hyaline Casts 0-2 Ethyl Alcohol Mental Status Exam Mental Status Exam Level of Consciousness: Awake, Appropriate and Alert Patient Behavior: Appropriate and Guarded Affect Description: Blunted Speech Pattern: Clear Medications Medications Current Medications Acetaminophen (Acetaminophen 325 Mg Tablet) 650 mg PO Q6H PRN PRN Reason: Pain, Mild 1-3,fever,headache Albuterol/Ipratropium (Albuterol/Iprat 2.5/0.5mg 3 Ml Ampul.Neb) 3 ml INHALE Q4H PRN PRN Reason: Wheezing Calcium Carbonate (Calcium Carbonate 750 Mg Tab.Chew) 750 mg PO Q4H PRN PRN Reason: Heartburn Folic Acid (Folic Acid 1 Mg Tablet) 1 mg PO DAILY [facility] Last Admin: 09/25/24 09:20 Dose: 1 mg Hydromorphone HCl (Hydromorphone Hcl 0.5 Mg/0.5 Ml Syringe) 0.5 mg IVPUSH Q3H PRN; Protocol PRN Reason: Pain, Severe (Pain Scale 7-10) Lorazepam (Lorazepam 1 Mg Tablet) 1 mg PO Q4H PRN PRN Reason: Breakthrough alcohol withdrawa Stop: 09/27/24 19:45 Last Admin: 09/25/24 04:10 Dose: 1 mg Magnesium Hydroxide (Milk Of Magnesia 30 Ml Oral.Susp) 30 ml PO DAILY PRN PRN Reason: Constipation Magnesium Oxide (Magnesium Oxide 400 Mg Tablet) 400 mg PO DAILY [facility] Last Admin: 09/25/24 09:20 Dose: 400 mg Melatonin (Melatonin 3 Mg Tablet) 6 mg PO BEDTIME PRN PRN Reason: Insomnia Naltrexone HCl (Naltrexone Hcl 50 Mg Tablet) 50 mg PO DAILY [facility] Ondansetron HCl (Ondansetron Hcl 4 Mg/2 Ml Vial) 4 mg IVPUSH Q8H PRN PRN Reason: Nausea and Vomiting Pantoprazole Sodium (Pantoprazole Sodium 40 Mg/10 Ml Vial) 40 mg IVPUSH DAILY@0630 [facility] Last Admin: 09/25/24 04:10 Dose: 40 mg Polyethylene Glycol (Polyethylene Glycol 3350 17 Gm Powd.Pack) 17 gm PO DAILY PRN PRN Reason: Constipation Senna (Sennosides 8.6 Mg Tablet) 17.2 mg PO BEDTIME [facility] Last Admin: 09/24/24 19:33 Dose: Not Given Sodium Chloride (0.9 % Sodium Chloride Flush 3 Ml Syringe) 3 ml IVFLUSH QSHIFT [facility] Last Admin: 09/25/24 09:20 Dose: 3 ml Thiamine HCl (Thiamine Hcl 100 Mg Tablet) 100 mg PO DAILY [facility] Last Admin: 09/25/24 09:20 Dose: 100 mg Allergies Allergies Allergy/AdvReac Type Severity Reaction Status Date / Time diclofenac [From Flector] Allergy Unknown Verified 09/23/24 15:11 Assessment & Plan Assessment & Plan (1) Alcohol use disorder: Status: Acute Code(s): F10.90 - Alcohol use, unspecified, uncomplicated Assessment and Plan: * naltrexone 50mg QD--will need script sent to pharmacy at discharge * Discussed referral to provider for ongoing AUD treatment, patient declined stating that his PCP will prescribe medication outpatient Total time managing care of this patient today __15__ minutes. [facility] Past Medical History Medical History (Updated 09/24/24 @ 11:37 by Hayley Olivares PA-C) Abnormal abdominal CT scan Atherosclerosis of abdominal aorta Chronic lung disease Alcohol use disorder Depression Compression fracture of L1 lumbar vertebra Surgical History Surgical History History of colon resection Social History Social History Household Members: Family Housing: House Do you presently have visiting nurse or other home services: No Alcohol intake: current Alcohol intake frequency: 3 or more drinks per day Alcohol type: hard liquor Comment: 1:1 sitter Patient Tobacco Use Status: Current everyday Tobacco user Tobacco use type: Cigarette Cigarette Packs Per Day: 1 Cigarettes Per Day: 20.0 service: No
[2024-09-25 11:58] VITALS: BP 117/75; PULSE 100; RESP 20; TEMP 36.2; O2SAT 96
--- NOTE | 2024-09-25 14:55 | P.PNIM_ITS ---
Subjective Subjective Date of Service: 09/25/24 Interval History: Slowly improving. Tolerating more of a diet. No overt signs of withdrawal Review of Systems Denies chest pain Denies shortness of breath Denies nausea vomiting diarrhea Denies fever chills Physical Exam 2 Vital Signs: Vital Signs: Last Vital Signs Temp 97.1 F 09/25/24 11:58 Pulse 100 09/25/24 11:58 Resp 20 09/25/24 11:58 BP 117/75 09/25/24 11:58 Pulse Ox 96 09/25/24 11:58 O2 Del Method Room Air 09/25/24 11:58 BMI result Body Mass Index 22.6 Const: Other: Awake alert no acute distress Resp: Other: Clear to auscultation bilaterally no rales rhonchi or wheezes Cardio: Other: No S4; positive S1-S2; no S3 murmurs rubs or gallops GI: Other: Soft nontender nondistended normoactive bowel sounds Extrem: Other: No edema bilaterally Objective Data Active Medications Acetaminophen (Acetaminophen 325 Mg Tablet) 650 mg PO Q6H PRN PRN Reason: Pain, Mild 1-3,fever,headache Albuterol/Ipratropium (Albuterol/Iprat 2.5/0.5mg 3 Ml Ampul.Neb) 3 ml INHALE Q4H PRN PRN Reason: Wheezing Calcium Carbonate (Calcium Carbonate 750 Mg Tab.Chew) 750 mg PO Q4H PRN PRN Reason: Heartburn Duloxetine HCl (Duloxetine Hcl 30 Mg Capsule.Dr) 30 mg PO DAILY [facility] Folic Acid (Folic Acid 1 Mg Tablet) 1 mg PO DAILY [facility] Last Admin: 09/25/24 09:20 Dose: 1 mg Documented By: BRAYAN Lorazepam (Lorazepam 1 Mg Tablet) 1 mg PO Q4H PRN PRN Reason: Breakthrough alcohol withdrawa Stop: 09/27/24 19:45 Last Admin: 09/25/24 04:10 Dose: 1 mg Documented By: GENOVEVA Magnesium Hydroxide (Milk Of Magnesia 30 Ml Oral.Susp) 30 ml PO DAILY PRN PRN Reason: Constipation Magnesium Oxide (Magnesium Oxide 400 Mg Tablet) 400 mg PO DAILY [facility] Last Admin: 09/25/24 09:20 Dose: 400 mg Documented By: BRAYAN Melatonin (Melatonin 3 Mg Tablet) 6 mg PO BEDTIME PRN PRN Reason: Insomnia Naltrexone HCl (Naltrexone Hcl 50 Mg Tablet) 50 mg PO DAILY [facility] Ondansetron HCl (Ondansetron Hcl 4 Mg/2 Ml Vial) 4 mg IVPUSH Q8H PRN PRN Reason: Nausea and Vomiting Pantoprazole Sodium (Pantoprazole Sodium 40 Mg/10 Ml Vial) 40 mg IVPUSH DAILY@0630 [facility] Last Admin: 09/25/24 04:10 Dose: 40 mg Documented By: GENOVEVA Polyethylene Glycol (Polyethylene Glycol 3350 17 Gm Powd.Pack) 17 gm PO DAILY PRN PRN Reason: Constipation Senna (Sennosides 8.6 Mg Tablet) 17.2 mg PO BEDTIME [facility] Last Admin: 09/24/24 19:33 Dose: Not Given Documented By: GENOVEVA Non-Admin Reason: Patient Refused Sodium Chloride (0.9 % Sodium Chloride Flush 3 Ml Syringe) 3 ml IVFLUSH QSHIFT [facility] Last Admin: 09/25/24 09:20 Dose: 3 ml Documented By: BRAYAN Thiamine HCl (Thiamine Hcl 100 Mg Tablet) 100 mg PO DAILY [facility] Last Admin: 09/25/24 09:20 Dose: 100 mg Documented By: BRAYAN Labs 09/25/24 06:57 09/25/24 06:57 Labs: Laboratory Results - last 24 hr 09/24/24 09/25/24 13:03 06:57 MCV 87.1 MCH 30.1 MCHC 34.6 RDW 14.6 Plt Count 326 MPV 9.8 Immature Gran % (Auto) 0.5 H Neut % (Auto) 49.9 Lymph % (Auto) 33.2 [place] % (Auto) 12.1 H Eos % (Auto) 3.6 Baso % (Auto) 0.7 Lymph # (Auto) 2.0 [place] # (Auto) 0.7 Eos # (Auto) 0.2 Baso # (Auto) 0.0 Abs Immat Gran (auto) 0.03 Absolute Neuts (auto) 3.1 Absolute Nucleated RBC 0.000 Nucleated RBC % (auto) 0.0 Anion Gap 14 Estim Creat Clear Calc 117.9 Estimated GFR > 60 Fasting Glucose 93 Calcium 8.4 D Phosphorus 3.4 Magnesium 1.8 Total Bilirubin 0.6 AST 126 H ALT 61 H Alkaline Phosphatase 197 H Total Protein 5.8 L Albumin 2.8 L Urine Color Dark Yellow Urine Appearance Clear Urine pH 5.5 Ur Specific [place] >= 1.030 H Urine Protein Negative Urine Glucose (UA) Negative Urine Ketones 15 Urine Blood Negative Urine Nitrite Negative Ur Leukocyte Esterase Trace H Urine RBC 0-2 Urine WBC 0-5 Ur Squamous Epith Cells 0-2 Urine Bacteria None Seen Hyaline Casts 0-2 Assessment and Plan (1) Abdominal pain: Status: Acute Plan Patient is a 64-year-old male with past medical history of EtOH abuse, tobacco dependence, depression/anxiety with history of suicidal ideation, chronic lumbar back pain with a compression fracture of the L1, sigmoid resection secondary to diverticulitis, pancreatitis, possible seizure from transitioning from Paxil to Effexor approximately 2 years ago, COPD not on home oxygen, atherosclerotic disease involving the abdominal aorta and its major branches including the left iliac and right renal arteries is being admitted for further observation noting an abnormal CT of the abdomen and pelvis indicating acute on chronic appendicitis with noted ongoing abdominal aortic obstructions and stenosis involving the branching arteries. Patient has known alcohol dependence and last drink was 4 days prior. No acute withdrawal issues occurring but patient will be placed on CIWA and a one-to-one for mentioned of feeling suicidal without a plan. Vascular and Psychiatry have also been consulted. 1.Intractable abd pain -improved since admission -appreciate surgical input; no indication of acute appendicitis -follow clinically and treat as appropriate -advance diet as tolerated 2.ETOH abuse -CIWA scale as ordered; managed well -adjust as clinically indicated -agrees to naltrexone. Added by addiction Medicine -seen by psych; okay to DC sitter. Start duloxetine - 3.COPD/ emphysema/ nicotine dependence -stable and well compensated -continue outpatient therapies Lovenox Protonix Requires ongoing hospitalization for alcohol withdrawal treatment on CIWA protocol Quality Stroke Does the patient have a stroke diagnosis?: No Reason for No Anti-thrombotic by Day Two: N/A - Med Ordered VTE Prior VTE?: No VTE Risk Level:: Medical - moderate - high VTE Device Contraindication: N/A - Device Ordered VTE Drug Contraindication: N/A - Med Ordered
[2024-09-25] MEDS: DULoxetine HCl 30 MG CAPSULE.DR PO (15:09)
[2024-09-25 15:44] VITALS: BP 112/73; PULSE 92; RESP 18; TEMP 36.4; O2SAT 95
[2024-09-25 20:02] VITALS: BP 129/76; PULSE 83; RESP 18; TEMP 36.1; O2SAT 97
[2024-09-25 23:50] VITALS: BP 125/61; PULSE 85; RESP 18; TEMP 36.5; O2SAT 95
[2024-09-26 03:21] VITALS: BP 140/85; PULSE 82; RESP 18; TEMP 36.4; O2SAT 96
[2024-09-26] MEDS: Pantoprazole Sodium 40 MG/10 ML VIAL IVPUSH (06:12)
[2024-09-26] MEDS: 0.9 % Sodium Chloride Flush 3 ML SYRINGE IVFLUSH ×2 (06:12→09:26)
[2024-09-26 07:15] VITALS: BP 105/57; PULSE 92; RESP 20; TEMP 36.2; O2SAT 93
[2024-09-26] MEDS: Magnesium Oxide 400 MG TABLET PO (09:26)
[2024-09-26] MEDS: DULoxetine HCl 30 MG CAPSULE.DR PO (09:26)
[2024-09-26] MEDS: Folic Acid 1 MG TABLET PO (09:26)
[2024-09-26] MEDS: Naltrexone HCl 50 MG TABLET PO (09:26)
[2024-09-26] MEDS: Thiamine HCL 100 MG TABLET PO (09:26)
--- NOTE | 2024-09-26 09:28 | P.PNVS_ITS ---
Subjective Subjective Date of Service: 09/26/24 Patient reports: no new complaints, feels better and tolerating a regular diet Interval history: 64-year-old gentleman who presented to the hospital earlier this week with abdominal pain presents for follow-up regarding aortoiliac disease. It appears to be doing relatively well. In terms of his abdominal pain it seems to be resolving he is tolerating a regular diet. This morning I actually observed him eating half a pancake. Although he denies loss of appetite he does not have any significant abdominal pain. In terms of his lower extremities he has excellent motor and sensation intact. No active ulcerations. And reports that he can walk a block with no significant difficulty. Physical Exam Vital Signs: Vital Signs: Last Vital Signs Temp 97.2 F 09/26/24 07:15 Pulse 92 09/26/24 07:15 Resp 20 09/26/24 07:15 BP 105/57 L 09/26/24 07:15 Pulse Ox 93 09/26/24 07:15 O2 Del Method Room Air 09/26/24 07:15 BMI result Body Mass Index 22.6 Const: General: cooperative, healthy appearing and comfortable Orientation/consciousness: oriented to person, oriented to place and oriented to time HEENT: Head: Yes normal to inspection Neck: Neck: Yes normal visual inspection Carotids: no bruits Chest: Chest palpation & inspection: normal inspection of the chest Resp: Effort & Inspection: normal respiratory effort and able to speak in complete sentences Auscultation: clear to auscultation bilaterally, no crackles, no rales, no rhonchi and no wheezes Cardio: Other: Bilateral DP signals Rate: regular rate Rhythm: regular rhythm Heart sounds: S1 normal heart sound present and S2 normal heart sound present Bruits: no carotid bruits GI: Inspection: Yes normal to inspection Skin: Wounds: no wounds Hair: normal Neuro: General: oriented to person, oriented to place and oriented to time Cranial nerves: Yes CN's II-XII intact bilaterally and Yes Normal hearing present Cognition (Neuro): normal cognition Motor exam (neuro): 5/5 motor strength present throughout Extrem: Other: venous exam: No significant superficial varicosities or spider telangiectasias, minimal edema General: No clubbing, No cyanosis and No edema Psych: Appearance: grossly normal Mental Status: mental status grossly normal Speech and movement: Normal speech and movement present Progress Note: A&P Assessment and plan (1) Aorto-iliac disease: Status: Acute Assessment and Plan: In short patient has known aortoiliac disease. This is clearly chronic in nature. He had actually seen [facility] vascular in the past and was lost to follow-up due to loss of insurance. I did request that he reestablished care there they have his original imaging and had potential intervention already planned. No acute vascular surgery issues. We will follow up on an as-needed basis. Thank you for allowing us to assist in his care. Time Spent With Patient Time: Total time managing care of this patient today ____ minutes. Procedures Date of Service Date of Service: 09/26/24 Quality Stroke Does the patient have a stroke diagnosis?: No Reason for No Anti-thrombotic by Day Two: N/A - Med Ordered VTE Prior VTE?: No VTE Risk Level:: Medical - moderate - high VTE Device Contraindication: N/A - Device Ordered VTE Drug Contraindication: N/A - Med Ordered
[2024-09-26 12:00] VITALS: BP 120/72; PULSE 87; RESP 20; TEMP 36.4; O2SAT 97
--- NOTE | 2024-09-26 13:41 | PM.DS ---
DS: Providers Provider Date of Service: 09/26/24 Date of admission: 09/23/24 19:17 Date of discharge: 09/26/24 Primary care physician: Harman Bacon MD Consults: 09/23/24 19:23 Consult to General Surgery Routine Consulting Provider: [facility] General Surgeons Reason for consultation: appendicitis chronic vs acute Has provider been notified: Yes Consult to Vascular Surgery Routine Consulting Provider: [facility] Vascular Services Reason for consultation: complete occulsion LCIA, stenosis of R ext iliac art Has provider been notified: No 09/23/24 19:46 Consult to Psychiatry Routine Consulting Provider: [facility] Psych Covering Reason for consultation: ETOH abuse, feeling severely depressed, financial issues at home Has provider been notified: No 09/23/24 19:47 Addiction Medicine Provider Routine Consulting Provider: Addiction Covering Reason for consultation: ETOH abuse, pt is wanting to stop but has not been able to 09/23/24 20:34 Consult for Sitter Routine Reason for consultation: SI 09/25/24 16:27 Inpt - Recovery Team Routine Comment: Reason for consultation: BONNIE eval DS: Diagnosis Discharge Diagnosis (1) Aorto-iliac disease: Status: Acute DS: Summary Hospital Course Hospital Course: Patient is a 64-year-old male with past medical history of EtOH abuse, tobacco dependence, depression/anxiety with history of suicidal ideation, chronic lumbar back pain with a compression fracture of the L1, sigmoid resection secondary to diverticulitis, pancreatitis, possible seizure from transitioning from Paxil to Effexor approximately 2 years ago, COPD not on home oxygen, atherosclerotic disease involving the abdominal aorta and its major branches including the left iliac and right renal arteries is being admitted for further observation noting an abnormal CT of the abdomen and pelvis indicating acute on chronic appendicitis with noted ongoing abdominal aortic obstructions and stenosis involving the branching arteries. Patient has known alcohol dependence and last drink was 4 days prior. No acute withdrawal issues occurring but patient will be placed on CIWA and a one-to-one for mentioned of feeling suicidal without a plan. Abnormal CT of the abdomen suggesting chronic appendicitis versus superimposed acute appendicitis/ atherosclerotic changes that are considered severe including occlusion of the left common iliac artery and stenosis of the right external iliac artery and right renal artery Hospital course Patient admitted to telemetry where monitor failed to demonstrate an acute dysrhythmia. He is maintained on CIWA scale however never required medication. He was seen in consultation by General surgery for what appeared to be a chronic appendicitis. Surgery felt no indication for surgery at this time. He also seen by vascular and no intervention was indicated and he can follow up with his vascular surgeons at [facility]. He was seen by addiction Medicine and offered naltrexone however after the 1st dose stated that it made him feel ?high?. He was given the phone number for the addiction Medicine outpatient Clinic and he will follow up with them. He was also seen by the care team for his suicidal ideation; he had no thoughts of self-harm or others as per care team. He was started on Cymbalta and will follow up with his PCP next available Time Attestation Discharge Coordination Time (in mins): 35 Quality: Safe Use of Opioids Does Pt have an Active Cancer Diagnosis on the Problem List?: No Quality: Stroke Does the patient have a stroke diagnosis?: No Physical Exam Vital Signs: Vital Signs: Last Vital Signs Temp 97.6 F 09/26/24 12:00 Pulse 87 09/26/24 12:00 Resp 20 09/26/24 12:00 BP 120/72 09/26/24 12:00 Pulse Ox 97 09/26/24 12:00 O2 Del Method Room Air 09/26/24 12:00 BMI result Body Mass Index 22.6 Const: Other: Awake alert no acute distress Resp: Other: Clear to auscultation bilaterally no rales rhonchi or wheezes Cardio: Other: No S4; positive S1-S2; no S3 murmurs rubs or gallops GI: Other: Soft nontender nondistended normoactive bowel sounds Extrem: Other: No edema bilaterally DS: Data Data Completed and Pending Completed studies during hospitalization [Text1]: Procedures Detoxification Services for Substance Abuse Treatment (07/25/24) Discharge Plan Discharge Anticipated Discharge Date/Time: 09/26/24 13:34 Patient Disposition: Home, Self-Care Discharge Diagnosis: Abdominal pain Referrals: Harman Bacon MD [Primary Care Provider] - 1 Week Discharge Medications: New duloxetine 30 mg Capsule,Delayed Release(Dr/Ec) 30 mg PO DAILY Qty: 30 0RF Continued trazodone 50 mg tablet 50 mg PO BEDTIME hydroxyzine HCl 50 mg tablet 50 mg PO TID PRN (Reason: anxiety) melatonin 3 mg tablet 3 mg PO BEDTIME omeprazole 20 mg capsule,delayed release(DR/EC) 20 mg PO DAILY@0630 albuterol sulfate [Ventolin HFA] 90 mcg/actuation HFA aerosol inhaler 2 puff INHALATION QID PRN (Reason: Shortness Of Breath Or Wheezing) cyclobenzaprine 5 mg tablet 5 mg PO TID PRN (Reason: Muscle Spasm) multivitamin with folic acid [Daily-Nik (with folic acid)] 400 mcg tablet 1 tab PO DAILY folic acid 1 mg Tablet 1 mg PO DAILY Qty: 90 0RF thiamine mononitrate (vit B1) 100 mg Tablet 100 mg PO DAILY Qty: 90 0RF Discharge Orders: Discharge Order (Routine); Ordered 09/26/24 Ordered By: Aquilino Gipson Diet: Advance to usual diet Activity on Discharge: As tolerated Stand Alone Forms: Patient Portal Discharge page Print Language: Syriac Care Plan Goals: Cymbalta has been added to your regimen. Continue all of the medicines as taken prior to hospitalization Health Concerns: You can call for an appointment at the addiction Medicine Clinic [phone] to discuss other options besides naltrexone Plan of Treatment: Follow up with the PCP next available Assessment: See discharge summary
--- NOTE | 2024-09-26 14:18 | MHC.CM.PN ---
Pt is medically cleared for discharge home self-care, pt has arranged his own transport home today.
[2024-09-26 15:16] VITALS: BP 135/87; PULSE 84; RESP 18; TEMP 36.5; O2SAT 95
--- NOTE | 2024-09-27 07:30 | P.CDIM_ITS ---
PROVIDER RESPONSE TEXT: To clarify, the appropriate diagnosis supported by the clinical indicators: Malnutrition is/was present and is a clinical diagnosis: mild QUERY TEXT: PHYSICIAN'S DOCUMENTATION REQUEST Date of Query: 09/25/2024 06:45 AM EDT Patient Name: Harvey Davison Admit Date: 09/23/2024 Dear Aquilino Gipson DO, A review of the medical record indicates additional documentation may be needed. Please review below and update the documentation accordingly Clinical indicators: H&P 09/23/24 - Patient with possible malnourishment with recent weight loss due to loss of appetite. Nutritional consult placed. Supplements ordered Clinical nutrition: Ensure TID to provide 1050 Kcals, 60 G protein. BMI 22.6 Albumin 2.6 Total protein 5.4 L To ensure the quality of the medical record, based on the above information and the recognized standa rd for (specify malnutrition severity), could you please verify which of the following diagnoses best reflects the pa tient's nutritional status. Malnutrition is/was present and is a clinical diagnosis mild, moderate, severe No nutritional deficiency Other (explain) Clinically unable to determine (explain) Thank you, Lidia Palacios, CCS, CDIS Use of terms such as suspected, likely, concern for, or probable (associated with a specific diagnosi s that is being evaluated, monitored, or treated as if it exists) are acceptable and can be coded in the inpatient se tting, when documented at the time of discharge. Please use your independent medical judgment in providing your response. THIS QUERY IS PART OF THE PERMANENT MEDICAL RECORD
== END 2024-09-26 15:32 | disposition home or self-care (01) | DRG 254 ==
LOC: HO.ED 16:10 → HO.EDOVER 19:34 → HO.IMC 09-24 00:55
PROVIDERS: Admitting Provider Nurse Practitioner Family; Emergency Provider Emergency Medicine Emergency Medical Services; PCP Internal Medicine; Visit Provider Hospitalist
DX: K36 Other appendicitis (principal); E44.1 Mild protein-calorie malnutrition; F17.210 Nicotine dependence, cigarettes, uncomplicated; F19.10 Other psychoactive substance abuse, uncomplicated; J43.9 Emphysema, unspecified; I70.0 Atherosclerosis of aorta; I70.202 Unspecified atherosclerosis of native arteries of extremities, left leg; Z68.22 Body mass index [BMI] 22.0-22.9, adult; Z71.6 Tobacco abuse counseling; Z79.899 Other long term (current) drug therapy
CPT/HCPCS: 36415; 74177; 80053; 80061; 80307; 81001; 82550; 83036; 83605; 83690; 83735; 84100; 84439; 84443; 84484; 85025; 93005; 99285; J2405; J2470; J3475; Q9967; S9485

== ENCOUNTER → 2024-09-23 15:16 | Outpatient (BNV) | payer OTHER, SELFPAY | PROVIDERS: Admitting Provider Nurse Practitioner Family; Emergency Provider Emergency Medicine Emergency Medical Services; PCP Internal Medicine; Visit Provider Internal Medicine Cardiovascular Disease | DX: R00.0 Tachycardia, unspecified (principal) | CPT/HCPCS: 93010 ==

== ENCOUNTER → 2024-09-23 16:26 | Outpatient (BNV) | payer OTHER, SELFPAY | PROVIDERS: Emergency Provider Emergency Medicine Emergency Medical Services; PCP Internal Medicine; Visit Provider Radiology Diagnostic Radiology | DX: R16.0 Hepatomegaly, not elsewhere classified (principal); K36 Other appendicitis | CPT/HCPCS: 74177 ==

== ENCOUNTER → 2024-09-23 19:17 | Outpatient (BNV) | payer OTHER, SELFPAY | PROVIDERS: Admitting Provider Nurse Practitioner Family; Emergency Provider Emergency Medicine Emergency Medical Services; PCP Internal Medicine; Visit Provider Nurse Practitioner Family | DX: R10.9 Unspecified abdominal pain (principal); F10.930 Alcohol use, unspecified with withdrawal, uncomplicated | CPT/HCPCS: 99223 ==

== ENCOUNTER → 2024-09-23 19:17 | Outpatient (BNV) | payer OTHER, SELFPAY | PROVIDERS: Admitting Provider Nurse Practitioner Family; Emergency Provider Emergency Medicine Emergency Medical Services; PCP Internal Medicine; Visit Provider Nurse Practitioner Psychiatric/Mental Health | DX: F10.90 Alcohol use, unspecified, uncomplicated (principal) | CPT/HCPCS: 99221 ==

== ENCOUNTER → 2024-09-23 19:17 | Outpatient (BNV) | payer OTHER, SELFPAY | PROVIDERS: Admitting Provider Nurse Practitioner Family; Emergency Provider Emergency Medicine Emergency Medical Services; PCP Internal Medicine; Visit Provider Physician Assistant Surgical | DX: I77.9 Disorder of arteries and arterioles, unspecified (principal) | CPT/HCPCS: 99222 ==

== ENCOUNTER → 2024-09-23 19:17 | Outpatient (BNV) | payer OTHER, SELFPAY | PROVIDERS: Admitting Provider Nurse Practitioner Family; Emergency Provider Emergency Medicine Emergency Medical Services; PCP Internal Medicine; Visit Provider Surgery | DX: R10.9 Unspecified abdominal pain (principal) | CPT/HCPCS: 99232 ==

== ENCOUNTER 2024-10-28 11:28 | Emergency (ER) | payer OTHER, SELFPAY ==
[2024-10-28] VITALS (7 sets, daily range): BP systolic 57–141; BP diastolic 35–75; PULSE 77–110; RESP 16–18; TEMP 36.2–36.7; O2SAT 98–100; BMI 25.1
--- NOTE | 2024-10-28 | ECG_ITS ---
Test Reason : PRE SYNCOPE Blood Pressure : */* mmHG Vent. Rate : 105 BPM Atrial Rate : 105 BPM P-R Int : 140 ms QRS Dur : 80 ms QT Int : 352 ms P-R-T Axes : 62 64 57 degrees QTcB Int : 465 ms Sinus tachycardia Otherwise normal ECG When compared with ECG of 23-Sep-2024 15:24, T wave inversion no longer evident in Anterior leads Referred By: Generic ED Physician Electronically Signed By: JENNI MERCHANT
--- NOTE | ~2024-10-28 | XR_ITS ---
EXAMINATION: XR CHEST CLINICAL INFORMATION: Syncope, hypotension COMPARISON: July 24, 2024 and 09/12/2024 TECHNIQUE: AP upright view of the chest was obtained. FINDINGS: Lungs are clear and well expanded. Peaked appearance of the left ventricle is related to prominent pericardial fat. Heart size is normal. Lungs are clear. Vascular calcification is present in the aortic knob. There is chronic blunting of the left costophrenic angle. XR/XR chest 1V IMPRESSION: Blunting of the left hemidiaphragm could be related to pleural effusion or chronic scarring. Electronically signed by: Niko Gage MD 10/28/2024 02:00 PM EDT
[2024-10-28 12:40] LABS: MANUAL DIFF FLAG NO
[2024-10-28 12:47] LABS: Glucose, Whole Blood 150 mg/dL (60-115)
--- NOTE | 2024-10-28 12:48 | ED_ITS ---
HPI - Syncope General Chief Complaint: Syncope Stated Complaint: DIZZY W/SYNCOPE DURING LABS,WEAK,PER EMS Time Seen by Provider: 10/28/24 12:43 Source: patient Mode of arrival: ambulatory Limitations: no limitations History of Present Illness ED Provider: Dr. Christophe Vegas HPI narrative: 64-year-old male with past medical history of EtOH abuse, tobacco dependence, depression/anxiety with history of suicidal ideation, chronic lumbar back pain with a compression fracture of the L1, sigmoid resection secondary to diverticulitis, pancreatitis, possible seizure from transitioning from Paxil to Effexor approximately 2 years ago, COPD not on home oxygen, atherosclerotic disease involving the abdominal aorta and its major branches including the left iliac and right renal arteries who had follow-up blood work done at his doctor's office and had a syncopal episode and was then transferred here to the emergency department by ambulance. The ED nurse toñito the patient's blood and he had a another syncopal episode. The patient's systolic blood pressure dropped to 57. IV was established and the patient was given normal saline IV x1 L with improvement of his blood pressure. the patient states that since his recent hospitalization he has not had any further abdominal pain. He denied fever, chills, chest pain or shortness of breath. Related Data Home Medications ?Medication ?Instructions ?Recorded ?Confirmed albuterol sulfate 90 mcg/actuation 2 puff inhalation QID PRN 09/23/24 09/23/24 aerosol inhaler (Ventolin HFA) Shortness Of Breath Or Wheezing cyclobenzaprine 5 mg tablet 5 mg PO TID PRN Muscle Spasm 09/23/24 09/23/24 hydroxyzine HCl 50 mg tablet 50 mg PO TID PRN anxiety 09/23/24 09/23/24 melatonin 3 mg tablet 3 mg PO BEDTIME 09/23/24 09/23/24 multivitamin with folic acid 400 1 tab PO DAILY 09/23/24 09/23/24 mcg tablet (Daily-Nik (with folic acid)) omeprazole 20 mg capsule,delayed 20 mg PO DAILY@0630 09/23/24 09/23/24 release trazodone 50 mg tablet 50 mg PO BEDTIME 09/23/24 09/23/24 Previous Rx's ?Medication ?Instructions ?Recorded folic acid 1 mg tablet 1 mg PO DAILY #90 tabs 07/27/24 thiamine mononitrate (vit B1) 100 100 mg PO DAILY #90 tabs 07/27/24 mg tablet duloxetine 30 mg capsule,delayed 30 mg PO DAILY #30 caps 09/26/24 release Allergies Allergy/AdvReac Type Severity Reaction Status Date / Time diclofenac [From Flector] Allergy Unknown Verified 10/28/24 11:58 Review of Systems 2 Review of Systems: Yes all other systems are reviewed and are negative [facility] Past Medical History Medical History (Updated 10/28/24 @ 16:46 by Christophe Vegas MD) Aorto-iliac disease Chronic appendicitis Abnormal abdominal CT scan Atherosclerosis of abdominal aorta Chronic lung disease Alcohol use disorder Depression Compression fracture of L1 lumbar vertebra Surgical History History of colon resection Social History Social History Household Members: Family Housing: House Do you presently have visiting nurse or other home services: No Alcohol intake: current Alcohol intake frequency: 3 or more drinks per day Alcohol type: hard liquor Comment: 1:1 sitter Patient Tobacco Use Status: Current everyday Tobacco user Tobacco use type: Cigarette Cigarette Packs Per Day: 1 Cigarettes Per Day: 20.0 Smoked in Last 30 Days: Yes Use of substances other than those prescribed or required for medical reasons: No Advance Directives: Yes Advance Directives on File: Yes Advance Directives Date on File: 09/29/24 service: No Physical Exam 2 Vital Signs: Vital Signs: Last Vital Signs Temp 97.2 F 10/28/24 11:55 Pulse 84 10/28/24 13:25 Resp 16 10/28/24 13:25 BP 141/75 H 10/28/24 13:25 Pulse Ox 100 10/28/24 13:25 O2 Del Method Room Air 10/28/24 13:25 BMI result Body Mass Index 25.1 Initial vital signs reveal tachycardia with a pulse of 107 in a when can blood pressure of 99/58 , otherwise unremarkable Exam: General:Patient was awake, answering questions appropriately, diaphoretic, pale Head: Normocephalic, atraumatic EENT: PERRL, Lids normal, sclera normal, conjunctiva normal, nose normal , ears normal, throat without erythema or exudates Neck: Supple, no adenopathy Lung: breath sounds symmetric, no wheezing, rales or rhonchi Chest: symmetric movement, nontender Heart: regular rate and rhythm, normal S1, S2 no murmurs or rubs Abdomen: soft, non-tender, nondistended, normal bowel sounds Back: no vertebral tenderness, no CVAT Extremities: no deformities, moves all extremities symmetrically Neuro: Awake, alert, oriented, normal speech, cranial nerves intact, moves all extremities symmetrically Psych: Pleasant, cooperative Medications Administered Discontinued Medications Generic Name Dose Route Start Last Admin Trade Name Freq PRN Reason Stop Dose Admin Sodium Chloride 1,000 mls @ 999 mls/hr 10/28/24 12:50 10/28/24 13:26 Ns IV 10/28/24 13:50 Infused .Q1H1M STA Infusion Medical Decision Making Medical Decision Making MDM Narrative: 64-year-old male with past medical history of EtOH abuse, tobacco dependence, depression/anxiety with history of suicidal ideation, chronic lumbar back pain with a compression fracture of the L1, sigmoid resection secondary to diverticulitis, pancreatitis, possible seizure from transitioning from Paxil to Effexor approximately 2 years ago, COPD not on home oxygen, atherosclerotic disease involving the abdominal aorta and its major branches including the left iliac and right renal arteries who had follow-up blood work done at his doctor's office and had a syncopal episode and was then transferred here to the emergency department by ambulance. The ED nurse toñito the patient's blood and he had a another syncopal episode. The patient's systolic blood pressure dropped to 57. IV was established and the patient was given normal saline IV x1 L with improvement of his blood pressure. the patient states that since his recent hospitalization he has not had any further abdominal pain. He denied fever, chills, chest pain or shortness of breath.Initial exam revealed that he was tachycardic with a low blood pressure, diaphoretic but awake and alert answering questions appropriately. Exam was otherwise unremarkable. Differential diagnosis: Includes but is not limited to Myocardial infarction, myocardial ischemia, arrhythmia, vasovagal syncope, anemia, electrolyte abnormalities, hypoglycemia Course: 16:28 my independent interpretation patient's laboratory evaluation as follows: Chronic normocytic anemia with an H&H of 13 and 39.7 with a normal MCV of 88. Elevated white blood count 65518. Elevated platelet count of 493. Glucose elevated 155 otherwise CMP was normal. Troponin was below detectable limits. Patient's 12 EKG was consistent with a sinus tachycardia otherwise unremarkable. The patient was given normal saline IV x1 L with improvement of his blood pressure. Patient is awake and alert and has no complaints. At this time I suspect that the patient's syncopal episode was triggered by vasovagal event from the blood draw and he may have also been volume depleted and dehydrated. I did discuss this with the patient. The patient was given printed and verbal instructions and discharged home Admission/Observation Consideration of admission/observation: Escalation of care including admission/observation considered ( yes) Lab Data MDM Lab Attestation statement: I reviewed the patient's lab results. 10/28/24 12:36 10/28/24 12:36 Labs: Lab Results 10/28/24 10/28/24 Range/Units 12:36 12:42 WBC 11.6 H (4.8-10.8) X10*3/uL RBC 4.41 L (4.60-5.80) X10*6/uL Hgb 13.1 L (14.0-18.0) g/dl Hct 39.2 L D (42.0-52.0) % MCV 88.9 (80.0-98.0) fL MCH 29.7 (27.0-33.0) pg MCHC 33.4 (31.0-36.0) g/dl RDW 15.3 (11.0-16.0) % Plt Count 493 H D (160-400) X10*3/uL MPV 8.6 L (9.4-12.4) fL Immature Gran % (Auto) 0.3 (0.0-0.4) % Neut % (Auto) 80.5 H (45-73) % Lymph % (Auto) 11.5 L (20-40) % Henderson % (Auto) 6.2 (2-11) % Eos % (Auto) 0.9 (0-4) % Baso % (Auto) 0.6 (0-2) % Lymph # (Auto) 1.3 (1.2-4.9) X10*3/uL Henderson # (Auto) 0.7 (0.1-1.2) X10*3/uL Eos # (Auto) 0.1 (0.0-0.4) X10*3/uL Baso # (Auto) 0.1 (0.0-0.2) X10*3/uL Abs Immat Gran (auto) 0.03 (0.00-0.03) X10*3/uL Absolute Neuts (auto) 9.4 H (2.0-8.3) x10*3/uL Absolute Nucleated RBC 0.000 (0.0-0.012) X10*3/uL Nucleated RBC % (auto) 0.0 (0.0-0.2) /100WBC Sodium 136 (135-145) mmol/L Potassium 4.6 D (3.3-5.1) mmol/L Chloride 101 (96-108) mmol/L Carbon Dioxide 27 (22-29) mmol/L Anion Gap 13 (12-20) BUN 8 L (9-16) mg/dL Creatinine 0.61 (0.5-1.4) mg/dL Estim Creat Clear Calc 110.4 Estimated GFR > 60 POC Glucose 150 H (60-115) mg/dL Random Glucose 155 H (60-115) mg/dL Calcium 9.6 D (8.4-10.2) mg/dL Total Bilirubin 0.3 (0.0-1.0) mg/dL AST 31 (5-37) U/L ALT 24 (0-40) U/L Alkaline Phosphatase 89 (39-117) U/L Troponin I High Sens < 2.7 (<3.5-35.0) ng/L B-Natriuretic Peptide 26 (<100) pg/mL Total Protein 6.9 (6.5-8.0) g/dL Albumin 3.8 (3.5-5.0) g/dL Independent Interpretation I performed an independent interpretation of an: EKG Interpretation: my independent interpretation the patient's 12 EKG 2 done on 10/28/2024 at 12:16 hours: Sinus tachycardia with a rate of 105, normal TN interval, QRS duration QTC interval, no ST segment elevation, no ST segment depression, inverted T- waves in V1 and V3 External Record Review External record reviewed: Inpatient record Chronic Conditions Patient?s care impacted by: Other ( Peripheral artery disease) Discharge Plan Discharge Clinical Impression: Vasovagal syncopes Patient Disposition: Home, Self-Care Instructions: Syncope (ED) Additional Instructions: your blood work was normal. You passed out because of the blood draw. This is called vasovagal syncope or fainting. Increase your fluid intake today. Follow-up with your doctor in 2 days. Please return to the emergency department if your symptoms get worse or if you develop any symptoms that are concerning to you. Prescriptions: No Action trazodone 50 mg tablet 50 mg PO BEDTIME hydroxyzine HCl 50 mg tablet 50 mg PO TID PRN (Reason: anxiety) melatonin 3 mg tablet 3 mg PO BEDTIME omeprazole 20 mg capsule,delayed release(DR/EC) 20 mg PO DAILY@0630 albuterol sulfate [Ventolin HFA] 90 mcg/actuation HFA aerosol inhaler 2 puff INHALATION QID PRN (Reason: Shortness Of Breath Or Wheezing) cyclobenzaprine 5 mg tablet 5 mg PO TID PRN (Reason: Muscle Spasm) multivitamin with folic acid [Daily-Nik (with folic acid)] 400 mcg tablet 1 tab PO DAILY duloxetine 30 mg Capsule,Delayed Release(Dr/Ec) 30 mg PO DAILY Qty: 30 0RF folic acid 1 mg Tablet 1 mg PO DAILY Qty: 90 0RF thiamine mononitrate (vit B1) 100 mg Tablet 100 mg PO DAILY Qty: 90 0RF Print Language: Ukrainian
[2024-10-28 12:49] LABS: Basophils Absolute Auto 0.1 X10*3/uL (0.0-0.2); Basophils Percent Auto 0.6 % (0-2); Eosinophils Absolute Auto 0.1 X10*3/uL (0.0-0.4); Eosinophils Percent Auto 0.9 % (0-4); Hematocrit 39.2 % (42.0-52.0); Hemoglobin 13.1 g/dl (14.0-18.0); Imm Gran Abs Auto 0.03 X10*3/uL (0.00-0.03); Imm Gran Pct Auto 0.3 % (0.0-0.4); Lymphocytes Absolute Auto 1.3 X10*3/uL (1.2-4.9); Lymphocytes Percent Auto 11.5 % (20-40); Mean Corpuscular HGB Conc 33.4 g/dl (31.0-36.0); Mean Corpuscular Hemoglobin 29.7 pg (27.0-33.0); Mean Corpuscular Volume 88.9 fL (80.0-98.0); Mean Platelet Volume 8.6 fL (9.4-12.4); Monocytes Absolute Auto 0.7 X10*3/uL (0.1-1.2); Monocytes Percent Auto 6.2 % (2-11); Neutrophils Absolute Auto 9.4 x10*3/uL (2.0-8.3); Neutrophils Percent Auto 80.5 % (45-73); Platelet Count 493 X10*3/uL (160-400); Red Blood Count 4.41 X10*6/uL (4.60-5.80); Red Cell Distribution Width 15.3 % (11.0-16.0); White Blood Count 11.6 X10*3/uL (4.8-10.8)
[2024-10-28] MEDS: 0.9 % Sodium Chloride 1,000 ML 999 ML IV (12:54)
--- NOTE | 2024-10-28 12:58 | PC.NURSE ---
patient noted to be hypotensive after blood draw. patient diaphoretic, stated did not feel good, remained hypotensive on repeat bp patient poc 150. patient moved into room 6 for tele monitoring, IV placed in LFA #20, fluids running as bolus per MAR. patient feet elevated. patient on tele monitor, noted to be in normal sinus rhythm. cool wash cloth placed on patient forehead. bp now 122/66
[2024-10-28 13:16] LABS: Alanine Aminotransferase 24 U/L (0-40); Albumin Level 3.8 g/dL (3.5-5.0); Alkaline Phosphatase 89 U/L (39-117); Anion Gap 13 (12-20); Aspartate Amino Transferase 31 U/L (5-37); Bilirubin Total 0.3 mg/dL (0.0-1.0); Blood Urea Nitrogen 8 mg/dL (9-16); Calcium 9.6 mg/dL (8.4-10.2); Carbon Dioxide 27 mmol/L (22-29); Chloride 101 mmol/L (96-108); Creatinine Clr Calc Pharmacy 110.4; Estimated Glomerular Filt Rate > 60; Glucose Random 155 mg/dL (60-115); Potassium 4.6 mmol/L (3.3-5.1); Sodium 136 mmol/L (135-145); Total Protein 6.9 g/dL (6.5-8.0)
[2024-10-28 13:39] LABS: B Type Natriuretic Peptide 26 pg/mL (<100)
[2024-10-28 13:42] LABS: Troponin-I High Sensitivity < 2.7 ng/L (<3.5-35.0)
--- OUTSIDE RECORDS SUMMARY | 2024-10-28 16:10 | XMS_ITS | Clinical Summary ---
Author Organization [facility] [address] [place] [address] [address] [facility] [place] [address] Phone Care Team Providers Care Lead Furnace Operator Name Role Phone Harman Bacon MD Primary Care Provider Allergies No known active allergies Medications Breo Ellipta 100-25 mcg/dose inhaler Inhale 1 puff by mouth 1 (one) time each day. 1 each 3 10/28/19 25 Active DULoxetine (CYMBALTA) [address] capsule Take 1 capsule (30 mg total) by mouth 1 (one) time each day. Do not crush or chew. 90 capsule 1 10/28/19 25 Active albuterol HFA (PROAIR HFA ; PROVENTIL HFA ; VENTOLIN HFA) 90 mcg/actuation inhalerIndicati ons:Chronic obstructive pulmonary disease, unspecified COPD type (CMS/HCC V24, CMS/HCC V28) Inhale 2 puffs by mouth every 4 (four) hours if needed for wheezing. 6.7 g 3 10/28/19 25 Active aspirin 81 mg EC tablet Take 1 tablet (81 mg total) by mouth 1 (one) time each day. 90 each 1 10/28/19 25 Active atorvastatin (LIPITOR) 40 mg tablet Take 1 tablet (40 mg total) by mouth 1 (one) time each day. 90 tablet 1 10/28/19 25 Active tamsulosin (FLOMAX) 0.4 mg 24 hr capsule Take 1 capsule (0.4 mg total) by mouth 1 (one) time each day. Capsules should be taken 30 minutes following the same meal each day. 90 each 1 10/28/19 25 Active hydrOXYzine HCL (ATARAX) 50 mg tablet Take 1 Tablet by mouth 3 times daily as needed for Anxiety. 03/27/20 025 Discontinued DULoxetine (CYMBALTA) [address] capsule Take 1 Capsule by mouth daily. 03/27/20 025 Discontinued(Re order) atorvastatin (LIPITOR) 40 mg tablet Take 1 Tablet by mouth daily. 03/27/20 025 Discontinued(Re order) aspirin 81 mg EC tablet Take 1 Tablet by mouth daily. 03/27/20 025 Discontinued(Re order) albuterol HFA (PROAIR HFA ; PROVENTIL HFA ; VENTOLIN HFA) 90 mcg/actuation inhaler Inhale 2 Puffs into the lungs every 4 hours as needed for Cough or Wheezing. 03/27/20 025 Discontinued(Re order) fluticasone furoate-vilante roL (Breo Ellipta) 100-25 mcg/dose inhaler Inhale 1 Puff into the lungs daily. 03/27/20 025 Discontinued(Re order) Active Problems Problem Noted Date Diagnosed Date Alcohol abuse, episodic 12/11/2019 Compression fracture of L1 l umbar vertebra ([facility] V24, [facility] V28) 12/11/2019 Obstructive sleep apnea 11/22/2018 Overview (03/31/2024): moderate MARY 24 [facility] Home Sleep Apnea Test: Date 11/20/2018; Wt 179#; BMI 26; MARY 24, AI 1; HI 24; Unclassified apneas 0; Obstructive apneas 2; Central apneas 0; Mixed apneas 0; hypopneas 85; average oxygen saturation 91% (lowest 79% with saturations <88% for 5% or more of study); artifact questioned on oximetry. - Obstructive Sleep Apnea - moderate; mostly hypopneas; sleep related hypoventilation by 2018 home sleep apnea test. Artifact questioned on oximetry result. Ventricular hypokinesis 11/20/2018 Carotid stenosis, bilateral 11/12/2018 Overview (03/31/2024): 10/2018: Findings consistent with 0-49% ICA stenoses bilaterally, more advanced on the left than the right. Borderline diabetes mellitus 10/30/2018 Gout 11/26/2017 Calcific tendinitis 11/14/2017 Facet arthritis, degenerative, lumbar spine 10/27 Osteoarthritis of both shoulders 11/14/2017 Osteoarthritis of cervical spine 11/14/2017 COPD (chronic obstructive pu lmonary disease) ([facility] V24, [facility] V28) 09/04/2016 Overview (03/31/2024): 08/11/2016: PFT Moderate obstructive ventilatory defect with response to bronchodilator. FEV1: 57 Alcohol abuse 04/17/2016 Depression 04/17/2016 Diverticulitis 02/16/2011 Hyperlipidemia 02/16/2011 Depression with anxiety 06/24/2009 Atypical chest pain 10/02/2007 Overview (03/31/2024): Hospitalization at [facility] September 14, 2007, with negative stress test. He went 7 minutes on Dl protocol reaching 95% of maximum heart rate With no chest pain or EKG changes Panic attacks 10/02/2007 Encounters Date Type Department Care Team Description 10/27/2024 2:00 PM EDT Office Visit Adult Medicine [address] [phone] Harman Bacon MD Hospital discharge follow-up (Primary Dx); Chronic obstructive pulmonary disease, unspecified COPD type ([facility] V24, [facility] V28); Hyperlipidemia, unspecified hyperlipidemia type; Claudication of both lower extremities ([facility] V24); Bilateral carotid artery stenosis; Compression fracture of L1 vertebra, sequela; Screening for prostate cancer; Benign prostatic hyperplasia with lower urinary tract symptoms, symptom details unspecified; Need for vaccination against Streptococcus pneumoniae; Need for tetanus, diphtheria, and acellular pertussis (Tdap) vaccine; Peripheral vascular disease ([facility] V24) 09/09/2024 Telephone Lung Screening Program - [address] [place] [address] Sharita Conde [place] Appointment (1st notification) 08/18/2024 Telephone Adult Medicine [address] [phone] Radha Villagomez [place] Hospital Follow-up 08/13/2024 Telephone Adult [address] [phone] Harman Bacon MD Hospital Follow-up 08/05/2024 Telephone Adult [address] [phone] Harman Bacon MD Hospital Follow-up (Reschedule ) from Last 3 Months Immunizations Name Administration Dates Next Due Influenza Quadravalent, MDCK , 0.5ml, preservative free (Flucelvax) 6mo and older 03/06/2023 Influenza trivalent, 0.5mL, preservative free (Fluarix; FluLaval; Fluzone) ages 6mo and older (Afluria) 3 years and older 05/17/2020,07/27/2018,02/22/2016,03/11,02/24/2013,02/16/2011,04/28/2009 ,03/16/2008 Pneumococcal conjugate 20 va lent (Prevnar 20, PCV 20) 2mo and older 10/27/2024 Pneumococcal polysaccharide 23 valent (Pneumovax 23) 2yo and older 07/27/2018,07/03/2017 Tdap Tetanus diptheria acell ular pertussis (Boostrix; Adacel) 7yo and older 10/27/2024,10/29/2009 Surgical History Surgery Date Site/Laterality Comments COLONOSCOPY 07/22/2009 PROCEDURE: MD COLONOSCOPY STOMA DX INCLUDING COLLJ SPEC SPX Medical History Medical History Date Comments Atypical chest pain DX:Atypical chest pain Anxiety DX:Anxiety HTN (hypertension) DX:HTN (hyper tension) Family History Medical History Relation Name Comments Heart attack Brother 1 Angioplasty age 50 Heart attack Father age 71 Relation Name Status Comments Brother 1 Brother 2 Alive crohns, Father (Age 74) mi, htn Maternal Grandfather Maternal Grandmother Mother Alive Paternal Grandfather Paternal Grandmother Sister Alive Social History Tobacco Use Types Packs/Day Years Used Date Smoking Tobacco: Every Day Cigarettes 1.5 57.8 Started: 01/08/1967 Smokeless Tobacco: Never Tobacco Cessation:Ready to Q uit: Not Asked; Counseling Given: Not Answered Alcohol Use Standard Drinks/Week Comments No 0 (1 standard drink = 0.6 oz pur e alcohol) Sex and Gender Information Value Date Recorded Sex Assigned at Not on file Legal Sex Male 1:37 PM EST Gender Identity Not on file Sexual Orientation Not on file Obstetrics History Last Filed Vital Signs Vital Sign Reading Time Taken Comments Blood Pressure 134/88 10/27/2024 2:01 PM EDT Pulse 112 10/27/2024 2:01 PM EDT Temperature 36.6 ??C (97.9 ??F) 10/27/2024 2:01 PM ED T Respiratory Rate 16 10/27/2024 2:01 PM EDT Oxygen Saturation - - Inhaled Oxygen Concentration - - Weight 70.3 kg (155 lb) 10/27/2024 2:01 PM EDT Height 175.3 cm (5' 9 ) 10/27/2024 2:01 PM EDT Body Mass Index 22.89 10/27/2024 2:01 PM EDT Plan of Treatment Upcoming Encounters Date Type Department Care Team (Late st Contact Info) Description 12/02/2024 12:00 PM EDT Office Visit Adult Medicine [facility] [address] [place], [place] [phone] Harman Bacon MD [address] [place] [address] Health Maintenance Due Date Last Done Comments Hepatitis A Vaccines (1 of 2 - Risk 2-dose series) 1979 RSV Immunization Adult Patients (1 - Risk 60-74 years 1-dose series) 2020 Zoster Vaccines (2 of 2) 02/18/2021 12/24/2020 Colorectal Cancer Screening: Colonoscopy 05/06/2022 Social Influencers of Health Screening 05/06/2022 COVID-19 Vaccine ( season) 2024 Lung Cancer Screening (Low Dose CT) 09/19/2024 09/20/2023 Hypertension/CHF/CAD Annual BMP Blood Test 10/27/2024 10/28/2024, 08/10/2023, 05/02/2017 Depression Screening 03/27/2025 03/27/2024 Cholesterol Screening (Lipid Panel) 08/09/2028 10/28/2024, 08/10/2023 DTaP,Tdap,and Td Vaccines (4 - Td or Tdap) 10/27/2034 10/27/2024, 12/24/2020, 10/29/2009 HIV Screening Completed 09/27/2016 Hepatitis C Screening Completed 09/27/2016 Influenza Vaccine Completed 07/25/2024, , 03/06/2023, Additional history exists Pneumococcal Vaccine: 50+ Years Completed 10/27/2024, 07/27/2018, 07/03/2017 Pneumococcal Vaccine: Pediatrics (0 to 5 Years) and At-Risk Patients (6 to 64 Years) Completed 10/27/2024, 07/27/2018, 07/03/2017 HIB Vaccines Aged Out No longer eligi ble based on patient's age to complete this topic HPV Vaccines Aged Out No longer eligi ble based on patient's age to complete this topic Hepatitis B Vaccines Aged Out No long er eligible based on patient's age to complete this topic IPV Vaccines Aged Out No longer eligi ble based on patient's age to complete this topic MMR Vaccines Aged Out No longer eligi ble based on patient's age to complete this topic Meningococcal ACWY Vaccine Aged Out N o longer eligible based on patient's age to complete this topic Meningococcal B Vaccine Aged Out No l onger eligible based on patient's age to complete this topic RSV Immunization Patients Under 20 months Aged Out No longer eligible based on patient's age to complete this topic Varicella Vaccines Aged Out No longer eligible based on patient's age to complete this topic Procedures Procedure Name Priority Date/Time Associated Diagnosis Comments CBC WITH AUTO DIFFERENTIAL Routine 10/28/2024 10:57 AM EDT Hyperlipidemia, unspecified hyperlipidemia type Claudication of both lower extremities (CMS/HCC V24) Bilateral carotid artery stenosis CBC AND DIFFERENTIAL Routine 10/28/2024 10:57 AM EDT Hyperlipidemia, unspecified hyperlipidemia type Claudication of both lower extremities (CMS/HCC V24) Bilateral carotid artery stenosis COMPREHENSIVE METABOLIC PANEL Routine 10/28/2024 10:57 AM EDT Hyperlipidemia, unspecified hyperlipidemia type Claudication of both lower extremities (CMS/HCC V24) Bilateral carotid artery stenosis LIPID PANEL WITH REFLEX TO DIRECT LDL Routine 10/28/2024 10:57 AM EDT Hyperlipidemia, unspecified hyperlipidemia type Claudication of both lower extremities (CMS/HCC V24) Bilateral carotid artery stenosis EXTERNAL CT REPORT 09/23/2024 DEPRESSION SCREENING Routine 03/27/2024 CT LUNG SCREENING LOW DOSE Routine 09/20/2023 2:10 PM EDT Encounter for screening for malignant neoplasm of respiratory organs HEPATITIS C SCREENING Routine 09/27/2016 HIV SCREENING Routine 09/27/2016 from Last 3 Months or Most Recently Relevant to Health Maintenance Results * (ABNORMAL) Lipid panel with reflex to direct LDL (10/28/2024 10:57 AM EDT) Cholesterol 268(H) 0 - 200 mg/dL LAB CHEMISTRY METHOD 10/28/2024 4:01 PM EDT [facility] Triglycerides 236(H) 0 - 150 mg/dL LAB CHEMISTRY METHOD 10/28/2024 4:01 PM EDT [facility] HDL 61 >=40 mg/dL LAB CHEMISTRY METHOD 10/28[facility]2024 4:[facility] LDL Calculated 160(H) 0 - 100 mg/dL LAB CHEMISTRY METHOD 10/28/2024 4:01 PM [facility] VLDL Cholesterol Jude 47.2 mg/dL LAB CHEMISTRY METHOD 10/28/2024 4:01 PM EDT [facility] Non HDL Chol. (LDL+VLDL) 207(H) <145 mg/dL LAB CHEMISTRY METHOD 10/28/2024 4:01 PM [facility] Chol/HDL Ratio 4.4 0.0 - 4.4 LAB CHEMISTRY METHOD 10/28/2024 4:01 PM [facility] Blood Venous blood specimen / Unknown Venipuncture / Unknown 10/28/2024 10:57 AM EDT 10/28/2024 10:57 AM EDT us Harman Bacon MD LAB BLOOD ORDERABLES F inal Result [facility] [address] [place] [address], [place] [phone] * (ABNORMAL) CBC auto differential (10/28/2024 10:57 AM EDT) WBC 12.4(H) 4.8 - 10.8 K/mcL LAB HEMETOLOGY METHOD 10/28/2024 12:36 PM [facility] RBC 4.30(L) 4.50 - 5.50 M/mcL LAB HEMETOLOGY METHOD 10/28/2024 12:36 PM [facility] Hemoglobin 12.8(L) 13.5 - 17.5 g/dL LAB HEMETOLOGY METHOD 10/28/2024 12:36 PM [facility] Hematocrit 39.7(L) 42.0 - 54.0 % LAB HEMETOLOGY METHOD 10/28/2024 12:36 PM [facility] MCV 92.1 79.0 - 98.0 FL LAB HEMETOLOGY METHOD 10/28/2024 12:36 PM [facility] MCH 29.7 27.0 - 32.0 pcg LAB HEMETOLOGY METHOD 10/28/2024 12:36 PM EDT [facility] MCHC 32.2 32.0 - 37.0 g/dL LAB HEMETOLOGY METHOD 10/28/2024 12:36 PM EDT [facility] RDW 15.4(H) 11.0 - 15.0 % LAB HEMETOLOGY METHOD 10/28/2024 12:36 PM [facility] Platelets 584(H) 130 - 400 K/mcL LAB HEMETOLOGY METHOD 10/28/2024 12:36 PM EDT [facility] MPV 9.7 7.0 - 11.0 FL LAB HEMETOLOGY METHOD 10/28/2024 12:36 PM [facility] NRBC 0.0 <1.0 % LAB HEMETOLOGY METHOD 10/28/2024 12:36 PM [facility] NRBC Absolute 0.00 <0.10 K/mcL LAB HEMETOLOGY METHOD 10/28/2024 12:36 PM [facility] Neutrophils Relative 72.1 % LAB HEMETOLOGY METHOD 10/28/2024 12:36 PM [facility] Lymphocytes Relative 19.1 % LAB HEMETOLOGY METHOD 10/28/2024 12:36 PM [facility] Monocytes Relative 6.3 % LAB HEMETOLOGY METHOD 10/28/2024 12:36 PM [facility] Eosinophils Relative 1.4 % LAB HEMETOLOGY METHOD 10/28/2024 12:36 PM [facility] Basophils Relative 0.8 % LAB HEMETOLOGY METHOD 10/28/2024 12:36 PM [facility] Immature Granulocytes Relative 0.3 % LAB HEMETOLOGY METHOD 10/28/2024 12:36 PM [facility] Neutrophils Absolute 8.90(H) 1.50 - 7.00 K/mcL LAB HEMETOLOGY METHOD 10/28/2024 12:36 PM EDT [facility] Lymphocytes Absolute 2.36 1.00 - 5.00 K/mcL LAB HEMETOLOGY METHOD 10/28/2024 12:36 PM EDT [facility] Monocytes Absolute 0.78 0.20 - 1.00 K/mcL LAB HEMETOLOGY METHOD 10/28/2024 12:36 PM EDT [facility] Eosinophils Absolute 0.17 0.00 - 0.50 K/[facility] LAB HEMETOLOGY METHOD 10/28/2024 12:36 PM EDT [facility] Basophils Absolute 0.10 0.00 - 0.20 K/[facility] LAB HEMETOLOGY METHOD 10/28/2024 12:36 PM EDT [facility] Immature Granulocytes Absolute 0.04(H) 0.00 - 0.03 K/[facility] LAB HEMETOLOGY METHOD 10/28/2024 12:36 PM EDT [facility] Blood Venous blood specimen / Unknown Venipuncture / Unknown 10/28/2024 10:57 AM EDT 10/28/2024 10:57 AM EDT Harman Bacon MD LAB BLOOD ORDERABLES F inal Result [facility] [address] [place] [address], * (ABNORMAL) Comprehensive metabolic panel (10/28/2024 10:57 AM EDT) Sodium 137 133 - 145 mmol/L LAB CHEMISTRY METHOD 10/28/2024 4:01 PM EDT [facility] Potassium 4.5 3.5 - 5.5 mmol/L LAB CHEMISTRY METHOD 10/28/2024 4:01 PM [facility] Chloride 103 96 - 110 mmol/L LAB CHEMISTRY METHOD 10/28/2024 4:01 PM [facility] CO2 28 21 - 32 mmol/L LAB CHEMISTRY METHOD 10/28/2024 4:01 PM [facility] Anion Gap 6 3 - 11 LAB CHEMISTRY METHOD 10/28/2024 4:01 PM [facility] Glucose 150(H) 70 - 100 mg/dL LAB CHEMISTRY METHOD 10/28/2024 4:01 PM [facility] BUN 8 5 - 25 mg/dL LAB CHEMISTRY METHOD 10/28/2024 4:01 PM [facility] Creatinine 0.65(L) 0.70 - 1.30 mg/dL LAB CHEMISTRY METHOD 10/28/2024 4:01 PM [facility] eGFR 105 >=60 mL/min/1. 73m2 LAB CHEMISTRY METHOD 10/28/2024 4:01 PM [facility] Comment:Calculation based on the Chronic Kidney Disease Epidemiology Collaboration (CKD-EPI) equation refit without adjustment for race. BUN/Creatinine Ratio 12.3 LAB CHEMISTRY METHOD 10/28/2024 4:01 PM [facility] Calcium 9.5 8.5 - 10.5 mg/dL LAB CHEMISTRY METHOD 10/28/2024 4:01 [facility] AST (SGOT) 32 10 - 42 unit/L LAB CHEMISTRY METHOD 10/28/2024 4:01 [facility] ALT (SGPT) 30 10 - 60 unit/L LAB CHEMISTRY METHOD 10/28/2024 4:01 PM [facility] Alkaline Phosphatase 106 42 - 121 unit/L LAB CHEMISTRY METHOD 10/28/2024 4:01 PM [facility] Total Protein 6.7 6.0 - 8.0 g/dL LAB CHEMISTRY METHOD 10/28/2024 4:01 PM [facility] Albumin 3.2 3.2 - 5.0 g/dL LAB CHEMISTRY METHOD 10/28/2024 4:01 PM EDT [facility] Total Bilirubin 0.3 0.0 - 1.4 mg/dL LAB CHEMISTRY METHOD 10/28/2024 4:01 PM EDT [facility] Blood Venous blood specimen / Unknown Venipuncture / Unknown 10/28/2024 10:57 AM EDT 10/28/2024 10:57 AM EDT Harman Bacon MD LAB BLOOD ORDERABLES F inal Result [facility] [address] [place] [address], * External CT Report (09/23/2024) Anatomical Region Laterality Modality Computed Tomogra phy Provider [facility] IMG CT PROCEDURES Final Result * Depression Screening (03/27/2024) Depression Screening Abstracted Historical Provider HEALTH MAINTENANCE Final Result * CT LUNG SCREENING LOW DOSE (09/20/2023 2:10 PM EDT) Anatomical Region Laterality Modality Computed Tomogra phy 09/19/2023 2:21 PM EDT Narrative 09/20/2023 2:10 PM EDT [facility] Diagnostic Imaging Department [address] [place], [place] [id number] Patient: ??WALT HONG ?/Age/Sex: 1960 - 63 - M Unit#: ??[id number] ? Location/Status: ??SPDICATLS/REG CLI ? Mnemonic/Ordering Site: ??CTLUNGLD/SPCT Ordering Physician: ??JUAREZ AKINS MD CT Lung Screening Low Dose - 09/19/23 - 1425 Report Status:Signed PROCEDURE: CT chest lung cancer screening low dose examination. INDICATION: CT lung screening. TECHNIQUE: Chest CT without intravenous contrast was performed. ??Low-dose examination was performed. ??Reformatted images were evaluated. COMPARISON: ??None FINDINGS: NODULES: There are several very small nodules in the right and left chest.. Two small nodes are noted along the right minor fissure. ??The largest of these measures 7 mm. LUNGS: Minimal emphysematous changes. OTHER: Limited views of the upper abdomen appear normal. ??No significant mediastinal lymphadenopathy. ??Atherosclerotic disease of the aorta without aneurysm. ??Mild coronary atherosclerotic disease. ??Significant compression deformity of the L1 vertebral body that is age indeterminate only minimal retropulsion posteriorly. IMPRESSION: No significant nodules identified. Significant compression of the L1 vertebral body that is age indeterminate. Lung-RADS 2-S. ??Follow up examination is advised in one year. Dictating Physician: ??WILFREDO BALLARD MD Electronically Signed by: ??WILFREDO BALLARD MD Dic Date/Time: ??09/20/23 1355 Sign date/Time: ??09/20/23 1410 Procedure Note Wilfredo Ballard MD - 01/14/2024 [facility] Diagnostic Imaging Department [address] [place], [place] [id number] Patient: WALT HONG /Age/Sex: 1960 - 63 - M Unit#: [id number] Location/Status: SPDICATLS/REG CLI Mnemonic/Ordering Site: [facility] Ordering Physician: JUAREZ AKINS MD CT Lung Screening Low Dose - 09/19/23 - 1425 Report Status:Signed PROCEDURE: CT chest lung cancer screening low dose examination. INDICATION: CT lung screening. TECHNIQUE: Chest CT without intravenous contrast was performed.Low-dose examination was performed. Reformatted images were evaluated. COMPARISON: None FINDINGS: NODULES: There are several very small nodules in the right and leftchest.. Two small nodes are noted along the right minor fissure. The largest ofthese measures 7 mm. LUNGS: Minimal emphysematous changes. OTHER: Limited views of the upper abdomen appear normal. No significant mediastinal lymphadenopathy. Atherosclerotic disease of the aortawithout aneurysm. Mild coronary atherosclerotic disease. Significantcompression deformity of the L1 vertebral body that is age indeterminate onlyminimal retropulsion posteriorly. IMPRESSION: No significant nodules identified. Significant compression of the L1 vertebral body that is ageindeterminate. Lung-RADS 2-S. Follow up examination is advised in one year. Dictating Physician: WILFREDO BALLARD MD Electronically Signed by: WILFREDO BALLARD MD Dic Date/Time: 09/20/23 1357 Sign date/Time: 09/20/23 1410 Juarez Akins MD IMG CT PROCEDURES Final Result * HIV Screening (09/27/2016) Pathologist [facility] HIV Screening Abstracted Aries Provider HEALTH MAINTENANCE Final Result * Hepatitis C Screening (09/27/2016) Hepatitis C Screening Abstracted us Historical Provider HEALTH MAINTENANCE Final Result from Last 3 Months or Most Recently Relevant to Health Maintenance Insurance [facility] Care Teams Lead Furnace Operator Relationship Specialty Start Date End Date Harman Bacon MD [address] [place] [address] PCP - General 04/19/22
== END 2024-10-28 17:16 | disposition home or self-care (01) ==
PROVIDERS: Emergency Provider Emergency Medicine Emergency Medical Services
DX: R55 Syncope and collapse (principal); R00.0 Tachycardia, unspecified; I73.9 Peripheral vascular disease, unspecified; J44.9 Chronic obstructive pulmonary disease, unspecified; F17.210 Nicotine dependence, cigarettes, uncomplicated; Z79.899 Other long term (current) drug therapy
CPT/HCPCS: 36415; 71045; 80053; 82947; 83880; 84484; 85025; 93005; 96360; 99284; 99285

== ENCOUNTER → 2024-10-28 12:16 | Outpatient (BNV) | payer OTHER, SELFPAY | PROVIDERS: Emergency Provider Emergency Medicine Emergency Medical Services; Visit Provider Internal Medicine | DX: R00.0 Tachycardia, unspecified (principal) | CPT/HCPCS: 93010 ==

== ENCOUNTER → 2024-10-28 12:52 | Outpatient (BNV) | payer OTHER, SELFPAY | PROVIDERS: Emergency Provider Emergency Medicine Emergency Medical Services; Visit Provider Radiology Diagnostic Radiology | DX: J98.6 Disorders of diaphragm (principal) | CPT/HCPCS: 71045 ==

== ENCOUNTER 2024-12-27 11:23 | Emergency (ER) | payer OTHER, SELFPAY ==
--- NOTE | 2024-12-27 | ECG_ITS ---
Test Reason : CHEST PAIN Blood Pressure : */* mmHG Vent. Rate : 113 BPM Atrial Rate : 113 BPM P-R Int : 138 ms QRS Dur : 82 ms QT Int : 364 ms P-R-T Axes : 66 69 60 degrees QTcB Int : 499 ms Sinus tachycardia Otherwise normal ECG When compared with ECG of 28-Oct-2024 12:16, No significant change was found Referred By: Blanquita Min Electronically Signed By: SABINO PICHARDO MD
--- NOTE | ~2024-12-27 | CT_ITS ---
CLINICAL HISTORY: hx of anurysum, pain epigastric CT angiography of the chest, abdomen and pelvis with IV contrast. 3D/MIP post processing reconstructions were performed. COMPARISON: CT abdomen and pelvis dated 09/23/24 at 17:[address] angiogram chest dated 07/15/24 at 21:[address] angiogram chest dated 07/18/20 at 21:13 EST FINDINGS: No evidence of aortic dissection. Infrarenal abdominal aorta ectasia measuring up to 2.6 cm, stable. Heavy calcified and noncalcified plaque present along the abdominal aorta without significant stenosis. Visualized portions of the great arteries of the neck appear patent. Origins of the celiac trunk and SMA appear patent. Calcified plaque present along the origins of the renal arteries bilaterally without significant stenosis. Visualized portions of the NEGRA are patent. Calcified plaque present along the right common, external and internal iliac arteries without significant stenosis. Complete occlusion of the origin of the left common iliac artery with reconstitution more distally likely through retrograde flow, similar to prior imaging. Heavy atherosclerotic calcified noncalcified plaque present along the left external and internal iliac arteries without significant stenosis. Visualized thyroid is unremarkable. No supraclavicular or axillary lymphadenopathy. Ascending aorta and main pulmonary artery are normal in caliber. No pericardial effusion. Moderate hiatal hernia. Diffuse distal esophageal wall thickening. No mediastinal or hilar lymphadenopathy. No pleural effusion. No consolidation. Trachea and central airways are clear. Mild bronchial wall thickening. No bronchiectasis. Right upper lobe 7 mm pulmonary nodule (series 7, image 260), stable since 2020. Right upper lobe fissural 4 mm pulmonary nodule (series 7, image 238), stable since 2020. Left lower lobe fissural 4 mm pulmonary nodule (series 7, image 262), stable since 2020. No new or growing pulmonary nodule identified. No focal hepatic lesion. Normal gallbladder. Normal spleen. Normal pancreas. Normal adrenal glands. Symmetric renal enhancement. No hydronephrosis. Appendix is enlarged measuring up to 9 mm. No periappendiceal or pericecal inflammatory changes. This appears similar to prior imaging and is likely a chronic finding. No bowel obstruction. Colonic diverticulosis without evidence of diverticulitis. Suture material present along the mid sigmoid colon. No mesenteric or retroperitoneal lymphadenopathy. Normal appearance of the urinary bladder. No inguinal lymphadenopathy. Chronic compression fracture of the L1 vertebral body with approximately 75 percent height loss, stable. Mild superior endplate compression fracture of the T12 vertebral body with Schmorl's node, stable. No acute fracture or suspicious bone lesion. IMPRESSION: 1. No evidence of aortic dissection. 2. Chronic moderate dilatation of the appendix, unchanged from prior imaging. No surrounding inflammatory changes. Suspect this is a chronic finding. No evidence for superimposed acute appendicitis. 3. Mild bronchial wall thickening. This can be associated with an infectious or inflammatory bronchitis. 4. Diffuse esophageal wall thickening along the mid to distal esophagus can be associated with gastroesophageal reflux disease and esophagitis. Moderate hiatal hernia. 5. Chronic occlusion of the left common iliac artery with more distal reconstitution likely through retrograde flow, unchanged from prior imaging. Similar ectasia of the mid abdominal aorta measuring up to 2.6 cm. This document has been electronically signed by: Ramon Rasmussen MD on 12/27/2024 16:10:47
[2024-12-27 11:31] VITALS: BP 143/101; BP 97/55; PULSE 110; PULSE 120; RESP 19; TEMP 36.5; O2SAT 98; O2SAT 99; BMI 22.9
--- NOTE | 2024-12-27 11:57 | ED.CHESTPAIN ---
HPI - Chest Pain General Chief Complaint: Chest Pain Stated Complaint: CP Time Seen by Provider: 12/27/24 11:34 History of Present Illness HPI narrative: Patient is a 64-year-old male presents today with having epigastric pain. Patient has a history of EtOH. Has a family history of aneurysms patient's ongoing all of aneurysms in the past. He denies any history of smoking. No fever no chills. The pain is very sharp. Sudden in onset. No history of hypertension. No fever no chills. No history of hypercholesterolemia. No history of CT. patient from home. Had had previous CAT scans done at [facility]. Also had previous abdominal CT done at [facility] f Related Data Home Medications ?Medication ?Instructions ?Recorded ?Confirmed albuterol sulfate 90 mcg/actuation 2 puff inhalation QID PRN 09/23/24 09/23/24 aerosol inhaler (Ventolin HFA) Shortness Of Breath Or Wheezing cyclobenzaprine 5 mg tablet 5 mg PO TID PRN Muscle Spasm 09/23/24 09/23/24 hydroxyzine HCl 50 mg tablet 50 mg PO TID PRN anxiety 09/23/24 09/23/24 melatonin 3 mg tablet 3 mg PO BEDTIME 09/23/24 09/23/24 multivitamin with folic acid 400 1 tab PO DAILY 09/23/24 09/23/24 mcg tablet (Daily-Nik (with folic acid)) omeprazole 20 mg capsule,delayed 20 mg PO DAILY@0630 09/23/24 09/23/24 release trazodone 50 mg tablet 50 mg PO BEDTIME 09/23/24 09/23/24 Previous Rx's ?Medication ?Instructions ?Recorded folic acid 1 mg tablet 1 mg PO DAILY #90 tabs 07/27/24 thiamine mononitrate (vit B1) 100 100 mg PO DAILY #90 tabs 07/27/24 mg tablet duloxetine 30 mg capsule,delayed 30 mg PO DAILY #30 caps 09/26/24 release Allergies Allergy/AdvReac Type Severity Reaction Status Date / Time diclofenac (From Flector) Allergy Unknown Verified 12/27/24 11:35 Review of Systems Review of Systems: Positive chest pain epigastric. Yes all other systems are reviewed and are negative PMFSH Past Medical History Attestation statement: The following information was validated with the patient. Medical History Aorto-iliac disease Chronic appendicitis Abnormal abdominal CT scan Atherosclerosis of abdominal aorta Chronic lung disease Alcohol use disorder Depression Compression fracture of L1 lumbar vertebra Surgical History History of colon resection Social History Social History Household Members: Family Housing: House Do you presently have visiting nurse or other home services: No Alcohol intake: current Alcohol intake frequency: 3 or more drinks per day Alcohol type: hard liquor Comment: 1:1 sitter Patient Tobacco Use Status: Current everyday Tobacco user Tobacco use type: Cigarette Cigarette Packs Per Day: 1 Cigarettes Per Day: 20.0 Advance Directives: Yes Advance Directives on File: Yes Advance Directives Date on File: 09/29/24 service: No Physical Exam Exam: Exam: Appearance: Alert. Oriented X3. No acute distress. Eyes: Pupils equal, round and reactive to light. ENT: Pharynx normal. Neck: Normal inspection. Neck supple. No lymph nodes noted. No crepitus CVS: Normal heart rate and rhythm. Pulses normal. Normal S1 and S2 Respiratory: No respiratory distress. Breath sounds normal. No Wheezing. No rales Abdomen: Soft and nontender. No rigidity. No distention. good BS x4 Skin: Skin warm and dry. Normal skin color. Normal skin turgor. Extremities: No lower extremity edema. Neurovascular intact to all extremities. No Lacerations. No Rash Neuro: Oriented X 3. No motor deficit. No sensory deficit. Moving all extermities. No slurred speech Vital Signs: Vital Signs: Last Vital Signs Temp 98.4 F 12/27/24 14:17 Pulse 90 12/27/24 14:17 Resp 18 12/27/24 14:17 BP 126/69 12/27/24 14:17 Pulse Ox 100 12/27/24 14:17 O2 Del Method Room Air 12/27/24 14:17 BMI result Body Mass Index 22.9 Medications Administered Discontinued Medications Generic Name Dose Route Start Last Admin Trade Name Freq PRN Reason Stop Dose Admin Sodium Chloride 1,000 mls @ 999 mls/hr 12/27/24 12:00 12/27/24 13:50 Ns IV 12/27/24 13:00 Infused .Q1H1M NATALIA Infusion Sodium Chloride 1,000 mls @ 999 mls/hr 12/27/24 12:00 12/27/24 14:33 Ns IV 12/27/24 13:00 Infused .Q1H1M NATALIA Infusion Iohexol 100 ml 12/27/24 13:44 12/27/24 13:44 Iohexol 350 Mg/Ml 100 Ml Infus..Btl IV 12/27/24 13:45 100 ml ONCE ONE Administration Medical Decision Making Medical Decision Making [facility] Narrative: Patient presented with pain in the epigastrium radiating to the back. Has a long history of drinking. Has a family history of aneurysm and multiple deaths in the family from aneurysms. A CT angio chest abdomen pelvis was done. It was grossly negative for any acute evidence of aneurysms or dissection. Patient well-appearing. No evidence of aortic dissection. 2. Chronic moderate dilatation of the appendix, unchanged from prior imaging. No surrounding inflammatory changes. Suspect this is a chronic finding. No evidence for superimposed acute appendicitis. 3. Mild bronchial wall thickening. This can be associated with an infectious or inflammatory bronchitis. 4. Diffuse esophageal wall thickening along the mid to distal esophagus can be associated with gastroesophageal reflux disease and esophagitis. Moderate hiatal hernia. 5. Chronic occlusion of the left common iliac artery with more distal reconstitution likely through retrograde flow, unchanged from prior imaging. Similar ectasia of the mid abdominal aorta measuring up to 2.6 cm. Two sets of cardiac enzymes are negative. His EKG showed a sinus rhythm heart rate is 110 OH QRS QTC normal no acute ST segment elevation noted. Pain atypical for ACS. Negative two sets of enzymes. Unlikely secondary to coronary artery disease. Heart score is less than 3. Will discharge patient home. Lipase is 45 there is no evidence for pancreatitis. Patient's lactate was slightly elevated most likely secondary to liver disease. Patient's alcohol is 14. Patient still has been drinking. In stable condition. Differential Diagnosis Differential Diagnoses: The differential diagnosis associated with the presentation includes Dissection, pancreatitis, gastritis, ACS Admission/Observation Consideration of admission/observation: Escalation of care including admission/observation considered Lab Data [facility] Lab Attestation statement: I reviewed the patient's lab results. 12/27/24 12:01 12/27/24 12:01 Labs: Lab Results 08/02/25 08/02/25 08/02/25 Range/Units 12:01 13:14 13:15 WBC 13.9 H (4.8-10.8) X10*3/uL RBC 4.65 (4.60-5.80) X10*6/uL Hgb 13.9 L (14.0-18.0) g/dl Hct 40.9 L (42.0-52.0) % MCV 88.0 (80.0-98.0) fL MCH 29.9 (27.0-33.0) pg MCHC 34.0 (31.0-36.0) g/dl RDW 15.2 (11.0-16.0) % Plt Count 516 H (160-400) X10*3/uL MPV 9.6 (9.4-12.4) fL Immature Gran % (Auto) 0.4 (0.0-0.4) % Neut % (Auto) 72.5 (45-73) % Lymph % (Auto) 19.9 L (20-40) % Ogle % (Auto) 6.4 (2-11) % Eos % (Auto) 0.1 (0-4) % Baso % (Auto) 0.7 (0-2) % Lymph # (Auto) 2.8 (1.2-4.9) X10*3/uL Ogle # (Auto) 0.9 (0.1-1.2) X10*3/uL Eos # (Auto) 0.0 (0.0-0.4) X10*3/uL Baso # (Auto) 0.1 (0.0-0.2) X10*3/uL Abs Immat Gran (auto) 0.05 H (0.00-0.03) X10*3/uL Absolute Neuts (auto) 10.1 H (2.0-8.3) x10*3/uL Absolute Nucleated RBC 0.000 (0.0-0.012) X10*3/uL Nucleated RBC % (auto) 0.0 (0.0-0.2) /100WBC PT 10.5 L (10.9-12.4) SEC INR 0.9 (0.9-1.1) Sodium 141 (135-145) mmol/L Potassium 4.0 (3.3-5.1) mmol/L Chloride 95 L (96-108) mmol/L Carbon Dioxide 29 (22-29) mmol/L Anion Gap 21 H (12-20) BUN 8 L (9-16) mg/dL Creatinine 0.79 (0.5-1.4) mg/dL Estim Creat Clear Calc 93.9 Estimated GFR > 60 Random Glucose 131 H (60-115) mg/dL Lactic Acid 2.2 H* (0.5-2.0) mmol/L Calcium 9.6 (8.4-10.2) mg/dL Total Bilirubin 0.4 (0.0-1.0) mg/dL Direct Bilirubin 0.1 (0.0-0.5) mg/dL AST 29 (5-37) U/L ALT 19 (0-40) U/L Alkaline Phosphatase 115 (39-117) U/L Troponin I High Sens < 2.7 < 2.7 (<3.5-35.0) ng/L Total Protein 7.5 (6.5-8.0) g/dL Albumin 4.4 (3.5-5.0) g/dL Lipase 45 (8-78) U/L Ethyl Alcohol 14 mg/dL 12/27/24 Range/Units 14:24 WBC (4.8-10.8) X10*3/uL RBC (4.60-5.80) X10*6/uL Hgb (14.0-18.0) g/dl Hct (42.0-52.0) % MCV (80.0-98.0) fL MCH (27.0-33.0) pg MCHC (31.0-36.0) g/dl RDW (11.0-16.0) % Plt Count (160-400) X10*3/uL MPV (9.4-12.4) fL Immature Gran % (Auto) (0.0-0.4) % Neut % (Auto) (45-73) % Lymph % (Auto) (20-40) % Ogle % (Auto) (2-11) % Eos % (Auto) (0-4) % Baso % (Auto) (0-2) % Lymph # (Auto) (1.2-4.9) X10*3/uL Ogle # (Auto) (0.1-1.2) X10*3/uL Eos # (Auto) (0.0-0.4) X10*3/uL Baso # (Auto) (0.0-0.2) X10*3/uL Abs Immat Gran (auto) (0.00-0.03) X10*3/uL Absolute Neuts (auto) (2.0-8.3) x10*3/uL Absolute Nucleated RBC (0.0-0.012) X10*3/uL Nucleated RBC % (auto) (0.0-0.2) /100WBC PT (10.9-12.4) SEC INR (0.9-1.1) Sodium (135-145) mmol/L Potassium (3.3-5.1) mmol/L Chloride (96-108) mmol/L Carbon Dioxide (22-29) mmol/L Anion Gap (12-20) BUN (9-16) mg/dL Creatinine (0.5-1.4) mg/dL Estim Creat Clear Calc Estimated GFR Random Glucose (60-115) mg/dL Lactic Acid 2.4 H* (0.5-2.0) mmol/L Calcium (8.4-10.2) mg/dL Total Bilirubin (0.0-1.0) mg/dL Direct Bilirubin (0.0-0.5) mg/dL AST (5-37) U/L ALT (0-40) U/L Alkaline Phosphatase (39-117) U/L Troponin I High Sens (<3.5-35.0) ng/L Total Protein (6.5-8.0) g/dL Albumin (3.5-5.0) g/dL Lipase (8-78) U/L Ethyl Alcohol mg/dL Independent Interpretation I performed an independent interpretation of an: EKG (Sinus pattern heart rate is 110 OH QRS QTC within normal limits there is no acute ST segment elevation noted.) and CT Scan (No evidence of dissection) Radiology Impression Discussion of test interpretation with radiology: I have reviewed the radiologist's reading. External Record Review External record reviewed: Outpatient record Chronic Conditions History of ETOH Social Determinants Patient?s care significantly limited by Social Determinants of Health including: Alcoholism and drug addiction in family Discharge Plan Discharge Clinical Impression: Chest pain Patient Disposition: Home, Self-Care Instructions: Chest Pain (ED) Prescriptions: No Action trazodone 50 mg tablet 50 mg PO BEDTIME hydroxyzine HCl 50 mg tablet 50 mg PO TID PRN (Reason: anxiety) melatonin 3 mg tablet 3 mg PO BEDTIME omeprazole 20 mg capsule,delayed release(DR/EC) 20 mg PO DAILY@0630 albuterol sulfate [Ventolin HFA] 90 mcg/actuation HFA aerosol inhaler 2 puff INHALATION QID PRN (Reason: Shortness Of Breath Or Wheezing) cyclobenzaprine 5 mg tablet 5 mg PO TID PRN (Reason: Muscle Spasm) multivitamin with folic acid [Daily-Nik (with folic acid)] 400 mcg tablet 1 tab PO DAILY duloxetine 30 mg Capsule,Delayed Release(Dr/Ec) 30 mg PO DAILY Qty: 30 0RF folic acid 1 mg Tablet 1 mg PO DAILY Qty: 90 0RF thiamine mononitrate (vit B1) 100 mg Tablet 100 mg PO DAILY Qty: 90 0RF Referrals: Craig Garcia MD [Physician, Cardiology] - 12/31/24 Print Language: Khmer
[2024-12-27 12:16] LABS: MANUAL DIFF FLAG NO
[2024-12-27 12:18] LABS: Hematocrit 40.9 % (42.0-52.0); Hemoglobin 13.9 g/dl (14.0-18.0); Imm Gran Abs Auto 0.05 X10*3/uL (0.00-0.03); Imm Gran Pct Auto 0.4 % (0.0-0.4); Lymphocytes Absolute Auto 2.8 X10*3/uL (1.2-4.9); Mean Corpuscular HGB Conc 34.0 g/dl (31.0-36.0); Mean Corpuscular Hemoglobin 29.9 pg (27.0-33.0); Mean Corpuscular Volume 88.0 fL (80.0-98.0); NRBC Abs Auto 0.000 X10*3/uL (0.0-0.012); NRBC Pct Auto 0.0 /100WBC (0.0-0.2); Platelet Count 516 X10*3/uL (160-400); Red Blood Count 4.65 X10*6/uL (4.60-5.80); White Blood Count 13.9 X10*3/uL (4.8-10.8)
[2024-12-27 12:23] LABS: INTERNATIONAL NORM RATIO 0.9 (0.9-1.1); Prothrombin Time 10.5 SEC (10.9-12.4)
[2024-12-27 12:34] LABS: Alanine Aminotransferase 19 U/L (0-40); Albumin Level 4.4 g/dL (3.5-5.0); Alkaline Phosphatase 115 U/L (39-117); Anion Gap 21 (12-20); Aspartate Amino Transferase 29 U/L (5-37); Blood Urea Nitrogen 8 mg/dL (9-16); Calcium 9.6 mg/dL (8.4-10.2); Carbon Dioxide 29 mmol/L (22-29); Chloride 95 mmol/L (96-108); Creatinine Clr Calc Pharmacy 93.9; Estimated Glomerular Filt Rate > 60; Lipase 45 U/L (8-78); Potassium 4.0 mmol/L (3.3-5.1); Sodium 141 mmol/L (135-145); Total Protein 7.5 g/dL (6.5-8.0)
[2024-12-27 12:44] LABS: Troponin-I High Sensitivity < 2.7 ng/L (<3.5-35.0)
[2024-12-27] MEDS: iohexoL 350 MG/ML 100 ML INFUS..BTL IV (13:44)
[2024-12-27 13:55] LABS: Troponin-I High Sensitivity < 2.7 ng/L (<3.5-35.0)
[2024-12-27 14:17] VITALS: BP 126/69; PULSE 90; RESP 18; TEMP 36.9; O2SAT 100
[2024-12-27 15:19] LABS: Reflex Lactate? Lactic Acid Added
[2024-12-27 15:39] VITALS: BP 124/63; PULSE 102; RESP 18; O2SAT 96
[2024-12-27 15:43] VITALS: BP 124/63; PULSE 102; RESP 18; TEMP 36.6; O2SAT 96
[2024-12-27 16:01] LABS: ~Lactic Acid-LAB USE ONLY 1.2 mmol/L (0.5-2.0)
[2024-12-27 16:27] LABS: Reflex Lactate? Lactic Acid Added
== END 2024-12-27 15:48 | disposition home or self-care (01) ==
PROVIDERS: Emergency Provider Emergency Medicine Emergency Medical Services
DX: R07.9 Chest pain, unspecified (principal); R10.13 Epigastric pain; I77.89 Other specified disorders of arteries and arterioles; K36 Other appendicitis; I70.0 Atherosclerosis of aorta; J98.4 Other disorders of lung; F10.90 Alcohol use, unspecified, uncomplicated; F32.A Depression, unspecified; M48.56XD Collapsed vertebra, not elsewhere classified, lumbar region, subsequent encounter for fracture with routine healing; F17.210 Nicotine dependence, cigarettes, uncomplicated
CPT/HCPCS: 36415; 71275; 74174; 80048; 80076; 80307; 83605; 83690; 84484; 85025; 85610; 93005; 96360; 96361; 99285; Q9967

== ENCOUNTER → 2024-12-27 11:39 | Outpatient (BNV) | payer OTHER, SELFPAY | PROVIDERS: Emergency Provider Emergency Medicine Emergency Medical Services; Visit Provider Internal Medicine Cardiovascular Disease | DX: R00.0 Tachycardia, unspecified (principal) | CPT/HCPCS: 93010 ==

== ENCOUNTER → 2024-12-27 11:55 | Outpatient (BNV) | payer OTHER, SELFPAY | PROVIDERS: Emergency Provider Emergency Medicine Emergency Medical Services; Visit Provider Radiology Diagnostic Radiology | DX: K57.30 Diverticulosis of large intestine without perforation or abscess without bleeding (principal); I77.811 Abdominal aortic ectasia | CPT/HCPCS: 71275; 74174 ==

== ENCOUNTER → 2025-05-16 16:37 | Outpatient (BNV) | payer MEDICARE, SELFPAY | PROVIDERS: Emergency Provider Emergency Medicine Emergency Medical Services; Visit Provider Radiology Diagnostic Radiology | DX: R07.9 Chest pain, unspecified (principal) | CPT/HCPCS: 70450; 71045 ==

== ENCOUNTER → 2025-05-16 16:37 | Outpatient (BNV) | payer MEDICARE, SELFPAY | PROVIDERS: Emergency Provider Emergency Medicine Emergency Medical Services; Visit Provider Internal Medicine Cardiovascular Disease | DX: R94.31 Abnormal electrocardiogram [ECG] [EKG] (principal); Z04.3 Encounter for examination and observation following other accident | CPT/HCPCS: 93010 ==

== ENCOUNTER 2025-05-18 12:55 | Outpatient (BNV) | payer MEDICARE, SELFPAY | END 2025-05-19 14:59 | PROVIDERS: Admitting Provider Clinical Nurse Specialist Psychiatric/Mental Health, Adult; Emergency Provider Emergency Medicine Emergency Medical Services; Visit Provider Radiology Diagnostic Radiology | DX: E80.7 Disorder of bilirubin metabolism, unspecified (principal) | CPT/HCPCS: 76705 ==

== ENCOUNTER 2025-05-18 12:55 | Outpatient (BNV) | payer MEDICARE, SELFPAY | END 2025-05-19 15:11 | PROVIDERS: Admitting Provider Clinical Nurse Specialist Psychiatric/Mental Health, Adult; Emergency Provider Emergency Medicine Emergency Medical Services; Visit Provider Internal Medicine Cardiovascular Disease | DX: R00.0 Tachycardia, unspecified (principal) | CPT/HCPCS: 93010 ==

== ENCOUNTER → 2025-05-18 12:55 | Outpatient (BNV) | payer MEDICARE, SELFPAY | PROVIDERS: Admitting Provider Clinical Nurse Specialist Psychiatric/Mental Health, Adult; Emergency Provider Emergency Medicine Emergency Medical Services; Visit Provider Nurse Practitioner Family | DX: E78.1 Pure hyperglyceridemia (principal) | CPT/HCPCS: 99221 ==

== ENCOUNTER → 2025-05-18 12:55 | Outpatient (BNV) | payer MEDICARE, SELFPAY | PROVIDERS: Admitting Provider Clinical Nurse Specialist Psychiatric/Mental Health, Adult; Emergency Provider Emergency Medicine Emergency Medical Services; Visit Provider Psychiatry & Neurology Psychiatry | DX: F32.9 Major depressive disorder, single episode, unspecified (principal); E78.1 Pure hyperglyceridemia; R45.851 Suicidal ideations; F10.929 Alcohol use, unspecified with intoxication, unspecified | CPT/HCPCS: 90792; 99232 ==